=== PATIENT | female | born 1940 | race Caucasian/White ===

== ENCOUNTER 2016-03-23 07:10 | Day surgery (SDC) | payer MEDICARE, BC ==
[2016-03-04 16:15] VITALS: BMI 25.7
[~2016-03-23 07:10] MED LIST: LACTATED RINGERS 1,000 ML IV SCH
[2016-03-23 07:35] VITALS: TEMP 97.1
[2016-03-23] MEDS ORDERED: PROPOFOL 10 MG/ML 20 ML VIAL IV ONE (07:45)
--- NOTE | 2016-03-23 08:37 | P.PCN ---
Date of Procedure: 03/23/16 Procedure(s) Performed: Procedure: 1. Esophagogastroduodenoscopy and biopsy. 2. Total colonoscopy. Preoperative diagnosis: History of GI bleeding. Postoperative diagnosis: 1. Very small sliding hiatal hernia with no obvious esophagitis or complicated reflux disease. 2. Mild antral gastritis. 3. Small stellate shaped fibrotic area in the duodenal bulb, possibly a site of prior ulcer disease. 4. Sigmoid diverticulosis with no evidence of acute diverticulitis, strictures, polyps or cancer. Preparation: HalfLytely prep. Sedation: Was provided by anesthesia. Brief clinical history: The patient is a 75-year-old female who is scheduled for this evaluation because of history of GI bleeding. The patient has had heart valve replacement and is maintained on anticoagulation. This evaluation is to assess for a GI source of bleeding. Procedure: With the patient on her left lateral decubitus position and after informed consent and adequate sedation, I passed the Olympus-GIF 160 video upper endoscope through the cricopharyngeus down the esophagus. GE junction was around 37 cm from the incisors and there was a very small, less than 1 cm, sliding hiatal hernia. The esophagus did not show any erosions, ulcers, strictures or Olivo's esophagus. The endoscope was then passed into the stomach which was insufflated with air and inspected in detail including the retroflex view in the cardia. There was mild mottling and erythema in the antrum consistent with mild antral gastritis but no ulcers, erosions or bleeding. Pyloric channel did not show any ulcers. Duodenal bulb, post bulbar area and descending duodenum appeared within normal limits with the only finding of a small stellate-shaped fibrotic area in the duodenal bulb that could represent a prior site of an ulcer. There was no evidence of bleeding and all areas examined. Multiple biopsies obtained from the duodenum, antrum and esophagus then the endoscope was withdrawn and I then proceeded with the colonoscopy. Perianal area did not show any fissures or fistulas. There were no masses felt on digital rectal examination. The Olympus CFQ 160L video colonoscope was then inserted in the rectum in the usual fashion and advanced to the cecum. There were several diverticular orifices seen scattered in the sigmoid but I saw no evidence of acute diverticulitis or strictures. No polyps or tumors were seen. The mucosa appeared healthy. I retroflexed endoscope in the rectum before the endoscope was withdrawn. The patient tolerated the procedure well. Plan: The patient was reassured. Will await biopsy results. Further plans can be made based on her course and biopsy results. Consideration can be given for a capsule endoscopy if she continues to manifest evidence of bleeding in the GI tract and anemia. I would be happy to see in the future as needed. She will follow-up with you as planned.
[2016-03-23 08:39] VITALS: RESP 16
[2016-03-23 08:47] VITALS: BP 99/57; PULSE 56
== END 2016-03-23 09:07 | disposition home or self-care (01) ==
LOC: ORWHC2ENDO 07:10
DX: K29.50 Unspecified chronic gastritis without bleeding (principal); K31.89 Other diseases of stomach and duodenum; K44.9 Diaphragmatic hernia without obstruction or gangrene; K57.30 Diverticulosis of large intestine without perforation or abscess without bleeding; Z95.2 Presence of prosthetic heart valve; Z79.01 Long term (current) use of anticoagulants; I10 Essential (primary) hypertension; E78.5 Hyperlipidemia, unspecified; Z79.02 Long term (current) use of antithrombotics/antiplatelets; Z79.899 Other long term (current) drug therapy; Z88.0 Allergy status to penicillin; Z88.2 Allergy status to sulfonamides
CPT/HCPCS: 88305; 88342; 45378; 43239; J2704; 99153

== ENCOUNTER → 2016-03-29 | Outpatient (CLI) | payer MEDICARE, BC ==
[2016-03-29 10:34] LABS: Calcium 9.4 mg/dL (8.4-10.2); Potassium 4.8 mmol/L (3.5-5.1); Total Bilirubin 0.5 mg/dL (0.2-1.3); Total Protein 7.6 g/dL (6.3-8.2)
== END | disposition home or self-care (01) ==
LOC: LABWHC1 08:48
PROVIDERS: ATTEND Internal Medicine Interventional Cardiology
DX: E78.2 Mixed hyperlipidemia (principal)
CPT/HCPCS: 36415; 80053; 80061

== ENCOUNTER 2016-04-30 08:24 | Inpatient (IN) | payer MEDICARE, BC ==
[2016-04-30 08:39] LABS: Glucose,Whole Blood 112 mg/dL (75-99)
--- NOTE | 2016-04-30 08:40 | CT ---
EXAMINATION TYPE: CT brain wo con DATE OF EXAM: 04/30/2016 8:35 AM COMPARISON: NONE HISTORY: 75-year-old female having TIA symptoms. Aphasia. TECHNIQUE: Examination was done in axial plane without intravenous contrast. Coronal and sagittal r econstructions performed. CT DLP: 1036 mGycm Automated exposure control for dose reduction was used. FINDINGS: There is no evidence of acute intracranial hemorrhage, acute ischemic changes, mass, mass-effect, or extra-axial fluid collection. There is no effacement of cerebral sulci or basal subarachnoid cister ns. There is no hydrocephalus. There is no midline shift. Antonio-white matter distinction is preserv ed. There is mild generalized supratentorial volume loss with moderate confluent white matter hypodensiti es in both cerebral hemispheres. Paranasal sinuses and mastoid air cells well pneumatized. Leftward nasal septal deviation. Orbits and globes are intact. IMPRESSION: No acute intracranial abnormality seen. Mild atrophy and moderate confluent changes of chronic small vessel ischemic disease. If symptoms persist, follow-up CT or MRI.
[2016-04-30 08:51] LABS: Basophils % (A) 0 %; CH 27.4; CHCM 33.1; Eosinophils # (A) 0.1 k/uL (0-0.7); Eosinophils % (A) 1 %; HCT 40.7 % (34.0-46.0); HDW 2.55; HGB 13.4 gm/dL (11.4-16.0); Luc % (Auto) 4; Lymphocytes # (A) 1.4 k/uL (1.0-4.8); Lymphocytes % (A) 12 %; MCH 27.3 pg (25.0-35.0); MCV 82.9 fL (80.0-100.0); Mean Platelet Volume 7.2; Monocytes # (A) 0.6 k/uL (0-1.0); Monocytes % (A) 6 %; Neutrophils % (A) 77 %; RBC 4.91 m/uL (3.80-5.40); RDW 14.3 % (11.5-15.5); WBC 11.6 k/uL (3.8-10.6); WBC (Perox) 11.23
[2016-04-30 09:01] LABS: Calcium 10.1 mg/dL (8.4-10.2); INR 1.5 (<1.1); Partial Thromboplastin Time 28.3 sec (22.0-30.0); Potassium 4.6 mmol/L (3.5-5.1); Prothrombin Time 15.1 sec (9.0-12.0); Total Bilirubin 0.5 mg/dL (0.2-1.3); Total Protein 8.2 g/dL (6.3-8.2)
[2016-04-30] MEDS ORDERED: SODIUM CHLORIDE 0.9% 1,000 ML IV STA (09:09)
[2016-04-30 09:16] LABS: Creatine Kinase 25 U/L (30-135)
[2016-04-30 09:29] LABS: Creatine Kinase MB 0.4 ng/mL (0.0-2.4); Troponin I <0.012 ng/mL (0.000-0.034)
--- NOTE | 2016-04-30 09:37 | XR ---
EXAMINATION TYPE: XR chest 2V DATE OF EXAM: 04/30/2016 9:25 AM HISTORY: altered mental status. REFERENCE: Previous study dated 09/25/2014. FINDINGS: There has been a midline sternotomy. Lung volumes are prominent. Heart is mildly enlarged. The lungs are clear. Pleural spaces are clear. There are stable wedge compression fractures in the mid dorsal spine. IMPRESSION: 1. COPD. 2. MILD CARDIOMEGALY.
[2016-04-30] MEDS ORDERED: ACETAMINOPHEN IV (For NPO) 1,000 MG in EMPTY BAG 1 BAG IVPB STA (09:42)
--- NOTE | 2016-04-30 10:49 | ED ---
Neuro HPI - General Chief Complaint: Neuro Symptoms/Deficit Stated Complaint: TIA symptoms Time Seen by Provider: 04/30/16 08:24 Source: patient, family, EMS, RN notes reviewed Mode of arrival: EMS Limitations: no limitations - History of Present Illness Is the patient presenting with stroke symptoms?: Yes Last Known Well Date: 04/30/16 Last Known Well Time: 06:30 Initial Comments: Is a 75-year-old female was brought in by EMS for developing stroke like symptoms this morning. Apparently she got up around 6:30 AM and was perfectly fine but shortly thereafter she started developing some slurred speech some confusion. She also had a steady gait. She also complains of a headache. She also complains of feeling cold. She no fevers or sweats no cough or phlegm production no dysuria no prior history of strokes or neurovascular disorders. - Related Data Home Medications: Home Medications Medication Instructions Recorded Confirmed Atenolol [Atenolol] 100 mg PO BID 02/04/16 04/30/16 Losartan Potassium [Losartan 100 mg PO DAILY@1400 02/04/16 04/30/16 Potassium] Rosuvastatin Calcium [Crestor] 40 mg PO HS 02/04/16 04/30/16 Warfarin Sodium [Warfarin Sodium] 2.5 mg PO TUTHSA 02/04/16 04/30/16 Acetaminophen-Codeine 300-30mg 0.5 tab PO Q6H PRN 04/30/16 04/30/16 [Tylenol #3] Hydrochlorothiazide [Hydrodiuril] 50 mg PO TID 04/30/16 04/30/16 Methocarbamol [Robaxin] 500 mg PO TID PRN 04/30/16 04/30/16 Sodium Chloride Tab 1 gm PO DAILY 04/30/16 04/30/16 Warfarin [Coumadin] 5 mg PO SUMOWEFR 04/30/16 04/30/16 traMADol HCL [Ultram] 50 mg PO Q6HR PRN 04/30/16 04/30/16 Allergies/Adverse Reactions: Allergies Allergy/AdvReac Type Severity Reaction Status Date / Time amoxicillin Allergy Rash/Hives Verified 04/30/16 08:32 Sulfa (Sulfonamide Allergy Rash/Hives Verified 04/30/16 08:32 Antibiotics) Review of Systems ROS Statement: Those systems with pertinent positive or pertinent negative responses have been documented in the HPI. ROS Other: All systems not noted in ROS Statement are negative. General Exam - General Exam Comments Initial Comments: This is a well-developed well-nourished awake alert but somewhat confused female Limitations: no limitations General appearance: alert, anxious Head exam: Present: atraumatic, normocephalic, normal inspection Eye exam: Present: normal appearance, PERRL, EOMI. Absent: scleral icterus, conjunctival injection, periorbital swelling ENT exam: Present: normal exam, mucous membranes moist Neck exam: Present: normal inspection. Absent: tenderness, meningismus, lymphadenopathy Respiratory exam: Present: normal lung sounds bilaterally. Absent: respiratory distress, wheezes, rales, rhonchi, stridor Cardiovascular Exam: Present: regular rate, normal rhythm, normal heart sounds. Absent: systolic murmur, diastolic murmur, rubs, gallop, clicks GI/Abdominal exam: Present: soft, normal bowel sounds. Absent: distended, tenderness, guarding, rebound, rigid Extremities exam: Present: normal inspection, full ROM, normal capillary refill. Absent: tenderness, pedal edema, joint swelling, calf tenderness Back exam: Present: normal inspection Neurological exam: Present: alert, altered, CN II-XII intact Psychiatric exam: Present: normal affect, normal mood Skin exam: Present: warm, dry, intact, normal color. Absent: rash Stroke MDM - Lab Data Result diagrams: 04/30/16 08:37 04/30/16 08:37 Lab Results 04/30/16 04/30/16 04/30/16 Range/Units 08:35 08:37 08:37 WBC 11.6 H (3.8-10.6) k/uL RBC 4.91 (3.80-5.40) m/uL Hgb 13.4 (11.4-16.0) gm/dL Hct 40.7 (34.0-46.0) % MCV 82.9 (80.0-100.0) fL MCH 27.3 (25.0-35.0) pg MCHC 33.0 (31.0-37.0) g/dL RDW 14.3 (11.5-15.5) % Plt Count 392 (150-450) k/uL Neutrophils % 77 % Lymphocytes % 12 % Monocytes % 6 % Eosinophils % 1 % Basophils % 0 % Neutrophils # 9.0 H (1.3-7.7) k/uL Lymphocytes # 1.4 (1.0-4.8) k/uL Monocytes # 0.6 (0-1.0) k/uL Eosinophils # 0.1 (0-0.7) k/uL Basophils # 0.0 (0-0.2) k/uL PT (9.0-12.0) sec INR (<1.1) APTT (22.0-30.0) sec Sodium 133 L (137-145) mmol/L Potassium 4.6 (3.5-5.1) mmol/L Chloride 94 L (98-107) mmol/L Carbon Dioxide 27 (22-30) mmol/L Anion Gap 12 mmol/L BUN 26 H (7-17) mg/dL Creatinine 1.23 H (0.52-1.04) mg/dL Est GFR (MDRD) Af Amer 51 (>60 ml/min/1.73 sqM) Est GFR (MDRD) Non-Af 42 (>60 ml/min/1.73 sqM) Glucose 118 H (74-99) mg/dL POC Glucose (mg/dL) 112 H (75-99) mg/dL POC Glu [employer] Dealer ID Joseluis Lord Calcium 10.1 (8.4-10.2) mg/dL Total Bilirubin 0.5 (0.2-1.3) mg/dL AST 33 (14-36) U/L ALT 38 (9-52) U/L Alkaline Phosphatase 118 (38-126) U/L Total Creatine Kinase (30-135) U/L CK-MB (CK-2) (0.0-2.4) ng/mL CK-MB (CK-2) Rel Index Troponin I (0.000-0.034) ng/mL Total Protein 8.2 (6.3-8.2) g/dL Albumin 4.5 (3.5-5.0) g/dL 04/30/16 04/30/16 Range/Units 08:37 08:37 WBC (3.8-10.6) k/uL RBC (3.80-5.40) m/uL Hgb (11.4-16.0) gm/dL Hct (34.0-46.0) % MCV (80.0-100.0) fL MCH (25.0-35.0) pg MCHC (31.0-37.0) g/dL RDW (11.5-15.5) % Plt Count (150-450) k/uL Neutrophils % % Lymphocytes % % Monocytes % % Eosinophils % % Basophils % % Neutrophils # (1.3-7.7) k/uL Lymphocytes # (1.0-4.8) k/uL Monocytes # (0-1.0) k/uL Eosinophils # (0-0.7) k/uL Basophils # (0-0.2) k/uL PT 15.1 H (9.0-12.0) sec INR 1.5 (<1.1) APTT 28.3 (22.0-30.0) sec Sodium (137-145) mmol/L Potassium (3.5-5.1) mmol/L Chloride (98-107) mmol/L Carbon Dioxide (22-30) mmol/L Anion Gap mmol/L BUN (7-17) mg/dL Creatinine (0.52-1.04) mg/dL Est GFR (MDRD) Af Amer (>60 ml/min/1.73 sqM) Est GFR (MDRD) Non-Af (>60 ml/min/1.73 sqM) Glucose (74-99) mg/dL POC Glucose (mg/dL) (75-99) mg/dL POC Glu Faro Dealer ID Calcium (8.4-10.2) mg/dL Total Bilirubin (0.2-1.3) mg/dL AST (14-36) U/L ALT (9-52) U/L Alkaline Phosphatase (38-126) U/L Total Creatine Kinase 25 L (30-135) U/L CK-MB (CK-2) 0.4 (0.0-2.4) ng/mL CK-MB (CK-2) Rel Index 1.6 Troponin I <0.012 (0.000-0.034) ng/mL Total Protein (6.3-8.2) g/dL Albumin (3.5-5.0) g/dL - NIH Stroke Scale 1a. Level of Consciousness: (0) alert 1b. LOC Questions: (1) answers 1 question correctly 1c. LOC Commands: (0) performs tasks correctly 2. Best Gaze: (0) normal 3. Visual: (0) no visual loss 4. Facial Palsy: (0) normal symmetrical movement 5a. Motor Arm Left: (0) no drift 5b. Motor Arm Right: (0) no drift 6a. Motor Leg Left: (0) no drift 6b. Motor Leg Right: (0) no drift 7. Limb Ataxia: (0) absent 8. Sensory: (0) normal 9. Best Language: (1) mild/moderate aphasia 10. Dysarthria: (0) normal 11. Extinction/Inattention: (0) no abnormality - Thrombolytic Inclusion/Exclusion Thrombolytic Inclusion Criteria: Ischemic Stroke Onset< 3h Thrombolytic Contraindications: Rapidly Improving s/s - Medical Decision Making Imaging study shows no acute findings. I did discuss findings with the patient and her . Patient be admitted I did discuss case with Dr. Camp neurology and cardiology will be consulted. Echocardiogram and carotid duplex study will be ordered - EKG Data -: EKG Interpreted by Me EKG shows normal: sinus rhythm (Sinus bradycardia rate of 58 W[place] interval 184 QRS duration 82 daily since QTC of 460/451 minimal voltage criteria for LVH no acute ST-T wave changes.) Past Medical History Past Medical History: Coronary Artery Disease (CAD), Hypertension, Osteoarthritis (OA), Vascular Disorder Additional Past Medical History / Comment(s): Hx black stools x 2 days. Lt knee pain. Reported lt hip problem. History of Any Multi-Drug Resistant Organisms: None Reported Past Surgical History: Cardiac Valve Replacement, Coronary Bypass/CABG, Hysterectomy Additional Past Surgical History / Comment(s): Mick carotid surgery. [facility] [facility] valve replacement. Past Anesthesia/Blood Transfusion Reactions: No Reported Reaction Past Psychological History: No Psychological Hx Reported Smoking Status: Former smoker Past Alcohol Use History: Occasional Additional Past Alcohol Use History / Comment(s): Smoked 1 pack/wk for 2 yrs; quit in . Past Drug Use History: None Reported - Past Family History Sister(s) Family Medical History: Cancer Course Vital Signs 04/30/16 04/30/16 04/30/16 08:25 08:40 08:55 Temperature 97.2 F L Pulse Rate 61 64 62 Respiratory 18 17 17 Rate Blood Pressure 161/76 160/113 168/72 O2 Sat by Pulse 100 99 Oximetry 04/30/16 04/30/16 04/30/16 09:32 10:32 11:48 Temperature 97.8 F 97.8 F Pulse Rate 60 61 62 Respiratory 17 17 17 Rate Blood Pressure 170/70 152/66 152/66 O2 Sat by Pulse 100 100 Oximetry - Reevaluation(s) Reevaluation #1: 04/30/16 10:51 I did evaluate patient on her return from CAT scan was no seeming improvement initially. Reevaluation #2: 04/30/16 11:16 Patient's he did demonstrates some improvement I did discuss findings with her and her family patient will be admitted for evaluation. Patient was seen by Dr. Singer I had the stroke robot patient is currently not a candidate for intervention. Critical Care Time Critical Care Time: Yes Critical Care Time: Critical care time includes 43 minutes total this includes monitoring the EMS run prior to hospital contact discussed with paramedics discussion with the patient with respect to history physical lab and x-rays scheduled the patient's reevaluation the patient on several occasions. A code stroke was activated. Admission orders and documentation the above as well as discussion with the admitting physician. Disposition Clinical Impression: Cerebrovascular accident, Transient cerebral ischemia, Renal insufficiency Disposition: ADMITTED IP TO THIS HOSP Condition: Serious
--- NOTE | 2016-04-30 14:27 | P.HPIM ---
History of Present Illness H&P Date: 04/30/16 Chief Complaint: CVA/TIA, expression aphasia, change mental status, recent history of severe 75-year-old female one of Dr. Alphonse Dupree patient with past medical history of CAD, uterine cancer, stage II chronic kidney disease, lower back pain, Ostarthritis, lumbar disc disease, aortic valve replacement on a chronic anticoagulation who was apparently hospitalized at [facility] recently with severe anemia black stool along with severe hyponatremia was diagnosed as an SIADH. Patient was seen nephrology was on fluid restriction along with seen as an inpatient for few days taking diuretics away and patient was cleared not to have any further gastrointestinal bleed patient was discharged from the hospital about 10 days ago was doing well until this morning when found by the to be more confused and had significant change mental status with more expression aphasia not remembering simple command. EMS was called to the scene and end up bringing patient to the emergency department around 6:30 in the morning for diagnosis of CVA versus TIA , the stroke team was activated and testing consistent with CT of the brain along with her physical which improved significantly patient had a clear and decided no need to use thrombolytic. Patient will have neuro exam every 3 hours and will be admitted to the hospital will be seen neurology and cardiology. Review of Systems Constitutional: Reports anorexia, Reports chronic pain, Reports fatigue, Reports lethargy, Reports malaise, Reports poor appetite, Reports sweats, Reports weakness, Reports weight loss, Denies as per HPI, Denies chills, Denies chronic headaches, Denies daytime sleepiness, Denies fever, Denies night sweats , Denies weight gain Eyes: bilateral as per HPI Ears: bilateral: decreased hearing Ears, nose, mouth and throat: Reports ant. neck pain, Reports nasal congestion, Reports nasal discharge, Reports sinus pain, Reports sinus pressure, Denies as per HPI, Denies bleeding gums, Denies dental pain, Denies dysphagia, Denies epistaxis, Denies headache, Denies hoarseness, Denies mouth pain, Denies neck fullness/pressure, Denies neck lump, Denies nose pain, Denies odynophagia, Denies post-nasal drip, Denies swelling in mouth, Denies swelling in throat, Denies sore throat, Denies vertigo, Denies voice changes Breasts: bilateral: as per HPI Cardiovascular: Reports chest pain, Reports dyspnea on exertion, Reports edema, Reports irregular heart beat, Reports lightheadedness, Reports paroxysmal nocturnal dyspnea, Reports shortness of breath, Denies as per HPI, Denies claudication, Denies decreased exercise tolerance, Denies high blood pressure, Denies leg edema, Denies orthopnea, Denies palpitations, Denies phlebitis, Denies rapid heart beat, Denies syncope Respiratory: Reports congestion, Reports cough, Reports dyspnea, Reports pain, Denies as per HPI, Denies cough with sputum, Denies excessive sputum, Denies hemoptysis, Denies home oxygen, Denies pain on inspiration, Denies pleurisy, Denies respiratory infections, Denies sleep apnea, Denies snoring, Denies wheezing Gastrointestinal: Reports abdominal pain, Reports bloating, Reports early satiety, Reports indigestion, Reports nausea, Denies as per HPI, Denies belching , Denies BRBPR, Denies change in bowel habits, Denies coffee ground emesis, Denies constipation, Denies diarrhea, Denies dyspepsia, Denies excessive gas, Denies heartburn, Denies hematemesis, Denies hematochezia, Denies jaundice, Denies lactose intolerance, Denies loss of appetite, Denies melena, Denies vomiting Genitourinary: Reports nocturia, Denies as per HPI, Denies abnormal vaginal bleeding, Denies decreased libido, Denies difficulty conceiving, Denies difficulty voiding, Denies dysmenorrhea, Denies dyspareunia, Denies dysuria, Denies flank pain, Denies genital sores, Denies hematuria, Denies hot flashes, Denies incomplete emptying, Denies kidney stones, Denies menorrhagia, Denies mixed incontinence, Denies pelvic pain, Denies post void dribbling, Denies , Denies prolapse symptoms, Denies stress incontinence, Denies urge incontinence, Denies urgency, Denies urinary frequency, Denies vaginal discharge , Denies vaginal dryness, Denies vaginal itching, Denies vaginal odor Musculoskeletal: Reports frequent falls, Reports low back pain, Reports morning stiffness, Reports myalgias, Reports neck pain, Denies as per HPI, Denies arm numbness/tingling, Denies atrophy, Denies fractures, Denies gait dysfunction, Denies hot joints, Denies leg numbness/tingling, Denies limitation of motion, Denies loss of height, Denies muscle cramps, Denies muscle weakness, Denies neck stiffness, Denies prior amputations, Denies redness of joints, Denies shooting arm pain, Denies shooting leg pain Musculoskeletal: bilateral: ankle pain, ankle stiffness Integumentary: Reports dryness, Reports pruritus, Reports rash, Denies as per HPI, Denies acne, Denies boils, Denies brittle nails, Denies change in hair/ nails, Denies color changes, Denies darkening of skin, Denies depigmentation, Denies foot/leg ulcers, Denies growths, Denies hirsutism, Denies lesions, Denies onychomycosis, Denies sores, Denies striae, Denies unusual bruising, Denies wounds Neurological: Reports ataxia, Reports burning pain, Reports confusion, Reports numbness, Reports paresthesias, Reports syncope, Reports tic, Reports tingling, Denies as per HPI, Denies aphasia, Denies balance difficulties, Denies change in mentation, Denies change in smell/taste, Denies change in speech, Denies convulsions, Denies double vision, Denies gait dysfunction, Denies head injury, Denies headaches, Denies hearing difficulties, Denies lack of coordination, Denies loss of vision, Denies memory loss, Denies migraines, Denies motor disturbance, Denies paralysis, Denies seizures, Denies sensory deficit, Denies spasticity, Denies transient paralysis, Denies tremors, Denies vertigo, Denies weakness, Denies visual changes Psychiatric: Reports anhedonia, Reports anxiety, Reports depression, Reports memory loss, Reports sadness/tearfulness, Denies as per HPI, Denies anxiety attacks, Denies change in appetite, Denies change in libido, Denies change in sleep habits, Denies confusion, Denies difficulty concentrating, Denies disorientation, Denies hallucinations, Denies hopelessness, Denies hypersomnia, Denies insomnia, Denies irritability, Denies mood swings, Denies paranoia, Denies sleep disturbances, Denies suicidal ideation Endocrine: Reports fatigue, Reports heat intolerance, Reports nocturia, Reports polydipsia, Reports polyphagia, Reports polyuria, Denies as per HPI, Denies cold intolerance, Denies deepening of the voice, Denies excessive sweating, Denies excessive thirst, Denies flushing, Denies high blood sugars, Denies increase in ring/shoe/hat size, Denies low blood sugars, Denies palpitations, Denies proptosis, Denies recent glucocorticoid use, Denies thyroid mass, Denies weight change Hematologic/Lymphatic: Reports easy bleeding, Reports easy bruising, Denies as per HPI, Denies lymphadenopathy, Denies lymphedema, Denies thrombophilia Allergic/Immunologic: Reports allergic rhinitis, Denies as per HPI, Denies anaphylaxis, Denies angioedema, Denies gluten intolerance, Denies persistent infections, Denies seasonal allergies, Denies urticaria, Denies wheezing Past Medical History Past Medical History: Coronary Artery Disease (CAD), Hyperlipidemia, Hypertension, Osteoarthritis (OA), Vascular Disorder Additional Past Medical History / Comment(s): Pt recently hospitalized at [facility] on 04/18/16 with CKD stage II, hyponatremia. Other HX: Recent black stools x 2 days-had EGD/colonoscopy showing gastritis and diverticulosis, hemorroids, polyps, Lt hip pain (needs total hip replacement), L knee meniscus tear, tripped and fell 3 weeks ago-struck face/R eye, has "hairline fracture lower back", protein calorie malnutrition History of Any Multi-Drug Resistant Organisms: None Reported Past Surgical History: Cardiac Valve Replacement, Hysterectomy Additional Past Surgical History / Comment(s): Mick carotid surgery, [address] [facility] aortic valve replacement, 03/23/16 EGD and colonoscopy, past colonoscopy with polypectomy. Past Anesthesia/Blood Transfusion Reactions: No Reported Reaction Past Psychological History: Anxiety Additional Psychological History / Comment(s): Pt resides with her spouse. She is using a walker to ambulate. She also has a cane. She has not been driving lately, her spouse does. Smoking Status: Former smoker Past Alcohol Use History: Occasional Additional Past Alcohol Use History / Comment(s): Smoked 1 pack/wk for 2 yrs; quit 01/26/80. Pt states she will have an occasional glass of wine. Past Drug Use History: None Reported - Past Family History Sister(s) Family Medical History: Cancer Father Family Medical History: Diabetes Mellitus Additional Family Medical History / Comment(s): Father had tuberculosis. Mother Family Medical History: Dementia Medications and Allergies Home Medications Medication Instructions Recorded Confirmed Type Atenolol [Atenolol] 100 mg PO BID 02/04/16 04/30/16 History Losartan Potassium [Losartan 100 mg PO DAILY@1400 02/04/16 04/30/16 History Potassium] Rosuvastatin Calcium [Crestor] 40 mg PO HS 02/04/16 04/30/16 History Warfarin Sodium [Warfarin Sodium] 2.5 mg PO TUTHSA 02/04/16 04/30/16 History Acetaminophen-Codeine 300-30mg 0.5 tab PO Q6H PRN 04/30/16 04/30/16 History [Tylenol #3] Hydrochlorothiazide [Hydrodiuril] 50 mg PO TID 04/30/16 04/30/16 History Methocarbamol [Robaxin] 500 mg PO TID PRN 04/30/16 04/30/16 History Sodium Chloride Tab 1 gm PO DAILY 04/30/16 04/30/16 History Warfarin [Coumadin] 5 mg PO SUMOWEFR 04/30/16 04/30/16 History traMADol HCL [Ultram] 50 mg PO Q6HR PRN 04/30/16 04/30/16 History Allergies Allergy/AdvReac Type Severity Reaction Status Date / Time amoxicillin Allergy Rash/Hives Verified 04/30/16 08:32 Sulfa (Sulfonamide Allergy Rash/Hives Verified 04/30/16 08:32 Antibiotics) Physical Exam Vitals: Vital Signs Temp Pulse Resp BP Pulse Ox 04/30/16 13:40 98.4 F 61 17 133/58 98 - Constitutional General appearance: no average body habitus, cooperative, no disheveled, no mild distress, no morbidly obese, no acute distress, no obese, no severe distress, no thin - EENT Eyes: no abnormal pupil, no anicteric sclerae, no disc margins sharp, no edentulous, no EOMI, no PERRLA, no fundus normal, no photophobia, no dentition normal, no poor dentition, no ptosis, no scleral icterus, normal appearance ENT: no hard of hearing, no hearing grossly normal, no NA/AT, no normal oropharynx, no other, pharyngeal erythema, no thrush, no tonsillar exudates, no tonsillar swelling Ears: bilateral: normal - Neck Neck: no lymphadenopathy, normal ROM, no other, no rigidity, no stridor, no thyromegaly Carotids: bilateral: upstroke normal, upstroke delayed Thyroid: bilateral: normal size - Respiratory Respiratory: bilateral: CTA, diminished - Cardiovascular Rhythm: irregularly irregular Heart sounds: normal: S1, S2 Abnormal Heart Sounds: systolic murmur, S3 Gallop - Gastrointestinal General gastrointestinal: no absent bowel sounds, decreased bowel sounds, no distended, hepatomegaly, no hyperactive bowel sounds, no normal bowel sounds, no organomegaly, no rigid, no scaphoid, soft, no splenomegaly, no tenderness, no umbilical hernia, no ventral hernia - Integumentary Integumentary: no calor, no cellulitis, cyanotic, no decreased turgor, no flushed, no jaundiced, normal, no normal turgor, pale, rash, no ulcer - Neurologic Neurologic: CNII-XII intact - Musculoskeletal Musculoskeletal: gait normal, generalized weakness, strength equal bilaterally, no right sided weakness, no left sided weakness - Psychiatric Psychiatric: A&O x's 3, appropriate affect Results CBC & Chem 7: 04/30/16 08:37 04/30/16 08:37 Thrombosis Risk Factor Assmnt - DVT/VTE Prophylaxis DVT/VTE Prophylaxis: Pharmacologic Prophylaxis ordered, Mechanical Prophylaxis ordered - Choose All That Apply Any of the Below Risk Factors Present?: Yes Each Factor Represents 1 point: Obesity (BMI >25) Other Risk Factors: Yes Each Risk Factor Represents 2 Points: Age 61-74 years Other congenital or acquired thrombophilia - If yes, enter type in comment: No Thrombosis Risk Factor Assessment Total Risk Factor Score: 3 Thrombosis Risk Factor Assessment Level: Moderate Risk Assessment and Plan Plan: 1 acute CVA/TIA: Symptoms have and reverse so far and this is more TIA and CVA. Stroke team was activated, patient would have an echo, carotid ultrasound, neuro exam every 4 hours and Neuro consult also we'll consult cardiology for now and if need further management with DAVID might be recommended specially with patient's coagulation still subtherapeutic. 2 change mental status: Most likely TIA in origin at this point there is no secondary cause of this point no sign of UTI and sodium is back to normal from the hyponatremia she had a few weeks ago. 3 history of valvular heart disease with aortic valve replacement: Patient is still on anticoagulation still on small dose of beta charanjit. 4 hypertension: Well controlled on atenolol 100 mg twice a day and losartan 100 mg daily still on Hydrea diarrhea which to my knowledge was held from last time. 5 hyperlipidemia: On Crestor 40 mg daily. 6 recent history of GI bleed: Much better so far continue patient on omeprazole 20 mg daily. 7 recent history of SIADH with severe hyponatremia most likely was caused by diuretics has been off patient is doing well. 8 CK D: Stage II has been stable so far continue to watch kidney function on regular basis. 9 chronic lower back pain and severe sciatica patient has been on Robaxin and small dose of hydrocodone. Also patient known to have T12 compression fracture has been seen for pain management. Was on tramadol and Robaxin. 10 GI prophylaxis: Patient will be on omeprazole. 11 DVT prophylaxis: Patient has been on anticoagulation with warfarin PT/INR be done and daily basis. 12 CODE STATUS: Full code. Expectation from this admission: Patient be in the hospital for more than 2 nights.
[2016-04-30] MEDS: SODIUM CHLORIDE 0.9% 1,000 ML IV SCH ×2 (16:17→22:00)
--- NOTE | 2016-04-30 17:15 | US ---
EXAMINATION TYPE: US carotid duplex BILAT DATE OF EXAM: 04/30/2016 3:49 PM COMPARISON: No previous CLINICAL HISTORY: 75-year-old female, evaluate for Stenosis. TECHNIQUE: Duplex carotid ultrasound. Indirect Doppler criteria is utilized. FINDINGS: Antonio scale images show atherosclerotic change at both bifurcations with prominent plaque bilaterally. EXAM MEASUREMENTS: RIGHT: Peak Systolic Velocity (PSV) cm/sec ----- Right CCA: 72.1 ----- Right ICA: 122.4 ----- Right ECA: 133.2 ICA/CCA ratio: 1.7 RIGHT: End Diastole cm/sec ----- Right CCA: 9.5 ----- Right ICA: 28.0 ----- Right ECA: 18.7 LEFT: Peak Systolic Velocity (PSV) cm/sec ----- Left CCA: 138.5 ----- Left ICA: 181.0 ----- Left ECA: 220.0 ICA/CCA ratio: 1.3 LEFT: End Diastole cm/sec ----- Left CCA: 13.4 ----- Left ICA: 37.5 ----- Left ECA: 26.2 VERTEBRALS (direction of flow): Right Vertebral: Antegrade Left Vertebral: Retrograde TECHNOLOGIST NOTES: Bilateral intimal thickening, large amount of plaque throughout bilateral caroti ds, elevated velocities: right mid ECA, left distal CCA, left distal ICA, left bulb and left mid ECA, left vertebral shows retrograde flow. IMPRESSION: 1. Elevated velocities within the left common and left internal carotid arteries could reflect modera te proximal stenoses. 2. Retrograde flow detected in the left vertebral artery. Correlate for any symptoms of subclavian st eal. Criteria for Assigning % of Stenosis / Diameter reduction (Estimation based on the indirect measurements of the internal carotid artery velocities (ICA PSV). 1. Normal (no stenosis)=ICA PSV < 125 cm/s: ratio < 2.0: ICA EDV<40 cm/s. 2. Less than 50% stenosis=ICA PSV < 125 cm/s: ratio < 2.0: ICA EDV<40 cm/s. 3. 50 to 69% stenosis=ICA PSV of 125 to 230 cm/s: ration 2.0 ? 4.0: ICA EDV 40-100 cm/s. 4. Greater than 70% stenosis to near occlusion= ICA PSV > 230 cm/s: ratio > 4.0: ICA EDV > 100 cm/s. 5. Near occlusion= ICA PSV velocities may be low or undetectable: variable ratio and ICA EDV. 6. Total occlusion=unable to detect flow.
--- NOTE | 2016-04-30 17:50 | P.CNNES ---
History of Present Illness Consult date: 04/30/16 History of Present Illness: The patient 75-year-old right-handed white female who presents to the hospital with episode of dizziness. Is obtained from the patient and her was at is at her bedside. She apparently was recently hospitalized with syncopal episode at [facility] and was found to have some hyponatremia. She reports that she woke up this morning not feeling right. Her reports that she came to the living room and sat on the recliner. She went back to bed and soon afterward told him that she did not feel well. There was no slurred speech a aphasia d patient has a cardiac valve replacement and is on Coumadin. Her pro time on admission was 15.1 with an INR of 1.5 ouble vision or focal weakness. He describes a sense of lightheadedness. No loss of consciousness or loss of awareness. Does have a history of SIADH area and she was admitted to this hospital with stroke versus TIA. Can of the brain no acute abnormality. It did show Mild atrophy and chronic small vessel disease Review of Systems Constitutional: Denies chills, Denies fever Eyes: denies blurred vision, denies pain Ears, nose, mouth and throat: Denies headache, Denies sore throat Cardiovascular: Denies chest pain, Denies shortness of breath Respiratory: Denies cough Gastrointestinal: Denies abdominal pain, Denies diarrhea, Denies nausea, Denies vomiting Genitourinary: Denies dysuria, Denies hematuria Musculoskeletal: Denies myalgias Integumentary: Reports as per HPI Neurological: Reports as per HPI Psychiatric: Reports as per HPI Endocrine: Denies fatigue, Denies weight change Past Medical History Past Medical History: Coronary Artery Disease (CAD), Hyperlipidemia, Hypertension, Osteoarthritis (OA), Vascular Disorder Additional Past Medical History / Comment(s): Pt recently hospitalized at [facility] on 04/18/16 with CKD stage II, hyponatremia. Other HX: Recent black stools x 2 days-had EGD/colonoscopy showing gastritis and diverticulosis, hemorroids, polyps, Lt hip pain (needs total hip replacement), L knee meniscus tear, tripped and fell 3 weeks ago-struck face/R eye, has "hairline fracture lower back", protein calorie malnutrition History of Any Multi-Drug Resistant Organisms: None Reported Past Surgical History: Cardiac Valve Replacement, Hysterectomy Additional Past Surgical History / Comment(s): Mick carotid surgery, [address] [facility] aortic valve replacement, 03/23/16 EGD and colonoscopy, past colonoscopy with polypectomy. Past Anesthesia/Blood Transfusion Reactions: No Reported Reaction Past Psychological History: Anxiety Additional Psychological History / Comment(s): Pt resides with her spouse. She is using a walker to ambulate. She also has a cane. She has not been driving lately, her spouse does. Smoking Status: Former smoker Past Alcohol Use History: Occasional Additional Past Alcohol Use History / Comment(s): Smoked 1 pack/wk for 2 yrs; quit 01/26/80. Pt states she will have an occasional glass of wine. Past Drug Use History: None Reported - Past Family History Sister(s) Family Medical History: Cancer Father Family Medical History: Diabetes Mellitus Additional Family Medical History / Comment(s): Father had tuberculosis. Mother Family Medical History: Dementia Medications and Allergies Home Medications Medication Instructions Recorded Confirmed Type Atenolol [Atenolol] 100 mg PO BID 02/04/16 04/30/16 History Losartan Potassium [Losartan 100 mg PO DAILY@1400 02/04/16 04/30/16 History Potassium] Rosuvastatin Calcium [Crestor] 40 mg PO HS 02/04/16 04/30/16 History Warfarin Sodium [Warfarin Sodium] 2.5 mg PO TUTHSA 02/04/16 04/30/16 History Acetaminophen-Codeine 300-30mg 0.5 tab PO Q6H PRN 04/30/16 04/30/16 History [Tylenol #3] Hydrochlorothiazide [Hydrodiuril] 50 mg PO TID 04/30/16 04/30/16 History Methocarbamol [Robaxin] 500 mg PO TID PRN 04/30/16 04/30/16 History Sodium Chloride Tab 1 gm PO DAILY 04/30/16 04/30/16 History Warfarin [Coumadin] 5 mg PO SUMOWEFR 04/30/16 04/30/16 History traMADol HCL [Ultram] 50 mg PO Q6HR PRN 04/30/16 04/30/16 History Allergies Allergy/AdvReac Type Severity Reaction Status Date / Time amoxicillin Allergy Rash/Hives Verified 04/30/16 08:32 Sulfa (Sulfonamide Allergy Rash/Hives Verified 04/30/16 08:32 Antibiotics) Physical Examination - Vital Signs Vital Signs: Vital Signs Temp Pulse Resp BP Pulse Ox 04/30/16 13:40 98.4 F 61 17 133/58 98 - Constitutional General appearance: average body habitus - EENT EENT: PERRL, hearing intact, vision intact - Respiratory Respiratory: lungs clear - Cardiovascular Cardiovascular: regular rate, normal S1, normal S2 - Integumentary Integumentary: normal - Neurologic Mental status she was awake alert and oriented there was no a aphasia or dysarthria Cranial nerve examination: PERRL, EOMI, VFF, face symmetric, tongue midline Sensorimotor examination: intact Detailed motor examination: grossly full strength in all extremities Reflexes: 2+: knee - Psychiatric Psychiatric: mood/affect appropriate Results - Laboratory Findings CBC and BMP: 04/30/16 08:37 04/30/16 08:37 Assessment and Plan (1) Transient cerebral ischemia Status: Acute Code(s): G45.9 - TRANSIENT CEREBRAL ISCHEMIC ATTACK, UNSPECIFIED (2) Altered mental status Status: Acute Code(s): R41.82 - ALTERED MENTAL STATUS, UNSPECIFIED Plan: The patient is a 75-year-old woman with history of multiple medical problems including heart disease renal failure arthritis anemia and hyponatremia who presents to the hospital with dizziness. Her neurologic examination fails to demonstrate at this time any focal deficit. Her sodium was 133. CT of the brain did not show any acute process. Patient may have had a TIA area and she has undergone a carotid ultrasound which showed high velocities in the left carotid. She does see Dr. Tim as an outpatient and recommend consultation. Recommendation: Check echocardiogram, monitor sodium, consult vascular surgery , consult cardiac
[2016-04-30] MEDS ORDERED: WARFARIN 5 MG TAB PO SCH (18:00)
[2016-04-30] MEDS: Acetaminophen-Codeine 300-30mg TAB PO PRN ×2 (18:09→23:23)
[2016-04-30] MEDS: traMADol 50 MG TAB PO PRN (20:11)
[2016-04-30 20:57] LABS: Glucose,Whole Blood 138 mg/dL (75-99)
[2016-04-30] MEDS: ATENOLOL 50 MG TAB PO SCH (21:59)
[2016-04-30] MEDS: ATORVASTATIN 80 MG TAB PO SCH (22:00)
[2016-05-01 02:38] LABS: Glucose,Whole Blood 96 mg/dL (75-99)
[2016-05-01] MEDS: traMADol 50 MG TAB PO PRN ×2 (06:36→21:33)
[2016-05-01] MEDS: PANTOPRAZOLE 40 MG TABLET PO SCH (06:36)
[2016-05-01 07:01] LABS: INR 1.7 (<1.1); Prothrombin Time 16.3 sec (9.0-12.0)
[2016-05-01 07:02] LABS: ALT 37 U/L (9-52); AST 30 U/L (14-36); Alkaline Phosphatase 102 U/L (38-126); Anion Gap 8 mmol/L; Blood Urea Nitrogen 18 mg/dL (7-17); Carbon Dioxide 23 mmol/L (22-30); Chloride 104 mmol/L (98-107); Glucose 110 mg/dL (74-99); Non-African American GFR(MDRD) >60 (>60 ml/min/1.73 sqM); Potassium 4.5 mmol/L (3.5-5.1); Sodium 135 mmol/L (137-145); Total Bilirubin 0.5 mg/dL (0.2-1.3); Total Protein 6.9 g/dL (6.3-8.2)
[2016-05-01 07:09] LABS: Aty Lym Flag Slight; CHCM 31.7; HCT 36.9 % (34.0-46.0); HDW 2.51; HGB 11.4 gm/dL (11.4-16.0); MCH 26.2 pg (25.0-35.0); MCHC 30.7 g/dL (31.0-37.0); MCV 85.3 fL (80.0-100.0); Mean Platelet Volume 7.2; RBC 4.33 m/uL (3.80-5.40); RDW 14.4 % (11.5-15.5); WBC 10.3 k/uL (3.8-10.6); WBC (Perox) 10.57
[2016-05-01 07:12] LABS: Glucose,Whole Blood 100 mg/dL (75-99)
[2016-05-01 08:20] LABS: Add Differential Manual Differential
[2016-05-01 08:21] LABS: Nucleated Red Blood Cells 0 /100 WBC (0-0); Total Cells Counted 100
[2016-05-01 08:22] LABS: Crenated RBC Present; Ovalocytes Present
[2016-05-01] MEDS: SODIUM CHLORIDE 0.9% 1,000 ML IV SCH (08:44)
[2016-05-01] MEDS: SODIUM CHLORIDE TAB 1 GM TAB PO SCH ×2 (08:44→11:27)
[2016-05-01] MEDS: LOSARTAN 50 MG TAB PO SCH ×2 (08:44→14:53)
[2016-05-01] MEDS: ATENOLOL 50 MG TAB PO SCH ×3 (08:44→21:33)
--- NOTE | 2016-05-01 08:50 | P.CRDCN ---
History of Present Illness Consult date: 05/01/16 Reason for Consult (text): TIA/CVA Chief complaint: Dizziness, not feeling well History of present illness: This is a 75-year-old female with a past medical history of coronary artery disease, uterine cancer, stage II chronic kidney disease, lower back pain , osteoarthritis, aortic valve replacement on Coumadin, history of carotid artery disease and follows with Dr. Tim. Recent history of hospitalization with anemia following episodes of black stool. Also has a history of severe hyponatremia and was diagnosed with SIADH. Following a physician for GI bleed patient underwent EGD and colonoscopy that showed antral gastritis, possible site of prior ulcer disease as well as sigmoid diverticulosis without evidence of acute diverticulitis. According to the patient, she has been taking her Coumadin since discharge. Presented to the hospital for further submission with complaints of not feeling well, possible dizziness. Patient is very vague as to what symptoms she was having, cannot really recall the events leading to admission. CT of the brain showed no acute intracranial abnormality with mild atrophy and moderate confluent changes of chronic small vessel ischemic disease. Chest x-ray showed COPD and mild cardiomegaly. Carotid duplex showed elevated velocities at the left common and left internal carotid arteries and retrograde flow was detected in the left vertebral artery. Patient denies complaints of difficulties with speech, unilateral weakness, visual changes, difficulty swallowing or facial droop. Denies complaints of weakness however does have history of left leg problems including pain for which she is following with Dr. Cano. Upon examination this morning, patient is resting comfortably in bed. She denies any further complaints of not feeling well or dizziness. She is neurologically intact. Past Medical History Past Medical History: Coronary Artery Disease (CAD), Hyperlipidemia, Hypertension, Osteoarthritis (OA), Vascular Disorder Additional Past Medical History / Comment(s): Pt recently hospitalized at [facility] on 04/18/16 with CKD stage II, hyponatremia. Other HX: Recent black stools x 2 days-had EGD/colonoscopy showing gastritis and diverticulosis, hemorroids, polyps, Lt hip pain (needs total hip replacement), L knee meniscus tear, tripped and fell 3 weeks ago-struck face/R eye, has "hairline fracture lower back", protein calorie malnutrition History of Any Multi-Drug Resistant Organisms: None Reported Past Surgical History: Cardiac Valve Replacement, Hysterectomy Additional Past Surgical History / Comment(s): Mick carotid surgery, [address] [facility] aortic valve replacement, 03/23/16 EGD and colonoscopy, past colonoscopy with polypectomy. Past Anesthesia/Blood Transfusion Reactions: No Reported Reaction Past Psychological History: Anxiety Additional Psychological History / Comment(s): Pt resides with her spouse. She is using a walker to ambulate. She also has a cane. She has not been driving lately, her spouse does. Smoking Status: Former smoker Past Alcohol Use History: Occasional Additional Past Alcohol Use History / Comment(s): Smoked 1 pack/wk for 2 yrs; quit 01/26/80. Pt states she will have an occasional glass of wine. Past Drug Use History: None Reported - Past Family History Sister(s) Family Medical History: Cancer Father Family Medical History: Diabetes Mellitus Additional Family Medical History / Comment(s): Father had tuberculosis. Mother Family Medical History: Dementia Medications and Allergies Home Medications Medication Instructions Recorded Confirmed Type Atenolol [Atenolol] 100 mg PO BID 02/04/16 04/30/16 History Losartan Potassium [Losartan 100 mg PO DAILY@1400 02/04/16 04/30/16 History Potassium] Rosuvastatin Calcium [Crestor] 40 mg PO HS 02/04/16 04/30/16 History Warfarin Sodium [Warfarin Sodium] 2.5 mg PO TUTHSA 02/04/16 04/30/16 History Acetaminophen-Codeine 300-30mg 0.5 tab PO Q6H PRN 04/30/16 04/30/16 History [Tylenol #3] Hydrochlorothiazide [Hydrodiuril] 50 mg PO TID 04/30/16 04/30/16 History Methocarbamol [Robaxin] 500 mg PO TID PRN 04/30/16 04/30/16 History Sodium Chloride Tab 1 gm PO DAILY 04/30/16 04/30/16 History Warfarin [Coumadin] 5 mg PO SUMOWEFR 04/30/16 04/30/16 History traMADol HCL [Ultram] 50 mg PO Q6HR PRN 04/30/16 04/30/16 History Allergies Allergy/AdvReac Type Severity Reaction Status Date / Time amoxicillin Allergy Rash/Hives Verified 04/30/16 08:32 Sulfa (Sulfonamide Allergy Rash/Hives Verified 04/30/16 08:32 Antibiotics) Physical Exam Vitals: Vital Signs Temp Pulse Pulse Resp BP BP BP 05/01/16 07:42 97 F L 57 L 18 136/68 179/78 05/01/16 04:00 97.1 F L 61 18 106/54 05/01/16 00:00 97.7 F 61 18 138/60 210/84 04/30/16 20:00 97 F L 64 18 184/74 04/30/16 17:30 64 16 139/93 04/30/16 14:00 60 16 134/64 04/30/16 13:40 98.4 F 61 17 133/58 Pulse Ox 05/01/16 07:42 98 05/01/16 04:00 98 05/01/16 00:00 97 04/30/16 20:00 98 04/30/16 17:30 96 04/30/16 14:00 100 04/30/16 13:40 98 Intake and Output 04/30/16 05/01/16 05/01/16 22:59 06:59 14:59 Intake Total 370 1280 Output Total 325 Balance 370 955 Intake: IV 1100 Sodium Chloride 0.9% 1, 1100 000 ml @ 100 mls/hr IV . Q10H [facility] Rx#:[id number] Oral 370 180 Output: Urine 325 Other: Voiding Method Toilet Toilet # Voids 0 1 Weight 67.8 kg PHYSICAL EXAMINATION: HEENT: Head is atraumatic, normocephalic. Pupils equal, round. Neck is supple. There is no elevated jugular venous pressure. Left carotid bruit noted HEART EXAMINATION: Heart sounds regular, S1 and S2, prosthetic sounds crisp, with a systolic murmur. CHEST EXAMINATION: Lungs are clear to auscultation and precussion. No chest wall tenderness is noted on palpation or with deep breathing. ABDOMEN: Soft, nontender. Bowel sounds are heard. No organomegaly noted. EXTREMITIES: 2+ peripheral pulses with no evidence of peripheral edema and no calf tenderness noted. NEUROLOGIC patient is awake, alert and oriented x3. . Results 05/01/16 06:16 05/01/16 06:16 Cardiac Enzymes 04/30/16 04/30/16 05/01/16 Range/Units 14:34 20:14 06:16 AST 30 (14-36) U/L Troponin I <0.012 <0.012 (0.000-0.034) ng/mL Coagulation 05/01/16 Range/Units 06:16 PT 16.3 H (9.0-12.0) sec CBC 05/01/16 Range/Units 06:16 WBC 10.3 (3.8-10.6) k/uL RBC 4.33 (3.80-5.40) m/uL Hgb 11.4 (11.4-16.0) gm/dL Hct 36.9 (34.0-46.0) % Plt Count 355 (150-450) k/uL Comprehensive Metabolic Panel 05/01/16 Range/Units 06:16 Sodium 135 L (137-145) mmol/L Potassium 4.5 (3.5-5.1) mmol/L Chloride 104 (98-107) mmol/L Carbon Dioxide 23 (22-30) mmol/L BUN 18 H (7-17) mg/dL Creatinine 0.90 (0.52-1.04) mg/dL Glucose 110 H (74-99) mg/dL Calcium 9.0 (8.4-10.2) mg/dL AST 30 (14-36) U/L ALT 37 (9-52) U/L Alkaline Phosphatase 102 (38-126) U/L Total Protein 6.9 (6.3-8.2) g/dL Albumin 3.7 (3.5-5.0) g/dL Current Medications Generic Name Dose Route Start Last Admin Trade Name Freq PRN Reason Stop Dose Admin Acetaminophen/Codeine Phosphate 0.5 each 04/30/16 14:27 04/30/16 23:23 Tylenol #3 PO 0.5 each Q6H PRN Administration Moderate Pain Atenolol 100 mg 04/30/16 21:00 04/30/16 21:59 Tenormin PO 100 mg BID [facility] Administration Atorvastatin Calcium 80 mg 04/30/16 21:00 04/30/16 22:00 Lipitor PO 80 mg HS ULISES Administration Sodium Chloride 1,000 mls @ 100 mls/hr 04/30/16 12:00 04/30/16 22:00 Saline 0.9% IV 100 mls/hr .Q10H [facility] Administration Losartan Potassium 100 mg 05/01/16 14:00 Cozaar PO DAILY@1400 [facility] Pantoprazole Sodium 40 mg 05/01/16 07:30 05/01/16 06:36 Protonix PO 40 mg [id number] ULIESS Administration Sodium Chloride 1 gm 05/01/16 09:00 Sodium Chloride Tab PO DAILY [facility]IS[facility] Tramadol HCl 50 mg 04/30/16 14:27 05/01/16 06:36 Ultram PO 50 mg Q6HR PRN Administration Pain Warfarin Sodium 5 mg 04/30/16 18:00 04/30/16 18:10 Coumadin PO 5 mg SUMOWEFR [facility] Administration Warfarin Sodium 2.5 mg 05/01/16 18:00 Coumadin PO TUTHSA [facility] Intake and Output 04/30/16 05/01/16 05/01/16 22:59 06:59 14:59 Intake Total 370 1280 Output Total 325 Balance 370 955 Intake: IV 1100 Sodium Chloride 0.9% 1, 1100 000 ml @ 100 mls/hr IV . Q10H [facility] Rx#:[id number] Oral 370 180 Output: Urine 325 Other: Voiding Method Toilet Toilet # Voids 0 1 Weight 67.8 kg 05/01/16 06:16 05/01/16 06:16 EKG Interpretations (text) Sinus bradycardia with nonspecific ST-T wave abnormalities Assessment and Plan Plan: Assessment and plan #1 symptoms of dizziness and altered mental status, possible TIA #2 history of mechanical aortic valve replacement, on Coumadin #3 recent history of GI bleed #4 hypertension #5 carotid artery disease status post carotid endarterectomy, follows with Dr. Tim From Cardiology's perspective, we will review 2-D echo with Doppler.
[2016-05-01] MEDS ORDERED: ENOXAPARIN 60 MG/0.6 ML SYRINGE SQ STA (09:29)
--- NOTE | 2016-05-01 10:03 | P.GSCN ---
History of Present Illness History of present illness: 75-year-old white female, Malcolm has been admitted with history of dizziness, no history of TIA or embolus previous, no history of speech disorder patient is known to me from the office she had a computed tomography scan which was negative for intracranial bleed, patient also had ultrasound of the carotid which shows left common and internal moderate stenosis with antegrade flow to the vertebral artery Medical history history of for hypertension coronary artery disease hyperlipidemia patient is on Coumadin and Surgical history patient had aortic valve replaced in the past Neck examination no bruit appreciated Chest clear first and second sound normal Abdomen soft nontender Vascular examination femoral pulses are present patient has a normal motor function Ultrasound shows moderate stenosis left ventricular artery and common carotid artery we will follow with you at this time patient does not get any surgical intervention Past Medical History Past Medical History: Coronary Artery Disease (CAD), Hyperlipidemia, Hypertension, Osteoarthritis (OA), Vascular Disorder Additional Past Medical History / Comment(s): Pt recently hospitalized at [facility] on 04/18/16 with CKD stage II, hyponatremia. Other HX: Recent black stools x 2 days-had EGD/colonoscopy showing gastritis and diverticulosis, hemorroids, polyps, Lt hip pain (needs total hip replacement), L knee meniscus tear, tripped and fell 3 weeks ago-struck face/R eye, has "hairline fracture lower back", protein calorie malnutrition History of Any Multi-Drug Resistant Organisms: None Reported Past Surgical History: Cardiac Valve Replacement, Hysterectomy Additional Past Surgical History / Comment(s): Mick carotid surgery, [address] [facility] aortic valve replacement, 03/23/16 EGD and colonoscopy, past colonoscopy with polypectomy. Past Anesthesia/Blood Transfusion Reactions: No Reported Reaction Past Psychological History: Anxiety Additional Psychological History / Comment(s): Pt resides with her spouse. She is using a walker to ambulate. She also has a cane. She has not been driving lately, her spouse does. Smoking Status: Former smoker Past Alcohol Use History: Occasional Additional Past Alcohol Use History / Comment(s): Smoked 1 pack/wk for 2 yrs; quit 01/26/80. Pt states she will have an occasional glass of wine. Past Drug Use History: None Reported - Past Family History Sister(s) Family Medical History: Cancer Father Family Medical History: Diabetes Mellitus Additional Family Medical History / Comment(s): Father had tuberculosis. Mother Family Medical History: Dementia Medications and Allergies Home Medications Medication Instructions Recorded Confirmed Type Atenolol [Atenolol] 100 mg PO BID 02/04/16 04/30/16 History Losartan Potassium [Losartan 100 mg PO DAILY@1400 02/04/16 04/30/16 History Potassium] Rosuvastatin Calcium [Crestor] 40 mg PO HS 02/04/16 04/30/16 History Warfarin Sodium [Warfarin Sodium] 2.5 mg PO TUTHSA 02/04/16 04/30/16 History Acetaminophen-Codeine 300-30mg 0.5 tab PO Q6H PRN 04/30/16 04/30/16 History [Tylenol #3] Hydrochlorothiazide [Hydrodiuril] 50 mg PO TID 04/30/16 04/30/16 History Methocarbamol [Robaxin] 500 mg PO TID PRN 04/30/16 04/30/16 History Sodium Chloride Tab 1 gm PO DAILY 04/30/16 04/30/16 History Warfarin [Coumadin] 5 mg PO SUMOWEFR 04/30/16 04/30/16 History traMADol HCL [Ultram] 50 mg PO Q6HR PRN 04/30/16 04/30/16 History Allergies Allergy/AdvReac Type Severity Reaction Status Date / Time amoxicillin Allergy Rash/Hives Verified 04/30/16 08:32 Sulfa (Sulfonamide Allergy Rash/Hives Verified 04/30/16 08:32 Antibiotics) Surgical - Exam Vital Signs Temp Pulse Resp BP Pulse Ox 97.2 F L 61 18 161/76 100 04/30/16 08:25 04/30/16 08:25 04/30/16 08:25 04/30/16 08:25 04/30/16 08:25 Results - Labs 05/01/16 06:16 05/01/16 06:16 Abnormal Lab Results - Last 24 Hours (Table) 04/30/16 05/01/16 05/01/16 Range/Units 20:55 06:16 06:16 MCHC 30.7 L (31.0-37.0) g/dL Neutrophils # (Manual) 7.8 H (1.3-7.7) k/uL Lymphocytes # (Manual) 0.9 L (1.0-4.8) k/uL Monocytes # (Manual) 1.5 H (0-1.0) k/uL PT 16.3 H (9.0-12.0) sec Sodium (137-145) mmol/L BUN (7-17) mg/dL Glucose (74-99) mg/dL POC Glucose (mg/dL) 138 H (75-99) mg/dL 05/01/16 05/01/16 Range/Units 06:16 06:42 MCHC (31.0-37.0) g/dL Neutrophils # (Manual) (1.3-7.7) k/uL Lymphocytes # (Manual) (1.0-4.8) k/uL Monocytes # (Manual) (0-1.0) k/uL PT (9.0-12.0) sec Sodium 135 L (137-145) mmol/L BUN 18 H (7-17) mg/dL Glucose 110 H (74-99) mg/dL POC Glucose (mg/dL) 100 H (75-99) mg/dL Diabetes panel 05/01/16 Range/Units 06:16 Sodium 135 L (137-145) mmol/L Potassium 4.5 (3.5-5.1) mmol/L Chloride 104 (98-107) mmol/L Carbon Dioxide 23 (22-30) mmol/L BUN 18 H (7-17) mg/dL Creatinine 0.90 (0.52-1.04) mg/dL Glucose 110 H (74-99) mg/dL Calcium 9.0 (8.4-10.2) mg/dL AST 30 (14-36) U/L ALT 37 (9-52) U/L Alkaline Phosphatase 102 (38-126) U/L Total Protein 6.9 (6.3-8.2) g/dL Albumin 3.7 (3.5-5.0) g/dL Calcium panel 05/01/16 Range/Units 06:16 Calcium 9.0 (8.4-10.2) mg/dL Albumin 3.7 (3.5-5.0) g/dL Pituitary panel 05/01/16 Range/Units 06:16 Sodium 135 L (137-145) mmol/L Potassium 4.5 (3.5-5.1) mmol/L Chloride 104 (98-107) mmol/L Carbon Dioxide 23 (22-30) mmol/L BUN 18 H (7-17) mg/dL Creatinine 0.90 (0.52-1.04) mg/dL Glucose 110 H (74-99) mg/dL Calcium 9.0 (8.4-10.2) mg/dL Adrenal panel 05/01/16 Range/Units 06:16 Sodium 135 L (137-145) mmol/L Potassium 4.5 (3.5-5.1) mmol/L Chloride 104 (98-107) mmol/L Carbon Dioxide 23 (22-30) mmol/L BUN 18 H (7-17) mg/dL Creatinine 0.90 (0.52-1.04) mg/dL Glucose 110 H (74-99) mg/dL Calcium 9.0 (8.4-10.2) mg/dL Total Bilirubin 0.5 (0.2-1.3) mg/dL AST 30 (14-36) U/L ALT 37 (9-52) U/L Alkaline Phosphatase 102 (38-126) U/L Total Protein 6.9 (6.3-8.2) g/dL Albumin 3.7 (3.5-5.0) g/dL
[2016-05-01 10:35] VITALS: BMI 25.6
--- NOTE | 2016-05-01 12:05 | P.PN ---
Subjective 75-year-old female one of Dr. Alphonse Dupree patient with past medical history of CAD, uterine cancer, stage II chronic kidney disease, lower back pain, Ostarthritis, lumbar disc disease, aortic valve replacement on a chronic anticoagulation who was apparently hospitalized at [facility] recently with severe anemia black stool along with severe hyponatremia was diagnosed as an SIADH. Patient was seen nephrology was on fluid restriction along with seen as an inpatient for few days taking diuretics away and patient was cleared not to have any further gastrointestinal bleed patient was discharged from the hospital about 10 days ago was doing well until this morning when found by the to be more confused and had significant change mental status with more expression aphasia not remembering simple command. EMS was called to the scene and end up bringing patient to the emergency department around 6:30 in the morning for diagnosis of CVA versus TIA , the stroke team was activated and testing consistent with CT of the brain along with her physical which improved significantly patient had a clear and decided no need to use thrombolytic. Patient will have neuro exam every 3 hours and will be admitted to the hospital will be seen neurology and cardiology. 05/01: INR is 1.7. Patient has been seen by Dr. Alvarez. Recommend consultation with Dr. Tim for high velocities in the left carotid. Echocardiogram has been obtained and report is pending. EEG is pending. Discussed with patient that her short-term memory is worsening and may benefit from medication such as Aricept. Therapies are pending. IV fluids changed to saline lock. Patient does state that she feels somewhat better from yesterday. Objective - Vital Signs Vital signs: Vital Signs Temp 97 F L 05/01/16 07:42 Pulse 57 L 05/01/16 07:42 Resp 18 05/01/16 07:42 BP 179/78 05/01/16 07:42 Pulse Ox 98 05/01/16 07:42 Intake & Output 04/30/16 05/01/16 05/01/16 18:59 06:59 18:59 Intake Total 370 1280 Output Total 325 Balance 370 955 Weight 67.8 kg Intake: IV 1100 Sodium Chloride 0.9% 1, 1100 000 ml @ 100 mls/hr IV . Q10H [facility] Rx#:[id number] Oral 370 180 Output: Urine 325 Other: Voiding Method Toilet # Voids 0 1 - Exam General appearance: no average body habitus, cooperative, no disheveled, no mild distress, no morbidly obese, no acute distress, no obese, no severe distress, no thin - EENT Eyes: no abnormal pupil, no anicteric sclerae, no disc margins sharp, no edentulous, no EOMI, no PERRLA, no fundus normal, no photophobia, no dentition normal, no poor dentition, no ptosis, no scleral icterus, normal appearance ENT: no hard of hearing, no hearing grossly normal, no NA/AT, no normal oropharynx, no other, pharyngeal erythema, no thrush, no tonsillar exudates, no tonsillar swelling Ears: bilateral: normal - Neck Neck: no lymphadenopathy, normal ROM, no other, no rigidity, no stridor, no thyromegaly Carotids: bilateral: upstroke normal, upstroke delayed Thyroid: bilateral: normal size - Respiratory Respiratory: bilateral: CTA, diminished - Cardiovascular Rhythm: irregularly irregular Heart sounds: normal: S1, S2 Abnormal Heart Sounds: systolic murmur, S3 Gallop - Gastrointestinal General gastrointestinal: no absent bowel sounds, decreased bowel sounds, no distended, hepatomegaly, no hyperactive bowel sounds, no normal bowel sounds, no organomegaly, no rigid, no scaphoid, soft, no splenomegaly, no tenderness, no umbilical hernia, no ventral hernia - Integumentary Integumentary: no calor, no cellulitis, cyanotic, no decreased turgor, no flushed, no jaundiced, normal, no normal turgor, pale, rash, no ulcer - Neurologic Neurologic: CNII-XII intact - Musculoskeletal Musculoskeletal: gait normal, generalized weakness, strength equal bilaterally, no right sided weakness, no left sided weakness - Psychiatric Psychiatric: A&O x's 3, appropriate affect - Labs CBC & Chem 7: 05/01/16 06:16 05/01/16 06:16 Labs: Abnormal Lab Results - Last 24 Hours (Table) 04/30/16 05/01/16 05/01/16 Range/Units 20:55 06:16 06:16 MCHC 30.7 L (31.0-37.0) g/dL PT 16.3 H (9.0-12.0) sec Sodium (137-145) mmol/L BUN (7-17) mg/dL Glucose (74-99) mg/dL POC Glucose (mg/dL) 138 H (75-99) mg/dL 05/01/16 05/01/16 Range/Units 06:16 06:42 MCHC (31.0-37.0) g/dL PT (9.0-12.0) sec Sodium 135 L (137-145) mmol/L BUN 18 H (7-17) mg/dL Glucose 110 H (74-99) mg/dL POC Glucose (mg/dL) 100 H (75-99) mg/dL Assessment and Plan Plan: 1 acute TIA: Symptoms have and reverse so far and this is more TIA and CVA. Stroke team was activated, patient would have an echo, carotid ultrasound, neuro exam every 4 hours and Neuro consult also we'll consult cardiology for now and if need further management with DAVID might be recommended specially with patient's coagulation still subtherapeutic. 2 change mental status: Most likely TIA in origin at this point there is no secondary cause of this point no sign of UTI and sodium is back to normal from the hyponatremia she had a few weeks ago. 3 history of valvular heart disease with aortic valve replacement: Patient is still on anticoagulation still on small dose of beta charanjit. 4 hypertension: Well controlled on atenolol 100 mg twice a day and losartan 100 mg daily still on Hydrea diarrhea which to my knowledge was held from last time. 5 hyperlipidemia: On Crestor 40 mg daily. 6 recent history of GI bleed: Much better so far continue patient on omeprazole 20 mg daily. 7 recent history of SIADH with severe hyponatremia most likely was caused by diuretics has been off patient is doing well. 8 CK D: Stage II has been stable so far continue to watch kidney function on regular basis. 9 chronic lower back pain and severe sciatica patient has been on Robaxin and small dose of hydrocodone. Also patient known to have T12 compression fracture has been seen for pain management. Was on tramadol and Robaxin. 10 GI prophylaxis: Patient will be on omeprazole. 11 DVT prophylaxis: Patient has been on anticoagulation with warfarin PT/INR be done and daily basis. 12 CODE STATUS: Full code. Discharge plan: To be determined Impression and plan of care have been directed as dictated by the signing physician. Ivania Ocasio nurse practitioner acting as scribe for signing physician. Time with Patient: Greater than 30
[2016-05-01 12:44] LABS: Glucose,Whole Blood 87 mg/dL (75-99)
[2016-05-01 15:11] VITALS: RESP 18
--- NOTE | 2016-05-01 15:45 | P.PN ---
Subjective This patient is a 75-year-old email and possible TIA. Patient had episode of dizziness as well as near syncope. She was recently evaluated for syncopal episode at [facility]. Apparently on the day of admission she was just not feeling well and felt lightheaded. She had no slurred speech. She does have a history of being on long-term anticoagulation with Coumadin as she has a cardiac valve replacement. Her initial INR on admission was 1.5. Her repeat INR today remained slightly subtherapeutic at 1.7. As noted she did have some hyponatremia. Her serum sodium today is 135. Patient is more awake and alert today and is feeling better. She is anxious to be discharged. She did undergo routine EEG today which was reviewed. Her EEG is within normal limits for her age with no evidence of any epileptiform changes. We reviewed the results of the EEG today but the patient. Neurologically she remains very much clear and intact. We will continue close neurological follow-up for the patient. As noted she has a history of heart valve replacement and is on long- term anticoagulation. We recommend she follow up with her construction carpenters helper for further management. We will continue close neurological follow-up with the patient during this admission. Objective - Vital Signs Vital signs: Vital Signs Temp 97.2 F L 05/01/16 15:10 Pulse 55 L 05/01/16 15:10 Resp 18 05/01/16 15:10 BP 198/81 05/01/16 15:10 Pulse Ox 100 05/01/16 15:10 Intake & Output 04/30/16 05/01/16 05/01/16 18:59 06:59 18:59 Intake Total 370 1280 350 Output Total 325 300 Balance 370 955 50 Weight 67.8 kg 67.8 kg Intake: IV 1100 350 Sodium Chloride 0.9% 1, 1100 350 000 ml @ 100 mls/hr IV . Q10H ULISES Rx#:[id number] Oral 370 180 Output: Urine 325 300 Other: Voiding Method Toilet Toilet # Voids 0 1 1 - Exam Physical examination: PHYSICAL EXAMINATION: Patient is resting comfortably in bed. VITAL SIGNS: Blood pressure is [165/80]. Heart rate is [55]. Respiration is [18] . Temperature is [97.2]. HEENT: Head is atraumatic, neck is supple, there were no carotid bruits. CHEST: Lungs are clear to auscultation and percussion. CARDIAC: S1, S2 normal rate and rhythm. There is no murmur. ABDOMEN: Soft and nontender. Bowel sounds are present. EXTREMITIES: There is no pedal edema. Peripheral pulses are present. Neurological examination: Patient has a nonfocal neurological examination today. - Labs CBC & Chem 7: 05/01/16 06:16 05/01/16 06:16 Labs: Abnormal Lab Results - Last 24 Hours (Table) 04/30/16 05/01/16 05/01/16 Range/Units 20:55 06:16 06:16 MCHC 30.7 L (31.0-37.0) g/dL Neutrophils # (Manual) 7.8 H (1.3-7.7) k/uL Lymphocytes # (Manual) 0.9 L (1.0-4.8) k/uL Monocytes # (Manual) 1.5 H (0-1.0) k/uL PT 16.3 H (9.0-12.0) sec Sodium (137-145) mmol/L BUN (7-17) mg/dL Glucose (74-99) mg/dL POC Glucose (mg/dL) 138 H (75-99) mg/dL 05/01/16 05/01/16 Range/Units 06:16 06:42 MCHC (31.0-37.0) g/dL Neutrophils # (Manual) (1.3-7.7) k/uL Lymphocytes # (Manual) (1.0-4.8) k/uL Monocytes # (Manual) (0-1.0) k/uL PT (9.0-12.0) sec Sodium 135 L (137-145) mmol/L BUN 18 H (7-17) mg/dL Glucose 110 H (74-99) mg/dL POC Glucose (mg/dL) 100 H (75-99) mg/dL Assessment and Plan Plan: This patient is a 75-year-old female initially admitted for episode of mild confusion and TIA. Patient underwent carotid Doppler ultrasound which revealed some changes in the left internal carotid artery. Patient was seen by vascular surgery yesterday by Dr. Tim. He reviewed her test results and she does not require any surgical intervention. Patient underwent routine EEG today which was reviewed and is normal for her age. We reviewed all of the test results today with the patient. Patient seems to be more awake and alert. She is being treated for slight hyponatremia. Her serum sodium today is 135. Her neurological examination is nonfocal. She has no focal weakness on examination. She may be considered for discharge home when she is cleared by the other specialists. Her overall prognosis at this time remains fair.
--- NOTE | 2016-05-01 16:55 | EEG ---
DATE OF SERVICE: 05/01/2016 INDICATIONS FOR EXAMINATION: This patient is a 75-year-old female being evaluated for TIA and altered mental status. AGE: 75Y EEG FINDINGS: A routine 21-channel, awake digital EEG recording was accomplished utilizing the 10 to 20 international system with bipolar and referential montages. The background activity in the most alert resting state consists of a low to medium amplitude, fairly well developed and well sustained 8 Hz activity over the posterior head regions. This posterior rhythm attenuates to eye opening. There is a small amount of low amplitude 18 to 20 Hz beta activity seen maximally over the anterior head regions. Muscle and movement artifact was observed on a few occasions during the tracing. Hyperventilation was not performed. Photic stimulation at flash frequencies of 2 to 30 Hz produced a good symmetrical occipital driving response. No epileptiform discharges were seen. IMPRESSION: This EEG is within normal limits for the patient's age. The EEG failed to reveal any focal, lateralized or epileptiform abnormalities. Clinical correlation is recommended.
[2016-05-01 17:16] LABS: Glucose,Whole Blood 95 mg/dL (75-99)
[2016-05-01] MEDS ORDERED: WARFARIN 2.5 MG TAB PO SCH (18:00)
[2016-05-01 21:22] LABS: Glucose,Whole Blood 95 mg/dL (75-99)
[2016-05-01] MEDS: ATORVASTATIN 80 MG TAB PO SCH (21:33)
[2016-05-02 01:53] LABS: Glucose,Whole Blood 86 mg/dL (75-99)
[2016-05-02 08:15] LABS: Glucose,Whole Blood 100 mg/dL (75-99)
[2016-05-02] MEDS: PANTOPRAZOLE 40 MG TABLET PO SCH (08:21)
[2016-05-02] MEDS: SODIUM CHLORIDE TAB 1 GM TAB PO SCH (08:21)
[2016-05-02] MEDS: ATENOLOL 50 MG TAB PO SCH (08:21)
[2016-05-02 08:25] VITALS: BP 155/57; PULSE 54; TEMP 97.2
[2016-05-02 08:27] LABS: INR 2.2 (<1.1); Prothrombin Time 20.8 sec (9.0-12.0)
[2016-05-02 08:39] LABS: Anion Gap 11 mmol/L; Blood Urea Nitrogen 16 mg/dL (7-17); Calcium 9.6 mg/dL (8.4-10.2); Carbon Dioxide 23 mmol/L (22-30); Chloride 102 mmol/L (98-107); Glucose 99 mg/dL (74-99); Non-African American GFR(MDRD) 58 (>60 ml/min/1.73 sqM); Potassium 4.5 mmol/L (3.5-5.1); Sodium 136 mmol/L (137-145)
--- NOTE | 2016-05-02 10:24 | P.PN ---
Subjective this patient to the is primarily admitted with the symptoms of dizziness and not feeling well. Symptoms are not definitely suggestive for TIA. Since CAT scan is normal and is physical examination severe weakness normally functioning prosthetic click. Since echocardiogram shows normally functioning mechanical prosthetic wall. It is no definite evidence of any thrombus noted in view of the absence of any definite symptoms of TIA I don't think this patient needs a transesophageal echocardiogram at present. We will recommend to continue the patient on Coumadin her INR is 2.2 today. Patient is advised weekly INR. Objective - Vital Signs Vital signs: Vital Signs Temp 97.2 F L 05/02/16 08:00 Pulse 54 L 05/02/16 08:00 Resp 18 05/02/16 08:00 BP 155/57 05/02/16 08:00 Pulse Ox 97 05/02/16 08:00 Intake & Output 05/01/16 05/02/16 05/02/16 17:59 06:59 18:59 Intake Total Output Total Balance Weight Intake: IV Sodium Chloride 0.9% 1, 000 ml @ 100 mls/hr IV . Q10H ULISES Rx#:[id number] Output: Urine Other: Voiding Method Toilet # Voids 1 - Exam patient is comfortable however it appears at times is confused and does not recall the events very well. Heart. Prosthetic sounds are well heard no significant murmurs are noted. Lungs clear to auscultation and percussion. Extremities no evidence of any leg edema. - Labs CBC & Chem 7: 05/01/16 06:16 05/02/16 07:43 Labs: Abnormal Lab Results - Last 24 Hours (Table) 05/02/16 05/02/16 05/02/16 Range/Units 07:41 07:43 07:43 PT 20.8 H (9.0-12.0) sec Sodium 136 L (137-145) mmol/L POC Glucose (mg/dL) 100 H (75-99) mg/dL Assessment and Plan Plan: continue the current medications. Monitor PT INR closely and keep her in the therapeutic range. Patient is advised to follow-up with Dr. El as an outpatient.
--- NOTE | 2016-05-02 10:29 | P.DS ---
Providers Date of admission: 04/30/16 11:54 Expected date of discharge: 05/02/16 Attending physician: Devonte Camp Consults: 04/30/16 15:00 Consult Physician Stat Consulting Provider: Arielle Nolen Consult Reason/Comments: TIA/CVA Do you want consulting provider notified?: Yes 04/30/16 17:51 Consult Physician Routine Consulting Provider: Bob Tim Consult Reason/Comments: TIA Do you want consulting provider notified?: Yes [facility]: 75-year-old female one of Dr. Alphonse Reza patient with past medical history of CAD, uterine cancer, stage II chronic kidney disease, lower back pain, Ostarthritis, lumbar disc disease, aortic valve replacement on a chronic anticoagulation who was apparently hospitalized at [facility] recently with severe anemia black stool along with severe hyponatremia was diagnosed as an SIADH. Patient was seen nephrology was on fluid restriction along with seen as an inpatient for few days taking diuretics away and patient was cleared not to have any further gastrointestinal bleed patient was discharged from the hospital about 10 days ago was doing well until this morning when found by the to be more confused and had significant change mental status with more expression aphasia not remembering simple command. EMS was called to the scene and end up bringing patient to the emergency department around 6:30 in the morning for diagnosis of CVA versus TIA , the stroke team was activated and testing consistent with CT of the brain along with her physical which improved significantly patient had a clear and decided no need to use thrombolytic. Patient will have neuro exam every 3 hours and will be admitted to the hospital will be seen neurology and cardiology. 05/01: INR is 1.7. Patient has been seen by Dr. Alvarez. Recommend consultation with Dr. Tim for high velocities in the left carotid. Echocardiogram has been obtained and report is pending. EEG is pending. Discussed with patient that her short-term memory is worsening and may benefit from medication such as Aricept. Therapies are pending. IV fluids changed to saline lock. Patient does state that she feels somewhat better from yesterday. 05/02: Patient evaluated by Dr. Tim and no need for surgical intervention. EEG was normal for her age. Patient has been cleared by specialist for discharge. Physical therapy is recommending home with homecare. INR is 2.2, sodium 136. Patient will be discharged home today in stable condition. Cardiology recommends follow-up with Dr. El. Discharge diagnoses: 1 acute TIA 2 change mental status: Most likely TIA 3 history of valvular heart disease with aortic valve replacement 4 hypertension 5 hyperlipidemia: 6 recent history of GI bleed 7 recent history of SIADH with severe hyponatremia most likely was caused by diuretics 8 CKD: Stage II 9 chronic lower back pain and severe sciatica Discharge plan: Home Impression and plan of care have been directed as dictated by the signing physician. Ivania Ocasio nurse practitioner acting as scribe for signing physician. Cc: Dr. Alphonse Reza Patient Condition at Discharge: Good Plan - Discharge Summary Discharge Medication List Atenolol 100 mg PO BID 02/04/16 [History] Losartan Potassium 100 mg PO DAILY@1400 02/04/16 [History] Rosuvastatin Calcium [Crestor] 40 mg PO HS 02/04/16 [History] Warfarin Sodium 2.5 mg PO TUTHSA 02/04/16 [History] Acetaminophen-Codeine 300-30mg [Tylenol w/codeine #3] 0.5 tab PO Q6H PRN [History] Hydrochlorothiazide [Hydrodiuril] 50 mg PO TID 04/30/16 [History] Methocarbamol [Robaxin] 500 mg PO TID PRN 04/30/16 [History] Sodium Chloride Tab 1 gm PO DAILY 04/30/16 [History] Warfarin [Coumadin] 5 mg PO SUMOWEFR 04/30/16 [History] traMADol HCL [Ultram] 50 mg PO Q6HR PRN 04/30/16 [History] Follow up Appointment(s)/Referral(s): Jyoti Alvarez MD [STAFF PHYSICIAN] - 1 Week Alphonse Reza DO [Primary Care Provider] - 1 Week Discharge Disposition: HOME WITH HOME HEALTH SERVICES
[2016-05-02 12:14] LABS: Glucose,Whole Blood 116 mg/dL (75-99)
--- NOTE | 2016-05-03 11:57 | ECHOF ---
Referral Reason:Thrombus MEASUREMENTS -------- HEIGHT: 162.6 cm WEIGHT: 67.6 kg BP: IVSd: 1.5 cm (0.6 - 1.1) LVIDd: 3.3 cm (3.9 - 5.3) LVPWd: 1.6 cm (0.6 - 1.1) IVSs: 2.2 cm LVIDs: 1.6 cm LVPWs: 2.0 cm MV EXCURSION: 9.371 mm (> 18.000) MV EF SLOPE: 42 mm/s (70 - 150) EPSS: 1.8 cm MV E Walter: 0.60 m/s MV DecT: 317 ms MV A Walter: 0.82 m/s MV E/A Ratio: 0.74 AV maxP.51 mmHg AV meanP.20 mmHg RAP: 5.00 mmHg RVSP: 8.66 mmHg FINDINGS -------- Sinus rhythm. This was a technically good study. There is moderate concentric left ventricular hypertrophy. Overall left ventricular systolic function is normal with, an EF between 55 - 60 %. The right ventricle is normal in size and function. The left atrium is normal in size. The right atrium is normal in size. Peak/mean gradient across the Aortic Valve is 32.51mmHg / 11.20mmHg. Normally functioning bioprosthetic valve. The mitral valve leaflets are mildly thickened. Mild mitral regurgitation is present. Mild tricuspid regurgitation present. The right ventricular systolic pressure, as measured by Doppler, is 8.66mmHg. Pulmonic valve appears structurally normal. The pericardium is normal. CONCLUSIONS -------- 1. Sinus rhythm. 2. The mitral valve leaflets are mildly thickened. 3. Mild mitral regurgitation is present. 4. Mild tricuspid regurgitation present. 5. The right ventricular systolic pressure, as measured by Doppler, is 8.66mmHg. 6. Pulmonic valve appears structurally normal. 7. The pericardium is normal. 8. This was a technically good study. 9. There is moderate concentric left ventricular hypertrophy. 10. Overall left ventricular systolic function is normal with, an EF between 55 - 60 %. 11. The right ventricle is normal in size and function. 12. The left atrium is normal in size. 13. The right atrium is normal in size. 14. Peak/mean gradient across the Aortic Valve is 32.51mmHg / 11.20mmHg. 15. Normally functioning bioprosthetic valve. ICE PULLER: Ne Alexander RDCS
== END 2016-05-02 12:36 | disposition home health service (06) | DRG 69 ==
LOC: EC 08:24 → 6SEL 11:54 → 4MS4W 05-01 10:26
PROVIDERS: ADMIT Internal Medicine Geriatric Medicine; ATTEND Internal Medicine Geriatric Medicine
DX: G45.9 Transient cerebral ischemic attack, unspecified (principal); J44.9 Chronic obstructive pulmonary disease, unspecified; E78.5 Hyperlipidemia, unspecified; F41.9 Anxiety disorder, unspecified; G89.29 Other chronic pain; I25.10 Atherosclerotic heart disease of native coronary artery without angina pectoris; I51.7 Cardiomegaly; I73.9 Peripheral vascular disease, unspecified; K57.30 Diverticulosis of large intestine without perforation or abscess without bleeding; M54.30 Sciatica, unspecified side; I12.9 Hypertensive chronic kidney disease with stage 1 through stage 4 chronic kidney disease, or unspecified chronic kidney disease; N18.2 Chronic kidney disease, stage 2 (mild); M19.90 Unspecified osteoarthritis, unspecified site; M54.5 Low back pain; M54.2 Cervicalgia; M79.1 Myalgia; M48.54XD Collapsed vertebra, not elsewhere classified, thoracic region, subsequent encounter for fracture with routine healing; K57.90 Diverticulosis of intestine, part unspecified, without perforation or abscess without bleeding; Z79.01 Long term (current) use of anticoagulants; Z79.899 Other long term (current) drug therapy; Z85.42 Personal history of malignant neoplasm of other parts of uterus; Z87.891 Personal history of nicotine dependence; Z95.1 Presence of aortocoronary bypass graft; Z95.2 Presence of prosthetic heart valve; Z88.0 Allergy status to penicillin; Z88.2 Allergy status to sulfonamides
CPT/HCPCS: 36415; 70450; 71020; 80048; 80053; 82550; 82553; 84484; 85025; 85610; 85730; 93005; 93306; 93880; 95816; 96361; 96374; 99291

== ENCOUNTER → 2016-05-08 | Outpatient (CLI) | payer MEDICARE, BC ==
[2016-05-08 12:51] LABS: Calcium 9.5 mg/dL (8.4-10.2); Potassium 5.6 mmol/L (3.5-5.1)
== END | disposition home or self-care (01) ==
LOC: LABWHC1 11:37
PROVIDERS: ATTEND Family Medicine
DX: E87.1 Hypo-osmolality and hyponatremia (principal)
CPT/HCPCS: 36415; 80048

== ENCOUNTER → 2016-06-16 | Outpatient (CLI) | payer MEDICARE, BC ==
[2016-06-16 14:43] LABS: Calcium 9.3 mg/dL (8.4-10.2)
== END | disposition home or self-care (01) ==
LOC: LABWHC1 13:10
PROVIDERS: ATTEND Nurse Practitioner Family
DX: E87.1 Hypo-osmolality and hyponatremia (principal)
CPT/HCPCS: 36415; 80048

== ENCOUNTER → 2016-06-29 | Outpatient (CLI) | payer MEDICARE, BC ==
[2016-06-25 12:10] VITALS: BMI 26.6
[2016-06-29 14:00] VITALS: BP 170/81; PULSE 56; RESP 20; TEMP 97.9
--- NOTE | 2016-06-29 14:29 | P.HPIM ---
History of Present Illness H&P Date: 06/29/16 Chief Complaint: low back pain, bilateral knee pain This is a 75-year-old patient referred by Dr. Reza for chronic pain in low back, left hip, and left knee. Patient has seen Dr. Castellon who believes that her knee pain is coming from her back and hip Patient has been taking medications from primary care physician including tramadol and recently Tylenol #3 medications with some relief. Patient denies adverse drug effects from medications. Patient also denies new-onset weakness, bowel/bladder incontinence , or any other signs or symptoms of cauda equina syndrome. There are no signs of acute intoxication, and no indications of medication diversion or overuse. Patient notes that pain worsens significantly with standing and walking, and improves with rest, iuce and medication. Patient has used several types of medications for pain, including NSAIDS, OPIOIDS, TRAMADOL Patient HAS NOT had back surgery. Patient HAS NOT had injections previously. Patient HAS NOT had physical therapy recently. Patient does take Coumadin as she has a history of A-fib with CVA in the past and also has a prosthetic cardiac valve. In addition to above, 13-point review of systems is also negative for chest pain , shortness of breath, changes in vision, changes in hearing, new onset weakness , abdominal pain, diarrhea, extreme fatigue, malaise, fever, skin changes, homicidal or suicidal ideation, or bowel or bladder incontinence. Vital Signs: Reviewed in EMR Gen: WDWN, AAOx3, NAD HEENT: NCAT, EOMI, hearing grossly normal Pulm: resp unlabored Abd: soft, NT, ND Neck: supple, trachea midline ROM in flexion lumbar spine: reduced ROM in extension lumbar spine: reduced Lumbar paravertebral tenderness: + Facet loading: + bilateral SI joint tenderness: + L side Mike's test: + L >> R Straight leg raise: neg Lower extremity: decreased ROM dorsiflexion/plantarflexion strength, hip flexion/extension, and knee flexion/extension secondary to pain Neuro: CN II-XII grossly intact, muscle strength lower extremities PRESERVED Past Medical History Past Medical History: Coronary Artery Disease (CAD), Hyperlipidemia, Hypertension, Osteoarthritis (OA), Vascular Disorder Additional Past Medical History / Comment(s): hospitalized at [facility] on 04/18/16 with CKD stage II, hyponatremia. Other HX: EGD/colonoscopy showing gastritis and diverticulosis, hemorroids, polyps, Lt hip pain (needs total hip replacement ), L knee meniscus tear, "hairline fracture lower back", lower back pain, protein calorie malnutrition History of Any Multi-Drug Resistant Organisms: None Reported Past Surgical History: Cardiac Valve Replacement, Hysterectomy Additional Past Surgical History / Comment(s): Mick carotid surgery, [address] [place] [facility] aortic valve replacement, 03/23/16 EGD and colonoscopy, past colonoscopy with polypectomy. Past Anesthesia/Blood Transfusion Reactions: No Reported Reaction Past Psychological History: Anxiety Additional Psychological History / Comment(s): Pt resides with her spouse. She is using a walker to ambulate. She also has a cane. She has not been driving lately, her spouse does. Smoking Status: Former smoker Past Alcohol Use History: Occasional Additional Past Alcohol Use History / Comment(s): Smoked 1 pack/wk for 2 yrs; quit 01/26/80. Pt states she will have an occasional glass of wine. Past Drug Use History: None Reported - Past Family History Sister(s) Family Medical History: Cancer Father Family Medical History: Diabetes Mellitus Additional Family Medical History / Comment(s): Father had tuberculosis. Mother Family Medical History: Dementia Medications and Allergies Home Medications Medication Instructions Recorded Confirmed Type Atenolol 100 mg PO BID 02/04/16 06/25/16 History Losartan Potassium 100 mg PO DAILY 02/04/16 06/25/16 History Rosuvastatin Calcium [Crestor] 40 mg PO HS 02/04/16 06/25/16 History Warfarin Sodium 2.5 mg PO SUMOTUWETHSA 02/04/16 06/25/16 History Warfarin [Coumadin] 5 mg PO FR 04/30/16 06/25/16 History traMADol HCL [Ultram] 50 mg PO Q6HR PRN 04/30/16 06/25/16 History Cinnamon Bark [Cinnamon] 500 mg PO DAILY 06/25/16 06/25/16 History [employer] Supplement 1 tab PO DAILY 06/25/16 06/25/16 History Fish Oil 3-6-9 1 tab PO DAILY 06/25/16 06/25/16 History Joint Connection Supplement 1 tab PO DAILY 06/25/16 06/25/16 History Lipozene Dulse 1 tab PO DAILY 06/25/16 06/25/16 History Multivitamins, Thera [Multivitamin 1 tab PO DAILY 06/25/16 06/25/16 History (formulary)] Saccharomyces Cerevisiae [Hanna's 680 mg PO DAILY 06/25/16 06/25/16 History Yeast] Vitamin C/Biotin [Hair, Skin and 1 tab PO DAILY 06/25/16 06/25/16 History Nails] hydrALAZINE HCL [Apresoline] 25 mg PO TID 06/25/16 06/25/16 History Allergies Allergy/AdvReac Type Severity Reaction Status Date / Time amoxicillin Allergy Rash/Hives Verified 06/25/16 11:47 Sulfa (Sulfonamide Allergy Rash/Hives Verified 06/25/16 11:47 Antibiotics) Results Comments: Computed tomography scan of the lumbar spine dated 04/18/2016 demonstrates 40% anterior wedging of the T12 vertebral body. There is a moderate posterior disc herniation at L3-L4 with some impingement on the spinal canal. There is also posterior calcified disc bulging herniation at L2-3 and L4 5. There is multilevel hypertrophic facet arthropathy. There is also resultant multilevel spinal stenosis that is more severe L3-L4. There is no paraspinal mass. Assessment and Plan (1) Thoracic compression fracture Status: Chronic (2) Lumbar spinal stenosis Status: Chronic (3) Spondylosis of lumbar region without myelopathy or radiculopathy Status: Chronic Plan: 1. Explanation: Opioid and psychological risk scores were reviewed. Diagnoses , prognoses, and multiple treatment options including but not limited to physical therapy, interventional therapies, adjuvant medical therapies, narcotic medication therapies, and surgery were discussed with the patient and all questions were answered to the patient's satisfaction. 2. Opioid agreement: no opioids prescribed today 3. Counseling: The patient was counseled extensively on BODY MASS INDEX, EXERCISE. Specifically, the patient was instructed regarding the importance of smoking cessation, obesity, and exercise in the context of both chronic pain and overall health. 4. Procedures: bilateral lumbar MBB if patient can come off Coumadin 5. Consultations: patient to ask her information analyst if she can come off Coumadin 6. Investigations: none 7. Medications: none 8. Disposition: f/u for procedure as scheduled PQRS measures: 1-Patient's medications are documented in the chart. 2-Tobacco use is negative 3-Patient has not had a pneumococcal vaccine. 4-Advanced care planning discussed, patient unable to give. 5-Opioid contract signed with the patient. 6-Pain positive, follow-up visit or procedure scheduled 7-Patient's blood pressure measured and documented, and patient will follow up with the primary care due to hypertension. 8-Patient's weight was measured, and body mass index ABOVE the normal limits, and counseling was done. Patient instructed to follow up with PCP. 9-Patient WAS NOT identified as an unhealthy alcohol user. Time with Patient: Greater than 30
== END | disposition home or self-care (01) ==
LOC: PNWHC3 13:23
PROVIDERS: ATTEND Anesthesiology
DX: M48.02 Spinal stenosis, cervical region (principal); M47.816 Spondylosis without myelopathy or radiculopathy, lumbar region; M48.54XA Collapsed vertebra, not elsewhere classified, thoracic region, initial encounter for fracture; I25.10 Atherosclerotic heart disease of native coronary artery without angina pectoris; E78.5 Hyperlipidemia, unspecified; I10 Essential (primary) hypertension; M19.90 Unspecified osteoarthritis, unspecified site; Z87.891 Personal history of nicotine dependence; Z79.01 Long term (current) use of anticoagulants; Z88.2 Allergy status to sulfonamides; Z79.899 Other long term (current) drug therapy
CPT/HCPCS: 99211

== ENCOUNTER 2016-07-04 02:16 | Emergency (ER) | payer MEDICARE, BC ==
[2016-07-04 02:29] VITALS: RESP 18; TEMP 98.2
[2016-07-04] MEDS ORDERED: HYDROmorphone 1 MG/ML 1 ML SYRINGE IVP STA ×2 (02:55→04:38)
[2016-07-04] MEDS ORDERED: SODIUM CHLORIDE 0.9% 1,000 ML IV ONE (02:55)
[2016-07-04] MEDS ORDERED: cloNIDine HCL 0.1 MG TAB PO STA (03:09)
[2016-07-04 03:45] LABS: Basophils % (A) 0 %; CH 27.8; CHCM 31.7; Eosinophils % (A) 0 %; HCT 32.6 % (34.0-46.0); HDW 2.32; HGB 10.2 gm/dL (11.4-16.0); Luc # (Auto) 0.13; Luc % (Auto) 1; Lymphocytes # (A) 0.8 k/uL (1.0-4.8); Lymphocytes % (A) 8 %; MCH 27.4 pg (25.0-35.0); MCHC 31.2 g/dL (31.0-37.0); MCV 87.9 fL (80.0-100.0); Mean Platelet Volume 7.3; Monocytes # (A) 0.6 k/uL (0-1.0); Monocytes % (A) 6 %; Neutrophils # (A) 8.9 k/uL (1.3-7.7); Neutrophils % (A) 85 %; RBC 3.71 m/uL (3.80-5.40); RDW 15.6 % (11.5-15.5); WBC 10.4 k/uL (3.8-10.6); WBC (Perox) 9.99
[2016-07-04 03:51] LABS: Anion Gap 6 mmol/L; Blood Urea Nitrogen 28 mg/dL (7-17); Calcium 7.4 mg/dL (8.4-10.2); Carbon Dioxide 19 mmol/L (22-30); Chloride 109 mmol/L (98-107); Glucose 106 mg/dL (74-99); INR 1.9 (<1.1); Non-African American GFR(MDRD) >60 (>60 ml/min/1.73 sqM); Partial Thromboplastin Time 27.5 sec (22.0-30.0); Potassium 3.5 mmol/L (3.5-5.1); Prothrombin Time 18.1 sec (9.0-12.0); Sodium 134 mmol/L (137-145)
--- NOTE | 2016-07-04 04:00 | ED ---
Fall HPI - General Chief Complaint: Fall Stated Complaint: Fall Time Seen by Provider: 07/04/16 02:25 Source: patient, RN notes reviewed, old records reviewed Mode of arrival: EMS - History of Present Illness Initial Comments: This is a 75-year-old female chief complaint of a fall. Patient reports that she was getting up from her living room and walking into her kitchen. She reports that she was caring a few things slipped on her kitchen for and fell on her left side. She reports that her pain is mainly over the left wrist, lateral knee and hip and ankle. She reports that she was able to ambulate to get to have asked her for help. She reports that she has difficulty flexing and extending her wrist. She denies any fever or chills patient has a chest pain, shortness of breath. She reports that she did have an episode of dizziness. She reports that she called EMS, was placed in a splint and they left, She reports that she called them again because she was feeling Dizzy. She states that this was after she took a tramadol for pain. Patient arrived to the emergency department via EMS and with pressure was 200/85. Patient denies any loss of consciousness or head injury during her fall. Patient states that she does not feel dizzy at this time. - Related Data Home Medications Medication Instructions Recorded Confirmed Atenolol 100 mg PO BID 02/04/16 07/07/16 Losartan Potassium 100 mg PO DAILY 02/04/16 07/07/16 Rosuvastatin Calcium [Crestor] 40 mg PO HS 02/04/16 07/07/16 Warfarin Sodium 2.5 mg PO SUMOWETHSA 02/04/16 07/07/16 Warfarin [Coumadin] 5 mg PO TUFR 04/30/16 07/07/16 Cinnamon Bark [Cinnamon] 500 mg PO DAILY 06/25/16 07/07/16 Endless Energy Supplement 1 tab PO DAILY 06/25/16 07/07/16 Fish Oil 3-6-9 1 tab PO DAILY 06/25/16 07/07/16 Joint Connection Supplement 1 tab PO DAILY 06/25/16 07/07/16 Saccharomyces Cerevisiae [Hanna's 680 mg PO DAILY 06/25/16 07/07/16 Yeast] Vitamin C/Biotin [Hair, Skin and 1 tab PO DAILY 06/25/16 07/07/16 Nails] hydrALAZINE HCL [Apresoline] 25 mg PO TID 06/25/16 07/07/16 Cholecalciferol [Vitamin D3] 1,000 unit PO DAILY 07/07/16 07/07/16 [facility] Dulse 250mg 1 tab PO DAILY 07/07/16 07/07/16 Previous Rx's Medication Instructions Recorded traMADol HCL [Ultram] 50 mg PO Q8HR PRN #90 07/09/16 Allergies Allergy/AdvReac Type Severity Reaction Status Date / Time amoxicillin Allergy Rash/Hives Verified 07/07/16 13:27 Sulfa (Sulfonamide Allergy Rash/Hives Verified 07/07/16 13:27 Antibiotics) Review of Systems ROS Statement: Those systems with pertinent positive or pertinent negative responses have been documented in the HPI. ROS Other: All systems not noted in ROS Statement are negative. Past Medical History Past Medical History: Hyperlipidemia, Hypertension Additional Past Medical History / Comment(s): Pt recently hospitalized at [facility] on 04/18/16 with CKD stage II, hyponatremia. Other HX: Recent black stools x 2 days-had EGD/colonoscopy showing gastritis and diverticulosis, hemorroids, polyps, Lt hip pain (needs total hip replacement), L knee meniscus tear, tripped and fell 3 weeks ago-struck face/R eye, has "hairline fracture lower back", protein calorie malnutrition History of Any Multi-Drug Resistant Organisms: None Reported Past Surgical History: Cardiac Valve Replacement, Hysterectomy Additional Past Surgical History / Comment(s): Mick carotid surgery, [address] [facility] aortic valve replacement, 03/23/16 EGD and colonoscopy, past colonoscopy with polypectomy. Past Anesthesia/Blood Transfusion Reactions: No Reported Reaction Past Psychological History: Anxiety Additional Psychological History / Comment(s): Pt resides with her spouse. She is using a walker to ambulate. She also has a cane. She has not been driving lately, her spouse does. Smoking Status: Former smoker Past Alcohol Use History: Occasional Additional Past Alcohol Use History / Comment(s): Smoked 1 pack/wk for 2 yrs; quit 01/26/80. Pt states she will have an occasional glass of wine. Past Drug Use History: None Reported - Past Family History Sister(s) Family Medical History: Cancer Father Family Medical History: Diabetes Mellitus Additional Family Medical History / Comment(s): Father had tuberculosis. Mother Family Medical History: Dementia General Exam - General Exam Comments Initial Comments: This is a 75-year-old female. Patient is on appear to be in any acute distress. General appearance: alert, in no apparent distress Head exam: Present: atraumatic, normocephalic, normal inspection Eye exam: Present: normal appearance, PERRL, EOMI. Absent: scleral icterus, conjunctival injection, periorbital swelling ENT exam: Present: normal exam, mucous membranes moist Neck exam: Present: normal inspection. Absent: tenderness, meningismus, lymphadenopathy Respiratory exam: Present: normal lung sounds bilaterally. Absent: respiratory distress, wheezes, rales, rhonchi, stridor Cardiovascular Exam: Present: regular rate, normal rhythm, normal heart sounds. Absent: systolic murmur, diastolic murmur, rubs, gallop, clicks GI/Abdominal exam: Present: soft, normal bowel sounds. Absent: distended, tenderness, guarding, rebound, rigid Extremities exam: Present: normal inspection, normal capillary refill. Absent: full ROM, tenderness, pedal edema, joint swelling, calf tenderness Left Shoulder Exam: Present: normal inspection, full ROM Upper Arm exam: Present: normal inspection, full ROM Elbow exam: Present: normal inspection, tenderness Forearm Wrist exam: Present: tenderness, deformity. Absent: normal inspection, full ROM Hand Wrist exam: Present: tenderness, swelling. Absent: normal inspection, full ROM Neuro motor exam: Present: wrist extension intact Vascular: Present: normal capillary refill Left Hip exam: Present: normal inspection, full ROM Upper Leg exam: Present: normal inspection, full ROM Knee exam: Present: normal inspection, tenderness. Absent: full ROM Lower Leg exam: Present: normal inspection, full ROM Ankle exam: Present: normal inspection, full ROM Foot/Toe exam: Present: normal inspection, full ROM Neurovascular tendon exam: Present: no vascular compromise Gait: observed and limited by pain Back exam: Present: normal inspection Neurological exam: Present: alert, oriented X3, CN II-XII intact Psychiatric exam: Present: normal affect, normal mood Skin exam: Present: warm, dry, intact, normal color. Absent: rash Course Vital Signs 07/04/16 07/04/16 07/04/16 02:22 03:35 05:08 Temperature 98.2 F Pulse Rate 64 60 Respiratory 18 18 Rate Blood Pressure 203/82 190/85 162/65 O2 Sat by Pulse 92 L 97 Oximetry 07/04/16 05:47 Temperature 98.2 F Pulse Rate 60 Respiratory 18 Rate Blood Pressure 162/65 O2 Sat by Pulse 97 Oximetry Medical Decision Making - Medical Decision Making Is a 75-year-old female presents emergency department after a fall. Patient received the labs and EKG. EKG is negative for any acute process. :abs within normal limits. Was reviewed and negative for any acute process. Patient denies any head injury or fall or loss consciousness. She mainly complains of left wrist pain. Patient states that she does have some pain over her left hip and knee. She reports that she was able to walk at some point on it. Patient states that she sees Dr. Cano for orthopedic. Patient reports that the pain is severe of her wrist. Denies any fever or chills. She denies any chest pain or shortness breath or other causes for follow-up some slipping. X-rays were reviewed hip, knee, and ankle show no evidence of fracture or dislocations. There is evidence of advanced osteoarthritis of the left hip. Patient continues to report severe pain with palpation of left wrist. Patient placed in left wrist volar splint. Advised to follow up with orthopedic physician. - Lab Data Result diagrams: 07/04/16 03:30 07/04/16 03:30 Lab Results 07/04/16 07/04/16 07/04/16 Range/Units 03:30 03:30 03:30 WBC 10.4 (3.8-10.6) k/uL RBC 3.71 L (3.80-5.40) m/uL Hgb 10.2 L (11.4-16.0) gm/dL Hct 32.6 L (34.0-46.0) % MCV 87.9 (80.0-100.0) fL MCH 27.4 (25.0-35.0) pg MCHC 31.2 (31.0-37.0) g/dL RDW 15.6 H (11.5-15.5) % Plt Count 155 D (150-450) k/uL Neutrophils % 85 % Lymphocytes % 8 % Monocytes % 6 % Eosinophils % 0 % Basophils % 0 % Neutrophils # 8.9 H (1.3-7.7) k/uL Lymphocytes # 0.8 L (1.0-4.8) k/uL Monocytes # 0.6 (0-1.0) k/uL Eosinophils # 0.0 (0-0.7) k/uL Basophils # 0.0 (0-0.2) k/uL PT 18.1 H (9.0-12.0) sec INR 1.9 (<1.1) APTT 27.5 (22.0-30.0) sec Sodium 134 L (137-145) mmol/L Potassium 3.5 (3.5-5.1) mmol/L Chloride 109 H (98-107) mmol/L Carbon Dioxide 19 L (22-30) mmol/L Anion Gap 6 mmol/L BUN 28 H (7-17) mg/dL Creatinine 0.90 (0.52-1.04) mg/dL Est GFR (MDRD) Af Amer >60 (>60 ml/min/1.73 sqM) Est GFR (MDRD) Non-Af >60 (>60 ml/min/1.73 sqM) Glucose 106 H (74-99) mg/dL Calcium 7.4 L (8.4-10.2) mg/dL Total Creatine Kinase (30-135) U/L CK-MB (CK-2) (0.0-2.4) ng/mL CK-MB (CK-2) Rel Index Troponin I (0.000-0.034) ng/mL 07/04/16 Range/Units 03:30 WBC (3.8-10.6) k/uL RBC (3.80-5.40) m/uL Hgb (11.4-16.0) gm/dL Hct (34.0-46.0) % MCV (80.0-100.0) fL MCH (25.0-35.0) pg MCHC (31.0-37.0) g/dL RDW (11.5-15.5) % Plt Count (150-450) k/uL Neutrophils % % Lymphocytes % % Monocytes % % Eosinophils % % Basophils % % Neutrophils # (1.3-7.7) k/uL Lymphocytes # (1.0-4.8) k/uL Monocytes # (0-1.0) k/uL Eosinophils # (0-0.7) k/uL Basophils # (0-0.2) k/uL PT (9.0-12.0) sec INR (<1.1) APTT (22.0-30.0) sec Sodium (137-145) mmol/L Potassium (3.5-5.1) mmol/L Chloride (98-107) mmol/L Carbon Dioxide (22-30) mmol/L Anion Gap mmol/L BUN (7-17) mg/dL Creatinine (0.52-1.04) mg/dL Est GFR (MDRD) Af Amer (>60 ml/min/1.73 sqM) Est GFR (MDRD) Non-Af (>60 ml/min/1.73 sqM) Glucose (74-99) mg/dL Calcium (8.4-10.2) mg/dL Total Creatine Kinase 39 (30-135) U/L CK-MB (CK-2) 0.5 (0.0-2.4) ng/mL CK-MB (CK-2) Rel Index 1.3 Troponin I <0.012 (0.000-0.034) ng/mL 07/04/16 04:00 EKG shows normal sinus rhythm. No evidence of atrial or ventricular arrhythmias. Major green 62 bpm. Interval 192 Rea's hands. Care estrogen 8. QT QTc is 424/4:30. No evidence at the elevation or T-wave inversion. - Radiology Data Radiology results: report reviewed, image reviewed All xrays are negative for acute fractures, however significant arthritis noted in all. Disposition Clinical Impression: Left wrist fracture, Fall Disposition: HOME SELF-CARE Condition: Good Instructions: Fall Prevention for Older Adults (ED) Additional Instructions: Patient advised to remain in splint until seen by orthopedic physician. Take Motrin Tylenol for pain. Return to the emergency department if any alarming signs or symptoms occur. Referrals: Alphonse Reza DO [Primary Care Provider] - 1-2 days Tong Castellon MD [STAFF PHYSICIAN] - 1-2 days Time of Disposition: 05:21
[2016-07-04 04:01] LABS: Creatine Kinase 39 U/L (30-135)
[2016-07-04 04:14] LABS: Creatine Kinase MB 0.5 ng/mL (0.0-2.4); Troponin I <0.012 ng/mL (0.000-0.034)
--- NOTE | 2016-07-04 04:46 | XR ---
EXAM:Chest PA and lateral views INDICATION: 75-year-old female status post fall. COMPARISON: 04/30/2016. FINDINGS: PA and lateral views of the chest show cardiomediastinal silhouette is unchanged. Aorta is tortuous and partially calcified. No focal consolidation, pneumothorax, or pleural effusion. Postsurgical changes median sternotomy redemonstrated. Multilevel compression deformities are unchanged. IMPRESSION: 1. No acute cardiopulmonary disease. 2. Multilevel thoracic compression deformities are unchanged.
--- NOTE | 2016-07-04 04:49 | XR ---
EXAM:LEFT HIP, 2 views INDICATION: 75-year-old female status post fall. COMPARISON: None. FINDINGS: 2 views of the left hip are obtained. Bony structures are intact. Bone mineralization is within normal limits. No hip dislocation. There is advanced osteoarthritis of the left hip joint. Arterial consultations. Soft tissues are within normal limits. IMPRESSION: 1. No acute fracture or dislocation identified. 2. Advanced osteoarthrosis of the left hip.
--- NOTE | 2016-07-04 04:52 | XR ---
EXAM: XR LEFT KNEE, 3 views INDICATION: 75-year-old female status post fall. COMPARISON: None. FINDINGS: 3 views of the left knee are obtained. Bony structures are intact. Bone mineralization is within normal limits. Medial and lateral tibiofemoral compartment chondrocalcinosis. Joint spaces are otherwise preserved. Soft tissues are within normal limits. Arterial calcification. Surgical clips. IMPRESSION: No acute fracture or subluxation identified.
--- NOTE | 2016-07-04 04:57 | XR ---
EXAM: XR LEFT ELBOW, 3 views INDICATION: 75-year-old female status post fall. COMPARISON: None. FINDINGS: 3 views of the left elbow are obtained. Bony structures are intact. Bone mineralization is within normal limits. No effusion noted. Joint spaces are preserved. Lateral epicondylar enthesopathy. Soft tissues are within normal limits. No radio-opaque foreign bodies. IMPRESSION: No acute fracture or subluxation identified.
--- NOTE | 2016-07-04 05:01 | XR ---
EXAM: XR LEFT ANKLE, 3 views INDICATION: 75-year-old female status post fall. COMPARISON: None. FINDINGS: 3 views of the left ankle are obtained. Bony structures are intact. Bone mineralization is within normal limits. There is mild osteoarthritis of the ankle joint. Well-corticated ossific density projects near the medial malleolus likely sequela of prior trauma. There is soft tissue swelling of the lateral ankle. There is Achilles and plantar these updated. Moderate osteoarthritic changes of the dorsal midfoot. No radio-opaque foreign bodies. IMPRESSION: No acute fracture or subluxation identified.
--- NOTE | 2016-07-04 05:05 | XR ---
EXAM: XR LEFT WRIST, 3 views INDICATION: 75-year-old female status post fall. COMPARISON: None. FINDINGS: 3 views of the left wrist are obtained. Bony structures are intact. Bone mineralization and alignment are within normal limits. There is advanced osteoarthritis of the first CMC joint with multiple intra-articular loose bodies present. There is chondrocalcinosis. There is soft tissue swelling about the wrist. IMPRESSION: No acute fracture or dislocation identified.
[2016-07-04 05:10] VITALS: BP 162/65; PULSE 60
== END 2016-07-04 05:47 | disposition home or self-care (01) ==
LOC: EC 02:16
DX: S62.102A Fracture of unspecified carpal bone, left wrist, initial encounter for closed fracture (principal); M25.562 Pain in left knee; M25.552 Pain in left hip; I10 Essential (primary) hypertension; F41.9 Anxiety disorder, unspecified; E78.5 Hyperlipidemia, unspecified; Z87.891 Personal history of nicotine dependence; Z79.01 Long term (current) use of anticoagulants; Z79.899 Other long term (current) drug therapy; Z88.0 Allergy status to penicillin; Z88.2 Allergy status to sulfonamides; W01.0XXA Fall on same level from slipping, tripping and stumbling without subsequent striking against object, initial encounter; Y93.01 Activity, walking, marching and hiking; Y92.090 Kitchen in other non-institutional residence as the place of occurrence of the external cause
CPT/HCPCS: 36415; 93005; 80048; 82550; 82553; 84484; 85025; 85610; 85730; 71020; 73502; 73070; 73110; 73562; 73610; 99285; 96374; 96375; 96361 ×2; J1170

== ENCOUNTER 2016-07-07 12:05 | Inpatient (IN) | payer MEDICARE, BC ==
--- NOTE | 2016-07-07 13:57 | ED ---
General Adult HPI - General Chief complaint: Extremity Injury, Lower Stated complaint: Recheck from Fall Time Seen by Provider: 07/07/16 13:00 Source: patient, RN notes reviewed Mode of arrival: wheelchair Limitations: physical limitation - History of Present Illness Initial comments: This is a 75-year-old female presents to the emergency department after having fallen on Tuesday evening. Patient came in emergency pertinent Tuesday evening and they did not find any fractures. Patient states since the fall however she has been unable to get out of bed because her left hip hurts so bad. Patient denies any new injuries or falls. Patient states she also has some pain just lateral and inferior to the knee. Patient has not followed up with a primary medical care doctor or the orthopedic surgeon as directed. - Related Data Home Medications Medication Instructions Recorded Confirmed Atenolol 100 mg PO BID 02/04/16 07/07/16 Losartan Potassium 100 mg PO DAILY 02/04/16 07/07/16 Rosuvastatin Calcium [Crestor] 40 mg PO HS 02/04/16 07/07/16 Warfarin Sodium 2.5 mg PO SUMOWETHSA 02/04/16 07/07/16 Warfarin [Coumadin] 5 mg PO TUFR 04/30/16 07/07/16 Cinnamon Bark [Cinnamon] 500 mg PO DAILY 06/25/16 07/07/16 End[employer] Supplement 1 tab PO DAILY 06/25/16 07/07/16 Fish Oil 3-6-9 1 tab PO DAILY 06/25/16 07/07/16 Joint Connection Supplement 1 tab PO DAILY 06/25/16 07/07/16 Saccharomyces Cerevisiae [Hanna's 680 mg PO DAILY 06/25/16 07/07/16 Yeast] Vitamin C/Biotin [Hair, Skin and 1 tab PO DAILY 06/25/16 07/07/16 Nails] hydrALAZINE HCL [Apresoline] 25 mg PO TID 06/25/16 07/07/16 Cholecalciferol [Vitamin D3] 1,000 unit PO DAILY 07/07/16 07/07/16 [facility] Dulse 250mg 1 tab PO DAILY 07/07/16 07/07/16 traMADol HCL [Ultram] 50 mg PO Q8HR PRN 07/07/16 07/07/16 Allergies Allergy/AdvReac Type Severity Reaction Status Date / Time amoxicillin Allergy Rash/Hives Verified 07/07/16 13:27 Sulfa (Sulfonamide Allergy Rash/Hives Verified 07/07/16 13:27 Antibiotics) Review of Systems ROS Statement: Those systems with pertinent positive or pertinent negative responses have been documented in the HPI. ROS Other: All systems not noted in ROS Statement are negative. Past Medical History Past Medical History: Hyperlipidemia, Hypertension Additional Past Medical History / Comment(s): Pt recently hospitalized at [facility] on 04/18/16 with CKD stage II, hyponatremia. Other HX: Recent black stools x 2 days-had EGD/colonoscopy showing gastritis and diverticulosis, hemorroids, polyps, Lt hip pain (needs total hip replacement), L knee meniscus tear, tripped and fell 3 weeks ago-struck face/R eye, has "hairline fracture lower back", protein calorie malnutrition History of Any Multi-Drug Resistant Organisms: None Reported Past Surgical History: Cardiac Valve Replacement, Hysterectomy Additional Past Surgical History / Comment(s): Mick carotid surgery, [address] [facility] aortic valve replacement, 03/23/16 EGD and colonoscopy, past colonoscopy with polypectomy. Past Anesthesia/Blood Transfusion Reactions: No Reported Reaction Past Psychological History: Anxiety Additional Psychological History / Comment(s): Pt resides with her spouse. She is using a walker to ambulate. She also has a cane. She has not been driving lately, her spouse does. Smoking Status: Former smoker Past Alcohol Use History: Occasional Additional Past Alcohol Use History / Comment(s): Smoked 1 pack/wk for 2 yrs; quit 01/26/80. Pt states she will have an occasional glass of wine. Past Drug Use History: None Reported - Past Family History Sister(s) Family Medical History: Cancer Father Family Medical History: Diabetes Mellitus Additional Family Medical History / Comment(s): Father had tuberculosis. Mother Family Medical History: Dementia General Exam - General Exam Comments Initial Comments: GENERAL Patient is well-developed and well-nourished. Patient is in mild distress. EYES Patient's pupils are equal and round. Extraocular motion is intact SKIN Unremarkable NEURO The patient is alert and oriented 3 PYSCH Patient has normal interpersonal interactions. MUSCULOSKELETAL Patient's unable to lift her left leg secondary to pain in the posterior hip region. Patient also has significant pain in the same region with passive movement of the leg. Patient is able to bend her left knee without eliciting much pain at all. Limitations: physical limitation Course Vital Signs 07/07/16 12:10 Temperature 98.1 F Pulse Rate 60 Respiratory 20 Rate Blood Pressure 181/70 O2 Sat by Pulse 98 Oximetry Medical Decision Making - Medical Decision Making Patient's CT of the pelvis showed a superior rami fracture in 2 places and inferior rami fracture 1 location. Patient is unable to ablate in the emergency department. I spoke with Dr. Walters he agreed to admit the patient admitted patient consult the Dr. Grayson I continue pain medicines on the floor as well as some Zofran. Disposition Clinical Impression: Fracture of multiple pubic rami Disposition: ADMITTED IP TO THIS HOSP Referrals: Alphonse Reza DO [Primary Care Provider] - 1-2 days Time of Disposition: 16:02
--- NOTE | 2016-07-07 14:51 | CT ---
EXAMINATION TYPE: CT pelvis wo con DATE OF EXAM: 07/07/2016 2:43 PM COMPARISON: NONE HISTORY: Patient complains of increasing left hip pain and difficulty walking post fall on 07-04-16. CT DLP: 329 mGycm Automated exposure control for dose reduction was used. FINDINGS: Facet degenerative changes are at the lower lumbar spine L4-5 L5-S1. Sacroiliac joints appear intact. There is a fracture of the left inferior pubic ramus. A left lateral ischio ramus fracture is evident. Nondisplaced medial ischio ramus fracture is also p resent. These are best visualized in the coronal plane and reconstructed images. Advanced degenerative changes are at the right hip loss of the joint space subchondral cyst formation and femoral head deformity. Moderate degenerative changes through the right. IMPRESSION: 1. FRACTURE OF THE MEDIAL PUBIC RAMUS AND THE MEDIAL AND LATERAL PORTIONS OF THE ISCHIO RAMUS. 2. ADVANCED DEGENERATIVE CHANGE LEFT HIP.
[2016-07-07] MEDS ORDERED: HYDROmorphone 1 MG/ML 1 ML SYRINGE IVP STA (16:00)
[2016-07-07] MEDS ORDERED: ONDANSETRON 4 MG/2 ML VIAL IVP STA (16:00)
[2016-07-07] MEDS ORDERED: SODIUM CHLORIDE 0.9% 1,000 ML IV ONE (16:02)
[2016-07-07] MEDS: HYDROmorphone 1 MG/ML 1 ML SYRINGE IVP SCH ×2 (16:38→21:23)
[2016-07-07] MEDS ORDERED: traMADol 50 MG TAB PO PRN (16:50)
[2016-07-07 16:59] LABS: INR 1.9 (<1.1); Prothrombin Time 18.7 sec (9.0-12.0)
[2016-07-07 17:06] LABS: Aty Lym Flag Slight; CHCM 32.7; HCT 31.7 % (34.0-46.0); HDW 2.43; MCH 27.1 pg (25.0-35.0); MCHC 31.5 g/dL (31.0-37.0); MCV 86.1 fL (80.0-100.0); Mean Platelet Volume 7.5; RBC 3.68 m/uL (3.80-5.40); RDW 15.5 % (11.5-15.5); WBC 9.7 k/uL (3.8-10.6); WBC (Perox) 9.85
[2016-07-07 17:10] LABS: ALT 33 U/L (9-52); AST 32 U/L (14-36); Alkaline Phosphatase 76 U/L (38-126); Anion Gap 10 mmol/L; Blood Urea Nitrogen 25 mg/dL (7-17); Calcium 8.8 mg/dL (8.4-10.2); Carbon Dioxide 22 mmol/L (22-30); Chloride 99 mmol/L (98-107); Glucose 100 mg/dL (74-99); Magnesium 1.7 mg/dL (1.6-2.3); Non-African American GFR(MDRD) 54 (>60 ml/min/1.73 sqM); Potassium 4.5 mmol/L (3.5-5.1); Sodium 131 mmol/L (137-145); Total Bilirubin 0.7 mg/dL (0.2-1.3); Total Protein 6.5 g/dL (6.3-8.2)
[2016-07-07 17:35] LABS: Add Differential Manual Differential
[2016-07-07 17:36] LABS: Nucleated Red Blood Cells 0 /100 WBC (0-0); Total Cells Counted 100
[2016-07-07 17:37] LABS: Manual Review Performed; Ovalocytes Present
--- NOTE | 2016-07-07 17:47 | P.HPIM ---
History of Present Illness H&P Date: 07/07/16 Chief Complaint: Fall pubic rami fractures This is a 75-year-old female one of several with a previous medical history significant for CAD post CABG 2 in 2001, aortic valve replacement with mechanical valve , history of carotid artery disease status post bilateral carotid endarterectomies, hypertension and hypertensive cardiovascular disease, hyperlipidemia, history of uterine cancer status post total abdominal hysterectomy and bilateral salpingo-oophorectomy, patient fell at home in the kitchen trying to move things around drawn 11:30 in the evening on 07/04/2016 and the that time she went back to her room and was complaining of increased pain in the left groin area as well as left upper extremity, she felt a bit dizzy that time. EMS was called and they came and put her in a soft splint as to follow-up with her primary care physician next 24 hours, however the patient became quite more dizzy and he ended up calling 911 after that the where the came and brought her to the ER at [facility] she had x-rays and the patient was sent back home patient developed to have a significant pain in the left groin area she could not ambulate at all her cold 911 for the third time ended up bringing the patient to the ER at [facility] and she had a computed tomography scan of the pelvis that showed a left medial pubic ramus fracture as well as medial and lateral ischial Rambus fractures, patient was not able to ambulate Alix subsequent she was admitted to the hospital and orthopedic surgery consultation was obtained from Dr. Grayson, physical therapy would be counseled along with the psychotherapist social worker consultation for ECF placement due to the risk of bleeding due to the fact that the patient has mechanical aortic valve and she is on chronic and tach ablation with Coumadin. Review of Systems Constitutional: Denies anorexia, Denies chronic headaches, Denies chronic pain, Denies daytime sleepiness, Denies lethargy, Denies malaise, Denies weakness, Denies weight gain Eyes: denies blurred vision, denies bulging eye, denies decreased vision, denies diplopia Ears: deny: decreased hearing Ears, nose, mouth and throat: Denies dysphagia, Denies neck lump, Denies swelling in throat, Denies sore throat Cardiovascular: Reports high blood pressure, Denies chest pain, Denies decreased exercise tolerance, Denies irregular heart beat, Denies phlebitis, Denies rapid heart beat, Denies shortness of breath, Denies syncope Respiratory: Denies congestion, Denies cough, Denies home oxygen, Denies sleep apnea, Denies snoring, Denies wheezing Gastrointestinal: Denies abdominal pain, Denies bloating, Denies BRBPR, Denies heartburn, Denies hematemesis, Denies melena, Denies nausea, Denies vomiting Genitourinary: Denies dysuria, Denies nocturia Menstruation: Reports post hysterectomy, Reports postmenopausal Musculoskeletal: Reports fractures, Reports frequent falls, Reports gait dysfunction Musculoskeletal: left: hip pain, hip stiffness, absent: ankle pain, ankle stiffness, ankle swelling, elbow pain, elbow stiffness, elbow swelling, foot pain, foot stiffness, foot swelling, hand pain, hand stiffness, hand swelling, hip swelling, knee pain, knee stiffness, knee swelling, shoulder pain, shoulder stiffness, shoulder swelling, wrist pain, wrist stiffness, wrist swelling Integumentary: Denies pruritus, Denies rash Neurological: Denies numbness, Denies weakness Psychiatric: Denies anxiety, Denies depression Endocrine: Denies fatigue, Denies weight change Past Medical History Past Medical History: Coronary Artery Disease (CAD), Hyperlipidemia, Hypertension, Osteoarthritis (OA), Vascular Disorder Additional Past Medical History / Comment(s): Pt recently hospitalized at [facility] on 04/18/16 with CKD stage II, hyponatremia. Other HX: Recent black stools x 2 days-had EGD/colonoscopy showing gastritis and diverticulosis, hemorroids, polyps, Lt hip pain (needs total hip replacement), L knee meniscus tear, tripped and fell 3 weeks ago-struck face/R eye, has "hairline fracture lower back", protein calorie malnutrition History of Any Multi-Drug Resistant Organisms: None Reported Past Surgical History: Cardiac Valve Replacement, Coronary Bypass/CABG, Hysterectomy (Total abdominal hysterectomy with bilateral salpingo-oophorectomy secondary to cancer cells.) Additional Past Surgical History / Comment(s): Mick carotid surgery, 2001 [facility] aortic valve replacement, 03/23/16 EGD and colonoscopy, past colonoscopy with polypectomy, last colonoscopy was in 2017 Past Anesthesia/Blood Transfusion Reactions: No Reported Reaction Past Psychological History: Anxiety Additional Psychological History / Comment(s): Pt resides with her spouse. She is using a walker to ambulate. She also has a cane. She has not been driving lately, her spouse does. Smoking Status: Former smoker (Patient used to smoke about a pack per week and she smoked for few years and she quit many years ago.) Past Alcohol Use History: Occasional Additional Past Alcohol Use History / Comment(s): Smoked 1 pack/wk for 2 yrs; quit 01/26/80. Pt states she will have an occasional glass of wine. Past Drug Use History: None Reported - Past Family History Sister(s) Family Medical History: Cancer (Patient had 2 sisters one of the sisters from bladder cancer the other one is living and extended care facility due to dementia.) Father Family Medical History: Diabetes Mellitus (Father at age of 41 from diabetes complications as well as tuberculosis.) Additional Family Medical History / Comment(s): Father had tuberculosis. Mother Family Medical History: Dementia (Mother at age of 82 from dementia.) Son(s) Family Medical History: No Reported History (Patient has one son no major medical problems.) Daughter(s) Family Medical History: No Reported History (Patient has 3 daughters no major medical problems.) Medications and Allergies Home Medications Medication Instructions Recorded Confirmed Type Atenolol 100 mg PO BID 02/04/16 07/07/16 History Losartan Potassium 100 mg PO DAILY 02/04/16 07/07/16 History Rosuvastatin Calcium [Crestor] 40 mg PO HS 02/04/16 07/07/16 History Warfarin Sodium 2.5 mg PO SUMOWETHSA 02/04/16 07/07/16 History Warfarin [Coumadin] 5 mg PO TUFR 04/30/16 07/07/16 History Cinnamon Bark [Cinnamon] 500 mg PO DAILY 06/25/16 07/07/16 History Endless Energy Supplement 1 tab PO DAILY 06/25/16 07/07/16 History Fish Oil 3-6-9 1 tab PO DAILY 06/25/16 07/07/16 History Joint Connection Supplement 1 tab PO DAILY 06/25/16 07/07/16 History Saccharomyces Cerevisiae [Hanna's 680 mg PO DAILY 06/25/16 07/07/16 History Yeast] Vitamin C/Biotin [Hair, Skin and 1 tab PO DAILY 06/25/16 07/07/16 History Nails] hydrALAZINE HCL [Apresoline] 25 mg PO TID 06/25/16 07/07/16 History Cholecalciferol [Vitamin D3] 1,000 unit PO DAILY 07/07/16 07/07/16 History [place] Dulse 250mg 1 tab PO DAILY 07/07/16 07/07/16 History traMADol HCL [Ultram] 50 mg PO Q8HR PRN 07/07/16 07/07/16 History Allergies Allergy/AdvReac Type Severity Reaction Status Date / Time amoxicillin Allergy Rash/Hives Verified 07/07/16 13:27 Sulfa (Sulfonamide Allergy Rash/Hives Verified 07/07/16 13:27 Antibiotics) Physical Exam Vitals: Vital Signs Temp Pulse Resp BP Pulse Ox 07/07/16 16:42 98 F 78 16 131/70 98 07/07/16 12:10 98.1 F 60 20 181/70 98 Intake and Output 07/07/16 07/07/16 07/07/16 06:59 14:59 22:59 Other: Weight 65.771 kg Patient Weight 07/08/16 06:59 Weight 65.771 kg - Constitutional General appearance: average body habitus, mild distress - EENT Eyes: anicteric sclerae, EOMI, PERRLA, no ptosis, no scleral icterus, normal appearance ENT: hearing grossly normal, NA/AT, normal oropharynx, no thrush, no tonsillar exudates Ears: bilateral: normal - Neck Neck: no lymphadenopathy, normal ROM, no rigidity, no stridor, no thyromegaly Carotids: right: bruit present, bilateral: upstroke delayed Thyroid: bilateral: normal size - Respiratory Respiratory: bilateral: diminished, negative: dullness, rales, rhonchi, wheezing , prolonged expiration, prolonged inspiration - Cardiovascular Rhythm: regular Heart sounds: normal: S1, S2 Abnormal Heart Sounds: systolic murmur, no rub, no S3 Gallop, no S4 Gallop, no click - Gastrointestinal General gastrointestinal: normal bowel sounds, soft, no splenomegaly, no tenderness, no umbilical hernia, no ventral hernia - Integumentary Integumentary: normal, normal turgor - Neurologic Neurologic: CNII-XII intact - Musculoskeletal Musculoskeletal: generalized weakness, strength equal bilaterally - Psychiatric Psychiatric: A&O x's 3, appropriate affect, intact judgment & insight Thrombosis Risk Factor Assmnt - DVT/VTE Prophylaxis DVT/VTE Prophylaxis: Pharmacologic Prophylaxis ordered, Mechanical Prophylaxis ordered Assessment and Plan Plan: Assessment and plan: 1. Status post fall with left medial pubic ramus fracture as well as medial and lateral ischial ramus fracture. Patient will be started on tramadol 50 mg orally every 8 hours as needed, Dilaudid as needed for moderate to severe pain, physical therapy evaluation, toe-touch as tolerated to the left lower extremity , orthopedic consultation Dr. Grayson, psychotherapist social worker consult for possible ECF placement. 2. CAD post CABG. Continue patient on atenolol 100 mg orally twice every day, Crestor 40 mg orally once every day. 3. History of aortic valve replacement with [facility] [facility]uez mechanical valve. Continue Coumadin keep her INR between 2-1/2 and 3-1/2, continue atenolol 100 mg orally twice every day, losartan 100 mg orally once every day. 4. Hypertension and hypertensive cardiovascular disease. Continue atenolol 100 mg orally twice every day, losartan 100 mg orally once every day. 5. Carotid artery disease status post bilateral carotid endarterectomies. Continue patient on Crestor 40 mg orally once every day for secondary prevention. 6. History of TIA/CVA. Continue Coumadin for life. 7. History osteoarthritis. Continue current pain management. 8. Hyperlipidemia. Continue Crestor 40 mg orally once every day. 9. DVT prophylaxis. Continue Coumadin. 10. GI prophylaxis. Continue Protonix 40 mg orally once every day. 11. Full code. 12. Admit as an inpatient. Estimated length of stay 2 midnights.
[2016-07-07] MEDS: WARFARIN 2.5 MG TAB PO SCH (18:07)
[2016-07-07] MEDS: ATENOLOL 50 MG TAB PO SCH (23:07)
[2016-07-07] MEDS: hydrALAZINE HCL 25 MG TAB PO SCH (23:07)
[2016-07-07] MEDS: ATORVASTATIN 80 MG TAB PO SCH (23:08)
[2016-07-08] MEDS: HYDROmorphone 1 MG/ML 1 ML SYRINGE IVP SCH ×3 (00:36→10:53)
[2016-07-08 07:33] LABS: INR 1.9 (<1.1); Prothrombin Time 17.9 sec (9.0-12.0)
[2016-07-08 07:39] LABS: ALT 28 U/L (9-52); AST 26 U/L (14-36); Alkaline Phosphatase 65 U/L (38-126); Anion Gap 6 mmol/L; Blood Urea Nitrogen 21 mg/dL (7-17); Calcium 8.3 mg/dL (8.4-10.2); Carbon Dioxide 23 mmol/L (22-30); Chloride 102 mmol/L (98-107); Glucose 118 mg/dL (74-99); Non-African American GFR(MDRD) >60 (>60 ml/min/1.73 sqM); Potassium 4.5 mmol/L (3.5-5.1); Sodium 131 mmol/L (137-145); Total Protein 6.3 g/dL (6.3-8.2)
[2016-07-08] MEDS: hydrALAZINE HCL 25 MG TAB PO SCH ×3 (07:48→21:59)
[2016-07-08] MEDS: ATENOLOL 50 MG TAB PO SCH ×2 (07:48→21:59)
[2016-07-08] MEDS: CHOLECALCIFEROL 1,000 UNIT TAB PO SCH (07:48)
[2016-07-08] MEDS: LACTOBACILLUS ACIDOPH & BULGAR 1 EACH PACKET PO SCH (07:49)
[2016-07-08] MEDS: LOSARTAN 50 MG TAB PO SCH (07:49)
[2016-07-08 08:03] LABS: Aty Lym Flag Slight; CH 27.8; CHCM 32.7; HCT 28.9 % (34.0-46.0); HDW 2.48; HGB 9.7 gm/dL (11.4-16.0); MCH 28.5 pg (25.0-35.0); MCHC 33.5 g/dL (31.0-37.0); MCV 85.2 fL (80.0-100.0); Mean Platelet Volume 7.4; RBC 3.39 m/uL (3.80-5.40); RDW 15.2 % (11.5-15.5); WBC 9.4 k/uL (3.8-10.6); WBC (Perox) 8.91
[2016-07-08 08:37] LABS: Add Differential Manual Differential
[2016-07-08 08:39] LABS: Manual Review Performed; Nucleated Red Blood Cells 0 /100 WBC (0-0); Total Cells Counted 100
[2016-07-08] MEDS ORDERED: [UNRECOGNIZED DRUG - OTHER] PO SCH (09:00)
[2016-07-08] MEDS ORDERED: [UNRECOGNIZED DRUG - OTHER] PO SCH (09:00)
[2016-07-08] MEDS ORDERED: FISH OIL PO SCH (09:00)
[2016-07-08] MEDS ORDERED: NON-FORMULARY DRUG (Vitamin C/Biotin [Hair, Skin And Nails] 1 TAB) PO SCH (09:00)
[2016-07-08] MEDS ORDERED: [UNRECOGNIZED DRUG - OTHER] PO SCH (09:00)
[2016-07-08] MEDS ORDERED: NON-FORMULARY DRUG (Cinnamon Bark [Cinnamon] 500 MG) PO SCH (09:00)
[2016-07-08] MEDS ORDERED: HYDROmorphone 1 MG/ML 1 ML SYRINGE IVP PRN (09:49)
[2016-07-08] MEDS ORDERED: HYDROcodone/APAP 5-325MG 1 EACH TAB PO PRN (09:49)
--- NOTE | 2016-07-08 11:16 | P.CNOR ---
History of Present Illness - [facility] Consult date: 07/08/16 Consult reason: fracture History of present illness: This is a 75-year-old female who is seen and examined on the surgical floor today. Patient was brought to [facility] emergency room yesterday with regards to significant pain in the left lower extremity and inability to weight- bear. Patient had a fall this past Tuesday in her home, she was in the kitchen when she turned to pivot and fell onto the left side. Patient was able to weight-bear after the incident. She denied hitting her head during the incident. Over the next few days, she noticed increasing pain in the left lower extremity and was unable to fully weight-bear. Patient did report to [facility] on 07/04/2016 with regards to the pain actually initial fall, x-rays were done which did not show any acute fractures. Patient was then discharged home and advised to follow-up with her primary care doctor and an orthopedic doctor. After point the hospital yesterday with increasing pain in the left flexion, CT of the pelvis was ordered. Images demonstrated severe foster arthritic changes of the left hip. Images also demonstrated pubic rami fractures involving the superior and inferior aspects. Patient was then admitted under the internal medicine group with regards to the pain in her left hip and an inability to weight-bear. I group was on consult for orthopedic care. Patient is seen Dr. Castellon in the past, her most recent visit was back in April 2016. She has been dealing with a T12 compression fracture along with her known osteoarthritis in the left hip. Treatment options were discussed at that point, we recommended continued conservative management for the compression fracture with possible orthopedic spine consult if symptoms did worsen. We did discuss surgical intervention for the left hip, patient was not interested in surgery at that time. Patient denies any upper extremity pain on exam today, she denies any pain of the right lower extremity. Pain is reproduced in the left groin and also buttock region when she attempts to move the hip, including both knee and hip flexion. She denies any headaches, lightheadedness, chest pain, shortness of breath. Review of Systems Constitutional: Reports as per HPI Past Medical History Past Medical History: Coronary Artery Disease (CAD), CVA/TIA, GI Bleed, Hyperlipidemia, Hypertension, Osteoarthritis (OA), Vascular Disorder Additional Past Medical History / Comment(s): Pt recently hospitalized at [facility] on 04/18/16 with CKD stage II, hyponatremia. Other HX: Recent black stools x 2 days-had EGD/colonoscopy showing gastritis and diverticulosis, hemorroids, polyps, Lt hip pain (needs total hip replacement), L knee meniscus tear, tripped and fell 3 weeks ago-struck face/R eye, has "hairline fracture lower back",, protein calorie malnutrition, tia,sciatic nerve pain. fell 07-04-16 -fx lt writs. came back in 07-07-16 d/t lt hip pain unable to get out of bed History of Any Multi-Drug Resistant Organisms: None Reported Past Surgical History: Cardiac Valve Replacement, Coronary Bypass/CABG, Hysterectomy Additional Past Surgical History / Comment(s): Mick carotid surgery, 2001 [facility] aortic valve replacement, 03/23/16 EGD and colonoscopy, past colonoscopy with polypectomy, last colonoscopy was in 2017 Past Anesthesia/Blood Transfusion Reactions: No Reported Reaction Past Psychological History: Anxiety Additional Psychological History / Comment(s): Pt resides with her spouse. She is using a walker to ambulate. She also has a cane. She has not been driving lately, her spouse does. Smoking Status: Former smoker Past Alcohol Use History: Occasional Additional Past Alcohol Use History / Comment(s): Smoked 1 pack/wk for 2 yrs; quit 01/26/80. Pt states she will have an occasional glass of wine. Past Drug Use History: None Reported - Past Family History Sister(s) Family Medical History: Cancer Father Family Medical History: Diabetes Mellitus Additional Family Medical History / Comment(s): Father had tuberculosis. Mother Family Medical History: Dementia Son(s) Family Medical History: No Reported History Daughter(s) Family Medical History: No Reported History Medications and Allergies Home Medications Medication Instructions Recorded Confirmed Type Atenolol 100 mg PO BID 02/04/16 07/07/16 History Losartan Potassium 100 mg PO DAILY 02/04/16 07/07/16 History Rosuvastatin Calcium [Crestor] 40 mg PO HS 02/04/16 07/07/16 History Warfarin Sodium 2.5 mg PO SUMOWETHSA 02/04/16 07/07/16 History Warfarin [Coumadin] 5 mg PO TUFR 04/30/16 07/07/16 History Cinnamon Bark [Cinnamon] 500 mg PO DAILY 06/25/16 07/07/16 History Endless Energy Supplement 1 tab PO DAILY 06/25/16 07/07/16 History Fish Oil 3-6-9 1 tab PO DAILY 06/25/16 07/07/16 History Joint Connection Supplement 1 tab PO DAILY 06/25/16 07/07/16 History Saccharomyces Cerevisiae [Hanna's 680 mg PO DAILY 06/25/16 07/07/16 History Yeast] Vitamin C/Biotin [Hair, Skin and 1 tab PO DAILY 06/25/16 07/07/16 History Nails] hydrALAZINE HCL [Apresoline] 25 mg PO TID 06/25/16 07/07/16 History Cholecalciferol [Vitamin D3] 1,000 unit PO DAILY 07/07/16 07/07/16 History [facility] Dulse 250mg 1 tab PO DAILY 07/07/16 07/07/16 History traMADol HCL [Ultram] 50 mg PO Q8HR PRN 07/07/16 07/07/16 History Allergies Allergy/AdvReac Type Severity Reaction Status Date / Time amoxicillin Allergy Rash/Hives Verified 07/07/16 13:27 Sulfa (Sulfonamide Allergy Rash/Hives Verified 07/07/16 13:27 Antibiotics) Physical Examination Left lower extremity: There is no obvious open lesions, sores, erythema or soft tissue swelling Logroll maneuver does reproduce some discomfort in the left groin She is unable to straight leg raise at this time due to the amount of pain and reproduces in the groin and posterior aspect She is tender with palpation throughout the left buttock and the lateral aspect of the hip She is nontender with palpation throughout the left knee and foot and ankle. Plantar flexion, dorsiflexion, EHL, FHL are intact Capillary refill is less than 2 seconds, sensory exam to light touch throughout the left lower extremity is intact Results - Labs Labs: Abnormal Lab Results - Last 24 Hours (Table) 07/07/16 07/07/16 07/07/16 Range/Units 16:40 16:40 16:40 RBC 3.68 L (3.80-5.40) m/uL Hgb 10.0 L (11.4-16.0) gm/dL Hct 31.7 L (34.0-46.0) % Neutrophils # (Manual) (1.3-7.7) k/uL Lymphocytes # (Manual) (1.0-4.8) k/uL Monocytes # (Manual) 1.1 H (0-1.0) k/uL PT 18.7 H (9.0-12.0) sec Sodium 131 L (137-145) mmol/L BUN 25 H (7-17) mg/dL Glucose 100 H (74-99) mg/dL Calcium (8.4-10.2) mg/dL Albumin 3.4 L (3.5-5.0) g/dL 07/08/16 07/08/16 07/08/16 Range/Units 07:07 07:07 07:07 RBC 3.39 L (3.80-5.40) m/uL Hgb 9.7 L (11.4-16.0) gm/dL Hct 28.9 L (34.0-46.0) % Neutrophils # (Manual) 7.8 H (1.3-7.7) k/uL Lymphocytes # (Manual) 0.8 L (1.0-4.8) k/uL Monocytes # (Manual) (0-1.0) k/uL PT 17.9 H (9.0-12.0) sec Sodium 131 L (137-145) mmol/L BUN 21 H (7-17) mg/dL Glucose 118 H (74-99) mg/dL Calcium 8.3 L (8.4-10.2) mg/dL Albumin 3.0 L (3.5-5.0) g/dL H & H 07/07/16 07/08/16 Range/Units 16:40 07:07 Hgb 10.0 L 9.7 L (11.4-16.0) gm/dL Hct 31.7 L 28.9 L (34.0-46.0) % Coagulation 07/07/16 07/08/16 Range/Units 16:40 07:07 INR 1.9 1.9 (<1.1) Result Diagrams: 07/08/16 07:07 07/08/16 07:07 Assessment and Plan Plan: Imaging: Pelvic computed tomography scan images and reports were reviewed. Images demonstrated superior and inferior pubic rami fractures involving the left side. Images also demonstrated severe osteoarthritic changes of the left hip Assessment: 1. Left superior and inferior pubic rami fractures 2. Status post fall from standing 3. Known history of severe left hip osteoarthritis Plan: 1. I was able to discuss this case, including physical exam findings and imaging studies with Dr. Castellon. At this point we will continue with conservative management of the pubic rami fractures. Patient would benefit from a stay at extended care facility for rehab. We still recommend surgical intervention for the left hip when she stable, severe left total hip arthroplasty. We can discuss this further data patient is considering this option. 2. Weight-bear as tolerated, utilizing walker for stabilization 3. Physical therapy and occupational therapy evaluations 4. Pain control 5. GI and DVT prophylaxis per medical recommendations 6. Medical recommendations 7. No orthopedic surgical intervention needed at this time, she remained stable for discharge to an extended care facility. Time with Patient: Less than 30
--- NOTE | 2016-07-08 11:47 | CDI ---
In responding to this query, please exercise your independent professional judgment. The [facility] Coding Staff and Clinical Documentation Specialists appreciate your assistance in clarifying documentation, maintaining compliance with coding guidelines, accurately documenting patients condition and capturing severity of illness. The fact that a question is asked does not imply that any particular answer is desired or expected. Communication forms are a method of clarifying documentation and are not made part of the Legal Health Record. Thank you in advance for your clarification. Last Revision, April 2015 Simona Adamson [address] [facility] [place] [address] Documentation Clarification Form Date: 07/08/2016 11:24:00 AM From: Elizabeth Rhodes RN, CDS Admit Date: 07/07/2016 4:14:00 PM Patient Name: Sophy Colin Visit Number: [id number] Dr. Nenita Walters, Patient presents to ED for c/o left hip pain after fall at home, initially seen day of fall and sent home no signs of fracture at that time. Patient unable to get out of bed due to pain History/Risk Factors: 75 y/o female h/o left hip pain, Osteoarthritis, previous fall 3 weeks ago "hairline fracture lower back" Uterine cancer treated w/ Hysterectomy Clinical Indications: CT Pelvis: fracture medial pubic ramus and medial and lateral portions ischio ramus, advanced degenerative changes left hip Treatment: IV/PO pain control, Ortho consult, PT In your professional opinion, please specify the following: Etiology of fracture: Osteoporosis Pathological (specify cause): Traumatic Other (please specify): Unable to determine Also, indicate any associated diagnosis/conditions related to the Fracture in your documentation. Please document in your progress notes and discharge summary in order to capture severity of illness and risk of mortality. Include clinical findings that support your diagnosis. FYI: Press F11 to launch patient chart Place X here if this finding has no clinical significance, is not applicable or if you are not able to provide any additional documentation. NISH
[2016-07-08 13:44] VITALS: BMI 24.9
--- NOTE | 2016-07-08 16:34 | P.PN ---
Subjective This is a 75-year-old female one of several with a previous medical history significant for CAD post CABG 2 in 2001, aortic valve replacement with mechanical valve , history of carotid artery disease status post bilateral carotid endarterectomies, hypertension and hypertensive cardiovascular disease, hyperlipidemia, history of uterine cancer status post total abdominal hysterectomy and bilateral salpingo-oophorectomy, patient fell at home in the kitchen trying to move things around drawn 11:30 in the evening on 07/04/2016 and the that time she went back to her room and was complaining of increased pain in the left groin area as well as left upper extremity, she felt a bit dizzy that time. EMS was called and they came and put her in a soft splint as to follow-up with her primary care physician next 24 hours, however the patient became quite more dizzy and he ended up calling 911 after that the where the came and brought her to the ER at [facility] she had x-rays and the patient was sent back home patient developed to have a significant pain in the left groin area she could not ambulate at all her cold 911 for the third time ended up bringing the patient to the ER at [facility] and she had a computed tomography scan of the pelvis that showed a left medial pubic ramus fracture as well as medial and lateral ischial Rambus fractures, patient was not able to ambulate Alix subsequent she was admitted to the hospital and orthopedic surgery consultation was obtained from Dr. Grayson, physical therapy would be counseled along with the director of social media marketing consultation for ECF placement due to the risk of bleeding due to the fact that the patient has mechanical aortic valve and she is on chronic and tach ablation with Coumadin. 07/08: Patient is sitting up in a chair she is feeling better today she denies any chest pain, no shortness breath, she has no abdominal pain, her was at the bedside, patient appears to be a bit confused today however she does appear to have some short-term memory deficits from the first time I saw her yesterday in the emergency department. The plan is to transfer the patient to extended care facility for physical therapy rehabilitation. Objective - Vital Signs Vital signs: Vital Signs Temp 98.2 F 07/08/16 15:00 Pulse 76 07/08/16 15:48 Resp 16 07/08/16 15:48 BP 94/51 07/08/16 15:00 Pulse Ox 99 07/08/16 15:00 Intake & Output 07/07/16 07/08/16 07/08/16 18:59 06:59 18:59 Intake Total 800 Balance 800 Weight 65.771 kg 65.771 kg Intake: IV 800 Sodium Chloride 0.9% 1, 800 000 ml @ 100 mls/hr IV . Q10H ONE Rx#:[id number] Other: Voiding Method Bedside Commode Bedside Commode Bedside Commode # Voids 1 3 - Exam - Constitutional General appearance: average body habitus, mild distress - EENT Eyes: anicteric sclerae, EOMI, PERRLA, no ptosis, no scleral icterus, normal appearance ENT: hearing grossly normal, NA/AT, normal oropharynx, no thrush, no tonsillar exudates Ears: bilateral: normal - Neck Neck: no lymphadenopathy, normal ROM, no rigidity, no stridor, no thyromegaly Carotids: right: bruit present, bilateral: upstroke delayed Thyroid: bilateral: normal size - Respiratory Respiratory: bilateral: diminished, negative: dullness, rales, rhonchi, wheezing , prolonged expiration, prolonged inspiration - Cardiovascular Rhythm: regular Heart sounds: normal: S1, S2 Abnormal Heart Sounds: systolic murmur, no rub, no S3 Gallop, no S4 Gallop, no click - Gastrointestinal General gastrointestinal: normal bowel sounds, soft, no splenomegaly, no tenderness, no umbilical hernia, no ventral hernia - Integumentary Integumentary: normal, normal turgor - Neurologic Neurologic: CNII-XII intact - Musculoskeletal Musculoskeletal: generalized weakness, strength equal bilaterally - Psychiatric Psychiatric: A&O x's 3, appropriate affect, intact judgment & insight - Labs CBC & Chem 7: 07/08/16 07:07 07/08/16 07:07 Labs: Abnormal Lab Results - Last 24 Hours (Table) 07/07/16 07/07/16 07/07/16 Range/Units 16:40 16:40 16:40 RBC 3.68 L (3.80-5.40) m/uL Hgb 10.0 L (11.4-16.0) gm/dL Hct 31.7 L (34.0-46.0) % Neutrophils # (Manual) (1.3-7.7) k/uL Lymphocytes # (Manual) (1.0-4.8) k/uL Monocytes # (Manual) 1.1 H (0-1.0) k/uL PT 18.7 H (9.0-12.0) sec Sodium 131 L (137-145) mmol/L BUN 25 H (7-17) mg/dL Glucose 100 H (74-99) mg/dL Calcium (8.4-10.2) mg/dL Albumin 3.4 L (3.5-5.0) g/dL 07/08/16 07/08/16 07/08/16 Range/Units 07:07 07:07 07:07 RBC 3.39 L (3.80-5.40) m/uL Hgb 9.7 L (11.4-16.0) gm/dL Hct 28.9 L (34.0-46.0) % Neutrophils # (Manual) 7.8 H (1.3-7.7) k/uL Lymphocytes # (Manual) 0.8 L (1.0-4.8) k/uL Monocytes # (Manual) (0-1.0) k/uL PT 17.9 H (9.0-12.0) sec Sodium 131 L (137-145) mmol/L BUN 21 H (7-17) mg/dL Glucose 118 H (74-99) mg/dL Calcium 8.3 L (8.4-10.2) mg/dL Albumin 3.0 L (3.5-5.0) g/dL Assessment and Plan Plan: Assessment and plan: 1. Status post fall with left medial pubic ramus fracture as well as medial and lateral ischial ramus fracture. Patient will be started on tramadol 50 mg orally every 8 hours as needed, Dilaudid as needed for moderate to severe pain, physical therapy evaluation, toe-touch as tolerated to the left lower extremity , orthopedic consultation Dr. Grayson, director of social media marketing consult for possible ECF placement. 2. CAD post CABG. Continue patient on atenolol 100 mg orally twice every day, Crestor 40 mg orally once every day. 3. History of aortic valve replacement with St. Rodríguez mechanical valve. Continue Coumadin keep her INR between 2-1/2 and 3-1/2, continue atenolol 100 mg orally twice every day, losartan 100 mg orally once every day. 4. Hypertension and hypertensive cardiovascular disease. Continue atenolol 100 mg orally twice every day, losartan 100 mg orally once every day. 5. Carotid artery disease status post bilateral carotid endarterectomies. Continue patient on Crestor 40 mg orally once every day for secondary prevention. 6. History of TIA/CVA. Continue Coumadin for life. 7. History osteoarthritis. Continue current pain management. 8. Hyperlipidemia. Continue Crestor 40 mg orally once every day. 9. DVT prophylaxis. Continue Coumadin. 10. GI prophylaxis. Continue Protonix 40 mg orally once every day. 11. Full code. 12. ECF when bed becomes available.
[2016-07-08] MEDS: WARFARIN 2.5 MG TAB PO SCH (17:58)
[2016-07-08] MEDS: ATORVASTATIN 80 MG TAB PO SCH (21:59)
[2016-07-09] MEDS: ATENOLOL 50 MG TAB PO SCH ×2 (07:25→20:00)
[2016-07-09] MEDS: LACTOBACILLUS ACIDOPH & BULGAR 1 EACH PACKET PO SCH (07:25)
[2016-07-09] MEDS: hydrALAZINE HCL 25 MG TAB PO SCH ×3 (07:25→22:41)
[2016-07-09] MEDS: CHOLECALCIFEROL 1,000 UNIT TAB PO SCH (07:26)
[2016-07-09] MEDS: LOSARTAN 50 MG TAB PO SCH (07:26)
--- NOTE | 2016-07-09 15:46 | P.PN ---
Subjective This is a 75-year-old female one of several with a previous medical history significant for CAD post CABG 2 in 2001, aortic valve replacement with mechanical valve , history of carotid artery disease status post bilateral carotid endarterectomies, hypertension and hypertensive cardiovascular disease, hyperlipidemia, history of uterine cancer status post total abdominal hysterectomy and bilateral salpingo-oophorectomy, patient fell at home in the kitchen trying to move things around drawn 11:30 in the evening on 07/04/2016 and the that time she went back to her room and was complaining of increased pain in the left groin area as well as left upper extremity, she felt a bit dizzy that time. EMS was called and they came and put her in a soft splint as to follow-up with her primary care physician next 24 hours, however the patient became quite more dizzy and he ended up calling 911 after that the where the came and brought her to the ER at [facility] she had x-rays and the patient was sent back home patient developed to have a significant pain in the left groin area she could not ambulate at all her cold 911 for the third time ended up bringing the patient to the ER at [facility] and she had a computed tomography scan of the pelvis that showed a left medial pubic ramus fracture as well as medial and lateral ischial Rambus fractures, patient was not able to ambulate Alix subsequent she was admitted to the hospital and orthopedic surgery consultation was obtained from Dr. Grayson, physical therapy would be counseled along with the transition social worker consultation for ECF placement due to the risk of bleeding due to the fact that the patient has mechanical aortic valve and she is on chronic and tach ablation with Coumadin. 07/08: Patient is sitting up in a chair she is feeling better today she denies any chest pain, no shortness breath, she has no abdominal pain, her was at the bedside, patient appears to be a bit confused today however she does appear to have some short-term memory deficits from the first time I saw her yesterday in the emergency department. The plan is to transfer the patient to extended care facility for physical therapy rehabilitation. 07/09: Patient is feeling much better today from yesterday. She is eating okay. She has not had a bowel movement. Patient is better controlled today and pain is mostly in the left leg. Patient is being prepared for discharge to [facility] tomorrow. Objective - Vital Signs Vital signs: Vital Signs Temp 98.2 F 07/09/16 07:00 Pulse 65 07/09/16 08:00 Resp 14 07/09/16 08:00 BP 143/67 07/09/16 07:00 Pulse Ox 97 07/09/16 07:00 Intake & Output 07/08/16 07/09/16 07/09/16 18:59 06:59 18:59 Intake Total 600 Balance 600 Weight 65.771 kg Intake: Oral 600 Other: Voiding Method Bedside Commode Bedside Commode # Voids 2 1 # Bowel Movements 1 - Exam General appearance: average body habitus, mild distress - EENT Eyes: anicteric sclerae, EOMI, PERRLA, no ptosis, no scleral icterus, normal appearance ENT: hearing grossly normal, NA/AT, normal oropharynx, no thrush, no tonsillar exudates Ears: bilateral: normal - Neck Neck: no lymphadenopathy, normal ROM, no rigidity, no stridor, no thyromegaly Carotids: right: bruit present, bilateral: upstroke delayed Thyroid: bilateral: normal size - Respiratory Respiratory: bilateral: diminished, negative: dullness, rales, rhonchi, wheezing , prolonged expiration, prolonged inspiration - Cardiovascular Rhythm: regular Heart sounds: normal: S1, S2 Abnormal Heart Sounds: systolic murmur, no rub, no S3 Gallop, no S4 Gallop, no click - Gastrointestinal General gastrointestinal: normal bowel sounds, soft, no splenomegaly, no tenderness, no umbilical hernia, no ventral hernia - Integumentary Integumentary: normal, normal turgor - Neurologic Neurologic: CNII-XII intact - Musculoskeletal Musculoskeletal: generalized weakness, strength equal bilaterally - Psychiatric Psychiatric: A&O x's 3, appropriate affect, intact judgment & insight - Labs CBC & Chem 7: 07/08/16 07:07 07/08/16 07:07 Assessment and Plan Plan: 1. Status post fall with left medial pubic ramus fracture as well as medial and lateral ischial ramus fracture. Patient will be started on tramadol 50 mg orally every 8 hours as needed, Dilaudid as needed for moderate to severe pain, physical therapy evaluation, toe-touch as tolerated to the left lower extremity , orthopedic consultation Dr. Grayson, transition social worker consult for possible ECF placement. 2. CAD post CABG. Continue patient on atenolol 100 mg orally twice every day, Crestor 40 mg orally once every day. 3. History of aortic valve replacement with St. Rodríguez mechanical valve. Continue Coumadin keep her INR between 2-1/2 and 3-1/2, continue atenolol 100 mg orally twice every day, losartan 100 mg orally once every day. 4. Hypertension and hypertensive cardiovascular disease. Continue atenolol 100 mg orally twice every day, losartan 100 mg orally once every day. 5. Carotid artery disease status post bilateral carotid endarterectomies. Continue patient on Crestor 40 mg orally once every day for secondary prevention. 6. History of TIA/CVA. Continue Coumadin for life. 7. History osteoarthritis. Continue current pain management. 8. Hyperlipidemia. Continue Crestor 40 mg orally once every day. 9. DVT prophylaxis. Continue Coumadin. 10. GI prophylaxis. Continue Protonix 40 mg orally once every day. 11. Full code. 12. [place] tomorrow. Impression and plan of care have been directed as dictated by the signing physician. Ivania Ocasio nurse practitioner acting as scribe for signing physician.
--- NOTE | 2016-07-09 15:48 | P.DS ---
Providers Date of admission: 07/07/16 16:14 Expected date of discharge: 07/09/16 Attending physician: Nenita Walters Consults: 07/07/16 16:02 Consult Physician Urgent Consulting Provider: Duane Grayson Consult Reason/Comments: Pelvic rami fracture Do you want consulting provider notified?: Yes Primary care physician: [place] [facility] Course: This is a 75-year-old female one of several with a previous medical history significant for CAD post CABG 2 in 2001, aortic valve replacement with mechanical valve , history of carotid artery disease status post bilateral carotid endarterectomies, hypertension and hypertensive cardiovascular disease, hyperlipidemia, history of uterine cancer status post total abdominal hysterectomy and bilateral salpingo-oophorectomy, patient fell at home in the kitchen trying to move things around drawn 11:30 in the evening on 07/04/2016 and the that time she went back to her room and was complaining of increased pain in the left groin area as well as left upper extremity, she felt a bit dizzy that time. EMS was called and they came and put her in a soft splint as to follow-up with her primary care physician next 24 hours, however the patient became quite more dizzy and he ended up calling 911 after that the where the came and brought her to the ER at [facility] she had x-rays and the patient was sent back home patient developed to have a significant pain in the left groin area she could not ambulate at all her cold 911 for the third time ended up bringing the patient to the ER at [facility] and she had a computed tomography scan of the pelvis that showed a left medial pubic ramus fracture as well as medial and lateral ischial Rambus fractures, patient was not able to ambulate Alix subsequent she was admitted to the hospital and orthopedic surgery consultation was obtained from Dr. Grayson, physical therapy would be counseled along with the social research assistant consultation for ECF placement due to the risk of bleeding due to the fact that the patient has mechanical aortic valve and she is on chronic and tach ablation with Coumadin. 07/08: Patient is sitting up in a chair she is feeling better today she denies any chest pain, no shortness breath, she has no abdominal pain, her was at the bedside, patient appears to be a bit confused today however she does appear to have some short-term memory deficits from the first time I saw her yesterday in the emergency department. The plan is to transfer the patient to extended care facility for physical therapy rehabilitation. 07/09: Patient is feeling much better today from yesterday. She is eating okay. She has not had a bowel movement. Patient is better controlled today and pain is mostly in the left leg. Patient is being prepared for discharge to [facility] tomorrow. Patient is being discharged to [facility] in stable condition. Medication reconciliation has been completed. Discharge diagnoses: 1. Status post fall with left medial pubic ramus fracture as well as medial and lateral ischial ramus fracture. 2. CAD post CABG. 3. History of aortic valve replacement with St. Rodríguez mechanical valve. 4. Hypertension and hypertensive cardiovascular disease. 5. Carotid artery disease status post bilateral carotid endarterectomies. 6. History of TIA/CVA. 7. History osteoarthritis. 8. Hyperlipidemia. [facility] on Tuesday Impression and plan of care have been directed as dictated by the signing physician. Ivania Ocasio nurse practitioner acting as scribe for signing physician. Patient Condition at Discharge: Good Plan - Discharge Summary New Discharge Prescriptions: traMADol HCL [Ultram] 50 mg PO Q8HR PRN #90 PRN Reason: Pain Discharge Medication List Atenolol 100 mg PO BID 02/04/16 [History] Losartan Potassium 100 mg PO DAILY 02/04/16 [History] Rosuvastatin Calcium [Crestor] 40 mg PO HS 02/04/16 [History] Warfarin Sodium 2.5 mg PO SUMOWETHSA 02/04/16 [History] Warfarin [Coumadin] 5 mg PO TUFR 04/30/16 [History] Cinnamon Bark [Cinnamon] 500 mg PO DAILY 06/25/16 [History] [employer] Supplement 1 tab PO DAILY 06/25/16 [History] Fish Oil 3-6-9 1 tab PO DAILY 06/25/16 [History] Joint Connection Supplement 1 tab PO DAILY 06/25/16 [History] Saccharomyces Cerevisiae [Hanna's Yeast] 680 mg PO DAILY 06/25/16 [History] Vitamin C/Biotin [Hair, Skin and Nails] 1 tab PO DAILY 06/25/16 [History] hydrALAZINE HCL [Apresoline] 25 mg PO TID 06/25/16 [History] Cholecalciferol [Vitamin D3] 1,000 unit PO DAILY 07/07/16 [History] [place] Dulse 250mg 1 tab PO DAILY 07/07/16 [History] traMADol HCL [Ultram] 50 mg PO Q8HR PRN #90 07/09/16 [Rx] Follow up Appointment(s)/Referral(s): Ricco Lagunas, [NON-STAFF] - As Needed Alphonse Reza DO [Primary Care Provider] - 1 Week (After discharge from [facility]) Discharge Disposition: TRANSFER TO SNF/ECF
[2016-07-09] MEDS ORDERED: WARFARIN 5 MG TAB PO SCH (18:00)
[2016-07-09] MEDS: ATORVASTATIN 80 MG TAB PO SCH (20:00)
[2016-07-10 07:45] VITALS: BP 137/73; PULSE 65; RESP 17; TEMP 97.3
[2016-07-10] MEDS: ATENOLOL 50 MG TAB PO SCH (08:28)
[2016-07-10] MEDS: CHOLECALCIFEROL 1,000 UNIT TAB PO SCH (08:28)
[2016-07-10] MEDS: LOSARTAN 50 MG TAB PO SCH (08:28)
[2016-07-10] MEDS: hydrALAZINE HCL 25 MG TAB PO SCH (08:29)
[2016-07-10] MEDS: LACTOBACILLUS ACIDOPH & BULGAR 1 EACH PACKET PO SCH (08:29)
--- NOTE | 2016-07-26 10:09 | CDI ---
In responding to this query, please exercise your independent professional judgment. The [facility] Coding Staff and Clinical Documentation Specialists appreciate your assistance in clarifying documentation, maintaining compliance with coding guidelines, accurately documenting patients condition and capturing severity of illness. The fact that a question is asked does not imply that any particular answer is desired or expected. Communication forms are a method of clarifying documentation and are not made part of the Legal Health Record. Thank you in advance for your clarification. Last Revision, April 2015 Simona Adamson [address] [facility] [address] [facility] [place] [address] Documentation Clarification Form Date: 07/08/2016 11:24:00 AM From: Elizabeth Rhodes RN, CDS Admit Date: 07/07/2016 4:14:00 PM Patient Name: Sophy Colin Visit Number: [id number] Discharge Date: 07/10/2016 Dr. Ivania Ocasio DISTRICT GAUGER/Dr. Walters, Patient presents to ED for c/o left hip pain after fall at home, initially seen day of fall and sent home no signs of fracture at that time. Patient unable to get out of bed due to pain History/Risk Factors: 75 y/o female h/o left hip pain, Osteoarthritis, previous fall 3 weeks ago "hairline fracture lower back" Uterine cancer treated w/ Hysterectomy Clinical Indications: CT Pelvis: fracture medial pubic ramus and medial and lateral portions ischio ramus, advanced degenerative changes left hip Treatment: IV/PO pain control, Ortho consult, PT In your professional opinion, please specify the following: Etiology of fracture: Osteoporosis Pathological (specify cause): Traumatic Other (please specify): Unable to determine Also, indicate any associated diagnosis/conditions related to the Fracture in your documentation. Please document in your progress notes and discharge summary in order to capture severity of illness and risk of mortality. Include clinical findings that support your diagnosis. FYI: Press F11 to launch patient chart Place X here if this finding has no clinical significance, is not applicable or if you are not able to provide any additional documentation. No sign of osteoporosis MTDD
== END 2016-07-10 11:13 | DRG 536 ==
LOC: EC 12:05 → 3SUR 16:14
PROVIDERS: ADMIT Internal Medicine; ATTEND Internal Medicine
DX: S32.512A Fracture of superior rim of left pubis, initial encounter for closed fracture (principal); I13.10 Hypertensive heart and chronic kidney disease without heart failure, with stage 1 through stage 4 chronic kidney disease, or unspecified chronic kidney disease; S32.602A Unspecified fracture of left ischium, initial encounter for closed fracture; S32.592A Other specified fracture of left pubis, initial encounter for closed fracture; E78.5 Hyperlipidemia, unspecified; M48.54XD Collapsed vertebra, not elsewhere classified, thoracic region, subsequent encounter for fracture with routine healing; M54.30 Sciatica, unspecified side; K57.30 Diverticulosis of large intestine without perforation or abscess without bleeding; N18.2 Chronic kidney disease, stage 2 (mild); I25.10 Atherosclerotic heart disease of native coronary artery without angina pectoris; R53.1 Weakness; F41.9 Anxiety disorder, unspecified; R26.2 Difficulty in walking, not elsewhere classified; R41.0 Disorientation, unspecified; R41.3 Other amnesia; K64.9 Unspecified hemorrhoids; M25.569 Pain in unspecified knee; K29.70 Gastritis, unspecified, without bleeding; M16.12 Unilateral primary osteoarthritis, left hip; R42 Dizziness and giddiness; Z86.73 Personal history of transient ischemic attack (TIA), and cerebral infarction without residual deficits; Z83.3 Family history of diabetes mellitus; Z95.2 Presence of prosthetic heart valve; Z95.1 Presence of aortocoronary bypass graft; Z90.710 Acquired absence of both cervix and uterus; Z79.899 Other long term (current) drug therapy; Z79.01 Long term (current) use of anticoagulants; Z80.52 Family history of malignant neoplasm of bladder; Z87.891 Personal history of nicotine dependence; Z91.81 History of falling; Z85.42 Personal history of malignant neoplasm of other parts of uterus; Z88.0 Allergy status to penicillin; Z88.2 Allergy status to sulfonamides; Z87.19 Personal history of other diseases of the digestive system; Z86.010 Personal history of colon polyps; Z87.828 Personal history of other (healed) physical injury and trauma; Z79.891 Long term (current) use of opiate analgesic; Z71.3 Dietary counseling and surveillance; Z86.39 Personal history of other endocrine, nutritional and metabolic disease; Z81.8 Family history of other mental and behavioral disorders; Z86.79 Personal history of other diseases of the circulatory system; Z90.722 Acquired absence of ovaries, bilateral; Z90.79 Acquired absence of other genital organ(s); W01.0XXA Fall on same level from slipping, tripping and stumbling without subsequent striking against object, initial encounter; Y92.010 Kitchen of single-family (private) house as the place of occurrence of the external cause
CPT/HCPCS: 36415; 71020; 72192; 73502; 80048; 80053; 82550; 82553; 83735; 84443; 84484; 85025; 85610; 85730; 93005; 96361; 96374; 96375; 99285

== ENCOUNTER → 2016-10-18 | Outpatient (CLI) | payer MEDICARE, BC | END | disposition home or self-care (01) | LOC: LABWHC1 11:13 → LABPAT 11:53 | PROVIDERS: ATTEND Orthopaedic Surgery | DX: Z01.812 Encounter for preprocedural laboratory examination (principal) | CPT/HCPCS: 87070 ==

== ENCOUNTER 2016-10-27 06:39 | Day surgery (SDC) | payer MEDICARE, BC ==
[2016-10-19 14:51] VITALS: BMI 26.6
[~2016-10-27 06:39] MED LIST changes: +ALPRAZolam 0.25 MG TAB PO PRN; +ALPRAZolam 0.5 MG TAB PO PRN; +ASPIRIN 325 MG TAB PO STA; +ATORVASTATIN 80 MG TAB PO STA; -LACTATED RINGERS 1,000 ML IV SCH; +NITROGLYCERIN SL TABS 0.4 MG TAB SUBLINGUAL PRN; +SODIUM CHLORIDE 0.9% 1,000 ML in EMPTY BAG 1 BAG IV ONE
[2016-10-27 07:21] VITALS: TEMP 97.9
[2016-10-27] MEDS ORDERED: fentaNYL (PF) 50 MCG/ML 2 ML AMP ONE (07:28)
[2016-10-27] MEDS ORDERED: LIDOCAINE 2% INJ 20 MG/ML (20 ML MDV) ONE (07:28)
[2016-10-27 07:39] LABS: INR 1.2 (<1.2); Prothrombin Time 11.8 sec (9.0-12.0)
[2016-10-27] MEDS ORDERED: fentaNYL (PF) 50 MCG/ML 2 ML AMP IV ONE (07:40)
[2016-10-27] MEDS ORDERED: LIDOCAINE 2% INJ 20 MG/ML SQ ONE (07:42)
[2016-10-27] MEDS ORDERED: NITROGLYCERIN SL TABS 0.4 MG TAB SUBLINGUAL ONE ×2 (07:52)
[2016-10-27] MEDS ORDERED: HYDROmorphone 2 MG/ML 1 ML SYRINGE ONE (08:01)
[2016-10-27] MEDS ORDERED: HYDROmorphone 2 MG/ML 1 ML SYRINGE IV ONE (08:03)
[2016-10-27] MEDS ORDERED: IODIXANOL 320 MG/ML 100 ML INTRAARTER ONE (08:04)
[2016-10-27] MEDS ORDERED: RX INFO: IV CONTRAST WAS GIVEN 1 EACH MISC MISCELLANE PRN (08:19)
[2016-10-27] MEDS ORDERED: traMADol 50 MG TAB PO PRN (08:20)
[2016-10-27] MEDS ORDERED: WARFARIN 5 MG TAB PO SCH (08:30)
[2016-10-27] MEDS ORDERED: SODIUM CHLORIDE 0.9% 1,000 ML IV SCH (08:30)
[2016-10-27 08:35] LABS: Calcium 9.6 mg/dL (8.4-10.2); Potassium 4.7 mmol/L (3.5-5.1)
[2016-10-27 08:52] VITALS: RESP 16
[2016-10-27] MEDS ORDERED: FISH OIL PO SCH (09:00)
[2016-10-27] MEDS ORDERED: [UNRECOGNIZED DRUG - OTHER] PO SCH (09:00)
[2016-10-27] MEDS ORDERED: NON-FORMULARY DRUG (Atenolol [Atenolol] 100 MG) PO SCH (09:00)
[2016-10-27] MEDS ORDERED: NON-FORMULARY DRUG (Vitamin C/Biotin [Hair, Skin And Nails] 1 TAB) PO SCH (09:00)
[2016-10-27] MEDS ORDERED: NON-FORMULARY DRUG (Losartan Potassium [Losartan Potassium] 100 MG) PO SCH (09:00)
[2016-10-27] MEDS ORDERED: DONEPEZIL 5 MG TAB PO SCH (09:00)
[2016-10-27] MEDS ORDERED: hydrALAZINE HCL 50 MG TAB PO SCH (09:00)
[2016-10-27] MEDS ORDERED: NON-FORMULARY DRUG (Cinnamon Bark [Cinnamon] 500 MG) PO SCH (09:00)
--- NOTE | 2016-10-27 09:47 | CC ---
CARDIAC CATHETERIZATION REPORT Mrs. Colin is a 76-year-old female, status post bypass grafting in 2001, status post aortic valve replacement, who is scheduled to undergo a total hip arthroplasty. She underwent a myocardial perfusion imaging that revealed evidence of inducible ischemia. In view of that, recommendation made regarding cardiac catheterization. The procedure as well as risks and complications were discussed with the patient, who is in full understanding and agreement. PROCEDURE: Patient was brought to the [employer] [facility] in fasting semi sedated state after receiving fentanyl and Benadryl and achieving moderate conscious sedation state. Using Xylocaine anesthesia and Seldinger technique, a 6-Swiss sheath was introduced in the right femoral artery. Selective right femoral angiography performed using 6-Swiss 4 bend right Jacek catheter, images of left coronary artery system were obtained. Selective images of the right coronary artery could not be obtained. Following that, the 6- Swiss right Jacek catheter was used to cannulate the saphenous vein graft to the obtuse marginal branch into the right coronary artery. Images of the grafts were obtained. Following that, the cath and sheaths were removed. Hemostasis was obtained with deployment of an Angio-Seal. There was no immediate complication. Patient returned to her room in stable condition. FINDINGS: 1. FLUOROSCOPY: There was severe calcification involving the ascending aorta. 2. LEFT MAIN: This is a large-sized vessel, bifurcating into the left circumflex, left anterior descending artery. Left main coronary artery has no evidence of significant obstructive coronary disease. 3. LEFT ANTERIOR DESCENDING ARTERY: This is a large size vessel reaching toward the apex with a wraparound apex segment, giving rise to 2 diagonal branches. The left anterior descending artery has mild intimal disease in the mid segment of 20% to 30% without any evidence of high-grade stenosis. 4. LEFT CIRCUMFLEX: This vessel is totally occluded proximally with no significant antegrade flow. 5. RIGHT CORONARY ARTERY: This vessel could not be cannulized selectively, but appears to be chronically occluded. 6. SAPHENOUS VEIN GRAFT TO THE RIGHT CORONARY ARTERY: The proximal distal anastomotic site are patent in the mid and distal segment of the graft, prior to the distal anastomotic site. There is diffuse intimal disease with area of stenosis up to 50% to 60%. 7. SAPHENOUS VEIN GRAFT TO THE RIGHT CORONARY ARTERY: This is a large graft, the proximal descending anastomotic site is patent. There is diffuse degenerative disease throughout the graft with complex areas and has 90% to 95% stenosis proximally. The flow into the obtuse marginal branch is brisk. 8. COLLATERALS: There is collateral from the right coronary artery toward the left circumflex. 9. LEFT VENTRICULOGRAM: Ventriculogram is not performed. CONCLUSION: 1. 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 2. Mild disease in the left anterior descending artery. 3. Patent saphenous vein graft to the right coronary artery was 50% to 60% in the mid and distal segment of the body of the graft. 4. Patent saphenous vein graft to the obtuse marginal branch with diffuse degenerative disease and significant stenosis involving the proximal segment. 5. Calcified aorta. RECOMMENDATION: At this time, I will continue medical therapy, percutaneous revascularization of the left circumflex has high risk of restenosis as well as risk of graft closure. I will review her data and further recommendation will be made. Those findings and recommendation was discussed with the patient and her family who are in full understanding and agreement. The duration of the procedure was 23 minutes. MARS / VANDANAN: [id number] /
--- NOTE | 2016-10-27 09:53 | LTR ---
Date: Date of Service: 10/27/[address] Reza; I had the pleasure to perform cardiac catheterization on Mrs Colin at [facility] on October 27 and a full copy of the procedure note will be forward to you. In brief, she was found to have a chronic occluded right coronary artery and the left circumflex with patent graft to both branches and diffuse degenerative disease in the saphenous vein graft to the obtuse marginal branch and significant disease in the proximal segment of that graft. Her LAD had mild obstructive disease. At this time, I will maximize her medical therapy and re-evaluate her data to see if further intervention will be needed. I will keep you updated on her progress and thank you, again for allowing me to participate in this patient's care. Please feel free to call for any questions. Sincerely yours, Yoshi CREWS / ES: [id number] /
[2016-10-27 10:47] VITALS: BP 110/53; PULSE 54
[2016-10-27] MEDS ORDERED: NON-FORMULARY DRUG (Rosuvastatin Calcium [Crestor] 40 MG) PO SCH (21:00)
[2016-10-29] MEDS ORDERED: WARFARIN 5 MG TAB PO SCH (08:20)
== END 2016-10-27 15:11 | disposition home or self-care (01) ==
LOC: CATHCVL 06:39
PROVIDERS: ATTEND Internal Medicine Interventional Cardiology
DX: I25.10 Atherosclerotic heart disease of native coronary artery without angina pectoris (principal); I25.810 Atherosclerosis of coronary artery bypass graft(s) without angina pectoris; I25.82 Chronic total occlusion of coronary artery; I10 Essential (primary) hypertension; E78.2 Mixed hyperlipidemia; Z95.1 Presence of aortocoronary bypass graft; Z95.4 Presence of other heart-valve replacement; I73.9 Peripheral vascular disease, unspecified; Z79.01 Long term (current) use of anticoagulants; Z79.899 Other long term (current) drug therapy; Z88.0 Allergy status to penicillin; Z88.2 Allergy status to sulfonamides
CPT/HCPCS: 93455; 80048; 85610; 99152; 99153; C1760; C1769 ×2; C1894; J2001; J1170; Q9967; J3010

== ENCOUNTER → 2016-11-05 | Outpatient (CLI) | payer MEDICARE, BC ==
[2016-11-05 15:23] LABS: Calcium 9.2 mg/dL (8.4-10.2); Potassium 5.3 mmol/L (3.5-5.1)
== END | disposition home or self-care (01) ==
LOC: LABWHC1 14:38
PROVIDERS: ATTEND Internal Medicine Interventional Cardiology
DX: I25.10 Atherosclerotic heart disease of native coronary artery without angina pectoris (principal)
CPT/HCPCS: 36415; 80048

== ENCOUNTER → 2016-11-19 | Outpatient (CLI) | payer MEDICARE, BC ==
[2016-11-19 14:31] LABS: Potassium 5.2 mmol/L (3.5-5.1)
== END | disposition home or self-care (01) ==
LOC: LABWHC1 13:27
PROVIDERS: ATTEND Internal Medicine Interventional Cardiology
DX: I10 Essential (primary) hypertension (principal)
CPT/HCPCS: 36415; 80051; 82565; 84520

== ENCOUNTER → 2017-04-08 | Outpatient (CLI) | payer MEDICARE, BC ==
[2017-04-08 14:55] LABS: Calcium 9.3 mg/dL (8.4-10.2); Potassium 5.5 mmol/L (3.5-5.1)
== END | disposition home or self-care (01) ==
LOC: LABWHC1 13:33
PROVIDERS: ATTEND Internal Medicine Interventional Cardiology
DX: E87.5 Hyperkalemia (principal)
CPT/HCPCS: 36415; 80048

== ENCOUNTER → 2017-04-18 | Outpatient (CLI) | payer MEDICARE, BC ==
[2017-04-18 10:30] LABS: Potassium 4.8 mmol/L (3.5-5.1)
== END | disposition home or self-care (01) ==
LOC: LABWHC1 09:39
PROVIDERS: ATTEND Family Medicine
DX: E87.5 Hyperkalemia (principal)
CPT/HCPCS: 36415; 80048

== ENCOUNTER → 2017-05-05 | Outpatient (CLI) | payer MEDICARE, BC ==
--- NOTE | 2017-05-05 17:49 | US ---
EXAMINATION TYPE: US carotid duplex BILAT DATE OF EXAM: 05/05/2017 COMPARISON: 04/30/2016 CLINICAL HISTORY: I65.23Occlusion and stenosis of bilateral carotid. Dizziness, carotid stenosis. Mick ateral carotid endarterectomy EXAM MEASUREMENTS: RIGHT: Peak Systolic Velocity (PSV) cm/sec ----- Right CCA: 138.3 ----- Right ICA: 166.7 ----- Right ECA: 194.2 ICA/CCA ratio: 1.2 RIGHT: End Diastole cm/sec ----- Right CCA: 31.7 ----- Right ICA: 52.4 ----- Right ECA: 20.0 LEFT: Peak Systolic Velocity (PSV) cm/sec ----- Left CCA: 201.2 ----- Left ICA: 160.8 ----- Left ECA: 250.9 ICA/CCA ratio: 0.8 LEFT: End Diastole cm/sec ----- Left CCA: 43.2 ----- Left ICA: 44.5 ----- Left ECA: 24.6 VERTEBRALS (direction of flow): Right Vertebral: Antegrade Left Vertebral: abnormal Moderate to severe plaque bilateral bifurcations. Increased velocities right ICA, right ECA, left CCA , left ICA, left ECA. Abnormal flow within left vertebral as on prior exam There is progression of disease compared to old exam. 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 There is elevated velocities in both internal carotid arteries that suggest 50-70% stenosis. There is progression of disease compared to old exam. Criteria for Assigning % of Stenosis / Diameter reduction (Estimation based on the indirect measurements of the internal carotid artery velocities (ICA PSV). 1. Normal (no stenosis)=ICA PSV < 125 cm/s: ratio < 2.0: ICA EDV<40 cm/s. 2. Less than 50% stenosis=ICA PSV < 125 cm/s: ratio < 2.0: ICA EDV<40 cm/s. 3. 50 to 69% stenosis=ICA PSV of 125 to 230 cm/s: ration 2.0 ? 4.0: ICA EDV 40-100 cm/s. 4. Greater than 70% stenosis to near occlusion= ICA PSV > 230 cm/s: ratio > 4.0: ICA EDV > 100 cm/s. 5. Near occlusion= ICA PSV velocities may be low or undetectable: variable ratio and ICA EDV. 6. Total occlusion=unable to detect flow.
== END | disposition home or self-care (01) ==
LOC: RADUSWWP 16:24
PROVIDERS: ATTEND Family Medicine
DX: I65.23 Occlusion and stenosis of bilateral carotid arteries (principal); I48.91 Unspecified atrial fibrillation
CPT/HCPCS: 93880

== ENCOUNTER 2017-07-29 14:52 | Inpatient (IN) | payer MEDICARE, BC ==
[2017-07-29] MEDS ORDERED: SODIUM CHLORIDE 0.9% 500 ML IV STA (15:10)
--- NOTE | 2017-07-29 15:13 | ED ---
General Adult HPI - General Chief complaint: GI Bleed Stated complaint: Rectal bleeding Time Seen by Provider: 07/29/17 14:55 Source: patient, RN notes reviewed Mode of arrival: ambulatory Limitations: no limitations - History of Present Illness Initial comments: This is a 76-year-old female who presents to the emergency department complaining of having some rectal bleeding and feeling weak lately. Patient's daughter wants her to be evaluated because she's becoming more more demented and she is worried there might be some other problem. Patient denies any chest pain shortness breath or difficulty breathing. Patient denies any abdominal pain. Patient denies any nausea vomiting diarrhea. Patient denies any recent fever chills or cough. Patient states she does have hemorrhoids she's had a few years and it always hurts to have a bowel movement but this is chronic. Patient also has rectal bleeding on occasion. Patient also complains of increased edema in her legs. - Related Data Home Medications Medication Instructions Recorded Confirmed Atenolol 100 mg PO BID 02/04/16 07/29/17 Rosuvastatin Calcium [Crestor] 40 mg PO HS 02/04/16 07/29/17 Warfarin Sodium 2.5 mg PO SUMOTUWETHSA 02/04/16 07/29/17 Warfarin [Coumadin] 5 mg PO FR 04/30/16 07/29/17 Donepezil [Aricept] 5 mg PO QAM 10/27/16 07/29/17 Magnesium Oxide [Mag-Ox] 250 mg PO QAM 07/29/17 07/29/17 Sodium Bicarbonate 325 mg PO BID 07/29/17 07/29/17 hydrALAZINE HCL [Apresoline] 50 mg PO TID 07/29/17 07/29/17 Allergies Allergy/AdvReac Type Severity Reaction Status Date / Time Sulfa (Sulfonamide Allergy Rash/Hives Verified 07/29/17 15:18 Antibiotics) Review of Systems ROS Statement: Those systems with pertinent positive or pertinent negative responses have been documented in the HPI. ROS Other: All systems not noted in ROS Statement are negative. Past Medical History Past Medical History: Coronary Artery Disease (CAD), CVA/TIA, GI Bleed, Hyperlipidemia, Hypertension, Osteoarthritis (OA), Vascular Disorder Additional Past Medical History / Comment(s): Pt recently hospitalized at [facility] on 2/26/17 with CKD stage II, hyponatremia. Other HX: Recent black stools x 2 days-had EGD/colonoscopy showing gastritis and diverticulosis, hemorroids, polyps, Lt hip pain (needs total hip replacement), L knee meniscus tear, tripped and fell 3 weeks ago-struck face/R eye, has "hairline fracture lower back",, protein calorie malnutrition, tia,sciatic nerve pain. fell 07-04-16 - lt writs. came back in 07-07-16 d/t lt hip pain unable to get out of bed History of Any Multi-Drug Resistant Organisms: None Reported Past Surgical History: Cardiac Valve Replacement, Coronary Bypass/CABG, Hysterectomy Additional Past Surgical History / Comment(s): Mick carotid surgery, 2001 [place] aortic valve replacement, 03/23/16 EGD and colonoscopy, past colonoscopy with polypectomy, last colonoscopy was in 2017 Past Anesthesia/Blood Transfusion Reactions: No Reported Reaction Past Psychological History: Anxiety Smoking Status: Former smoker Past Alcohol Use History: Occasional Past Drug Use History: None Reported - Past Family History Sister(s) Family Medical History: Cancer Father Family Medical History: Diabetes Mellitus Additional Family Medical History / Comment(s): Father had tuberculosis. Mother Family Medical History: Dementia Son(s) Family Medical History: No Reported History Daughter(s) Family Medical History: No Reported History General Exam - General Exam Comments Initial Comments: GENERAL: Patient is well-developed and well-nourished. Patient is nontoxic and well- hydrated and is in no acute distress. ENT: Neck is soft and supple. No significant lymphadenopathy is noted. Oropharynx is clear. Moist mucous membranes. Neck has full range of motion without eliciting any pain. EYES: The sclera were anicteric and conjunctiva were pink and moist. Extraocular movements were intact and pupils were equal round and reactive to light. Eyelids were unremarkable. PULMONARY: Unlabored respirations. Good breath sounds bilaterally. No audible rales rhonchi or wheezing was noted. CARDIOVASCULAR: There is a regular rate and rhythm without any murmurs gallops or rubs. ABDOMEN: Soft and nontender with normal bowel sounds. No palpable organomegaly was noted. There is no palpable pulsatile mass. RECTAL: Patient has external hemorrhoids no active bleeding noted at this time SKIN: Skin is clear with no lesions or rashes and otherwise unremarkable. NEUROLOGIC: Patient is alert and oriented x3. Cranial nerves II through XII are grossly intact. Motor and sensory are also intact. Normal speech, volume and content. Symmetrical smile. MUSCULOSKELETAL: Normal extremities with adequate strength and full range of motion. Bilateral edema LYMPHATICS: No significant lymphadenopathy is noted PSYCHIATRIC: Normal psychiatric evaluation. Normal interpersonal interactions appears functionally intact in deals appropriately with others. No signs of depression. No signs of anxiety. Limitations: no limitations Course Vital Signs 07/29/17 14:55 Temperature 98 F Pulse Rate 68 Respiratory 28 H Rate Blood Pressure 109/71 O2 Sat by Pulse 99 Oximetry Medical Decision Making - Medical Decision Making Patient's hemoglobin came back 5.6. I ordered 2 units of packed red blood cells. I did not reverse Coumadin at this time because patient has a [facility] [place]' s valve. Patient seems to be otherwise stable. I admitted the patient to Dr. Stone and I consult the fashion show director. I wrote admitting orders. Repeat CBCs. - Lab Data Result diagrams: 07/29/17 15:30 07/29/17 15:30 Lab Results 07/29/17 07/29/17 07/29/17 Range/Units 15:30 15:30 15:30 WBC 6.8 (3.8-10.6) k/uL RBC 3.07 L (3.80-5.40) m/uL Hgb 5.6 L* (11.4-16.0) gm/dL Hct 20.1 L (34.0-46.0) % MCV 65.3 L (80.0-100.0) fL MCH 18.2 L (25.0-35.0) pg MCHC 27.9 L (31.0-37.0) g/dL RDW 17.4 H (11.5-15.5) % PT (9.0-12.0) sec INR (<1.2) APTT (22.0-30.0) sec Sodium 131 L (137-145) mmol/L Potassium 4.5 (3.5-5.1) mmol/L Chloride 95 L (98-107) mmol/L Carbon Dioxide 26 (22-30) mmol/L Anion Gap 10 mmol/L BUN 29 H (7-17) mg/dL Creatinine 1.26 H (0.52-1.04) mg/dL Est GFR (CKD-EPI)AfAm 47 (>60 ml/min/1.73 sqM) Est GFR (CKD-EPI)NonAf 41 (>60 ml/min/1.73 sqM) Glucose 99 (74-99) mg/dL Calcium 8.5 (8.4-10.2) mg/dL Magnesium 1.9 (1.6-2.3) mg/dL Total Bilirubin 0.3 (0.2-1.3) mg/dL AST 40 H (14-36) U/L ALT 41 (9-52) U/L Alkaline Phosphatase 63 (38-126) U/L Total Creatine Kinase 88 (30-135) U/L CK-MB (CK-2) 1.0 (0.0-2.4) ng/mL CK-MB (CK-2) Rel Index 1.1 Total Protein 6.1 L (6.3-8.2) g/dL Albumin 3.6 (3.5-5.0) g/dL 07/29/17 Range/Units 15:30 WBC (3.8-10.6) k/uL RBC (3.80-5.40) m/uL Hgb (11.4-16.0) gm/dL Hct (34.0-46.0) % MCV (80.0-100.0) fL MCH (25.0-35.0) pg MCHC (31.0-37.0) g/dL RDW (11.5-15.5) % PT 23.9 H (9.0-12.0) sec INR 2.7 H (<1.2) APTT 26.8 (22.0-30.0) sec Sodium (137-145) mmol/L Potassium (3.5-5.1) mmol/L Chloride (98-107) mmol/L Carbon Dioxide (22-30) mmol/L Anion Gap mmol/L BUN (7-17) mg/dL Creatinine (0.52-1.04) mg/dL Est GFR (CKD-EPI)AfAm (>60 ml/min/1.73 sqM) Est GFR (CKD-EPI)NonAf (>60 ml/min/1.73 sqM) Glucose (74-99) mg/dL Calcium (8.4-10.2) mg/dL Magnesium (1.6-2.3) mg/dL Total Bilirubin (0.2-1.3) mg/dL AST (14-36) U/L ALT (9-52) U/L Alkaline Phosphatase (38-126) U/L Total Creatine Kinase (30-135) U/L CK-MB (CK-2) (0.0-2.4) ng/mL CK-MB (CK-2) Rel Index Total Protein (6.3-8.2) g/dL Albumin (3.5-5.0) g/dL Critical Care Time Critical Care Time: Yes Total Critical Care Time: 35 Disposition Clinical Impression: GI bleed, Generalized weakness, Anemia Disposition: ADMITTED IP TO THIS HOSP Referrals: Alphonse Reza DO [Primary Care Provider] - 1-2 days Time of Disposition: 16:10
[2017-07-29 15:53] LABS: Albumin 3.6 g/dL (3.5-5.0); Calcium 8.5 mg/dL (8.4-10.2); Magnesium 1.9 mg/dL (1.6-2.3); Potassium 4.5 mmol/L (3.5-5.1); Total Bilirubin 0.3 mg/dL (0.2-1.3); Total Protein 6.1 g/dL (6.3-8.2)
[2017-07-29 15:54] LABS: INR 2.7 (<1.2); Partial Thromboplastin Time 26.8 sec (22.0-30.0); Prothrombin Time 23.9 sec (9.0-12.0)
[2017-07-29] MEDS ORDERED: ONDANSETRON 4 MG/2 ML VIAL IVP STA (16:01)
[2017-07-29 16:02] LABS: Anisocytosis Slight; HCT 20.1 % (34.0-46.0); Hypochromasia Marked; MCH 18.2 pg (25.0-35.0); MCHC 27.9 g/dL (31.0-37.0); MCV 65.3 fL (80.0-100.0); Mean Platelet Volume 8.1; Microcytosis Marked; Platelet Count 254 k/uL (150-450); Poikilocytosis Moderate; RBC 3.07 m/uL (3.80-5.40); RDW 17.4 % (11.5-15.5)
[2017-07-29 16:06] LABS: HGB 5.6 gm/dL (11.4-16.0)
[2017-07-29] MEDS ORDERED: PHYTONADIONE 5 MG in SODIUM CHLORIDE 0.9% 50 ML IVPB STA (16:06)
[2017-07-29] MEDS ORDERED: NALOXONE 0.4 MG/ML 1 ML VIAL IV PRN (16:16)
[2017-07-29 16:41] LABS: Appearance,Urine Clear (Clear); Bilirubin,Urine Negative (Negative); Blood,Urine Negative (Negative); Color,Urine Yellow; Glucose,Urine (UA) Negative (Negative); Ketones,Urine Negative (Negative); Leukocyte Esterase,Urine Small (Negative); Nitrite,Urine Negative (Negative); Protein,Urine 1+ (Negative); Specific Gravity,Urine 1.011 (1.001-1.035); Squamous Epithelial Cell,Urine 1 /hpf (0-4); Urobilinogen,Urine <2.0 mg/dL (<2.0); WBC,Urine 4 /hpf (0-5)
[2017-07-29 17:13] LABS: Eosinophils # (M) 0.13 k/uL (0-0.7); Large Platelets Present; Lymphocytes # (M) 1.88 k/uL (1.0-4.8); Neutrophils # (M) 3.95 k/uL (1.3-7.7); Neutrophils % (M) 59 %; Nucleated Red Blood Cells 1 /100 WBC (0-0); Ovalocytes Present; Poikilocytosis (M) Present; Target Cells Present; Total Cells Counted 200; WBC 6.7 k/uL (3.8-10.6)
[2017-07-29 17:15] LABS: Polychromasia Present
[2017-07-29 20:16] LABS: Glucose,Whole Blood 120 mg/dL (75-99)
[2017-07-29 21:09] VITALS: BMI 25.8
[2017-07-30] MEDS ORDERED: ALPRAZolam 0.5 MG TAB PO PRN (02:27)
[2017-07-30] MEDS ORDERED: ONDANSETRON 4 MG/2 ML VIAL IVP PRN (02:28)
[2017-07-30 04:50] LABS: Anisocytosis Slight; HCT 27.9 % (34.0-46.0); Hypochromasia Marked; MCH 21.3 pg (25.0-35.0); MCHC 30.9 g/dL (31.0-37.0); Mean Platelet Volume 7.7; Microcytosis Marked; Platelet Count 216 k/uL (150-450); Poikilocytosis Marked; RBC 4.04 m/uL (3.80-5.40); RDW 18.4 % (11.5-15.5); WBC 8.1 k/uL (3.8-10.6)
[2017-07-30 04:59] LABS: Calcium 8.6 mg/dL (8.4-10.2); Phosphorus 3.2 mg/dL (2.5-4.5); Potassium 4.6 mmol/L (3.5-5.1)
[2017-07-30 05:12] LABS: HGB 8.6 gm/dL (11.4-16.0)
[2017-07-30 07:26] LABS: INR 2.3 (<1.2); Prothrombin Time 20.5 sec (9.0-12.0)
--- NOTE | 2017-07-30 07:51 | XR ---
EXAMINATION TYPE: XR chest 1V portable DATE OF EXAM: 07/30/2017 COMPARISON: 07/04/2016 HISTORY: Shortness of breath TECHNIQUE: Single frontal view of the chest is obtained. FINDINGS: Chronic interstitial prominence is unchanged from 2017. Cardia mediastinal silhouette is a gain enlarged with postoperative changes of the chest. No new focal consolidation, pleural effusion o r pneumothorax. There is diffuse osseous demineralization. Osseous structures are grossly intact. IMPRESSION: Chronic changes with no acute cardiopulmonary process.
[2017-07-30] MEDS ORDERED: HEPARIN SODIUM,PORCINE 5,000 UNIT/ML 1 ML VIAL IV ONE (10:14)
[2017-07-30] MEDS ORDERED: HEPARIN SODIUM,PORCINE 5,000 UNIT/ML 1 ML VIAL IV PRN (10:14)
[2017-07-30] MEDS ORDERED: HEPARIN SODIUM,PORCINE/D5W PMX 25,000 UNIT in DEXTROSE/WATER 1 500ML.BAG IV SCH (10:15)
--- NOTE | 2017-07-30 11:00 | P.HPIM ---
History of Present Illness H&P Date: 07/30/17 Chief Complaint: Fatigue This is 76 years old female who presented to the emergency department with generalized weakness and fatigue. Patient lives at home with her daughters who felt that the patient is having worsening in her weakness and brought her to the emergency department along with blood in the rectum that has been going for a long time and felt to be related to hemorrhoids as patient had EGD and colonoscopy last year which showed diverticulosis only. Patient in the emergency department was found to have hemoglobin of 5.6 and was admitted to the ICU with 2 units ordered to be transfused. Patient was hemodynamically stable and currently denying chest pain, shortness breath, nausea, vomiting, dumping, dizziness, lightheadedness or blurry vision but did say that she's feeding week overall. Patient is alert and oriented 1-2 as she has a history of dementia well diagnosed and treated on outpatient basis. Patient had a history of mechanical valve placement and has been on Coumadin for a long time for that reason and her INR was therapeutic at the time of admission Review of Systems All 14 systems reviewed and negative except as above Past Medical History Past Medical History: Coronary Artery Disease (CAD), CVA/TIA, GI Bleed, Hyperlipidemia, Hypertension, Osteoarthritis (OA), Vascular Disorder Additional Past Medical History / Comment(s): Pt hospitalized at [facility] on with CKD stage II, hyponatremia. Other HX: black stools x 2 days-had EGD /colonoscopy showing gastritis and diverticulosis, hemorroids, polyps, Lt hip pain (needs total hip replacement), L knee meniscus tear, tripped and fell struck face/R eye, has "hairline fracture lower back",, protein calorie malnutrition, tia,sciatic nerve pain. fell 07-04-17 -fx lt writs. History of Any Multi-Drug Resistant Organisms: None Reported Past Surgical History: Cardiac Valve Replacement, Coronary Bypass/CABG, Hysterectomy Additional Past Surgical History / Comment(s): Mick carotid surgery, 2001 [place] aortic valve replacement, 03/23/16 EGD and colonoscopy, past colonoscopy with polypectomy, last colonoscopy was in 2017 Past Anesthesia/Blood Transfusion Reactions: No Reported Reaction Past Psychological History: Anxiety Additional Psychological History / Comment(s): Pt resides by herself. She is using a walker to ambulate. She also has a cane. Smoking Status: Former smoker Past Alcohol Use History: Occasional Additional Past Alcohol Use History / Comment(s): Smoked 1 pack/wk for 2 yrs; quit 01/26/80. Pt states she will have an occasional glass of wine. Past Drug Use History: None Reported - Past Family History Sister(s) Family Medical History: Cancer Father Family Medical History: Diabetes Mellitus Additional Family Medical History / Comment(s): Father had tuberculosis. Mother Family Medical History: Dementia Son(s) Family Medical History: No Reported History Daughter(s) Family Medical History: No Reported History Medications and Allergies Home Medications Medication Instructions Recorded Confirmed Type Atenolol 100 mg PO BID 02/04/16 07/29/17 History Rosuvastatin Calcium [Crestor] 40 mg PO HS 02/04/16 07/29/17 History Warfarin Sodium 2.5 mg PO SUMOTUWETHSA 02/04/16 07/29/17 History Warfarin [Coumadin] 5 mg PO FR 04/30/16 07/29/17 History Donepezil [Aricept] 5 mg PO QAM 10/27/16 07/29/17 History Magnesium Oxide [Mag-Ox] 250 mg PO QAM 07/29/17 07/29/17 History Sodium Bicarbonate 325 mg PO BID 07/29/17 07/29/17 History hydrALAZINE HCL [Apresoline] 50 mg PO TID 07/29/17 07/29/17 History Allergies Allergy/AdvReac Type Severity Reaction Status Date / Time Sulfa (Sulfonamide Allergy Rash/Hives Verified 07/29/17 15:18 Antibiotics) Physical Exam Vitals: Vital Signs Temp Pulse Resp BP BP Pulse Ox 07/30/17 10:00 65 21 175/87 95 07/30/17 09:00 62 21 175/87 94 L 07/30/17 08:00 98.7 F 67 20 171/87 95 07/30/17 07:00 66 29 H 161/100 96 07/30/17 06:00 67 28 H 187/74 94 L 07/30/17 05:00 65 42 H 182/73 93 L 07/30/17 04:00 97.8 F 61 28 H 161/71 96 07/30/17 03:00 64 49 H 184/64 94 L 07/30/17 02:00 70 57 H 153/67 95 07/30/17 01:00 68 34 H 160/75 99 07/30/17 00:00 97.6 F 70 45 H 173/99 96 07/29/17 23:15 71 50 H 186/80 97 07/29/17 23:00 97.7 F 76 34 H 186/80 90 L 07/29/17 22:30 65 36 H 175/73 99 07/29/17 22:00 75 46 H 180/87 94 L 07/29/17 21:51 97.6 F 67 22 173/99 98 07/29/17 21:30 63 33 H 174/71 07/29/17 21:21 97.7 F 76 30 H 186/80 92 L 07/29/17 21:11 97.5 F L 65 16 175/73 98 07/29/17 21:00 78 30 H 185/67 99 07/29/17 20:30 75 30 H 190/81 99 07/29/17 20:13 60 37 H 07/29/17 19:27 97.9 F 64 16 174/71 97 07/29/17 19:26 97.9 F 64 18 184/82 98 07/29/17 18:31 97.8 F 16 185/67 99 07/29/17 18:03 97.2 F L 65 20 178/74 100 07/29/17 17:33 98.2 F 60 18 135/65 99 07/29/17 17:23 98.3 F 63 18 151/67 99 07/29/17 17:13 98.2 F 66 18 154/67 100 07/29/17 16:23 67 24 167/69 100 07/29/17 14:55 98 F 68 28 H 109/71 99 Intake and Output 07/29/17 07/30/17 07/30/17 22:59 06:59 14:59 Intake Total 650 310 120 Output Total 875 250 Balance 650 565 130 Intake: IV 340 blood 340 Oral 120 Blood Product 310 310 Rc As-1 Unit 310 [id number] Rc As-1 Unit 0 310 [id number] Output: Urine 875 250 Other: Voiding Method Bedside Commode Bedside Commode # Voids 1 1 # Bowel Movements 1 Weight 68.2 kg 69.8 kg Gen.: in stated age, no acute distress Heart: Normal S1-S2 Lungs: Clear to auscultation bilaterally Abdomen: Soft, no tenderness, positive bowel sounds in all 4 quadrant no guarding or rebound Skin: No new rash Psych: Alert and oriented 1-2 Neuro: No focal deficit Results CBC & Chem 7: 07/30/17 04:19 07/30/17 04:19 Labs: Abnormal Lab Results - Last 24 Hours (Table) 07/29/17 07/29/17 07/29/17 Range/Units 15:30 15:30 15:30 RBC 3.07 L (3.80-5.40) m/uL Hgb 5.6 L* (11.4-16.0) gm/dL Hct 20.1 L (34.0-46.0) % MCV 65.3 L (80.0-100.0) fL MCH 18.2 L (25.0-35.0) pg MCHC 27.9 L (31.0-37.0) g/dL RDW 17.4 H (11.5-15.5) % Nucleated RBCs 1 H (0-0) /100 WBC PT 23.9 H (9.0-12.0) sec INR 2.7 H (<1.2) Sodium 131 L (137-145) mmol/L Chloride 95 L (98-107) mmol/L BUN 29 H (7-17) mg/dL Creatinine 1.26 H (0.52-1.04) mg/dL POC Glucose (mg/dL) (75-99) mg/dL AST 40 H (14-36) U/L Total Protein 6.1 L (6.3-8.2) g/dL Urine Protein (Negative) Ur Leukocyte Esterase (Negative) Crossmatch 07/29/17 07/29/17 07/29/17 Range/Units 15:30 16:20 20:15 RBC (3.80-5.40) m/uL Hgb (11.4-16.0) gm/dL Hct (34.0-46.0) % MCV (80.0-100.0) fL MCH (25.0-35.0) pg MCHC (31.0-37.0) g/dL RDW (11.5-15.5) % Nucleated RBCs (0-0) /100 WBC PT (9.0-12.0) sec INR (<1.2) Sodium (137-145) mmol/L Chloride (98-107) mmol/L BUN (7-17) mg/dL Creatinine (0.52-1.04) mg/dL POC Glucose (mg/dL) 120 H (75-99) mg/dL AST (14-36) U/L Total Protein (6.3-8.2) g/dL Urine Protein 1+ H (Negative) Ur Leukocyte Esterase Small H (Negative) Crossmatch See Detail 07/30/17 07/30/17 07/30/17 Range/Units 04:19 04:19 07:12 RBC (3.80-5.40) m/uL Hgb 8.6 L D (11.4-16.0) gm/dL Hct 27.9 L (34.0-46.0) % MCV 69.0 L (80.0-100.0) fL MCH 21.3 L (25.0-35.0) pg MCHC 30.9 L (31.0-37.0) g/dL RDW 18.4 H (11.5-15.5) % Nucleated RBCs (0-0) /100 WBC PT 20.5 H (9.0-12.0) sec INR 2.3 H (<1.2) Sodium 132 L (137-145) mmol/L Chloride (98-107) mmol/L BUN 24 H (7-17) mg/dL Creatinine 1.20 H (0.52-1.04) mg/dL POC Glucose (mg/dL) (75-99) mg/dL AST (14-36) U/L Total Protein (6.3-8.2) g/dL Urine Protein (Negative) Ur Leukocyte Esterase (Negative) Crossmatch Thrombosis Risk Factor Assmnt - Choose All That Apply Any of the Below Risk Factors Present?: No Each Risk Factor Represents 3 Points: Age 75 years or older Thrombosis Risk Factor Assessment Total Risk Factor Score: 3 Thrombosis Risk Factor Assessment Level: Moderate Risk Assessment and Plan Assessment: 1. Acute anemia likely related to blood loss from GI source. 2. Status post aortic valve replacement with mechanical valve in 2001. 3. Coronary artery disease status post CABG. 4. Peripheral arterial disease. 5. Diverticulosis area 6. History of gastritis. 7. Hypertension. 8. Hyperlipidemia. 9. Dementia. 10. Generalized osteoarthritis. 11. Hyponatremia Patient have received 2 units of packed red blood cells and her hemoglobin 1 up to 8 her blood pressure is currently elevated at 175 systolic and I would like to resume her blood pressure medication with holding parameters that discussed with the nursing staff at the bedside and details I would like also to start patients on heparin drip if approved by GI specialist and transfer patients to medical floor with alarm security or surveillance monitor. We'll repeat CBC tonight and in the morning continue with proton pump inhibitors and introduce diet at this point and monitor patient's electrolytes in the morning. GI recommended capsule endoscopy and we will follow-up with the recommendation.
[2017-07-30] MEDS: ATENOLOL 50 MG TAB PO SCH ×2 (11:55→20:58)
[2017-07-30] MEDS: hydrALAZINE HCL 50 MG TAB PO SCH ×3 (11:55→20:59)
[2017-07-30] MEDS: SODIUM BICARBONATE TAB 650 MG TAB PO SCH ×2 (11:55→20:58)
[2017-07-30] MEDS: DONEPEZIL 5 MG TAB PO SCH (11:55)
[2017-07-30] MEDS: MAGNESIUM OXIDE 400 MG TAB PO SCH (11:56)
--- NOTE | 2017-07-30 13:35 | P.CNPUL ---
History of Present Illness Consult date: 07/29/17 (Late entry note) Chief complaint: Severe anemia GI bleed ICU care History of present illness: 76-year-old female seen eval reexamined in the emergency department related to severe anemia with hemoglobin of 5 as per request of the emergency department physician has a history of extensive hemorrhoids has been having some spotty bleeding started about a day ago has been feeling very weak and has been confused patient is also tachypneic came into the emergency department blood pressure noted to be elevated, patient is on long-term anticoagulation due to mechanical aortic valve with Coumadin INR is slightly subtherapeutic decision was done after discussion with emergency room physician not to reverse and but acceptable observe post blood transfusion however continue to hold Coumadin for now, cardiovascular services has been consulted as well Review of the data revealed that patient's daughter feels patient is becoming more more demented and she is worried there might be some other problem. Patient denies any chest pain shortness breath or difficulty breathing. Patient denies any abdominal pain. Patient denies any nausea vomiting diarrhea. Patient denies any recent fever chills or cough. Patient states she does have hemorrhoids she's had a few years and it always hurts to have a bowel movement but this is chronic. Patient also has rectal bleeding on occasion. Patient also complains of increased edema in her legs. It appears that patient has been evaluated with upper and lower scope at [facility] somewhere around March this year recently exact details are not available no active source of bleeding was seen at that time Review of Systems All systems: negative Past Medical History Past Medical History: Coronary Artery Disease (CAD), CVA/TIA, GI Bleed, Hyperlipidemia, Hypertension, Osteoarthritis (OA), Vascular Disorder Additional Past Medical History / Comment(s): Pt hospitalized at [facility] on with CKD stage II, hyponatremia. Other HX: black stools x 2 days-had EGD /colonoscopy showing gastritis and diverticulosis, hemorroids, polyps, Lt hip pain (needs total hip replacement), L knee meniscus tear, tripped and fell struck face/R eye, has "hairline fracture lower back",, protein calorie malnutrition, tia,sciatic nerve pain. fell 5-14-17 -fx lt writs. History of Any Multi-Drug Resistant Organisms: None Reported Past Surgical History: Cardiac Valve Replacement, Coronary Bypass/CABG, Hysterectomy Additional Past Surgical History / Comment(s): Mick carotid surgery, 2001 [facility] aortic valve replacement, 03/23/16 EGD and colonoscopy, past colonoscopy with polypectomy, last colonoscopy was in 2017 Past Anesthesia/Blood Transfusion Reactions: No Reported Reaction Past Psychological History: Anxiety Additional Psychological History / Comment(s): Pt resides by herself. She is using a walker to ambulate. She also has a cane. Smoking Status: Former smoker Past Alcohol Use History: Occasional Additional Past Alcohol Use History / Comment(s): Smoked 1 pack/wk for 2 yrs; quit 01/26/80. Pt states she will have an occasional glass of wine. Past Drug Use History: None Reported - Past Family History Sister(s) Family Medical History: Cancer Father Family Medical History: Diabetes Mellitus Additional Family Medical History / Comment(s): Father had tuberculosis. Mother Family Medical History: Dementia Son(s) Family Medical History: No Reported History Daughter(s) Family Medical History: No Reported History Medications and Allergies Home Medications Medication Instructions Recorded Confirmed Type Atenolol 100 mg PO BID 02/04/16 07/29/17 History Rosuvastatin Calcium [Crestor] 40 mg PO HS 02/04/16 07/29/17 History Warfarin Sodium 2.5 mg PO SUMOTUWETHSA 02/04/16 07/29/17 History Warfarin [Coumadin] 5 mg PO FR 04/30/16 07/29/17 History Donepezil [Aricept] 5 mg PO QAM 10/27/16 07/29/17 History Magnesium Oxide [Mag-Ox] 250 mg PO QAM 07/29/17 07/29/17 History Sodium Bicarbonate 325 mg PO BID 07/29/17 07/29/17 History hydrALAZINE HCL [Apresoline] 50 mg PO TID 07/29/17 07/29/17 History Allergies Allergy/AdvReac Type Severity Reaction Status Date / Time Sulfa (Sulfonamide Allergy Rash/Hives Verified 07/29/17 15:18 Antibiotics) Physical Exam Vitals: Vital Signs Temp Pulse Resp BP BP Pulse Ox 07/30/17 10:00 65 21 175/87 95 07/30/17 09:00 62 21 175/87 94 L 07/30/17 08:00 98.7 F 67 20 171/87 95 07/30/17 07:00 66 29 H 161/100 96 07/30/17 06:00 67 28 H 187/74 94 L 07/30/17 05:00 65 42 H 182/73 93 L 07/30/17 04:00 97.8 F 61 28 H 161/71 96 07/30/17 03:00 64 49 H 184/64 94 L 07/30/17 02:00 70 57 H 153/67 95 07/30/17 01:00 68 34 H 160/75 99 07/30/17 00:00 97.6 F 70 45 H 173/99 96 07/29/17 23:15 71 50 H 186/80 97 07/29/17 23:00 97.7 F 76 34 H 186/80 90 L 07/29/17 22:30 65 36 H 175/73 99 07/29/17 22:00 75 46 H 180/87 94 L 07/29/17 21:51 97.6 F 67 22 173/99 98 07/29/17 21:30 63 33 H 174/71 07/29/17 21:21 97.7 F 76 30 H 186/80 92 L 07/29/17 21:11 97.5 F L 65 16 175/73 98 07/29/17 21:00 78 30 H 185/67 99 07/29/17 20:30 75 30 H 190/81 99 07/29/17 20:13 60 37 H 07/29/17 19:27 97.9 F 64 16 174/71 97 07/29/17 19:26 97.9 F 64 18 184/82 98 07/29/17 18:31 97.8 F 16 185/67 99 07/29/17 18:03 97.2 F L 65 20 178/74 100 07/29/17 17:33 98.2 F 60 18 135/65 99 07/29/17 17:23 98.3 F 63 18 151/67 99 07/29/17 17:13 98.2 F 66 18 154/67 100 07/29/17 16:23 67 24 167/69 100 07/29/17 14:55 98 F 68 28 H 109/71 99 Intake and Output 07/29/17 07/30/17 07/30/17 22:59 06:59 14:59 Intake Total 650 310 120 Output Total 875 250 Balance 907 -683 -179 Intake: IV 340 blood 340 Oral 120 Blood Product 310 310 Rc As-1 Unit 310 [id number] Rc As-1 Unit 0 310 [id number] Output: Urine 875 250 Other: Voiding Method Bedside Commode Bedside Commode # Voids 1 1 # Bowel Movements 1 Weight 68.2 kg 69.8 kg GENERAL: Patient is well-developed and well-nourished. Patient is nontoxic and well- hydrated and is in no acute distress. ENT: Neck is soft and supple. No significant lymphadenopathy is noted. Oropharynx is clear. Moist mucous membranes. Neck has full range of motion without eliciting any pain. EYES: The sclera were anicteric and conjunctiva were pink and moist. Extraocular movements were intact and pupils were equal round and reactive to light. Eyelids were unremarkable. PULMONARY: Unlabored respirations. Good breath sounds bilaterally. No audible rales rhonchi or wheezing was noted. Few crackles in the bases cannot be excluded CARDIOVASCULAR: There is a regular rate and rhythm without any murmurs gallops or rubs. ABDOMEN: Soft and nontender with normal bowel sounds. No palpable organomegaly was noted. There is no palpable pulsatile mass. SKIN: Skin is clear with no lesions or rashes and otherwise unremarkable. NEUROLOGIC: Patient is sleepy and tired appearing however on stimulation alert and oriented x 1. Cranial nerves II through XII are grossly intact. Motor and sensory are also intact. Normal speech, volume and content. Symmetrical smile. MUSCULOSKELETAL: Normal extremities with adequate strength and full range of motion. Bilateral lower extremity +1 to plus 2 edema LYMPHATICS: No significant lymphadenopathy is noted PSYCHIATRIC: Normal psychiatric evaluation. Results - Laboratory Findings CBC and BMP: 07/30/17 04:19 07/30/17 04:19 PT/INR, D-dimer PT 20.5 sec (9.0-12.0) H 07/30/17 07:12 INR 2.3 (<1.2) H 07/30/17 07:12 Abnormal lab findings: Abnormal Labs 07/29/17 07/29/17 07/29/17 15:30 15:30 15:30 RBC 3.07 L Hgb 5.6 L* Hct 20.1 L MCV 65.3 L MCH 18.2 L MCHC 27.9 L RDW 17.4 H Nucleated RBCs 1 H PT 23.9 H INR 2.7 H Sodium 131 L Chloride 95 L BUN 29 H Creatinine 1.26 H POC Glucose (mg/dL) AST 40 H Total Protein 6.1 L Urine Protein Ur Leukocyte Esterase Crossmatch 07/29/17 07/29/17 07/29/17 15:30 16:20 20:15 RBC Hgb Hct MCV MCH MCHC RDW Nucleated RBCs PT INR Sodium Chloride BUN Creatinine POC Glucose (mg/dL) 120 H AST Total Protein Urine Protein 1+ H Ur Leukocyte Esterase Small H Crossmatch See Detail 07/30/17 07/30/17 07/30/17 04:19 04:19 07:12 RBC Hgb 8.6 L D Hct 27.9 L MCV 69.0 L MCH 21.3 L MCHC 30.9 L RDW 18.4 H Nucleated RBCs PT 20.5 H INR 2.3 H Sodium 132 L Chloride BUN 24 H Creatinine 1.20 H POC Glucose (mg/dL) AST Total Protein Urine Protein Ur Leukocyte Esterase Crossmatch - Diagnostic Findings Chest x-ray: report reviewed, image reviewed Assessment and Plan Assessment: Severe symptomatic anemia appears to be chronic with symptoms of generalized weakness tiredness Suspect chronic intermittent blood loss either hemorrhoids or occult source in the GI tract Aortic valve disease status post mechanical aortic valve replacement in 2001 on long-term anticoagulation Coronary artery disease with history of prior CABG Generalized weakness and medical debility Developing dementia 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
--- NOTE | 2017-07-30 13:40 | P.PN ---
Subjective Progress Note Date: 07/30/17 Principal diagnosis: Severe symptomatic chronic anemia, GI bleed of unclear source, confusion and altered mental status likely related to above, advanced hemorrhoids, aortic valve disease status post metallic aortic valve replacement, coronary artery disease status post CABG, severe morbid obesity, obstructive sleep apnea and sleep disorder breathing likely, hyponatremia, chronic renal failure stage 2-3 08/09/2017, patient seen eval examined during the rounds clinically doing slightly better awake but remains intermittently confused moving all 4 extremity no focal neurological deficit slow to response, daughter is present at the bedside, patient is transfused with 2 units of packed RBC hemoglobin is improved to 8, no new source of active bleeding is seen, GI services have evaluated the patient plan is for Endoscopy, Patient Has Been Moved Out Of the ICU to Stepdown Unit As Hemodynamically She Remains Stable and No Active Source of Bleeding Has Been Seen Overnight 76-year-old female seen eval reexamined in the emergency department related to severe anemia with hemoglobin of 5 as per request of the emergency department physician has a history of extensive hemorrhoids has been having some spotty bleeding started about a day ago has been feeling very weak and has been confused patient is also tachypneic came into the emergency department blood pressure noted to be elevated, patient is on long-term anticoagulation due to mechanical aortic valve with Coumadin INR is slightly subtherapeutic decision was done after discussion with emergency room physician not to reverse and but acceptable observe post blood transfusion however continue to hold Coumadin for now, cardiovascular services has been consulted as well Review of the data revealed that patient's daughter feels patient is becoming more more demented and she is worried there might be some other problem. Patient denies any chest pain shortness breath or difficulty breathing. Patient denies any abdominal pain. Patient denies any nausea vomiting diarrhea. Patient denies any recent fever chills or cough. Patient states she does have hemorrhoids she's had a few years and it always hurts to have a bowel movement but this is chronic. Patient also has rectal bleeding on occasion. Patient also complains of increased edema in her legs. It appears that patient has been evaluated with upper and lower scope at [facility] somewhere around March this year recently exact details are not available no active source of bleeding was seen at that time Objective - Vital Signs Vital signs: Vital Signs Temp 98.7 F 06/09/18 08:00 Pulse 65 07/30/17 10:00 Resp 21 07/30/17 10:00 BP 175/87 07/30/17 10:00 Pulse Ox 95 07/30/17 10:00 Intake & Output 07/29/17 07/30/17 07/30/17 18:59 06:59 18:59 Intake Total 0 960 120 Output Total 875 250 Balance 0 85 -130 Weight 68.2 kg 69.8 kg Intake: IV 340 blood 340 Oral 120 Blood Product 0 620 Rc As-1 Unit 0 310 [id number] Rc As-1 Unit 310 [id number] Output: Urine 875 250 Other: Voiding Method Bedside Commode Bedside Commode # Voids 1 # Bowel Movements 1 - Exam GENERAL: Patient is well-developed and well-nourished. Patient is nontoxic and well- hydrated and is in no acute distress. ENT: Neck is soft and supple. No significant lymphadenopathy is noted. Oropharynx is clear. Moist mucous membranes. Neck has full range of motion without eliciting any pain. EYES: The sclera were anicteric and conjunctiva were pink and moist. Extraocular movements were intact and pupils were equal round and reactive to light. Eyelids were unremarkable. PULMONARY: Unlabored respirations. Good breath sounds bilaterally. No audible rales rhonchi or wheezing was noted. Few crackles in the bases cannot be excluded CARDIOVASCULAR: There is a regular rate and rhythm without any murmurs gallops or rubs. ABDOMEN: Soft and nontender with normal bowel sounds. No palpable organomegaly was noted. There is no palpable pulsatile mass. SKIN: Skin is clear with no lesions or rashes and otherwise unremarkable. NEUROLOGIC: Patient is sleepy and tired appearing however on stimulation alert and oriented x 1. Cranial nerves II through XII are grossly intact. Motor and sensory are also intact. Normal speech, volume and content. Symmetrical smile. MUSCULOSKELETAL: Normal extremities with adequate strength and full range of motion. Bilateral lower extremity +1 to plus 2 edema LYMPHATICS: No significant lymphadenopathy is noted PSYCHIATRIC: Normal psychiatric evaluation. - Labs CBC & Chem 7: 07/30/17 04:19 07/30/17 04:19 Labs: Abnormal Lab Results - Last 24 Hours (Table) 07/29/17 07/29/17 07/29/17 Range/Units 15:30 15:30 15:30 RBC 3.07 L (3.80-5.40) m/uL Hgb 5.6 L* (11.4-16.0) gm/dL Hct 20.1 L (34.0-46.0) % MCV 65.3 L (80.0-100.0) fL MCH 18.2 L (25.0-35.0) pg MCHC 27.9 L (31.0-37.0) g/dL RDW 17.4 H (11.5-15.5) % Nucleated RBCs 1 H (0-0) /100 WBC PT 23.9 H (9.0-12.0) sec INR 2.7 H (<1.2) Sodium 131 L (137-145) mmol/L Chloride 95 L (98-107) mmol/L BUN 29 H (7-17) mg/dL Creatinine 1.26 H (0.52-1.04) mg/dL POC Glucose (mg/dL) (75-99) mg/dL AST 40 H (14-36) U/L Total Protein 6.1 L (6.3-8.2) g/dL Urine Protein (Negative) Ur Leukocyte Esterase (Negative) Crossmatch 07/29/17 07/29/17 07/29/17 Range/Units 15:30 16:20 20:15 RBC (3.80-5.40) m/uL Hgb (11.4-16.0) gm/dL Hct (34.0-46.0) % MCV (80.0-100.0) fL MCH (25.0-35.0) pg MCHC (31.0-37.0) g/dL RDW (11.5-15.5) % Nucleated RBCs (0-0) /100 WBC PT (9.0-12.0) sec INR (<1.2) Sodium (137-145) mmol/L Chloride (98-107) mmol/L BUN (7-17) mg/dL Creatinine (0.52-1.04) mg/dL POC Glucose (mg/dL) 120 H (75-99) mg/dL AST (14-36) U/L Total Protein (6.3-8.2) g/dL Urine Protein 1+ H (Negative) Ur Leukocyte Esterase Small H (Negative) Crossmatch See Detail 07/30/17 07/30/17 07/30/17 Range/Units 04:19 04:19 07:12 RBC (3.80-5.40) m/uL Hgb 8.6 L D (11.4-16.0) gm/dL Hct 27.9 L (34.0-46.0) % MCV 69.0 L (80.0-100.0) fL MCH 21.3 L (25.0-35.0) pg MCHC 30.9 L (31.0-37.0) g/dL RDW 18.4 H (11.5-15.5) % Nucleated RBCs (0-0) /100 WBC PT 20.5 H (9.0-12.0) sec INR 2.3 H (<1.2) Sodium 132 L (137-145) mmol/L Chloride (98-107) mmol/L BUN 24 H (7-17) mg/dL Creatinine 1.20 H (0.52-1.04) mg/dL POC Glucose (mg/dL) (75-99) mg/dL AST (14-36) U/L Total Protein (6.3-8.2) g/dL Urine Protein (Negative) Ur Leukocyte Esterase (Negative) Crossmatch Assessment and Plan Assessment: Severe symptomatic anemia appears to be chronic with symptoms of generalized weakness tiredness Suspect chronic intermittent blood loss either hemorrhoids or occult source in the GI tract, status post upper and lower endoscopy in March 2017 at [facility] Aortic valve disease status post mechanical aortic valve replacement in 2001 on long-term anticoagulation Coronary artery disease with history of prior CABG Generalized weakness and medical debility Developing dementia 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 hyponatremia Interstitial lung disease Severe morbid obesity and sleep disorder breathing and sleep apnea Plan: Closely observe in the stepdown unit Gentle rehydration Monitor hemoglobin closely Status post transfused with 2 units of packed RBC We will hold on reversing INR, as per discussion with the ER physician, as per cardiovascular services patient is being started on IV heparin and being monitor and observe closely we'll continue to hold Coumadin Cardiovascular services consult recommendations reviewed Further recommendations pending plan of care as per clinical response of the patient Repeat labs tomorrow Evaluation of sleep-disordered breathing and possible interstitial lung disease needed on outpatient basis Time with Patient: Greater than 30
[2017-07-30] MEDS: BENZOCAINE/MENTHOL LOZENG 1 EACH LOZENGE MUCOUS MEM PRN (15:55)
[2017-07-30 18:54] LABS: Anisocytosis Slight; HCT 29.7 % (34.0-46.0); HGB 8.8 gm/dL (11.4-16.0); Hypochromasia Marked; MCH 20.9 pg (25.0-35.0); MCHC 29.7 g/dL (31.0-37.0); MCV 70.3 fL (80.0-100.0); Mean Platelet Volume 7.4; Microcytosis Marked; Platelet Count 262 k/uL (150-450); Poikilocytosis Marked; RBC 4.23 m/uL (3.80-5.40); RDW 18.2 % (11.5-15.5); WBC 8.9 k/uL (3.8-10.6)
--- NOTE | 2017-07-30 19:34 | CONS ---
CONSULTATION REQUESTING PHYSICIAN: Dr. Reza. REASON FOR CONSULTATION: Severe symptomatic anemia. HISTORY OF PRESENT ILLNESS: The patient is a 76-year-old pleasant white female who was brought to the emergency room by her daughter because of generalized weakness and fatigue for the last few weeks duration. She was also somewhat confused and she was brought to the emergency room. She was noted to have a hemoglobin of 5.6 and hence was admitted the hospital. She received 2 units of blood transfusion and this morning the hemoglobin is 8 g/dL. The patient complains of intermittent rectal bleeding for the last few months, which has been on and off, which she attributes to hemorrhoids. She did have an EGD and colonoscopy in February [address] Cevallos, which showed gastritis, small hiatal hernia and sigmoid diverticulosis as well as small internal hemorrhoids. The patient this morning is feeling better. She denies any abdominal pain. No nausea, vomiting. No recent NSAID use. No prior history of peptic ulcer disease. She has intermittent rectal bleeding that happens once or twice a week. She has history of a mechanical valve replacement for which she has been on Coumadin for the last several years. PAST MEDICAL HISTORY: Significant for coronary artery disease, history of CVA in the past. Hypertension, hyperlipidemia, degenerative joint disease. PAST SURGICAL HISTORY: Aortic valve replacement, EGD, colonoscopy February of 2016, bilateral carotid endarterectomy, CABG. MEDICATIONS: At home include atenolol, Crestor, Coumadin, Aricept, magnesium oxide, Apresoline. ALLERGIES: To SULFA. SOCIAL HISTORY: No smoking or alcohol use. FAMILY HISTORY: Father had diabetes mellitus. Mother has dementia. REVIEW OF SYSTEMS: CARDIOPULMONARY: No chest pain, shortness of breath. GENITOURINARY: No dysuria or hematuria. MUSCULOSKELETAL: Unremarkable. SKIN: Unremarkable. ENDOCRINE: Unremarkable. PSYCHIATRIC: Unremarkable. NEUROLOGY: Unremarkable. ENT/VISION: Unremarkable. CONSTITUTIONAL: No recent weight loss. No fever, chills, night sweats. PHYSICAL EXAMINATION: He appears comfortable. No apparent distress. Vital signs is stable. Blood pressure is 171/87, pulse rate 67, afebrile. HEENT: Examination unremarkable. Conjunctivae pink. Sclerae anicteric. Oral cavity, no lesions. NECK: No jugular venous distention or lymph node enlargement. CHEST: Clear to auscultation. HEART: Regular rate and rhythm. ABDOMEN: Soft. Bowel sounds are positive. No organomegaly. EXTREMITIES: No pedal edema. SKIN: No rashes. NEUROLOGIC: Alert and oriented x3. No focal deficits. LAB: From the time of hemoglobin 5.6, after 2 units, it is 8.6 g/dL. MCV 65, platelets 254. PT/INR 2.3. BUN is 24, creatinine 1.2. Basic metabolic panel is within normal limits. IMPRESSION: 1. Severe symptomatic anemia with severe microcytosis suggestive of iron deficiency anemia most likely related to GI blood loss. As mentioned above EGD and colonoscopy in February of 2016 showed gastritis, hiatal hernia, diverticulosis and small internal hemorrhoids. Clinically, she does not have any evidence of active ongoing bleeding. 2. History of mechanical aortic valve replacement on Coumadin, which is currently on hold because of anemia. 3. Mild dementia. RECOMMENDATION: 1. Agree with blood transfusion. 2. CBC on a daily basis. 3. Continue with Protonix 40 mg daily. 4. Since the patient did have an endoscopy evaluation in February of 2016, the possibility of small bowel source of occult blood loss needs to be considered. At this time, we will schedule the patient for a small bowel capsule endoscopy on Tuesday. In the meantime, anticoagulation can be resumed in the form of IV heparin full and we will follow the patient closely during hospital stay. Thank you for this consultation. MMLISL / IJN: [id number] /
[2017-07-30] MEDS: MELATONIN 3 MG TABLET PO SCH (20:58)
[2017-07-30] MEDS: ATORVASTATIN 80 MG TAB PO SCH (20:58)
[2017-07-31 05:22] LABS: Anisocytosis Slight; HCT 28.2 % (34.0-46.0); HGB 8.6 gm/dL (11.4-16.0); Hypochromasia Marked; MCH 21.2 pg (25.0-35.0); MCHC 30.6 g/dL (31.0-37.0); MCV 69.2 fL (80.0-100.0); Mean Platelet Volume 7.5; Microcytosis Marked; Platelet Count 239 k/uL (150-450); Poikilocytosis Marked; RBC 4.08 m/uL (3.80-5.40); RDW 19.1 % (11.5-15.5); WBC 8.4 k/uL (3.8-10.6)
[2017-07-31 05:30] LABS: INR 1.6 (<1.2); Partial Thromboplastin Time 32.5 sec (22.0-30.0)
[2017-07-31 05:34] LABS: Calcium 8.5 mg/dL (8.4-10.2); Magnesium 1.9 mg/dL (1.6-2.3); Phosphorus 2.9 mg/dL (2.5-4.5); Potassium 4.5 mmol/L (3.5-5.1)
--- NOTE | 2017-07-31 07:54 | XR ---
EXAMINATION: XR chest 1V portable DATE AND TIME: 07/31/2017 7:25 AM ORDERING PROVIDER: Remy Luke CLINICAL INDICATION: sob TECHNIQUE: AP upright COMPARISON: 07/30/2017 at 5:23 AM DESCRIPTION: Sternal sutures and EKG leads. Mild-moderately enlarged cardiac silhouette redemonstrated. There is mild silhouetting of the pulmonary vasculature, with the lower lung zones more affected than the mid and upper lung zones. This is due to a fine reticular pattern which suggests mild interstiti al phase pulmonary edema, presumably of cardiogenic etiology. In addition, there is a right infrahilar zone of consolidative opacity with partial silhouetting of t he right heart border, presumably partial right lower lobe atelectasis with or without concurrent pne umonia. Bones and soft tissues are unremarkable. IMPRESSION: 1. Mild interstitial phase cardiogenic pulmonary edema. 2. Right infrahilar consolidative opacity noted.
[2017-07-31] MEDS: ENOXAPARIN 80 MG/0.8 ML SYRINGE SQ SCH ×2 (08:12→20:32)
[2017-07-31] MEDS: ATENOLOL 50 MG TAB PO SCH ×2 (08:12→20:32)
[2017-07-31] MEDS: DONEPEZIL 5 MG TAB PO SCH (08:13)
[2017-07-31] MEDS: MAGNESIUM OXIDE 400 MG TAB PO SCH (08:13)
[2017-07-31] MEDS: SODIUM BICARBONATE TAB 650 MG TAB PO SCH ×2 (08:13→20:32)
[2017-07-31] MEDS: hydrALAZINE HCL 50 MG TAB PO SCH ×3 (08:13→20:33)
--- NOTE | 2017-07-31 10:50 | PN ---
PROGRESS NOTE DATE OF SERVICE: 07/31/17 REQUESTING PHYSICIAN: Dr. Reza and Dr. Goel. HISTORY: The patient is a 76 -year-old pleasant white female admitted to the hospital with severe symptomatic anemia with hemoglobin of 5.6 g/dL requiring 2 units of blood transfusion. Hemoglobin now is stable at 8.6 g/dL. She has history of mechanical aortic valve replacement. She has been on Coumadin for several years which has been on hold currently and presently on IV heparin. Her INR is down to 1.6. She denies any symptoms. No bleeding. No abdominal pain. No nausea, vomiting. She did have an EGD and colonoscopy by Dr. Cevallos in February of 2016, which showed some diverticulosis and gastritis. PHYSICAL EXAMINATION: She appears comfortable. No apparent distress. Vital signs stable. Blood pressure 156/69. Pulse is 68, temperature 98. HEENT examination unremarkable. Conjunctivae pink. Sclerae anicteric. Oral cavity no lesions. Neck: No jugular venous distention or lymph node enlargement. Chest was clear to auscultation. HEART: Regular rate and rhythm. ABDOMEN: Soft. Bowel sounds are positive. No organomegaly. Extremities: No pedal edema. Skin no rashes. NEUROLOGIC: Alert and oriented x3. No focal deficits. LABS: Labs from today: Hemoglobin is 8.6. INR is 1.6. IMPRESSION: 1. Severe symptomatic microcytic hypochromic anemia secondary to occult gastrointestinal blood loss. Clinically no evidence of active ongoing bleeding. Status post 2 units of blood transfusion. Last hemoglobin 8.6 and stable. 2. Mild dementia. 3. History of aortic valve replacement on Coumadin, currently on hold on IV heparin. RECOMMENDATIONS: 1. The patient will be scheduled for a small bowel capsule endoscopy tomorrow to evaluate for a small bowel source of gastrointestinal blood loss. 2. Continue with anticoagulation. 3. Repeat CBC in the morning and will follow the patient closely during hospital stay. The plan was discussed with the patient's daughter at the bedside. Thank you for this consultation. MMODL / IJN: [id number] /
--- NOTE | 2017-07-31 11:10 | P.PN ---
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, right perihilar infiltrate and interstitial edema and pneumonia is in differential diagnosis 07/31/2017, patient seen eval examined during the rounds clinically patient has been doing slightly better she is sitting upright on the chair she has some component ongoing shortness of breath as family expressed patient has been transfused 2 unit of packed RBC no evidence of active bleeding is seen some blood has been noted related to hemorrhoids during a bowel movement, patient has been getting Lovenox shots 70 mg every [address] of the oral Coumadin for now for her metallic aortic valve, chest x-ray performed today reviewed there is a cardiomegaly interstitial edema is noted in addition to that the left perihilar density/infiltrates are noted as well which may very well be related to cardiac process however occult pneumonia cannot be excluded but given the white cell count is normal patient is not running a fever doubt pneumonia being an issue, renal functions slightly better today, patient appears to be more composed and less confused 07/30/2017, patient seen eval examined during the rounds clinically doing slightly better awake but remains intermittently confused moving all 4 extremity no focal neurological deficit slow to response, daughter is present at the bedside, patient is transfused with 2 units of packed RBC hemoglobin is improved to 8, no new source of active bleeding is seen, GI services have evaluated the patient plan is for Endoscopy, Patient Has Been Moved Out Of the ICU to Stepdown Unit As Hemodynamically She Remains Stable and No Active Source of Bleeding Has Been Seen Overnight 76-year-old female seen eval reexamined in the emergency department related to severe anemia with hemoglobin of 5 as per request of the emergency department physician has a history of extensive hemorrhoids has been having some spotty bleeding started about a day ago has been feeling very weak and has been confused patient is also tachypneic came into the emergency department blood pressure noted to be elevated, patient is on long-term anticoagulation due to mechanical aortic valve with Coumadin INR is slightly subtherapeutic decision was done after discussion with emergency room physician not to reverse and but acceptable observe post blood transfusion however continue to hold Coumadin for now, cardiovascular services has been consulted as well Review of the data revealed that patient's daughter feels patient is becoming more more demented and she is worried there might be some other problem. Patient denies any chest pain shortness breath or difficulty breathing. Patient denies any abdominal pain. Patient denies any nausea vomiting diarrhea. Patient denies any recent fever chills or cough. Patient states she does have hemorrhoids she's had a few years and it always hurts to have a bowel movement but this is chronic. Patient also has rectal bleeding on occasion. Patient also complains of increased edema in her legs. It appears that patient has been evaluated with upper and lower scope at [facility] somewhere around March this year recently exact details are not available no active source of bleeding was seen at that time Objective - Vital Signs Vital signs: Vital Signs Temp 97.7 F 07/31/17 06:34 Pulse 59 L 07/31/17 07:25 Resp 20 07/31/17 07:25 BP 197/81 07/31/17 06:34 Pulse Ox 99 07/31/17 07:56 Intake & Output 07/30/17 07/31/17 07/31/17 18:59 06:59 18:59 Intake Total 120 392.146 240 Output Total 250 0 Balance -130 392.146 240 Intake: Intake, IV Titration 152.146 Amount Heparin Sodium,Porcine/ 152.146 D5w Pmx 25,000 unit In Dextrose/Water 1 500ml. bag @ 12 UNITS/KG/HR 16. 75 mls/hr IV .Q24H [facility] Rx #:[id number] Oral 120 240 240 Output: Urine 250 0 Other: Voiding Method Toilet Toilet Toilet # Voids 1 3 1 - Exam GENERAL: Patient is well-developed and well-nourished. Patient is nontoxic and well- hydrated and is in no acute distress. ENT: Neck is soft and supple. No significant lymphadenopathy is noted. Oropharynx is clear. Moist mucous membranes. Neck has full range of motion without eliciting any pain. EYES: The sclera were anicteric and conjunctiva were pink and moist. Extraocular movements were intact and pupils were equal round and reactive to light. Eyelids were unremarkable. PULMONARY: Unlabored respirations. Good breath sounds bilaterally. No audible rales rhonchi or wheezing was noted. Few crackles in the bases cannot be excluded CARDIOVASCULAR: There is a regular rate and rhythm loud S2 noted along with 2/ 6 early systolic murmur predominantly at the aortic area. ABDOMEN: Soft and nontender with normal bowel sounds. No palpable organomegaly was noted. There is no palpable pulsatile mass. SKIN: Skin is clear with no lesions or rashes and otherwise unremarkable. NEUROLOGIC: Patient is more awake and alert and oriented x 1. Cranial nerves II through XII are grossly intact. Motor and sensory are also intact. Normal speech, volume and content. Symmetrical smile. MUSCULOSKELETAL: Normal extremities with adequate strength and full range of motion. Bilateral lower extremity +1 to plus 2 edema LYMPHATICS: No significant lymphadenopathy is noted PSYCHIATRIC: Normal psychiatric evaluation. - Labs CBC & Chem 7: 07/31/17 05:10 07/31/17 05:10 Labs: Abnormal Lab Results - Last 24 Hours (Table) 07/30/17 07/30/17 07/31/17 Range/Units 17:31 17:31 05:10 Hgb 8.8 L 8.6 L (11.4-16.0) gm/dL Hct 29.7 L 28.2 L (34.0-46.0) % MCV 70.3 L 69.2 L (80.0-100.0) fL MCH 20.9 L 21.2 L (25.0-35.0) pg MCHC 29.7 L 30.6 L (31.0-37.0) g/dL RDW 18.2 H 19.1 H (11.5-15.5) % PT (9.0-12.0) sec INR (<1.2) APTT 54.4 H (22.0-30.0) sec Sodium (137-145) mmol/L Chloride (98-107) mmol/L BUN (7-17) mg/dL Creatinine (0.52-1.04) mg/dL Glucose (74-99) mg/dL 07/31/17 07/31/17 Range/Units 05:10 05:10 Hgb (11.4-16.0) gm/dL Hct (34.0-46.0) % MCV (80.0-100.0) fL MCH (25.0-35.0) pg MCHC (31.0-37.0) g/dL RDW (11.5-15.5) % PT 15.0 H (9.0-12.0) sec INR 1.6 H (<1.2) APTT 32.5 H (22.0-30.0) sec Sodium 131 L (137-145) mmol/L Chloride 97 L (98-107) mmol/L BUN 23 H (7-17) mg/dL Creatinine 1.10 H (0.52-1.04) mg/dL Glucose 118 H (74-99) mg/dL Assessment and Plan Assessment: Severe symptomatic microcytic anemia appears to be acute on chronic with symptoms of generalized weakness tiredness Suspect chronic intermittent blood loss either hemorrhoids or occult source in the GI tract, status post upper and lower endoscopy in March 2017 at [facility] Aortic valve disease status post mechanical aortic valve replacement in 2001 on long-term anticoagulation Right infrahilar consolidative opacity/right lower lobe atelectasis at subsegmental level Coronary artery disease with history of prior CABG Generalized weakness and medical debility Developing dementia 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 hyponatremia Interstitial lung disease Severe morbid obesity and sleep disorder breathing and sleep apnea Plan: Closely observe in the stepdown unit Gentle rehydration Monitor hemoglobin closely Deep breathing exercises incentive spirometry and repeat labs tomorrow Status post transfused with 2 units of packed RBC Continue Lovenox Cardiovascular services consult recommendations reviewed Further recommendations pending plan of care as per clinical response of the patient Repeat labs tomorrow Evaluation of sleep-disordered breathing and possible interstitial lung disease needed on outpatient basis Time with Patient: Greater than 30
[2017-07-31] MEDS: BENZOCAINE/MENTHOL LOZENG 1 EACH LOZENGE MUCOUS MEM PRN (13:49)
--- NOTE | 2017-07-31 16:14 | P.PN ---
Subjective Progress Note Date: 07/31/17 Principal diagnosis: GI bleed Patient became extremely agitated overnight pulled out her IV line 5 times and nursing staff had to stop her heparin drip infusion and I switched the patient to Lovenox 1 mg/kg subcu injection. Family currently at the bedside and patient seems to be back at baseline where she is pleasantly confused denying chest pain, shortness breath, nausea, vomiting, abdominal pain, blood in the stool or lightheadedness Objective - Vital Signs Vital signs: Vital Signs Temp 98.1 F 07/31/17 15:00 Pulse 63 07/31/17 15:57 Resp 18 07/31/17 15:57 BP 143/67 07/31/17 15:00 Pulse Ox 95 07/31/17 15:00 Intake & Output 07/30/17 07/31/17 07/31/17 18:59 06:59 18:59 Intake Total 120 392.146 880 Output Total 250 0 Balance -130 392.146 880 Intake: Intake, IV Titration 152.146 Amount Heparin Sodium,Porcine/ 152.146 D5w Pmx 25,000 unit In Dextrose/Water 1 500ml. bag @ 12 UNITS/KG/HR 16. 75 mls/hr IV .Q24H [facility] Rx #:[id number] Oral 120 240 880 Output: Urine 250 0 Other: Voiding Method Toilet Toilet Toilet # Voids 1 3 1 - Exam Gen.: in stated age, no acute distress Heart: Normal S1-S2 Lungs: Clear to auscultation bilaterally Abdomen: Soft, no tenderness, positive bowel sounds in all 4 quadrant no guarding or rebound Skin: No new rash Psych: Alert and oriented times one to 2 at baseline mental status Neuro: No focal deficit - Labs CBC & Chem 7: 07/31/17 05:10 07/31/17 05:10 Labs: Abnormal Lab Results - Last 24 Hours (Table) 07/30/17 07/30/17 07/31/17 Range/Units 17:31 17:31 05:10 Hgb 8.8 L 8.6 L (11.4-16.0) gm/dL Hct 29.7 L 28.2 L (34.0-46.0) % MCV 70.3 L 69.2 L (80.0-100.0) fL MCH 20.9 L 21.2 L (25.0-35.0) pg MCHC 29.7 L 30.6 L (31.0-37.0) g/dL RDW 18.2 H 19.1 H (11.5-15.5) % PT (9.0-12.0) sec INR (<1.2) APTT 54.4 H (22.0-30.0) sec Sodium (137-145) mmol/L Chloride (98-107) mmol/L BUN (7-17) mg/dL Creatinine (0.52-1.04) mg/dL Glucose (74-99) mg/dL 07/31/17 07/31/17 Range/Units 05:10 05:10 Hgb (11.4-16.0) gm/dL Hct (34.0-46.0) % MCV (80.0-100.0) fL MCH (25.0-35.0) pg MCHC (31.0-37.0) g/dL RDW (11.5-15.5) % PT 15.0 H (9.0-12.0) sec INR 1.6 H (<1.2) APTT 32.5 H (22.0-30.0) sec Sodium 131 L (137-145) mmol/L Chloride 97 L (98-107) mmol/L BUN 23 H (7-17) mg/dL Creatinine 1.10 H (0.52-1.04) mg/dL Glucose 118 H (74-99) mg/dL Assessment and Plan Assessment: 1. Acute anemia likely related to blood loss from GI source. 2. Status post aortic valve replacement with mechanical valve in 2001. 3. Coronary artery disease status post CABG. 4. Peripheral arterial disease. 5. Diverticulosis area 6. History of gastritis. 7. Hypertension. 8. Hyperlipidemia. 9. Dementia. 10. Generalized osteoarthritis. 11. Hospital delirium Hemoglobin continued to be stable on the most previous blood checked since yesterday and today patient is asymptomatic for anemia and hemodynamically stable. Patient pulled her IV 5 times since yesterday and I would like to switch patient to Lovenox plan discussed with the patient's family who are at the bedside including the son and [id number] what agreeable to the current treatment plan further recommendation from GI regarding discharge planning will be discussed and consider
[2017-07-31] MEDS ORDERED: MAGNESIUM CITRATE 296 ML BOTTLE PO ONE (19:00)
[2017-07-31] MEDS: ATORVASTATIN 80 MG TAB PO SCH (20:32)
[2017-07-31] MEDS: MELATONIN 3 MG TABLET PO SCH (20:32)
[2017-08-01 07:22] VITALS: RESP 16
[2017-08-01 07:22] LABS: Anisocytosis Moderate; HCT 28.8 % (34.0-46.0); HGB 8.7 gm/dL (11.4-16.0); Hypochromasia Marked; MCH 21.2 pg (25.0-35.0); MCHC 30.1 g/dL (31.0-37.0); MCV 70.3 fL (80.0-100.0); Mean Platelet Volume 7.9; Microcytosis Marked; Platelet Count 262 k/uL (150-450); Poikilocytosis Marked; RDW 20.2 % (11.5-15.5); WBC 7.4 k/uL (3.8-10.6)
[2017-08-01 07:29] LABS: INR 1.2 (<1.2); Prothrombin Time 11.5 sec (9.0-12.0)
[2017-08-01] MEDS ORDERED: SIMETHICONE 40 MG/0.6 ML DROPS 2,000 MG/30 ML BOTTLE PO ONE (07:30)
[2017-08-01 07:42] LABS: Calcium 8.8 mg/dL (8.4-10.2); Magnesium 2.1 mg/dL (1.6-2.3); Potassium 4.8 mmol/L (3.5-5.1)
--- NOTE | 2017-08-01 08:33 | XR ---
EXAMINATION TYPE: XR chest 2V DATE OF EXAM: 08/01/2017 COMPARISON: 07/31/2017 INDICATION: Pneumonia TECHNIQUE: Frontal and lateral views of the chest are obtained. FINDINGS: The heart size is normal. The pulmonary vasculature is normal. There is blunting the right costophrenic angle. Small posterior pleural effusion is likely present. S ternotomy wires are present. Mild blunting of the left costophrenic angle may also be present. IMPRESSION: 1. Small bilateral pleural effusions.
[2017-08-01 12:09] VITALS: BP 189/75; PULSE 59; TEMP 97.5
[2017-08-01] MEDS: ENOXAPARIN 80 MG/0.8 ML SYRINGE SQ SCH (12:10)
[2017-08-01] MEDS: ATENOLOL 50 MG TAB PO SCH (12:10)
[2017-08-01] MEDS: hydrALAZINE HCL 50 MG TAB PO SCH (12:10)
[2017-08-01] MEDS: SODIUM BICARBONATE TAB 650 MG TAB PO SCH (12:11)
[2017-08-01] MEDS: DONEPEZIL 5 MG TAB PO SCH (12:11)
[2017-08-01] MEDS: MAGNESIUM OXIDE 400 MG TAB PO SCH (12:11)
--- NOTE | 2017-08-01 13:47 | P.DS ---
Providers Date of admission: 07/29/17 16:17 Expected date of discharge: 08/01/17 Attending physician: Elsy Goel Consults: 07/29/17 16:16 Consult Physician Urgent Consulting Provider: Remy Luke Consult Reason/Comments: Critical care management Do you want consulting provider notified?: Already Contacted Consult Physician Urgent Consulting Provider: Doc Cevallos Consult Reason/Comments: GI bleed Do you want consulting provider notified?: Yes 07/29/17 21:40 Consult Physician Routine Consulting Provider: Brionna Berg Consult Reason/Comments: gi bleed Do you want consulting provider notified?: Already Contacted Primary care physician: [place] Hospital Course: This is 76 years old female who presented to the emergency department with generalized weakness and fatigue. Patient lives at home with her daughters who felt that the patient is having worsening in her weakness and brought her to the emergency department along with blood in the rectum that has been going for a long time and felt to be related to hemorrhoids as patient had EGD and colonoscopy last year which showed diverticulosis only. Patient in the emergency department was found to have hemoglobin of 5.6 and was admitted to the ICU with 2 units ordered to be transfused. Patient was hemodynamically stable and currently denying chest pain, shortness breath, nausea, vomiting, dumping, dizziness, lightheadedness or blurry vision but did say that she's feeding week overall. Patient is alert and oriented 1-2 as she has a history of dementia well diagnosed and treated on outpatient basis. Patient had a history of mechanical valve placement and has been on Coumadin for a long time for that reason and her INR was therapeutic at the time of admission 07/31:Patient became extremely agitated overnight pulled out her IV line 5 times and nursing staff had to stop her heparin drip infusion and I switched the patient to Lovenox 1 mg/kg subcu injection. Family currently at the bedside and patient seems to be back at baseline where she is pleasantly confused denying chest pain, shortness breath, nausea, vomiting, abdominal pain, blood in the stool or lightheadedness 08/01: Patient has been seen and followed by Dr. Berg with recommendations for continuing Protonix. Since the patient had endoscopy in February 2016, patient was scheduled for a small bowel capsule endoscopy which was started on Tuesday. Anticoagulation can be resumed. Patient has been seen by Dr. Luke with recommendations for outpatient sleep study to be done. Repeat chest x-ray shows small bilateral pleural effusions. Hemoglobin this morning is 8.7, BUN 21 creatinine 1.15. INR is 1.2. She is status post a total of 2 units of packed RBCs. Patient will be resumed on Coumadin and continue on heparin at the senior living until INR is therapeutic. Patient's mental status is at her baseline as her daughters at the bedside. PT and OT will be added and patient has been a [facility] in the past and would like to go there at this time. Patient will be discharged to [facility] in stable condition once all arrangements are completed. Discharge diagnoses: 1. Acute acute blood loss anemia secondary to acute GI bleed. 2. Status post aortic valve replacement with mechanical valve in 2001. 3. Coronary artery disease status post CABG. 4. Peripheral arterial disease. 5. Diverticulosis. 6. History of gastritis. 7. Hypertension. 8. Hyperlipidemia. 9. Dementia. 10. Generalized osteoarthritis. 11. Hospital acute delirium 12. Chronic kidney disease stage III Discharge plan: [facility] Impression and plan of care have been directed as dictated by the signing physician. Ivania Ocasio nurse practitioner acting as scribe for signing physician. Patient Condition at Discharge: Good Plan - Discharge Summary New Discharge Prescriptions: New Benzocaine/Menthol Lozeng [Cepacol lozenge] 1 each MUCOUS MEM Q4HR PRN lozenge PRN Reason: Sore Throat Melatonin 3 mg PO HS tablet Pantoprazole Sodium [Protonix] 40 mg PO DAILY #30 tablet. Heparin Sodium,Porcine [Heparin Sodium] 5,000 unit SQ Q8HR #1 vial Continue Rosuvastatin Calcium [Crestor] 40 mg PO HS Warfarin Sodium 2.5 mg PO SUMOTUWETHSA Atenolol 100 mg PO BID Warfarin [Coumadin] 5 mg PO FR Donepezil [Aricept] 5 mg PO QAM Sodium Bicarbonate 325 mg PO BID Magnesium Oxide [Mag-Ox] 250 mg PO QAM hydrALAZINE HCL [Apresoline] 50 mg PO TID Discharge Medication List Atenolol 100 mg PO BID 02/04/16 [History] Rosuvastatin Calcium [Crestor] 40 mg PO HS 02/04/16 [History] Warfarin Sodium 2.5 mg PO SUMOTUWETHSA 02/04/16 [History] Warfarin [Coumadin] 5 mg PO FR 04/30/16 [History] Donepezil [Aricept] 5 mg PO QAM 10/27/16 [History] Magnesium Oxide [Mag-Ox] 250 mg PO QAM 07/29/17 [History] Sodium Bicarbonate 325 mg PO BID 07/29/17 [History] hydrALAZINE HCL [Apresoline] 50 mg PO TID 07/29/17 [History] Benzocaine/Menthol Lozeng [Cepacol lozenge] 1 each MUCOUS MEM Q4HR PRN lozenge 08/01/17 [Rx] Heparin Sodium,Porcine [Heparin Sodium] 5,000 unit SQ Q8HR #1 vial 08/01/17 [Rx] Melatonin 3 mg PO HS tablet 08/01/17 [Rx] Pantoprazole Sodium [Protonix] 40 mg PO DAILY #30 tablet. 08/01/17 [Rx] Follow up Appointment(s)/Referral(s): Alphonse Reza DO [Primary Care Provider] - 1-2 days Remy Luke MD [STAFF PHYSICIAN] - 1 Week
--- NOTE | 2017-08-01 17:22 | P.PN ---
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, right perihilar infiltrate and interstitial edema and pneumonia is in differential diagnosis 08/01/2017, patient seen eval examined during the rounds patient is now off of supplemental oxygen breathing comfortably denies any chest pain patient able to ambulate denies any cough or sputum production labs reviewed medications reviewed as well for the patient and grandson present at bedside, chest x-ray performed today reviewed him a small bilateral pleural effusion noted likely related to fluid resuscitation and blood transfusion 07/31/2017, patient seen eval examined during the rounds clinically patient has been doing slightly better she is sitting upright on the chair she has some component ongoing shortness of breath as family expressed patient has been transfused 2 unit of packed RBC no evidence of active bleeding is seen some blood has been noted related to hemorrhoids during a bowel movement, patient has been getting Lovenox shots 70 mg every [address] of the oral Coumadin for now for her metallic aortic valve, chest x-ray performed today reviewed there is a cardiomegaly interstitial edema is noted in addition to that the left perihilar density/infiltrates are noted as well which may very well be related to cardiac process however occult pneumonia cannot be excluded but given the white cell count is normal patient is not running a fever doubt pneumonia being an issue, renal functions slightly better today, patient appears to be more composed and less confused 07/30/2017, patient seen eval examined during the rounds clinically doing slightly better awake but remains intermittently confused moving all 4 extremity no focal neurological deficit slow to response, daughter is present at the bedside, patient is transfused with 2 units of packed RBC hemoglobin is improved to 8, no new source of active bleeding is seen, GI services have evaluated the patient plan is for Endoscopy, Patient Has Been Moved Out Of the ICU to Stepdown Unit As Hemodynamically She Remains Stable and No Active Source of Bleeding Has Been Seen Overnight 76-year-old female seen eval reexamined in the emergency department related to severe anemia with hemoglobin of 5 as per request of the emergency department physician has a history of extensive hemorrhoids has been having some spotty bleeding started about a day ago has been feeling very weak and has been confused patient is also tachypneic came into the emergency department blood pressure noted to be elevated, patient is on long-term anticoagulation due to mechanical aortic valve with Coumadin INR is slightly subtherapeutic decision was done after discussion with emergency room physician not to reverse and but acceptable observe post blood transfusion however continue to hold Coumadin for now, cardiovascular services has been consulted as well Review of the data revealed that patient's daughter feels patient is becoming more more demented and she is worried there might be some other problem. Patient denies any chest pain shortness breath or difficulty breathing. Patient denies any abdominal pain. Patient denies any nausea vomiting diarrhea. Patient denies any recent fever chills or cough. Patient states she does have hemorrhoids she's had a few years and it always hurts to have a bowel movement but this is chronic. Patient also has rectal bleeding on occasion. Patient also complains of increased edema in her legs. It appears that patient has been evaluated with upper and lower scope at [facility] somewhere around March this year recently exact details are not available no active source of bleeding was seen at that time Objective - Vital Signs Vital signs: Vital Signs Temp 97.5 F L 08/01/17 12:08 Pulse 59 L 08/01/17 12:08 Resp 16 08/01/17 07:08 BP 189/75 08/01/17 12:08 Pulse Ox 100 08/01/17 12:08 Intake & Output 07/31/17 08/01/17 08/01/17 18:59 06:59 18:59 Intake Total 880 Output Total 0 Balance 880 Intake: Oral 880 Output: Urine 0 Other: Voiding Method Toilet Toilet Toilet # Voids 1 2 # Bowel Movements 2 - Exam GENERAL: Patient is well-developed and well-nourished. Patient is nontoxic and well- hydrated and is in no acute distress. ENT: Neck is soft and supple. No significant lymphadenopathy is noted. Oropharynx is clear. Moist mucous membranes. Neck has full range of motion without eliciting any pain. EYES: The sclera were anicteric and conjunctiva were pink and moist. Extraocular movements were intact and pupils were equal round and reactive to light. Eyelids were unremarkable. PULMONARY: Unlabored respirations. Good breath sounds bilaterally. No audible rales rhonchi or wheezing was noted. Few crackles in the bases cannot be excluded CARDIOVASCULAR: There is a regular rate and rhythm loud S2 noted along with 2/ 6 early systolic murmur predominantly at the aortic area. ABDOMEN: Soft and nontender with normal bowel sounds. No palpable organomegaly was noted. There is no palpable pulsatile mass. SKIN: Skin is clear with no lesions or rashes and otherwise unremarkable. NEUROLOGIC: Patient is more awake and alert and oriented x 1. Cranial nerves II through XII are grossly intact. Motor and sensory are also intact. Normal speech, volume and content. Symmetrical smile. MUSCULOSKELETAL: Normal extremities with adequate strength and full range of motion. Bilateral lower extremity +1 to plus 2 edema LYMPHATICS: No significant lymphadenopathy is noted PSYCHIATRIC: Normal psychiatric evaluation. - Labs CBC & Chem 7: 18 06:59 18 06:59 Labs: Abnormal Lab Results - Last 24 Hours (Table) 08/01/17 08/01/17 08/01/17 Range/Units 06:59 06:59 06:59 Hgb 8.7 L (11.4-16.0) gm/dL Hct 28.8 L (34.0-46.0) % MCV 70.3 L (80.0-100.0) fL MCH 21.2 L (25.0-35.0) pg MCHC 30.1 L (31.0-37.0) g/dL RDW 20.2 H (11.5-15.5) % INR 1.2 H (<1.2) Sodium 134 L (137-145) mmol/L Chloride 97 L (98-107) mmol/L BUN 21 H (7-17) mg/dL Creatinine 1.15 H (0.52-1.04) mg/dL Assessment and Plan Assessment: Small bilateral pleural effusion likely related to fluid resuscitation Severe symptomatic microcytic anemia appears to be acute on chronic with symptoms of generalized weakness tiredness Suspect chronic intermittent blood loss either hemorrhoids or occult source in the GI tract, status post upper and lower endoscopy in March 2017 at [facility] Aortic valve disease status post mechanical aortic valve replacement in 2001 on long-term anticoagulation Right infrahilar consolidative opacity/right lower lobe atelectasis at subsegmental level, appears to have resolved on today's follow-up chest x-ray Coronary artery disease with history of prior CABG Generalized weakness and medical debility Developing dementia 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 hyponatremia Interstitial lung disease Severe morbid obesity and sleep disorder breathing and sleep apnea Plan: Closely observe agree with discharge planning We will stop rehydration Monitor hemoglobin closely Deep breathing exercises incentive spirometry and repeat labs tomorrow Status post transfused with 2 units of packed RBC Continue Lovenox and can reinitiate Coumadin Cardiovascular services consult recommendations reviewed Further recommendations pending plan of care as per clinical response of the patient Repeat labs tomorrow Evaluation of sleep-disordered breathing and possible interstitial lung disease needed on outpatient basis Time with Patient: Greater than 30
[2017-08-01] MEDS ORDERED: WARFARIN 2 MG TAB PO SCH (18:00)
--- NOTE | 2017-08-01 21:45 | PN ---
PROGRESS NOTE DATE OF SERVICE: 08/01/2017 REQUESTING PHYSICIAN: Dr. Goel. HISTORY: The patient is a 76-year-old pleasant white female admitted to hospital with severe symptomatic anemia and hemoglobin of 5.6 requiring blood transfusion. She had an EGD colonoscopy in February [address] Jarvis, which was unremarkable. She is scheduled for a small bowel capsule endoscopy today that is currently being performed. The patient denies any symptoms. No rectal bleeding. PHYSICAL EXAMINATION: She appears comfortable in no apparent distress. Vital signs are stable. Blood pressure is 189/75, pulse rate 59, temperature 97.5. HEENT EXAMINATION: Unremarkable. Conjunctivae pink. Sclerae anicteric. Oral cavity no lesions. NECK: No jugular venous distention or lymph node enlargement. CHEST: Clear to auscultation. HEART: Regular rate and rhythm. ABDOMEN: Soft, bowel sounds are positive. No organomegaly. EXTREMITIES: No pedal edema. SKIN: No rashes. NEURO: Alert and oriented x 3. No focal deficits. LABS: WBC 7.4, hemoglobin 8.7, platelets are normal. Basic metabolic panel is within normal limits. INR is 1.2. This morning BUN 21, creatinine 1.15. IMPRESSION: 1. Severe microcytic hypochromic anemia secondary to occult gastrointestinal blood loss. Clinically no evidence of active bleeding, status post EGD, colonoscopy February of 2016 that was unremarkable. She is presently scheduled to undergo capsule endoscopy. 2. History of aortic valve replacement on anticoagulation with Coumadin currently at home, and she is on Lovenox. RECOMMENDATIONS: 1. The patient will be started on a regular diet. 2. We will review the small bowel capsule endoscopy reports tomorrow. I discussed with the patient. We will follow the patient with you. MMODL / IJN: [id number] /
== END 2017-08-01 17:45 | DRG 812 ==
LOC: EC 14:52 → 6ICU 16:17 → 5MS5E 07-30 11:22
PROVIDERS: ADMIT Family Medicine; ATTEND Family Medicine
PROC: 30230N1 Transfusion of Nonautologous Red Blood Cells into Peripheral Vein, Open Approach (ICD-10-PCS; principal; 2017-07-29)
DX: D62 Acute posthemorrhagic anemia (principal); E87.1 Hypo-osmolality and hyponatremia; E46 Unspecified protein-calorie malnutrition; J84.9 Interstitial pulmonary disease, unspecified; K62.5 Hemorrhage of anus and rectum; J98.11 Atelectasis; D50.0 Iron deficiency anemia secondary to blood loss (chronic); F03.90 Unspecified dementia, unspecified severity, without behavioral disturbance, psychotic disturbance, mood disturbance, and anxiety; E66.01 Morbid (severe) obesity due to excess calories; N18.3 Chronic kidney disease, stage 3 (moderate); K64.8 Other hemorrhoids; G47.33 Obstructive sleep apnea (adult) (pediatric); K44.9 Diaphragmatic hernia without obstruction or gangrene; M25.552 Pain in left hip; I25.10 Atherosclerotic heart disease of native coronary artery without angina pectoris; E78.5 Hyperlipidemia, unspecified; I12.9 Hypertensive chronic kidney disease with stage 1 through stage 4 chronic kidney disease, or unspecified chronic kidney disease; K57.30 Diverticulosis of large intestine without perforation or abscess without bleeding; K29.70 Gastritis, unspecified, without bleeding; F41.9 Anxiety disorder, unspecified; M15.0 Primary generalized (osteo)arthritis; I73.9 Peripheral vascular disease, unspecified; M54.30 Sciatica, unspecified side; Z79.01 Long term (current) use of anticoagulants; Z79.899 Other long term (current) drug therapy; Z86.73 Personal history of transient ischemic attack (TIA), and cerebral infarction without residual deficits; Z95.1 Presence of aortocoronary bypass graft; Z90.710 Acquired absence of both cervix and uterus; Z95.2 Presence of prosthetic heart valve; Z86.010 Personal history of colon polyps; Z87.891 Personal history of nicotine dependence; Z91.81 History of falling; Z87.81 Personal history of (healed) traumatic fracture; Z88.2 Allergy status to sulfonamides; Z80.9 Family history of malignant neoplasm, unspecified; Z83.3 Family history of diabetes mellitus; Z81.8 Family history of other mental and behavioral disorders; Z83.1 Family history of other infectious and parasitic diseases
CPT/HCPCS: 36415; 71045; 71046; 80048; 80053; 81001; 82550; 82553; 83735; 84100; 85025; 85027; 85610; 85730; 86850; 86900; 86901; 86920; 91110; 94760; 96361; 96374; 99285

== ENCOUNTER 2018-08-09 19:19 | Inpatient (IN) | payer MEDICARE, BC ==
[2018-08-09] MEDS ORDERED: MORPHINE SULFATE 4 MG/ML SYRINGE IM STA (19:57)
--- NOTE | 2018-08-09 20:36 | ED ---
General Adult HPI - General Chief complaint: Back Pain/Injury Stated complaint: Back Pain Time Seen by Provider: 08/09/18 19:48 Source: patient, family, RN notes reviewed, old records reviewed Mode of arrival: wheelchair Limitations: no limitations - History of Present Illness Initial comments: 77-year-old female presenting with mid and low back pain. Patient's pain began over today. She denies any specific trauma. She has had chronic musculoskelet al issues including chronic left hip pain. She normally takes Tylenol for her pain, this has not improved her symptoms today. She denies fall or trauma but her daughter is concerned that she may have fallen. She has had multiple falls in the past. Denies abdominal pain. Denies dysuria or hematuria. Denies symptoms in her legs, no pain or numbness. No chest, no dyspnea. - Related Data Home Medications Medication Instructions Recorded Confirmed Atenolol 100 mg PO BID 02/04/16 08/09/18 Rosuvastatin Calcium [Crestor] 40 mg PO HS 02/04/16 08/09/18 Warfarin Sodium 2.5 mg PO SUMOTUWETHSA 02/04/16 08/09/18 Warfarin [Coumadin] 5 mg PO FR 04/30/16 08/09/18 Magnesium Oxide [Mag-Ox] 250 mg PO QAM 07/29/17 08/09/18 Sodium Bicarbonate 325 mg PO BID 07/29/17 08/09/18 hydrALAZINE HCL [Apresoline] 50 mg PO TID 07/29/17 08/09/18 Citalopram Hydrobromide [CeleXA] 10 mg PO DAILY 08/09/18 08/09/18 Donepezil HCl [Aricept] 10 mg PO DAILY 08/09/18 08/09/18 Ferrous Sulfate [Feosol] 325 mg PO DAILY 08/09/18 08/09/18 Allergies Allergy/AdvReac Type Severity Reaction Status Date / Time Sulfa (Sulfonamide Allergy Rash/Hives Verified 08/09/18 20:03 Antibiotics) Review of Systems ROS Statement: Those systems with pertinent positive or pertinent negative responses have been documented in the HPI. ROS Other: All systems not noted in ROS Statement are negative. Past Medical History Past Medical History: Coronary Artery Disease (CAD), CVA/TIA, GI Bleed, Hyperlipidemia, Hypertension, Osteoarthritis (OA), Vascular Disorder Additional Past Medical History / Comment(s): Pt hospitalized at [facility] on 04/18/16 with CKD stage II, hyponatremia. Other HX: black stools x 2 days-had EGD/colonoscopy showing gastritis and diverticulosis, hemorroids, polyps, Lt hip pain (needs total hip replacement), L knee meniscus tear, tripped and fell struck face/R eye, has "hairline fracture lower back",, protein calorie malnutrition, tia,sciatic nerve pain. fell 5-14-17 -fx lt writs. History of Any Multi-Drug Resistant Organisms: None Reported Past Surgical History: Cardiac Valve Replacement, Coronary Bypass/CABG, Hysterectomy Additional Past Surgical History / Comment(s): Mick carotid surgery, 2001 [facility] [facility] aortic valve replacement, 03/23/16 EGD and colonoscopy, past colonoscopy with polypectomy, last colonoscopy was in 2017, low sodium Past Anesthesia/Blood Transfusion Reactions: No Reported Reaction Past Psychological History: Anxiety Smoking Status: Former smoker Past Alcohol Use History: Occasional Past Drug Use History: None Reported - Past Family History Sister(s) Family Medical History: Cancer Father Family Medical History: Diabetes Mellitus Additional Family Medical History / Comment(s): Father had tuberculosis. Mother Family Medical History: Dementia Son(s) Family Medical History: No Reported History Daughter(s) Family Medical History: No Reported History General Exam Limitations: no limitations General appearance: alert, in no apparent distress Head exam: Present: atraumatic, normocephalic Eye exam: Present: normal appearance, PERRL ENT exam: Present: normal exam Neck exam: Present: normal inspection. Absent: tenderness, meningismus Respiratory exam: Present: normal lung sounds bilaterally, respiratory distress Cardiovascular Exam: Present: regular rate, normal rhythm GI/Abdominal exam: Present: soft. Absent: distended, tenderness, guarding, rebound Extremities exam: Present: normal inspection, normal capillary refill, other (Distal pulses intact, 2+ DP pulses). Absent: pedal edema Back exam: Present: normal inspection, paraspinal tenderness, vertebral tenderness (Lumbar and thoracic tenderness) Neurological exam: Present: alert, oriented X3, CN II-XII intact. Absent: motor sensory deficit Psychiatric exam: Present: normal affect, normal mood Skin exam: Present: warm, dry, intact. Absent: cyanosis, diaphoretic Course Vital Signs 08/09/18 08/09/18 08/09/18 19:28 20:00 20:10 Temperature 99 F Pulse Rate 61 61 65 Respiratory 18 19 18 Rate Blood Pressure 195/66 148/62 164/73 O2 Sat by Pulse 98 96 95 Oximetry Medical Decision Making - Medical Decision Making 77-year-old female with back pain, thoracic and lumbar region. Patient is neurovascularly intact, she has tenderness to palpation over multiple thoracic vertebrae and lumbar vertebrae as well as paraspinal tenderness. Pain is worse with movement. X-rays of the thoracic and lumbar spine are obtained, she has a 75% T12 compression fracture, multiple both lumbar and thoracic compression fractures. Given multiple doses of pain medication emergency Department with some relief in pain. She will be placed in observation for pain control and orthopedic consultation. Case is discussed with admitting physician. - Lab Data Result diagrams: 08/09/18 22:36 08/09/18 22:36 Lab Results 08/09/18 Range/Units 21:00 Urine Color Light Yellow Urine Appearance Clear (Clear) Urine pH 6.5 (5.0-8.0) Ur Specific [place] 1.014 (1.001-1.035) Urine Protein Trace H (Negative) Urine Glucose (UA) Negative (Negative) Urine Ketones Negative (Negative) Urine Blood Negative (Negative) Urine Nitrite Negative (Negative) Urine Bilirubin Negative (Negative) Urine Urobilinogen <2.0 (<2.0) mg/dL Ur Leukocyte Esterase Moderate H (Negative) Urine RBC 1 (0-5) /hpf Urine WBC 15 H (0-5) /hpf Ur Squamous Epith Cells 1 (0-4) /hpf Amorphous Sediment Occasional H (None) /hpf Urine Mucus Rare H (None) /hpf Disposition Clinical Impression: Thoracic compression fracture Disposition: ADMITTED IP TO THIS [facility] Condition: Stable Is patient prescribed a controlled substance at d/c from ED?: No Decision to Admit Reason: Admit from EC Decision Date: 08/09/18 Decision Time: 22:29
--- NOTE | 2018-08-09 20:44 | XR ---
EXAMINATION TYPE: XR thoracic spine 2V DATE OF EXAM: 08/09/2018 COMPARISON: 08/01/2017 HISTORY: Back pain TECHNIQUE: 3 views FINDINGS: There is thoracolumbar mild kyphosis with anterior wedging of numerous thoracic vertebra. T here is 75% anterior wedging of T12. There is 20% loss of height of T9. There is 50% anterior wedging of T7 and T6. There is no thoracic paraspinal mass. IMPRESSION: Numerous compression fractures with slight progression of the loss of height at T7 and T6 compared to old exam.
--- NOTE | 2018-08-09 20:52 | XR ---
EXAMINATION TYPE: XR lumbar spine 2 or 3V DATE OF EXAM: 08/09/2018 COMPARISON: NONE HISTORY: Back pain TECHNIQUE: 3 views FINDINGS: Vertebra have normal alignment. There is anterior wedging and 75% loss of height of T12 alireza tebra. There is spurring of the endplates throughout the lumbar spine. There is no lumbar compression fracture. Abdominal aorta is atheromatous. IMPRESSION: Old compression fracture of T12. Multilevel spondylotic changes. No acute fracture seen i n the lumbar spine.
[2018-08-09 21:12] LABS: Amorphous Sediment,Urine Occasional /hpf; Appearance,Urine Clear (Clear); Bilirubin,Urine Negative (Negative); Blood,Urine Negative (Negative); Color,Urine Light Yellow; Glucose,Urine (UA) Negative (Negative); Ketones,Urine Negative (Negative); Leukocyte Esterase,Urine Moderate (Negative); Mucus,Urine Rare /hpf; Nitrite,Urine Negative (Negative); PH, Urine 6.5 (5.0-8.0); Protein,Urine Trace (Negative); RBC,Urine 1 /hpf (0-5); Specific Gravity,Urine 1.014 (1.001-1.035); Squamous Epithelial Cell,Urine 1 /hpf (0-4); Urobilinogen,Urine <2.0 mg/dL (<2.0); WBC,Urine 15 /hpf (0-5)
[2018-08-09] MEDS ORDERED: HYDROcodone/APAP 5-325MG 1 EACH TAB PO STA (21:20)
[2018-08-09] MEDS ORDERED: NALOXONE 0.4 MG/ML 1 ML VIAL IV PRN (22:25)
[2018-08-09 22:46] LABS: Basophils % (A) 0 %; Eosinophils # (A) 0.1 k/uL (0-0.7); Eosinophils % (A) 1 %; HCT 22.6 % (34.0-46.0); HGB 7.4 gm/dL (11.4-16.0); Hypochromasia Slight; Lymphocytes # (A) 0.7 k/uL (1.0-4.8); Lymphocytes % (A) 8 %; MCH 29.4 pg (25.0-35.0); MCHC 32.5 g/dL (31.0-37.0); MCV 90.5 fL (80.0-100.0); Mean Platelet Volume 7.5; Monocytes # (A) 0.6 k/uL (0-1.0); Monocytes % (A) 7 %; Neutrophils # (A) 6.3 k/uL (1.3-7.7); Neutrophils % (A) 80 %; Platelet Count 232 k/uL (150-450); RDW 14.2 % (11.5-15.5); WBC 7.9 k/uL (3.8-10.6)
[2018-08-09 22:52] LABS: INR 2.3 (<1.2); Partial Thromboplastin Time 33.4 sec (22.0-30.0); Prothrombin Time 22.5 sec (9.0-12.0)
[2018-08-09 23:03] LABS: Albumin 3.1 g/dL (3.5-5.0); Potassium 4.1 mmol/L (3.5-5.1); Total Bilirubin 0.2 mg/dL (0.2-1.3); Total Protein 5.4 g/dL (6.3-8.2)
[2018-08-10] MEDS: DEXAMETHASONE SOD PHOSPHATE 4 MG/ML 1 ML VIAL IV SCH ×4 (00:13→16:59)
[2018-08-10] MEDS: MORPHINE SULFATE 4 MG/ML SYRINGE IV PRN (00:18)
[2018-08-10 03:19] VITALS: BMI 26.4
[2018-08-10] MEDS: DONEPEZIL 10 MG TAB PO SCH (07:36)
[2018-08-10] MEDS: hydrALAZINE HCL 50 MG TAB PO SCH ×3 (07:36→22:24)
[2018-08-10] MEDS: PANTOPRAZOLE 40 MG TABLET PO SCH (07:36)
[2018-08-10] MEDS: ACETAMINOPHEN TAB 325 MG TAB PO PRN ×2 (07:36→20:27)
[2018-08-10] MEDS: ATENOLOL 50 MG TAB PO SCH ×2 (07:37→20:27)
[2018-08-10] MEDS: CITALOPRAM HYDROBROMIDE 10 MG TAB PO SCH (07:37)
[2018-08-10] MEDS: FERROUS SULFATE 325 MG TAB PO SCH (07:37)
[2018-08-10] MEDS: SODIUM BICARBONATE TAB 650 MG TAB PO SCH ×2 (07:39→20:27)
[2018-08-10 07:40] LABS: Basophils % (A) 0 %; Eosinophils % (A) 0 %; HCT 26.5 % (34.0-46.0); HGB 8.1 gm/dL (11.4-16.0); Hypochromasia Moderate; Lymphocytes # (A) 0.4 k/uL (1.0-4.8); Lymphocytes % (A) 3 %; MCH 28.2 pg (25.0-35.0); MCHC 30.7 g/dL (31.0-37.0); Mean Platelet Volume 7.5; Monocytes # (A) 0.5 k/uL (0-1.0); Monocytes % (A) 4 %; Neutrophils # (A) 13.3 k/uL (1.3-7.7); Neutrophils % (A) 92 %; Platelet Count 257 k/uL (150-450); RBC 2.88 m/uL (3.80-5.40); RDW 14.2 % (11.5-15.5); WBC 14.5 k/uL (3.8-10.6)
[2018-08-10 07:51] LABS: INR 1.7 (<1.2)
[2018-08-10 07:59] LABS: Albumin 3.7 g/dL (3.5-5.0); Calcium 8.8 mg/dL (8.4-10.2); Potassium 4.4 mmol/L (3.5-5.1); Total Bilirubin 0.4 mg/dL (0.2-1.3); Total Protein 6.3 g/dL (6.3-8.2)
--- NOTE | 2018-08-10 08:37 | P.CNOR ---
History of Present Illness - [facility] Consult date: 08/10/18 Consult reason: back pain History of present illness: Patient is very pleasant 77-year-old female who lives by herself and presented in regards to some thoracic and lumbar back pain. This morning she actually cutler s not remember why she is exactly in the hospital but she does admit to having some back soreness. She denies any new injury or new fall. She says she is having some soreness at her mid and lower back which is been present over the past several months. She does not recall any acute new injury. She is not having any new changes in her lower extremities. She denies any numbness tingling in her lower extremities. She says that she seems remember that she may have had an injury in her back a few months ago when she fell. She uses a walker. She has been using a walker for the past year since she initially fell. She is able answer questions appropriately but is somewhat confused as to the reasons that she is here. She is very pleasant and cooperative. Review of Systems She denies chest pain shortness breath she has not vomiting denies any fevers chills. She denies any weakness in her lower extremities. She denies any changes in bowel bladder function. She is meeting to her back pain which she has had over the past several months she is not sure as to whether or not she had any new injury or if she feels any worse in her back. Past Medical History Past Medical History: Coronary Artery Disease (CAD), CVA/TIA, GI Bleed, Hyperlipidemia, Hypertension, Osteoarthritis (OA), Vascular Disorder Additional Past Medical History / Comment(s): Pt hospitalized at [facility] on 04/18/16 with CKD stage II, hyponatremia. Other HX: black stools x 2 days-had EGD/colonoscopy showing gastritis and diverticulosis, hemorroids, polyps, Lt hip pain (needs total hip replacement), L knee meniscus tear, tripped and fell struck face/R eye, has "hairline fracture lower back",, protein calorie malnutrition, tia,sciatic nerve pain. fell 5-14-17 -fx lt writs. History of Any Multi-Drug Resistant Organisms: None Reported Past Surgical History: Cardiac Valve Replacement, Coronary Bypass/CABG, Hysterectomy Additional Past Surgical History / Comment(s): Mick carotid surgery, [address] [facility] [facility] aortic valve replacement, 03/23/16 EGD and colonoscopy, past colonoscopy with polypectomy, last colonoscopy was in 2017, low sodium Past Anesthesia/Blood Transfusion Reactions: No Reported Reaction Past Psychological History: Anxiety Additional Psychological History / Comment(s): Pt resides by herself. She is using a walker to ambulate. She also has a cane. Smoking Status: Former smoker Past Alcohol Use History: Occasional Additional Past Alcohol Use History / Comment(s): Smoked 1 pack/wk for 2 yrs; quit 01/26/80. Pt states she will have an occasional glass of wine. Past Drug Use History: None Reported - Past Family History Sister(s) Family Medical History: Cancer Father Family Medical History: Diabetes Mellitus Additional Family Medical History / Comment(s): Father had tuberculosis. Mother Family Medical History: Dementia Son(s) Family Medical History: No Reported History Daughter(s) Family Medical History: No Reported History Medications and Allergies Home Medications Medication Instructions Recorded Confirmed Type Atenolol 100 mg PO BID 02/04/16 08/09/18 History Rosuvastatin Calcium [Crestor] 40 mg PO HS 02/04/16 08/09/18 History Warfarin Sodium 2.5 mg PO SUMOTUWETHSA 02/04/16 08/09/18 History Warfarin [Coumadin] 5 mg PO FR 04/30/16 08/09/18 History Magnesium Oxide [Mag-Ox] 250 mg PO QAM 07/29/17 08/09/18 History Sodium Bicarbonate 325 mg PO BID 07/29/17 08/09/18 History hydrALAZINE HCL [Apresoline] 50 mg PO TID 07/29/17 08/09/18 History Citalopram Hydrobromide [CeleXA] 10 mg PO DAILY 08/09/18 08/09/18 History Donepezil HCl [Aricept] 10 mg PO DAILY 08/09/18 08/09/18 History Ferrous Sulfate [Feosol] 325 mg PO DAILY 08/09/18 08/09/18 History Allergies Allergy/AdvReac Type Severity Reaction Status Date / Time Sulfa (Sulfonamide Allergy Rash/Hives Verified 08/09/18 20:03 Antibiotics) Physical Examination Osteopathic Statement: *. No significant issues noted on an osteopathic str uctural exam other than those noted in the History and Physical/Consult. - L Spine: dermatomal strength & reflexes bilateral Strength: hip flexion: 5/5 (On exam she is alert she's oriented 3 but she is unsure of her specific purpose for being here though she does admit to having back soreness. She is nontender to palpation specifically over her midline that but she does have soreness at her paraspinals at her thoracic and lumbar spine diffusely. There is no crepitus. Her lower shoulder have full 5 out of 5 strength with hip flexion and extension dorsiflexion plantar flexion and extensor hallucis longus. Her hips are nontender to palpation range of motion.) Results - Labs Labs: Abnormal Lab Results - Last 24 Hours (Table) 08/09/18 08/09/18 08/09/18 Range/Units 21:00 22:36 22:36 WBC (3.8-10.6) k/uL RBC 2.50 L (3.80-5.40) m/uL Hgb 7.4 L (11.4-16.0) gm/dL Hct 22.6 L (34.0-46.0) % MCHC (31.0-37.0) g/dL Neutrophils # (1.3-7.7) k/uL Lymphocytes # 0.7 L (1.0-4.8) k/uL PT (9.0-12.0) sec INR (<1.2) APTT (22.0-30.0) sec Sodium 128 L (137-145) mmol/L Chloride 97 L (98-107) mmol/L BUN 23 H (7-17) mg/dL Creatinine 1.10 H (0.52-1.04) mg/dL Glucose 120 H (74-99) mg/dL Calcium 8.0 L (8.4-10.2) mg/dL Total Protein 5.4 L (6.3-8.2) g/dL Albumin 3.1 L (3.5-5.0) g/dL Urine Protein Trace H (Negative) Ur Leukocyte Esterase Moderate H (Negative) Urine WBC 15 H (0-5) /hpf Amorphous Sediment Occasional H (None) /hpf Urine Mucus Rare H (None) /hpf 08/09/18 08/10/18 08/10/18 Range/Units 22:36 06:56 06:56 WBC 14.5 H (3.8-10.6) k/uL RBC 2.88 L (3.80-5.40) m/uL Hgb 8.1 L (11.4-16.0) gm/dL Hct 26.5 L (34.0-46.0) % MCHC 30.7 L (31.0-37.0) g/dL Neutrophils # 13.3 H (1.3-7.7) k/uL Lymphocytes # 0.4 L (1.0-4.8) k/uL PT 22.5 H 17.0 H (9.0-12.0) sec INR 2.3 H 1.7 H (<1.2) APTT 33.4 H (22.0-30.0) sec Sodium (137-145) mmol/L Chloride (98-107) mmol/L BUN (7-17) mg/dL Creatinine (0.52-1.04) mg/dL Glucose (74-99) mg/dL Calcium (8.4-10.2) mg/dL Total Protein (6.3-8.2) g/dL Albumin (3.5-5.0) g/dL Urine Protein (Negative) Ur Leukocyte Esterase (Negative) Urine WBC (0-5) /hpf Amorphous Sediment (None) /hpf Urine Mucus (None) /hpf 08/10/18 Range/Units 06:56 WBC (3.8-10.6) k/uL RBC (3.80-5.40) m/uL Hgb (11.4-16.0) gm/dL Hct (34.0-46.0) % MCHC (31.0-37.0) g/dL Neutrophils # (1.3-7.7) k/uL Lymphocytes # (1.0-4.8) k/uL PT (9.0-12.0) sec INR (<1.2) APTT (22.0-30.0) sec Sodium 129 L (137-145) mmol/L Chloride 96 L (98-107) mmol/L BUN 22 H (7-17) mg/dL Creatinine 1.11 H (0.52-1.04) mg/dL Glucose 160 H (74-99) mg/dL Calcium (8.4-10.2) mg/dL Total Protein (6.3-8.2) g/dL Albumin (3.5-5.0) g/dL Urine Protein (Negative) Ur Leukocyte Esterase (Negative) Urine WBC (0-5) /hpf Amorphous Sediment (None) /hpf Urine Mucus (None) /hpf H & H 08/09/18 08/10/18 Range/Units 22:36 06:56 Hgb 7.4 L 8.1 L (11.4-16.0) gm/dL Hct 22.6 L 26.5 L (34.0-46.0) % Coagulation 08/09/18 08/10/18 Range/Units 22:36 06:56 INR 2.3 H 1.7 H (<1.2) Result Diagrams: 08/10/18 06:56 08/10/18 06:56 - Diagnostic results Lumbar AP/lateral x-ray: report reviewed, image reviewed (X-rays of her thoracic and lumbar spine are reviewed. She is osteopenic bone. There is evidence of compression deformity with approximately 50% height loss at T6 and T7. There is also a complete compression deformity at T12. These images are taken care to a chest x-ray that was done in July 2017 where the fracture T12 is present however I do not see the fractures at T6 and 7. The report also notes a possible fracture at T9.) Assessment and Plan Assessment: Thoracic compression fractures T6-T7 and possibly T9 which are likely subacute and due to osteoporosis Chronic compression fracture T12 Thoracic and lumbar back pain No neurologic change Plan: Thoracic compression fractures T6-T7 and possibly T9 which are likely subacute and due to osteoporosis Chronic compression fracture T12 Thoracic and lumbar back pain No neurologic change There appeared to be acute or subacute compression fractures at T6 and T7. Last films that I see her from 1 year ago so it is difficult to determine the specific time line of the fractures. She is having some back soreness and with the areas present I think he could be worthwhile for her to use a TLSO brace. I think a SPINOMED TLSO would be most appropriate for her as it would be less inhibitive toward her chest as she wears it. She does not need to wear while in bed or for bathing but should try to wear when she is up out of bed. She is fairly comfortable and I do not think that she is a good candidate for surgical intervention at this point it could be a candidate for kyphoplasty of her symptoms were to worsen. She is not interested in any surgery at this point. We will see how she does with conservative treatments and it is okay from a spine standpoint for her to be discharged when she is stable with medicine. I will plan to see her back in approximately 2-3 weeks' time for recheck evaluation and repeat x-rays.
[2018-08-10] MEDS ORDERED: NON-FORMULARY DRUG (Magnesium Oxide 250 MG) PO SCH (09:00)
[2018-08-10] MEDS ORDERED: WARFARIN 5 MG TAB PO ONE (18:00)
[2018-08-10] MEDS ORDERED: WARFARIN 5 MG TAB PO SCH (18:00)
--- NOTE | 2018-08-10 18:44 | P.HPIM ---
History of Present Illness H&P Date: 08/09/18 Chief Complaint: Intractable lower back pain, multiple compression vertebrae in the thoracic 77-year-old female with multiple medical problem known to have history of hypertension, atherosclerotic heart disease, dementia, iron deficiency anemia and A. fib with RVR who seen Dr. Walters on regular basis presented to demurs department at [facility] complaining of worsening lower back pain started last few hours without any fall according to her family she had low basis reclining chair and when she sits on it she fell in it all the time whether that's causing from [place] medically clear. Her T-spine vertebrae showed multiple compression with worsening arthritis did not exist in the previous x-ray. Patient was started on Decadron Will admit patient to the hospital. Also patient found to have UTI, worsening mental status, and incidentally found to have significant anemia with moderate hyponatremia. Review of Systems CONSTITUTIONAL: Well-developed no acute respiratory distress. EYES: No icterus sclerae, no conjunctivitis. EARS, NOSE, MOUTH, THROAT, and FACE: No sore throat, lymphadenopathy, carotid bruits or deformity. RESPIRATORY: No SOB cough or wheezes. CARDIOVASCULAR: Positive pain to the mid palpitation GASTROINTESTINAL: No Abd pain, Nausea or vomiting, no Diarrhea or constipation, No GI Bleed, no distention or masses. Mild abdominal discomfort. GENITOURINARY: Negative for Hematuria or UTI, no kidney stones. INTEGUMENT/BREAST: Negative for any muscular injury with mild osteoarthritis.. HEMATOLOGIC/LYMPHATIC: Negative for bleed or purpura. MUSCULOSKELTAL: Significant lower back pain and thigh pain bilaterally. NEURLOGICAL: No LOC, Sz or syncope, blurred vision dizziness or abnormality.. Mild dementia. BEHAVIORAL/PSYCH: Negative. ENDOCRINE: Negative. Past Medical History Past Medical History: Coronary Artery Disease (CAD), CVA/TIA, GI Bleed, Hyperlipidemia, Hypertension, Osteoarthritis (OA), Vascular Disorder Additional Past Medical History / Comment(s): Pt hospitalized at [facility] on 04/18/16 with CKD stage II, hyponatremia. Other HX: black stools x 2 days-had EGD/colonoscopy showing gastritis and diverticulosis, hemorroids, polyps, Lt hip pain (needs total hip replacement), L knee meniscus tear, tripped and fell struck face/R eye, has "hairline fracture lower back",, protein calorie malnutrition, tia,sciatic nerve pain. fell 5-14-17 -fx lt writs. History of Any Multi-Drug Resistant Organisms: None Reported Past Surgical History: Cardiac Valve Replacement, Coronary Bypass/CABG, Hyst erectomy Additional Past Surgical History / Comment(s): Mick carotid surgery, [address] [facility] [facility] aortic valve replacement, 03/23/16 EGD and colonoscopy, past colonoscopy with polypectomy, last colonoscopy was in 2017, low sodium Past Anesthesia/Blood Transfusion Reactions: No Reported Reaction Past Psychological History: Anxiety Smoking Status: Former smoker Past Alcohol Use History: Occasional Past Drug Use History: None Reported - Past Family History Sister(s) Family Medical History: Cancer Father Family Medical History: Diabetes Mellitus Additional Family Medical History / Comment(s): Father had tuberculosis. Mother Family Medical History: Dementia Son(s) Family Medical History: No Reported History Daughter(s) Family Medical History: No Reported History Medications and Allergies Home Medications Medication Instructions Recorded Confirmed Type Atenolol 100 mg PO BID 02/04/16 08/09/18 History Rosuvastatin Calcium [Crestor] 40 mg PO HS 02/04/16 08/09/18 History Warfarin Sodium 2.5 mg PO SUMOTUWETHSA 02/04/16 08/09/18 History Warfarin [Coumadin] 5 mg PO FR 04/30/16 08/09/18 History Magnesium Oxide [Mag-Ox] 250 mg PO QAM 07/29/17 08/09/18 History Sodium Bicarbonate 325 mg PO BID 07/29/17 08/09/18 History hydrALAZINE HCL [Apresoline] 50 mg PO TID 07/29/17 08/09/18 History Citalopram Hydrobromide [CeleXA] 10 mg PO DAILY 08/09/18 08/09/18 History Donepezil HCl [Aricept] 10 mg PO DAILY 08/09/18 08/09/18 History Ferrous Sulfate [Feosol] 325 mg PO DAILY 08/09/18 08/09/18 History Allergies Allergy/AdvReac Type Severity Reaction Status Date / Time Sulfa (Sulfonamide Allergy Rash/Hives Verified 08/09/18 20:03 Antibiotics) Physical Exam Vitals: Vital Signs Temp Pulse Resp BP Pulse Ox 08/09/18 20:10 65 18 164/73 95 08/09/18 20:00 61 19 148/62 96 08/09/18 19:28 99 F 61 18 195/66 98 Intake and Output 08/09/18 08/09/18 08/10/18 14:59 22:59 06:59 Other: Weight 63.503 kg General Appearance: Alert, cooperative, no distress, appears stated age. With mild confusion Neck HEENT: Supple, no lymphadenopathy, no thyroid enlargement, no carotid bruits. Lungs: Clear to auscultation without crackles or wheezes no rhonchi, no deformity. Chest Wall: Chest wall normal expansion with deep inspiration no tenderness and no deformity was found on exam, no costochondral pain or discomfort. Heart: Irregular rate and rhythm, S1, S2 positive S3 , no murmur, rub or gallop. Back: Symmetric, positive scoliosis with significant tenderness in the thoracic and upper lumbar spine area. Abdomen: Soft, non-tender, bowel sounds active all four quadrants, no masses, no organomegaly. Extremities: Extremities normal, atraumatic, no cyanosis or edema. Pulses: 2+ and symmetric. Skin: Skin color, texture, tugor normal, no rashes or lesions. Neurologic: Alert oriented with slight confusion, cranial nerves II through XII intact, no motor deficit, positive abnormal balance and gait. Results CBC & Chem 7: 08/10/18 06:56 08/10/18 06:56 Labs: Abnormal Lab Results - Last 24 Hours (Table) 08/09/18 08/09/18 08/09/18 Range/Units 21:00 22:36 22:36 RBC 2.50 L (3.80-5.40) m/uL Hgb 7.4 L (11.4-16.0) gm/dL Hct 22.6 L (34.0-46.0) % Lymphocytes # 0.7 L (1.0-4.8) k/uL PT (9.0-12.0) sec INR (<1.2) APTT (22.0-30.0) sec Sodium 128 L (137-145) mmol/L Chloride 97 L (98-107) mmol/L BUN 23 H (7-17) mg/dL Creatinine 1.10 H (0.52-1.04) mg/dL Glucose 120 H (74-99) mg/dL Calcium 8.0 L (8.4-10.2) mg/dL Total Protein 5.4 L (6.3-8.2) g/dL Albumin 3.1 L (3.5-5.0) g/dL Urine Protein Trace H (Negative) Ur Leukocyte Esterase Moderate H (Negative) Urine WBC 15 H (0-5) /hpf Amorphous Sediment Occasional H (None) /hpf Urine Mucus Rare H (None) /hpf 08/09/18 Range/Units 22:36 RBC (3.80-5.40) m/uL Hgb (11.4-16.0) gm/dL Hct (34.0-46.0) % Lymphocytes # (1.0-4.8) k/uL PT 22.5 H (9.0-12.0) sec INR 2.3 H (<1.2) APTT 33.4 H (22.0-30.0) sec Sodium (137-145) mmol/L Chloride (98-107) mmol/L BUN (7-17) mg/dL Creatinine (0.52-1.04) mg/dL Glucose (74-99) mg/dL Calcium (8.4-10.2) mg/dL Total Protein (6.3-8.2) g/dL Albumin (3.5-5.0) g/dL Urine Protein (Negative) Ur Leukocyte Esterase (Negative) Urine WBC (0-5) /hpf Amorphous Sediment (None) /hpf Urine Mucus (None) /hpf Thrombosis Risk Factor Assmnt - DVT/VTE Prophylaxis DVT/VTE Prophylaxis: Pharmacologic Prophylaxis ordered, Mechanical Prophylaxis ordered Assessment and Plan Plan: 1 severe intractable lower back pain: Patient was admitted continue Decadron, PTOT consultation and also consult patient might benefit from TLSO brace along with pain management and Decadron might need further more physical therapy. 2 change mental status: With mild memory loss will continue conservative management try to treat the pain and watch for any significant decline in memory. 3 Urinary tract infection with sepsis: Urine will be sent for culture in the meanwhile patient was started on Rocephin 1 g daily. 4 acute anemia with possible GI bleed: Hemoglobin on admission was 7.4 continue PPI continue to watch for any GI bleed. 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 6 Jonn. jorge with RVR: Has been on atenolol 100 mg twice a day and warfarin 2.5 mg daily 5 mg on Tuesday continue to watch PT/INR on daily basis. 7 hypertension: Blood pressure is well controlled on hydralazine 50 mg 3 times a day along with atenolol 100 mg twice a day. 8 dementia: On Aricept 10 mg daily. 9 depression: On Celexa 10 mg daily. 10 hyperlipidemia: Patient is on Crestor 40 mg daily at bedtime. 11 GI prophylaxis: Will do pantoprazole 40 mg daily. 12 DVT prophylaxis: She is on anticoagulation. CODE STATUS: Full code. Admit patient to inpatient status for more than 2 nights.
--- NOTE | 2018-08-10 19:00 | P.PN ---
Subjective Progress Note Date: 08/10/18 Principal diagnosis: Intractable lower back pain, multiple compression vertebrae in the thoracic 77-year-old female with multiple medical problem known to have history of hypertension, atherosclerotic heart disease, dementia, iron deficiency anemia and A. fib with RVR who seen Dr. Walters on regular basis presented to demurs department at [facility] complaining of worsening lower back pain started last few hours without any fall according to her family she had low basis reclining chair and when she sits on it she fell in it all the time whether that's causing from [place] medically clear. Her T-spine vertebrae showed multiple compression with worsening arthritis did not exist in the previous x-ray. Patient was started on Decadron Will admit patient to the hospital. Also patient found to have UTI, worsening mental status, and incidentally found to have significant anemia with moderate hyponatremia. 08/10: Patient seen Dr. Ross who agree with the current management and order brace, PT and Decadron still on and mild muscle relaxer will rely on topical care as well with Lidoderm patch. Whether patient is strong enough and safe enough to go home on oral need rehab is to be determined in the next 24 hours. Objective - Vital Signs Vital signs: Vital Signs Temp 97.9 F 08/10/18 14:50 Pulse 60 08/10/18 14:50 Resp 15 08/10/18 14:50 BP 166/65 08/10/18 14:50 Pulse Ox 95 08/10/18 14:50 Intake & Output 08/09/18 08/10/18 08/10/18 18:59 06:59 18:59 Intake Total 716 Output Total 200 Balance 516 Weight 63.503 kg Intake: Oral 716 Output: Urine 200 Other: Voiding Method Toilet Toilet # Voids 1 - Exam Review of Systems CONSTITUTIONAL: Well-developed no acute respiratory distress. EYES: No icterus sclerae, no conjunctivitis. EARS, NOSE, MOUTH, THROAT, and FACE: No sore throat, lymphadenopathy, carotid bruits or deformity. RESPIRATORY: No SOB cough or wheezes. CARDIOVASCULAR: Positive pain to the mid palpitation GASTROINTESTINAL: No Abd pain, Nausea or vomiting, no Diarrhea or constipation, No GI Bleed, no distention or masses. Mild abdominal discomfort. GENITOURINARY: Negative for Hematuria or UTI, no kidney stones. INTEGUMENT/BREAST: Negative for any muscular injury with mild osteoarthritis.. HEMATOLOGIC/LYMPHATIC: Negative for bleed or purpura. MUSCULOSKELTAL: Significant lower back pain and thigh pain bilaterally. NEURLOGICAL: No LOC, Sz or syncope, blurred vision dizziness or abnormality.. Mild dementia. BEHAVIORAL/PSYCH: Negative. ENDOCRINE: Negative. Physical Exam General Appearance: Alert, cooperative, no distress, appears stated age. With mild confusion Neck HEENT: Supple, no lymphadenopathy, no thyroid enlargement, no carotid bruits. Lungs: Clear to auscultation without crackles or wheezes no rhonchi, no deformity. Chest Wall: Chest wall normal expansion with deep inspiration no tenderness and no deformity was found on exam, no costochondral pain or discomfort. Heart: Irregular rate and rhythm, S1, S2 positive S3 , no murmur, rub or gallop. Back: Symmetric, positive scoliosis with significant tenderness in the thoracic and upper lumbar spine area. Abdomen: Soft, non-tender, bowel sounds active all four quadrants, no masses, no organomegaly. Extremities: Extremities normal, atraumatic, no cyanosis or edema. Pulses: 2+ and symmetric. Skin: Skin color, texture, tugor normal, no rashes or lesions. Neurologic: Alert oriented with slight confusion, cranial nerves II through XII intact, no motor deficit, positive abnormal balance and gait. - Labs CBC & Chem 7: 08/10/18 06:56 08/10/18 06:56 Labs: Abnormal Lab Results - Last 24 Hours (Table) 08/09/18 08/09/18 08/09/18 Range/Units 21:00 22:36 22:36 WBC (3.8-10.6) k/uL RBC 2.50 L (3.80-5.40) m/uL Hgb 7.4 L (11.4-16.0) gm/dL Hct 22.6 L (34.0-46.0) % MCHC (31.0-37.0) g/dL Neutrophils # (1.3-7.7) k/uL Lymphocytes # 0.7 L (1.0-4.8) k/uL PT (9.0-12.0) sec INR (<1.2) APTT (22.0-30.0) sec Sodium 128 L (137-145) mmol/L Chloride 97 L (98-107) mmol/L BUN 23 H (7-17) mg/dL Creatinine 1.10 H (0.52-1.04) mg/dL Glucose 120 H (74-99) mg/dL Calcium 8.0 L (8.4-10.2) mg/dL Total Protein 5.4 L (6.3-8.2) g/dL Albumin 3.1 L (3.5-5.0) g/dL Urine Protein Trace H (Negative) Ur Leukocyte Esterase Moderate H (Negative) Urine WBC 15 H (0-5) /hpf Amorphous Sediment Occasional H (None) /hpf Urine Mucus Rare H (None) /hpf 08/09/18 08/10/18 08/10/18 Range/Units 22:36 06:56 06:56 WBC 14.5 H (3.8-10.6) k/uL RBC 2.88 L (3.80-5.40) m/uL Hgb 8.1 L (11.4-16.0) gm/dL Hct 26.5 L (34.0-46.0) % MCHC 30.7 L (31.0-37.0) g/dL Neutrophils # 13.3 H (1.3-7.7) k/uL Lymphocytes # 0.4 L (1.0-4.8) k/uL PT 22.5 H 17.0 H (9.0-12.0) sec INR 2.3 H 1.7 H (<1.2) APTT 33.4 H (22.0-30.0) sec Sodium (137-145) mmol/L Chloride (98-107) mmol/L BUN (7-17) mg/dL Creatinine (0.52-1.04) mg/dL Glucose (74-99) mg/dL Calcium (8.4-10.2) mg/dL Total Protein (6.3-8.2) g/dL Albumin (3.5-5.0) g/dL Urine Protein (Negative) Ur Leukocyte Esterase (Negative) Urine WBC (0-5) /hpf Amorphous Sediment (None) /hpf Urine Mucus (None) /hpf 08/10/18 Range/Units 06:56 WBC (3.8-10.6) k/uL RBC (3.80-5.40) m/uL Hgb (11.4-16.0) gm/dL Hct (34.0-46.0) % MCHC (31.0-37.0) g/dL Neutrophils # (1.3-7.7) k/uL Lymphocytes # (1.0-4.8) k/uL PT (9.0-12.0) sec INR (<1.2) APTT (22.0-30.0) sec Sodium 129 L (137-145) mmol/L Chloride 96 L (98-107) mmol/L BUN 22 H (7-17) mg/dL Creatinine 1.11 H (0.52-1.04) mg/dL Glucose 160 H (74-99) mg/dL Calcium (8.4-10.2) mg/dL Total Protein (6.3-8.2) g/dL Albumin (3.5-5.0) g/dL Urine Protein (Negative) Ur Leukocyte Esterase (Negative) Urine WBC (0-5) /hpf Amorphous Sediment (None) /hpf Urine Mucus (None) /hpf Microbiology - Last 24 Hours (Table) 08/10/18 14:30 Urine Culture - Preliminary Urine,Clean Catch Assessment and Plan Plan: 1 severe intractable lower back pain: Patient was admitted continue Decadron, PTOT consultation and also consult patient might benefit from TLSO brace along with pain management and Decadron might need further more physical therapy. 2 change mental status: With mild memory loss will continue conservative management try to treat the pain and watch for any significant decline in memory. 3 Urinary tract infection with sepsis: Urine will be sent for culture in the vt anwhile patient was started on Rocephin 1 g daily. 4 acute anemia with possible GI bleed: Hemoglobin on admission was 7.4 continue PPI continue to watch for any GI bleed. 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 6 A. fib with RVR: Has been on atenolol 100 mg twice a day and warfarin 2.5 mg daily 5 mg on Tuesday continue to watch PT/INR on daily basis. 7 hypertension: Blood pressure is well controlled on hydralazine 50 mg 3 times a day along with atenolol 100 mg twice a day. 8 dementia: On Aricept 10 mg daily. 9 depression: On Celexa 10 mg daily. 10 hyperlipidemia: Patient is on Crestor 40 mg daily at bedtime.
[2018-08-10] MEDS: ATORVASTATIN 80 MG TAB PO SCH (20:27)
[2018-08-10] MEDS ORDERED: ALPRAZolam 0.25 MG TAB PO STA (22:53)
[2018-08-11] MEDS: LIDOCAINE 5% PATCH TOPICAL SCH ×2 (00:05→07:40)
[2018-08-11] MEDS: DEXAMETHASONE SOD PHOSPHATE 4 MG/ML 1 ML VIAL IV SCH ×5 (00:05→23:38)
[2018-08-11] MEDS: MELATONIN 5 MG TABLET PO SCH ×2 (00:06→20:37)
[2018-08-11] MEDS: ACETAMINOPHEN TAB 325 MG TAB PO PRN ×3 (03:18→20:37)
[2018-08-11 07:26] LABS: INR 1.6 (<1.2); Prothrombin Time 15.9 sec (9.0-12.0)
[2018-08-11 07:31] LABS: Albumin 3.1 g/dL (3.5-5.0); Calcium 8.3 mg/dL (8.4-10.2); Potassium 4.2 mmol/L (3.5-5.1); Total Bilirubin 0.3 mg/dL (0.2-1.3); Total Protein 5.5 g/dL (6.3-8.2)
[2018-08-11] MEDS: PANTOPRAZOLE 40 MG TABLET PO SCH (07:39)
[2018-08-11] MEDS: CITALOPRAM HYDROBROMIDE 10 MG TAB PO SCH (07:40)
[2018-08-11] MEDS: hydrALAZINE HCL 50 MG TAB PO SCH ×3 (07:40→20:37)
[2018-08-11] MEDS: DONEPEZIL 10 MG TAB PO SCH (07:40)
[2018-08-11] MEDS: SODIUM BICARBONATE TAB 650 MG TAB PO SCH ×2 (07:40→20:37)
[2018-08-11] MEDS: FERROUS SULFATE 325 MG TAB PO SCH (07:40)
[2018-08-11] MEDS: ATENOLOL 50 MG TAB PO SCH ×2 (07:40→20:38)
[2018-08-11 07:43] LABS: Basophils # (A) 0.1 k/uL (0-0.2); Basophils % (A) 1 %; Eosinophils % (A) 0 %; HGB 7.3 gm/dL (11.4-16.0); Hypochromasia Moderate; Lymphocytes # (A) 0.4 k/uL (1.0-4.8); Lymphocytes % (A) 3 %; MCH 28.8 pg (25.0-35.0); MCHC 31.6 g/dL (31.0-37.0); MCV 91.1 fL (80.0-100.0); Mean Platelet Volume 7.7; Monocytes # (A) 0.8 k/uL (0-1.0); Monocytes % (A) 5 %; Neutrophils # (A) 14.3 k/uL (1.3-7.7); Neutrophils % (A) 90 %; Platelet Count 228 k/uL (150-450); RBC 2.53 m/uL (3.80-5.40); RDW 14.5 % (11.5-15.5); WBC 15.9 k/uL (3.8-10.6)
--- NOTE | 2018-08-11 08:42 | P.PN ---
Progress Note - Text Progress Note Date: 08/11/18 Patient is a very pleasant 77-year-old female who is seen exam bedside for follow-up evaluation in regards to her thoracic compression fracture deformities. Since being seen examined yesterday a [employer] TLSO brace has been delivered and fitted properly. She is currently wearing this brace at the bedside. She states is somewhat uncomfortable while sitting. She continues to have soreness at her thoracic spine. She currently denies any specific lower extremity weakness or radiculopathy. She is eating and voiding without difficulty. She has no new complaints of the bedside. She currently being seen and examined by medicine and being treated for urinary tract infection, mental status change, hyponatremia and acute anemia. Patient has a history of hypertension, hyperlipidemia, dementia, atrial fibrillation with RVR and depression. Physical exam: Patient is awake and alert and answers questions appropriately but does have some difficulty with memory Vital signs stable Good chest excursion with deep inspiration and expiration Examination of thoracic spine reveals skin is intact with no abrasions, lacerations, or bruises; no erythema, purulence or signs of infection Some discomfort with palpation along the midline of the mid thoracic spine Dorsiflexion, plantarflexion, and extensor hallucis longus positive sustained bilaterally Lower extremity strength 5/5 bilaterally Straight leg test negative bilateral lower extremities No signs or symptoms of DVT; no calf pain No pain with internal and external rotation of the hips bilaterally Neurovascularly intact Assessment: T6 and T7 compression fracture deformities and possibly T9 which are likely subacute due to osteoporosis T12 chronic compression fracture deformity Thoracolumbar back pain Urinary tract infection Mental status change Acute anemia Hyponatremia History of hypertension, hyperlipidemia, atrial fibrillation with RVR, dementia, and depression Plan: 1. We'll continue conservative treatment at this time. Since being seen and e xamined yesterday bracing has been prescribed and provided to the patient. This brace has been fitted appropriately. Patient should wear this brace while sitting upright at greater than 45, during increase activities, during ambulation. Brace is not have to or while lying in bed or while bathing. Patient is now clear for discharge from an orthopedic spine standpoint. Following discharge, patient may follow-up in approximately 2-3 weeks with Kimo Dunlap PA-C or Dr. Anup Ross at [facility]. 2. Patient will continue be seen and examined by medicine for her other medical diagnoses
--- NOTE | 2018-08-11 11:18 | CDI ---
Documentation Clarification Form Date: August 10, 2018 CDS: Loraine Levi, CCS, CCDS Admit Date: 08/10/2018 Patient Name: Sophy Colin Discharge Date: ATTENTION: The Clinical Documentation Specialists (CDI) and [facility] Coding Staff appreciate your assistance in clarifying documentation. Please respond to the clarification below the line at the bottom and electronically sign. The CDI & [facility] Coding staff will review the response and follow-up if needed. Please note: Queries are made part of the Legal Health Record. If you have any questions, please contact the author of this message via ITS. Dr. Nenita Walters: Per the History & Physical: "Also patient found to have UTI, worsening mental status, and incidentally found to have significant anemia with moderate hyponatremia." Diagnosis: "Urinary tract infection with sepsis". History/Risk Factors: Dementia with memory loss, CAD, CVA/TIA, GI bleed, Hyperlipidemia, Hypertension, OA, CKD II, Hyponatremia. Chronic left hip pain, Sciatica, Coronary valve replacement & CABG. Clinical Indicators: Presented with intractable back pain, incidentally found to be septic with UTI and altered mental status changes. VS: T 99, P 61, R 18, BP 195/66^, PO 98 ra LAB: WBC (7.9) - 14.5^, Hgb 7.4 - 8.1*, Na 128*, BUN 23^, Cr 1.10^, Glucose 120^. UA: clear, negative nitrite, WBC 15^. Tx: IM Ms, IV Ms, IV Narcan, IV Decadron, IV Rocephin. In your professional opinion, can you please clarify the specific type of Encephalopathy, if known? Hypertensive Encephalopathy Metabolic Encephalopathy Septic Encephalopathy Toxic Encephalopathy Traumatic Encephalopathy Other, please specify Unable to determine (Last Revision: May 2017) __Metabolic encephalopathy MTDD
--- NOTE | 2018-08-11 13:13 | P.PN ---
Subjective Progress Note Date: 08/11/18 77-year-old female with multiple medical problem known to have history of hypertension, atherosclerotic heart disease, dementia, iron deficiency anemia and A. fib with RVR who seen Dr. Walters on regular basis presented to demurs department at [facility] complaining of worsening lower back pain started last few hours without any fall according to her family she had low basis reclining chair and when she sits on it she fell in it all the time whether that's causing from [place] medically clear. Her T-spine vertebrae showed multiple compression with worsening arthritis did not exist in the previous x-ray. Patient was started on Decadron Will admit patient to the hospital. Also patient found to have UTI, worsening mental status, and incidentally found to have significant anemia with moderate hyponatremia. 08/10: Patient seen Dr. Ross who agree with the current management and order brace, PT and Decadron still on and mild muscle relaxer will rely on topical care as well with Lidoderm patch. Whether patient is strong enough and safe enough to go home on oral need rehab is to be determined in the next 24 hours. 08/11 patient examined bedside is comfortable. She did have significant pain in the night which improved with lidocaine patch. Patient does have significant dementia and does not remember any falls. She walks with a walker at home as an uncomfortable with the brace. Hemoglobin 7.3and a GI bleed. Iron studies ordered a flow can get IV iron therapy before patient is discharged to [facility] on Tuesday ROS Constitutional: Denies chills, Denies fever, Denies lethargy, Denies malaise, Denies poor appetite, Denies weakness, Denies weight loss Eyes: denies decreased vision, denies diplopia, denies discharge, denies pain Ears: deny: decreased hearing Ears, nose, mouth and throat: Denies dental pain, Denies headache, Denies nasal discharge, Denies nose pain Cardiovascular: Denies chest pain, Denies decreased exercise tolerance, Denies edema, Denies high blood pressure, Denies irregular heart beat, Denies palpitations, Denies paroxysmal nocturnal dyspnea, Denies rapid heart beat, Denies shortness of breath Respiratory: Denies congestion, Denies cough, Denies cough with sputum, Denies dyspnea, Denies home oxygen, Denies wheezing Gastrointestinal: Denies abdominal pain, Denies change in bowel habits, Denies coffee ground emesis, Denies early satiety, Denies excessive gas, Denies heartburn, Denies hematemesis, Denies hematochezia, Denies loss of appetite, Denies nausea, Denies vomiting Genitourinary: Denies dysuria, Denies flank pain, Denies kidney stones, Denies menorrhagia, Denies urgency, Denies urinary frequency Musculoskeletal: Denies gait dysfunction, Denies limitation of motion, Denies morning stiffness, Denies muscle cramps positive for back pain Integumentary: Denies rash, Denies wounds, Denies brittle nails, Denies change in hair/nails, Denies darkening of skin Neurological: Denies balance difficulties, Denies change in speech, Denies double vision, Denies gait dysfunction, Denies loss of vision, Denies motor disturbance, Denies numbness, Denies paralysis, Denies paresthesias, Denies seizures, positive for short term memory loss Psychiatric: Denies anxiety, Denies depression Endocrine: Denies excessive sweating, Denies excessive thirst, Denies high blood sugars, Denies palpitations Hematologic/Lymphatic: Denies easy bruising, Denies lymphadenopathy Objective - Vital Signs Vital signs: Vital Signs Temp 98.0 F 08/11/18 07:30 Pulse 63 08/11/18 07:30 Resp 16 08/11/18 07:30 BP 162/58 08/11/18 07:30 Pulse Ox 95 08/11/18 07:30 Intake & Output 08/10/18 08/11/18 08/11/18 18:59 06:59 18:59 Intake Total 716 100 Output Total 200 Balance 516 100 Intake: Oral 716 100 Output: Urine 200 Other: Voiding Method Toilet Toilet Toilet # Voids 2 - Exam General Appearance: Alert, cooperative, no distress, appears stated age. With mild confusion Neck HEENT: Supple, no lymphadenopathy, no thyroid enlargement, no carotid bruits. Lungs: Clear to auscultation without crackles or wheezes no rhonchi, no deformity. Chest Wall: Chest wall normal expansion with deep inspiration no tenderness and no deformity was found on exam, no costochondral pain or discomfort. Heart: Irregular rate and rhythm, S1, S2 positive S3 , no murmur, rub or gallop. Back: Symmetric, positive scoliosis with significant tenderness in the thoracic and upper lumbar spine area. Abdomen: Soft, non-tender, bowel sounds active all four quadrants, no masses, no organomegaly. Extremities: Extremities normal, atraumatic, no cyanosis or edema. Pulses: 2+ and symmetric. Skin: Skin color, texture, tugor normal, no rashes or lesions. Neurologic: Alert oriented with slight confusion, cranial nerves II through XII intact, no motor deficit, positive abnormal balance and gait. - Labs CBC & Chem 7: 08/11/18 06:08/11/18 06:29 Labs: Abnormal Lab Results - Last 24 Hours (Table) 08/11/18 08/11/18 08/11/18 Range/Units 06:29 06: 06:29 WBC 15.9 H (3.8-10.6) k/uL RBC 2.53 L (3.80-5.40) m/uL Hgb 7.3 L (11.4-16.0) gm/dL Hct 23.0 L (34.0-46.0) % Neutrophils # 14.3 H (1.3-7.7) k/uL Lymphocytes # 0.4 L (1.0-4.8) k/uL PT 15.9 H (9.0-12.0) sec INR 1.6 H (<1.2) Sodium 130 L (137-145) mmol/L Chloride 97 L (98-107) mmol/L BUN 33 H (7-17) mg/dL Creatinine 1.20 H (0.52-1.04) mg/dL Glucose 128 H (74-99) mg/dL Calcium 8.3 L (8.4-10.2) mg/dL AST 49 H (14-36) U/L Total Protein 5.5 L (6.3-8.2) g/dL Albumin 3.1 L (3.5-5.0) g/dL Microbiology - Last 24 Hours (Table) 08/10/18 14:30 Urine Culture - Preliminary Urine,Clean Catch Assessment and Plan Plan: 1 severe intractable lower back pain sec to multiple compression fracture T6 t o T12, both old and new: Patient was admitted continue Decadron, PTOT consultation and also consult patient might benefit from TLSO brace along with pain management and Decadron might need further more physical therapy. 2 change mental status: With mild memory loss will continue conservative management try to treat the pain and watch for any significant decline in memory. 3 Urinary tract infection with sepsis: Urine will be sent for culture in the meanwhile patient was started on Rocephin 1 g daily. 4 acute anemia possible anemia of chronic disease: Hemoglobin on admission was 7.4 continue PPI continue to watch for any GI bleed.iron studies ordered. 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 6 A. fib with RVR: Has been on atenolol 100 mg twice a day and warfarin 2.5 mg daily 5 mg on Tuesday continue to watch PT/INR on daily basis. 7 hypertension: Blood pressure is well controlled on hydralazine 50 mg 3 times a day along with atenolol 100 mg twice a day. 8 dementia: On Aricept 10 mg daily. 9 depression: On Celexa 10 mg daily. 10 hyperlipidemia: Patient is on Crestor 40 mg daily at bedtime. 11 disposition discharge to [facility] on Tuesday
[2018-08-11] MEDS ORDERED: WARFARIN 5 MG TAB PO SCH (18:00)
[2018-08-11] MEDS ORDERED: WARFARIN 3 MG TAB PO ONE (18:00)
[2018-08-11] MEDS: ATORVASTATIN 80 MG TAB PO SCH (20:38)
[2018-08-11 23:44] LABS: Iron Saturation 1.99 (12.00-45.00)
[2018-08-12] MEDS: ACETAMINOPHEN TAB 325 MG TAB PO PRN ×2 (04:13→20:58)
[2018-08-12] MEDS: DEXAMETHASONE SOD PHOSPHATE 4 MG/ML 1 ML VIAL IV SCH ×4 (05:55→23:44)
[2018-08-12 07:34] LABS: INR 2.9 (<1.2); Prothrombin Time 28.2 sec (9.0-12.0)
[2018-08-12] MEDS: SODIUM BICARBONATE TAB 650 MG TAB PO SCH ×2 (09:25→20:55)
[2018-08-12] MEDS: PANTOPRAZOLE 40 MG TABLET PO SCH (09:25)
[2018-08-12] MEDS: hydrALAZINE HCL 50 MG TAB PO SCH ×3 (09:25→20:54)
[2018-08-12] MEDS: DONEPEZIL 10 MG TAB PO SCH (09:25)
[2018-08-12] MEDS: ATENOLOL 50 MG TAB PO SCH ×2 (09:25→20:55)
[2018-08-12] MEDS: FERROUS SULFATE 325 MG TAB PO SCH (09:25)
[2018-08-12] MEDS: CITALOPRAM HYDROBROMIDE 10 MG TAB PO SCH (09:26)
[2018-08-12] MEDS: LIDOCAINE 5% PATCH TOPICAL SCH (09:26)
--- NOTE | 2018-08-12 13:14 | P.PN ---
Subjective Progress Note Date: 08/12/18 77-year-old female with multiple medical problem known to have history of hypertension, atherosclerotic heart disease, dementia, iron deficiency anemia and A. fib with RVR who seen Dr. Walters on regular basis presented to demurs department at [facility] complaining of worsening lower back pain started last few hours without any fall according to her family she had low basis reclining chair and when she sits on it she fell in it all the time whether that's causing from [place] medically clear. Her T-spine vertebrae showed multiple compression with worsening arthritis did not exist in the previous x-ray. Patient was started on Decadron Will admit patient to the hospital. Also patient found to have UTI, worsening mental status, and incidentally found to have significant anemia with moderate hyponatremia. 08/10: Patient seen Dr. Ross who agree with the current management and order brace, PT and Decadron still on and mild muscle relaxer will rely on topical care as well with Lidoderm patch. Whether patient is strong enough and safe enough to go home on oral need rehab is to be determined in the next 24 hours. 08/11 patient examined bedside is comfortable. She did have significant pain in the night which improved with lidocaine patch. Patient does have significant dementia and does not remember any falls. She walks with a walker at home as an uncomfortable with the brace. Hemoglobin 7.3and a GI bleed. Iron studies ordered a flow can get IV iron therapy before patient is discharged to [facility] on Saturday 08/12: Patient is sitting up in a chair upon examination, with complaints of back and leg pain and cough. She feels that her legs are achy. Patient was given a brace for ambulation. Patient complains that the brace is uncomfortable and utilizes a walker for ambulation. She does have significant dementia and does not remember any falls. She does have a safety professional at the bedside. Review Of Systems: Constitutional: No fever, no chills, no night sweats. No weight change. No weakness, fatigue or lethargy. No daytime sleepiness. EENT: No headache. No blurred vision or double vision, no loss of vision. No loss of Hearing, no ringing in the ears, no dizziness. No nasal drainage or congestion. No epistaxis. No sore throat. Lungs: No shortness of breath, cough, no sputum production. No wheezing. Cardiovascular: No chest pain, no lower extremity edema. No palpitations. No paroxysmal nocturnal dyspnea. No orthopnea. No lightheadedness or dizziness. No syncopal episodes. Abdominal: no abdominal discomfort. No nausea, vomiting. no diarrhea. No constipation. No bloody or tarry stools. improved loss of appetite. Genitourinary: No dysuria, increased frequency, urgency. No urinary retention. Musculoskeletal: Positive back and leg pain positive gait dysfunction utilizing walker denies frequent falls Integumentary: No wounds, no lesions. No rash or pruritus. No unusual bruising. No change in hair or nails. Neurologic: Positive short-term memory loss No aphasia. No facial droop. No change in mentation. No head injury. No headache. No paralysis. No paresthesia. Psychiatric: No depression. No anxiety. No mood swings. Endocrine: No abnormal blood sugars. No weight change. No excessive sweating or thirst. Objective - Vital Signs Vital signs: Vital Signs Temp 98.1 F 08/12/18 06:51 Pulse 56 L 08/12/18 06:51 Resp 16 08/12/18 06:51 BP 143/82 08/12/18 06:51 Pulse Ox 97 08/12/18 06:51 Intake & Output 08/11/18 08/12/18 08/12/18 18:59 06:59 18:59 Intake Total 450 Balance 450 Intake: Oral 450 Other: Voiding Method Toilet Toilet # Voids 2 1 1 - Exam General Appearance: Alert, cooperative, no distress, appears stated age. No confusion noted upon exam Neck HEENT: Supple, no lymphadenopathy, no thyroid enlargement, no carotid bru its. Lungs: Clear to auscultation without crackles or wheezes no rhonchi, no deformity. Chest Wall: Chest wall normal expansion with deep inspiration no tenderness and no deformity was found on exam, no costochondral pain or discomfort. Heart: Irregular rate and rhythm, S1, S2 positive S3 , no murmur, rub or gallop. Back: Symmetric, positive scoliosis with significant tenderness in the thoracic and upper lumbar spine area. Abdomen: Soft, non-tender, bowel sounds active all four quadrants, no masses, no organomegaly. Extremities: Extremities normal, atraumatic, no cyanosis or edema. Pulses: 2+ and symmetric. Skin: Skin color, texture, tugor normal, no rashes or lesions. Neurologic: Alert oriented self and place, no noticeable confusion with questioning, cranial nerves II through XII intact, no motor deficit, positive abnormal balance and gait. - Labs CBC & Chem 7: 08/11/18 06:29 08/11/18 06:29 Labs: Abnormal Lab Results - Last 24 Hours (Table) 08/11/18 08/12/18 Range/Units 06:29 06:59 PT 28.2 H (9.0-12.0) sec INR 2.9 H (<1.2) Iron 6 L (50-170) ug/dL Iron Saturation 1.99 L (12.00-45.00) Microbiology - Last 24 Hours (Table) 08/10/18 14:30 Urine Culture - Final Urine,Clean Catch Assessment and Plan Plan: 1. severe intractable lower back pain sec to multiple compression fracture T6 t o T12, both old and new: Patient was admitted continue Decadron, PTOT consultation and also consult patient might benefit from TLSO brace along with pain management and Decadron might need further more physical therapy. 2. change mental status: With mild memory loss will continue conservative management try to treat the pain and watch for any significant decline in memory. six sigma project manager at bedside 3. Urinary tract infection with sepsis: Urine will be sent for culture in the meanwhile patient was started on Rocephin 1 g daily. 4. acute anemia possible anemia of chronic disease: Hemoglobin on admission was 7.4 continue PPI continue to watch for any GI bleed.iron studies ordered. If iron low can benefit from IV iron therapy 5. 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 6. A. fib with RVR: Has been on atenolol 100 mg twice a day and warfarin 2.5 mg daily 5 mg on Tuesday continue to watch PT/INR on daily basis. 7. hypertension: Blood pressure is well controlled on hydralazine 50 mg 3 times a day along with atenolol 100 mg twice a day. 8. dementia: On Aricept 10 mg daily. 9 depression: On Celexa 10 mg daily. 10. hyperlipidemia: Patient is on Crestor 40 mg daily at bedtime. 11. DVT prophylaxis. Coumadin 12. GI prophylaxis. Protonix 40 mg daily Discharge plan: Possible discharge Tuesday to [facility] and plan of care have been directed as dictated by the signing physician. Aminata Mendoza nurse practitioner acting as scribe for signing physician.
[2018-08-12] MEDS ORDERED: WARFARIN 2.5 MG TAB PO SCH (18:00)
[2018-08-12] MEDS: ATORVASTATIN 80 MG TAB PO SCH (20:55)
[2018-08-12] MEDS: MELATONIN 5 MG TABLET PO SCH (20:55)
[2018-08-13] MEDS: ACETAMINOPHEN TAB 325 MG TAB PO PRN ×2 (04:12→20:53)
[2018-08-13] MEDS: DEXAMETHASONE SOD PHOSPHATE 4 MG/ML 1 ML VIAL IV SCH ×4 (06:23→23:39)
[2018-08-13 06:51] LABS: Basophils % (A) 0 %; Eosinophils % (A) 0 %; HCT 24.1 % (34.0-46.0); HGB 7.4 gm/dL (11.4-16.0); Hypochromasia Marked; Lymphocytes # (A) 0.4 k/uL (1.0-4.8); Lymphocytes % (A) 3 %; MCH 28.5 pg (25.0-35.0); MCHC 30.7 g/dL (31.0-37.0); MCV 92.7 fL (80.0-100.0); Mean Platelet Volume 7.5; Monocytes # (A) 0.7 k/uL (0-1.0); Monocytes % (A) 5 %; Neutrophils # (A) 11.7 k/uL (1.3-7.7); Neutrophils % (A) 90 %; Platelet Count 283 k/uL (150-450); RDW 14.4 % (11.5-15.5)
[2018-08-13 07:00] LABS: Calcium 8.1 mg/dL (8.4-10.2); Potassium 4.7 mmol/L (3.5-5.1); Total Bilirubin 0.2 mg/dL (0.2-1.3); Total Protein 5.6 g/dL (6.3-8.2)
[2018-08-13 07:03] LABS: INR 4.8 (<1.2); Prothrombin Time 46.5 sec (9.0-12.0)
[2018-08-13] MEDS: DONEPEZIL 10 MG TAB PO SCH (07:48)
[2018-08-13] MEDS: PANTOPRAZOLE 40 MG TABLET PO SCH (07:48)
[2018-08-13] MEDS: hydrALAZINE HCL 50 MG TAB PO SCH ×3 (07:48→22:10)
[2018-08-13] MEDS: CITALOPRAM HYDROBROMIDE 10 MG TAB PO SCH (07:49)
[2018-08-13] MEDS: FERROUS SULFATE 325 MG TAB PO SCH (07:49)
[2018-08-13] MEDS: ATENOLOL 50 MG TAB PO SCH ×2 (07:49→20:53)
[2018-08-13] MEDS: LIDOCAINE 5% PATCH TOPICAL SCH (07:49)
[2018-08-13] MEDS: SODIUM BICARBONATE TAB 650 MG TAB PO SCH ×2 (07:51→20:53)
--- NOTE | 2018-08-13 09:30 | P.PN ---
Progress Note - Text Progress Note Date: 08/13/18 Patient is seen and examined at bedside. She says she has been doing better. She is somewhat confused but is able to answer questions and follow commands. She says she has soreness at her mid back. She says that the spinal and brace was bothersome for her and felt tight on her. She denies any new changes lower extremity is. She denies any fevers or chills. On exam she is alert she's oriented but confused in terms of the day. Her lower extremities have sustained dorsal flexion plantarflexion and EHL hip flexion and extension intact. Thighs and calves soft nontender. At her mid back she has tenderness to palpation over the midline at the mid thoracic spine. Assessment and plan Compression fractures T6 and T7 Thoracic back pain The patient has been able to be mobile around her room and into the halls some degree with a walker. She has had very little use of her TLSO as she feels it makes her somewhat more uncomfortable. The fractures appear to be stable and she is not having neurologic deficit. She does have significant difficulty with trying to mobilize independently and is at significant fall risk. I think she is best served with placement posthospitalization and continued conservative treatment for her compression fractures at T6 and T7. Her pain is adequately managed and I do not plan surgical intervention at this point. It is okay from a spine standpoint for her to be discharged when stable from medicine service to follow up with our service an approximate 2 to 3 weeks.
--- NOTE | 2018-08-13 10:32 | P.PN ---
Subjective Progress Note Date: 08/13/18 77-year-old female with multiple medical problem known to have history of hypertension, atherosclerotic heart disease, dementia, iron deficiency anemia and A. fib with RVR who seen Dr. Walters on regular basis presented to demurs department at [facility] complaining of worsening lower back pain started last few hours without any fall according to her family she had low basis reclining chair and when she sits on it she fell in it all the time whether that's causing from [place] medically clear. Her T-spine vertebrae showed multiple compression with worsening arthritis did not exist in the previous x-ray. Patient was started on Decadron Will admit patient to the hospital. Also patient found to have UTI, worsening mental status, and incidentally found to have significant anemia with moderate hyponatremia. 08/10: Patient seen Dr. Ross who agree with the current management and order brace, PT and Decadron still on and mild muscle relaxer will rely on topical care as well with Lidoderm patch. Whether patient is strong enough and safe enough to go home on oral need rehab is to be determined in the next 24 hours. 08/11 patient examined bedside is comfortable. She did have significant pain in the night which improved with lidocaine patch. Patient does have significant dementia and does not remember any falls. She walks with a walker at home as an uncomfortable with the brace. Hemoglobin 7.3and a GI bleed. Iron studies ordered a flow can get IV iron therapy before patient is discharged to [facility] on Saturday 08/12: Patient is sitting up in a chair upon examination, with complaints of back and leg pain and cough. She feels that her legs are achy. Patient was given a brace for ambulation. Patient complains that the brace is uncomfortable and utilizes a walker for ambulation. She does have significant dementia and does not remember any falls. She does have a safety investigator at the bedside. 08/13: Patient is sitting up in the chair upon examination with complaints of back pain and leg pain. Patient is also only alert to self today. Continue as questions if she is in [place]. Patient has daughter at the bedside. INR this morning was 4.8. We will hold Coumadin. Discussed with patient the importance of not falling and being aware of bumping her arms and legs. During interview patient asked the same question multiple times specifically on location and we will should be going once discharged from the hospital. Discussed with patient that she will go to [facility] for rehab patient was agreeable. Review Of Systems: Constitutional: No fever, no chills, no night sweats. No weight change. No weakness, fatigue or lethargy. No daytime sleepiness. EENT: No headache. No blurred vision or double vision, no loss of vision. No loss of Hearing, no ringing in the ears, no dizziness. No nasal drainage or congestion. No epistaxis. No sore throat. Lungs: No shortness of breath, cough, no sputum production. No wheezing. Cardiovascular: No chest pain, no lower extremity edema. No palpitations. No paroxysmal nocturnal dyspnea. No orthopnea. No lightheadedness or dizziness. No syncopal episodes. Abdominal: no abdominal discomfort. No nausea, vomiting. no diarrhea. No constipation. No bloody or tarry stools. improved loss of appetite. Genitourinary: No dysuria, increased frequency, urgency. No urinary retention. Musculoskeletal: Positive back and leg pain positive gait dysfunction utilizing walker denies frequent falls Integumentary: No wounds, no lesions. No rash or pruritus. No unusual bruising. No change in hair or nails. Neurologic: Positive short-term memory loss No aphasia. No facial droop. No change in mentation. No head injury. No headache. No paralysis. No paresthesia. Psychiatric: No depression. No anxiety. No mood swings. Endocrine: No abnormal blood sugars. No weight change. No excessive sweating or thirst. Objective - Vital Signs Vital signs: Vital Signs Temp 97.9 F 08/13/18 06:45 Pulse 63 08/13/18 06:45 Resp 17 08/13/18 02:24 BP 193/76 08/13/18 06:45 Pulse Ox 95 08/13/18 06:45 Intake & Output 08/12/18 08/13/18 08/13/18 18:59 06:59 18:59 Other: Voiding Method Toilet Toilet # Voids 1 2 1 - Exam General Appearance: Alert, cooperative, no distress, appears stated age. No confusion noted upon exam Neck HEENT: Supple, no lymphadenopathy, no thyroid enlargement, no carotid bruits. Lungs: Clear to auscultation without crackles or wheezes no rhonchi, no deformity. Chest Wall: Chest wall normal expansion with deep inspiration no tenderness and no deformity was found on exam, no costochondral pain or discomfort. Heart: Irregular rate and rhythm, S1, S2 positive S3 , no murmur, rub or gallop. Back: Symmetric, positive scoliosis with significant tenderness in the thoracic and upper lumbar spine area. Abdomen: Soft, non-tender, bowel sounds active all four quadrants, no masses, no organomegaly. Extremities: Extremities normal, atraumatic, no cyanosis or edema. Pulses: 2+ and symmetric. Skin: Skin color, texture, tugor normal, no rashes or lesions. Neurologic: Alert oriented self and place, no noticeable confusion with questioning, cranial nerves II through XII intact, no motor deficit, positive abnormal balance and gait. - Labs CBC & Chem 7: 08/13/18 06:29 08/13/18 06:24 Labs: Abnormal Lab Results - Last 24 Hours (Table) 08/13/18 08/13/18 08/13/18 Range/Units 06:24 06:24 06:29 WBC 13.0 H (3.8-10.6) k/uL RBC 2.60 L (3.80-5.40) m/uL Hgb 7.4 L (11.4-16.0) gm/dL Hct 24.1 L (34.0-46.0) % MCHC 30.7 L (31.0-37.0) g/dL Neutrophils # 11.7 H (1.3-7.7) k/uL Lymphocytes # 0.4 L (1.0-4.8) k/uL PT 46.5 H (9.0-12.0) sec INR 4.8 H (<1.2) Sodium 130 L (137-145) mmol/L Chloride 96 L (98-107) mmol/L BUN 38 H (7-17) mg/dL Creatinine 1.09 H (0.52-1.04) mg/dL Glucose 149 H (74-99) mg/dL Calcium 8.1 L (8.4-10.2) mg/dL AST 64 H (14-36) U/L ALT 53 H (9-52) U/L Total Protein 5.6 L (6.3-8.2) g/dL Albumin 3.0 L (3.5-5.0) g/dL Assessment and Plan Plan: 1. severe intractable lower back pain sec to multiple compression fracture T6 t o T12, both old and new: Patient was admitted continue Decadron, PTOT consultation and also consult patient might benefit from TLSO brace along with pain management and Decadron might need further more physical therapy. 2. change mental status: With mild memory loss will continue conservative management try to treat the pain and watch for any significant decline in memory. interventional nurse at bedside 3. Urinary tract infection with sepsis: Urine will be sent for culture in the meanwhile patient was started on Rocephin 1 g daily. 4. acute anemia possible anemia of chronic disease: Hemoglobin on admission was 7.4 continue PPI continue to watch for any GI bleed.iron studies ordered. If iron low can benefit from IV iron therapy 5. 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 6. A. fib with RVR: Has been on atenolol 100 mg twice a day and hold Coumadin t onight, repeat PT/INR tomorrow. 7. hypertension: Blood pressure is well controlled on hydralazine 50 mg 3 times a day along with atenolol 100 mg twice a day. 8. dementia: On Aricept 10 mg daily. 9 depression: On Celexa 10 mg daily. 10. hyperlipidemia: Patient is on Crestor 40 mg daily at bedtime. 11. DVT prophylaxis. Coumadin 12. GI prophylaxis. Protonix 40 mg daily Discharge plan: Possible discharge Tuesday to [facility] and plan of care have been directed as dictated by the signing physician. Aminata Mendoza nurse practitioner acting as scribe for signing physician.
[2018-08-13] MEDS ORDERED: WARFARIN 0.5 MG TAB PO ONE (18:00)
[2018-08-13] MEDS: MELATONIN 5 MG TABLET PO SCH (20:53)
[2018-08-13] MEDS: ATORVASTATIN 80 MG TAB PO SCH (20:53)
[2018-08-14] MEDS: ACETAMINOPHEN TAB 325 MG TAB PO PRN ×2 (03:13→23:08)
[2018-08-14] MEDS: DEXAMETHASONE SOD PHOSPHATE 4 MG/ML 1 ML VIAL IV SCH (05:38)
[2018-08-14] MEDS: ATENOLOL 50 MG TAB PO SCH ×2 (07:19→23:20)
[2018-08-14] MEDS: hydrALAZINE HCL 50 MG TAB PO SCH ×3 (07:20→23:20)
[2018-08-14] MEDS: CITALOPRAM HYDROBROMIDE 10 MG TAB PO SCH (07:20)
[2018-08-14] MEDS: SODIUM BICARBONATE TAB 650 MG TAB PO SCH ×2 (07:20→20:27)
[2018-08-14] MEDS: DONEPEZIL 10 MG TAB PO SCH (07:20)
[2018-08-14] MEDS: FERROUS SULFATE 325 MG TAB PO SCH (07:21)
[2018-08-14] MEDS: PANTOPRAZOLE 40 MG TABLET PO SCH (07:21)
[2018-08-14 07:42] LABS: Basophils % (A) 0 %; Eosinophils % (A) 0 %; HCT 25.4 % (34.0-46.0); HGB 7.6 gm/dL (11.4-16.0); Hypochromasia Moderate; Lymphocytes # (A) 0.4 k/uL (1.0-4.8); Lymphocytes % (A) 3 %; MCH 27.3 pg (25.0-35.0); MCHC 29.8 g/dL (31.0-37.0); MCV 91.7 fL (80.0-100.0); Mean Platelet Volume 7.3; Monocytes # (A) 0.7 k/uL (0-1.0); Monocytes % (A) 7 %; Neutrophils # (A) 9.3 k/uL (1.3-7.7); Neutrophils % (A) 87 %; Platelet Count 302 k/uL (150-450); RBC 2.77 m/uL (3.80-5.40); RDW 14.1 % (11.5-15.5); WBC 10.7 k/uL (3.8-10.6)
[2018-08-14 07:59] LABS: Albumin 3.4 g/dL (3.5-5.0); Calcium 8.6 mg/dL (8.4-10.2); Potassium 4.9 mmol/L (3.5-5.1); Total Bilirubin 0.3 mg/dL (0.2-1.3); Total Protein 5.9 g/dL (6.3-8.2)
[2018-08-14] MEDS: LIDOCAINE 5% PATCH TOPICAL SCH (08:12)
--- NOTE | 2018-08-14 12:30 | P.PN ---
Subjective Progress Note Date: 08/14/18 77-year-old female with multiple medical problem known to have history of hypertension, atherosclerotic heart disease, dementia, iron deficiency anemia and A. fib with RVR who seen Dr. Walters on regular basis presented to demurs department at [facility] complaining of worsening lower back pain started last few hours without any fall according to her family she had low basis reclining chair and when she sits on it she fell in it all the time whether that's causing from [place] medically clear. Her T-spine vertebrae showed multiple compression with worsening arthritis did not exist in the previous x-ray. Patient was started on Decadron Will admit patient to the hospital. Also patient found to have UTI, worsening mental status, and incidentally found to have significant anemia with moderate hyponatremia. 08/10: Patient seen Dr. Ross who agree with the current management and order brace, PT and Decadron still on and mild muscle relaxer will rely on topical care as well with Lidoderm patch. Whether patient is strong enough and safe enough to go home on oral need rehab is to be determined in the next 24 hours. 08/11 patient examined bedside is comfortable. She did have significant pain in the night which improved with lidocaine patch. Patient does have significant dementia and does not remember any falls. She walks with a walker at home as an uncomfortable with the brace. Hemoglobin 7.3and a GI bleed. Iron studies ordered a flow can get IV iron therapy before patient is discharged to [facility] on Saturday 08/12: Patient is sitting up in a chair upon examination, with complaints of back and leg pain and cough. She feels that her legs are achy. Patient was given a brace for ambulation. Patient complains that the brace is uncomfortable and utilizes a walker for ambulation. She does have significant dementia and does not remember any falls. She does have a radiation safety officer at the bedside. 08/13: Patient is sitting up in the chair upon examination with complaints of back pain and leg pain. Patient is also only alert to self today. Continue as questions if she is in [place]. Patient has daughter at the bedside. INR this morning was 4.8. We will hold Coumadin. Discussed with patient the importance of not falling and being aware of bumping her arms and legs. During interview patient asked the same question multiple times specifically on location and we will should be going once discharged from the hospital. Discussed with patient that she will go to [facility] for rehab patient was agreeable. 08/14: Patient will be taken off Decadron IV started on oral Decadron 20 mg orally twice every day, patient will be given Venofer 100 mg IV piggyback 1 and repeat CBC tomorrow morning, she will be transferred to [facility] tomorrow morning. Review Of Systems: Constitutional: No fever, no chills, no night sweats. No weight change. No weakness, fatigue or lethargy. No daytime sleepiness. EENT: No headache. No blurred vision or double vision, no loss of vision. No loss of Hearing, no ringing in the ears, no dizziness. No nasal drainage or congestion. No epistaxis. No sore throat. Lungs: No shortness of breath, cough, no sputum production. No wheezing. Cardiovascular: No chest pain, no lower extremity edema. No palpitations. No paroxysmal nocturnal dyspnea. No orthopnea. No lightheadedness or dizziness. No syncopal episodes. Abdominal: no abdominal discomfort. No nausea, vomiting. no diarrhea. No constipation. No bloody or tarry stools. improved loss of appetite. Genitourinary: No dysuria, increased frequency, urgency. No urinary retention. Musculoskeletal: Positive back and leg pain positive gait dysfunction utilizing walker denies frequent falls Integumentary: No wounds, no lesions. No rash or pruritus. No unusual bruisi ng. No change in hair or nails. Neurologic: Positive short-term memory loss No aphasia. No facial droop. No change in mentation. No head injury. No headache. No paralysis. No paresthesia. Psychiatric: No depression. No anxiety. No mood swings. Endocrine: No abnormal blood sugars. No weight change. No excessive sweating or thirst. Objective - Vital Signs Vital signs: Vital Signs Temp 98.0 F 08/14/18 07:10 Pulse 58 L 08/14/18 07:10 Resp 18 08/14/18 02:09 BP 134/63 08/14/18 10:11 Pulse Ox 97 08/14/18 07:10 Intake & Output 08/13/18 08/14/18 08/14/18 18:59 06:59 18:59 Other: Voiding Method Toilet Toilet # Voids 1 2 - Exam Exam General Appearance: Alert, cooperative, no distress, appears stated age. No confusion noted upon exam Neck HEENT: Supple, no lymphadenopathy, no thyroid enlargement, no carotid bruits. Lungs: Clear to auscultation without crackles or wheezes no rhonchi, no deformity. Chest Wall: Chest wall normal expansion with deep inspiration no tenderness and no deformity was found on exam, no costochondral pain or discomfort. Heart: Irregular rate and rhythm, S1, S2 positive S3 , no murmur, rub or gallop. Back: Symmetric, positive scoliosis with significant tenderness in the thoracic and upper lumbar spine area. Abdomen: Soft, non-tender, bowel sounds active all four quadrants, no masses, no organomegaly. Extremities: Extremities normal, atraumatic, no cyanosis or edema. Pulses: 2+ and symmetric. Skin: Skin color, texture, tugor normal, no rashes or lesions. Neurologic: Alert oriented self and place, no noticeable confusion with questioning, cranial nerves II through XII intact, no motor deficit, positive abnormal balance and gait. - Labs CBC & Chem 7: 08/14/18 07:04 08/14/18 07:04 Labs: Abnormal Lab Results - Last 24 Hours (Table) 08/14/18 08/14/18 08/14/18 Range/Units 07:04 07:04 07:04 WBC 10.7 H (3.8-10.6) k/uL RBC 2.77 L (3.80-5.40) m/uL Hgb 7.6 L (11.4-16.0) gm/dL Hct 25.4 L (34.0-46.0) % MCHC 29.8 L (31.0-37.0) g/dL Neutrophils # 9.3 H (1.3-7.7) k/uL Lymphocytes # 0.4 L (1.0-4.8) k/uL PT 29.0 H (9.0-12.0) sec INR 3.0 H (<1.2) Sodium 130 L (137-145) mmol/L Chloride 94 L (98-107) mmol/L BUN 37 H (7-17) mg/dL Creatinine 1.05 H (0.52-1.04) mg/dL Glucose 146 H (74-99) mg/dL AST 57 H (14-36) U/L ALT 62 H (9-52) U/L Total Protein 5.9 L (6.3-8.2) g/dL Albumin 3.4 L (3.5-5.0) g/dL Assessment and Plan Assessment: Assessment and Plan Plan: 1. severe intractable lower back pain sec to multiple compression fracture T6 t o T12, both old and new: Patient was admitted continue Decadron, PTOT consultation and also consult patient might benefit from TLSO brace along with pain management and Decadron might need further more physical therapy. 2. change mental status: With mild memory loss will continue conservative management try to treat the pain and watch for any significant decline in memory. lottery clerk at bedside 3. Urinary tract infection with sepsis: Urine will be sent for culture in the meanwhile patient was started on Rocephin 1 g daily. 4. acute anemia possible anemia of chronic disease: Hemoglobin on admission was 7.4 continue PPI continue to watch for any GI bleed.iron studies ordered. Start the patient on Venofer 100 mg IV piggyback 1, repeat CBC tomorrow morning. 5. 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 6. A. fib with RVR: Has been on atenolol 100 mg twice a day and hold Coumadin tonight, repeat PT/INR tomorrow. 7. hypertension: Blood pressure is well controlled on hydralazine 50 mg 3 times a day along with atenolol 100 mg twice a day. 8. dementia: On Aricept 10 mg daily. 9 depression: On Celexa 10 mg daily. 10. hyperlipidemia: Patient is on Crestor 40 mg daily at bedtime. 11. DVT prophylaxis. Coumadin 12. GI prophylaxis. Protonix 40 mg daily Discharge plan: Possible discharge Tuesday to
[2018-08-14] MEDS ORDERED: SODIUM FERRIC GLUCONAT-SUCROSE 125 MG in SODIUM CHLORIDE 0.9% 100 ML IVPB ONE (13:00)
[2018-08-14] MEDS ORDERED: WARFARIN 2.5 MG TAB PO ONE (18:00)
[2018-08-14] MEDS: MELATONIN 5 MG TABLET PO SCH (20:27)
[2018-08-14] MEDS: ATORVASTATIN 80 MG TAB PO SCH (20:28)
[2018-08-14] MEDS: DEXAMETHASONE 4 MG TAB PO SCH (23:08)
[2018-08-15] MEDS: SODIUM BICARBONATE TAB 650 MG TAB PO SCH (08:10)
[2018-08-15] MEDS: hydrALAZINE HCL 50 MG TAB PO SCH ×2 (08:10→15:28)
[2018-08-15] MEDS: FERROUS SULFATE 325 MG TAB PO SCH (08:10)
[2018-08-15] MEDS: ATENOLOL 50 MG TAB PO SCH (08:10)
[2018-08-15] MEDS: PANTOPRAZOLE 40 MG TABLET PO SCH (08:10)
[2018-08-15] MEDS: DONEPEZIL 10 MG TAB PO SCH (08:10)
[2018-08-15] MEDS: CITALOPRAM HYDROBROMIDE 10 MG TAB PO SCH (08:12)
[2018-08-15] MEDS: DEXAMETHASONE 4 MG TAB PO SCH (08:12)
[2018-08-15] MEDS: LIDOCAINE 5% PATCH TOPICAL SCH (08:14)
[2018-08-15 08:26] LABS: Basophils % (A) 0 %; Eosinophils % (A) 0 %; HCT 26.4 % (34.0-46.0); HGB 8.1 gm/dL (11.4-16.0); Hypochromasia Moderate; Lymphocytes # (A) 0.5 k/uL (1.0-4.8); Lymphocytes % (A) 4 %; MCH 27.9 pg (25.0-35.0); MCHC 30.7 g/dL (31.0-37.0); MCV 90.8 fL (80.0-100.0); Mean Platelet Volume 7.3; Monocytes # (A) 0.8 k/uL (0-1.0); Monocytes % (A) 8 %; Neutrophils # (A) 9.6 k/uL (1.3-7.7); Neutrophils % (A) 86 %; Platelet Count 326 k/uL (150-450); RBC 2.91 m/uL (3.80-5.40); RDW 14.2 % (11.5-15.5); WBC 11.1 k/uL (3.8-10.6)
[2018-08-15 08:37] LABS: INR 2.6 (<1.2); Prothrombin Time 25.1 sec (9.0-12.0)
[2018-08-15 08:55] LABS: Albumin 3.5 g/dL (3.5-5.0); Calcium 8.6 mg/dL (8.4-10.2); Potassium 4.6 mmol/L (3.5-5.1); Total Bilirubin 0.3 mg/dL (0.2-1.3)
[2018-08-15] MEDS: MORPHINE SULFATE 4 MG/ML SYRINGE IV PRN (11:10)
--- NOTE | 2018-08-15 11:19 | P.DS ---
Providers Date of admission: 08/10/18 10:47 Expected date of discharge: 08/15/18 Attending physician: Devonte Camp Consults: 08/09/18 23:29 Consult Physician Routine Consulting Provider: Dora Ross Consult Reason/Comments: Back pain with Compression Do you want consulting provider notified?: Yes Primary care physician: Nenita Walters Hospital Course: 77-year-old female with multiple medical problem known to have history of hypertension, atherosclerotic heart disease, dementia, iron deficiency anemia and A. fib with RVR who seen Dr. Walters on regular basis presented to demurs department at [facility] complaining of worsening lower back pain started last few hours without any fall according to her family she had low basis reclining chair and when she sits on it she fell in it all the time whether that's causing from [place] medically clear. Her T-spine vertebrae showed multiple compression with worsening arthritis did not exist in the previous x-ray. Patient was started on Decadron Will admit patient to the hospital. Also patient found to have UTI, worsening mental status, and incidentally found to have significant anemia with moderate hyponatremia. 08/10: Patient seen Dr. Ross who agree with the current management and order brace, PT and Decadron still on and mild muscle relaxer will rely on topical care as well with Lidoderm patch. Whether patient is strong enough and safe enough to go home on oral need rehab is to be determined in the next 24 hours. 08/11 patient examined bedside is comfortable. She did have significant pain in the night which improved with lidocaine patch. Patient does have significant dementia and does not remember any falls. She walks with a walker at home as an uncomfortable with the brace. Hemoglobin 7.3and a GI bleed. Iron studies ordered a flow can get IV iron therapy before patient is discharged to [facility] on Saturday 08/12: Patient is sitting up in a chair upon examination, with complaints of back and leg pain and cough. She feels that her legs are achy. Patient was given a brace for ambulation. Patient complains that the brace is uncomfortable and utilizes a walker for ambulation. She does have significant dementia and does not remember any falls. She does have a safety and security manager at the bedside. 08/13: Patient is sitting up in the chair upon examination with complaints of back pain and leg pain. Patient is also only alert to self today. Continue as questions if she is in [place]. Patient has daughter at the bedside. INR this morning was 4.8. We will hold Coumadin. Discussed with patient the importance of not falling and being aware of bumping her arms and legs. During interview patient asked the same question multiple times specifically on location and we will should be going once discharged from the hospital. Discussed with patient that she will go to [facility] for rehab patient was agreeable. 08/14: Patient will be taken off Decadron IV started on oral Decadron 20 mg orally twice every day, patient will be given Venofer 100 mg IV piggyback 1 and repeat CBC tomorrow morning, she will be transferred to [facility] tomorrow morning. Discharge diagnoses: 1. Intractable low back pain secondary to vertebral fracture from T6 to T12. 2. Vascular dementia. 3. Rule out for UTI. 5. Hyponatremia. 6. Coagulopathy. 7. Atrial fibrillation. 8. CAD post CABG 9. Hyperlipidemia . 10. Anemia. 11. Currently valve replacement with [facility] Rodríguez valve. 12. Gait dysfunction recurrent falls . 13. Debility. Patient Condition at Discharge: Stable Plan - Discharge Summary Discharge Rx Participant: Yes New Discharge Prescriptions: No Action Rosuvastatin Calcium [Crestor] 40 mg PO HS Warfarin Sodium 2.5 mg PO SUMOTUWETHSA Atenolol 100 mg PO BID Warfarin [Coumadin] 5 mg PO FR Sodium Bicarbonate 325 mg PO BID Magnesium Oxide [Mag-Ox] 250 mg PO QAM hydrALAZINE HCL [Apresoline] 50 mg PO TID Ferrous Sulfate [Feosol] 325 mg PO DAILY Donepezil HCl [Aricept] 10 mg PO DAILY Citalopram Hydrobromide [CeleXA] 10 mg PO DAILY Discharge Medication List Atenolol 100 mg PO BID 02/04/16 [History] Rosuvastatin Calcium [Crestor] 40 mg PO HS 02/04/16 [History] Warfarin Sodium 2.5 mg PO SUMOTUWETHSA 02/04/16 [History] Warfarin [Coumadin] 5 mg PO FR 04/30/16 [History] Magnesium Oxide [Mag-Ox] 250 mg PO QAM 07/29/17 [History] Sodium Bicarbonate 325 mg PO BID 07/29/17 [History] hydrALAZINE HCL [Apresoline] 50 mg PO TID 07/29/17 [History] Citalopram Hydrobromide [CeleXA] 10 mg PO DAILY 08/09/18 [History] Donepezil HCl [Aricept] 10 mg PO DAILY 08/09/18 [History] Ferrous Sulfate [Feosol] 325 mg PO DAILY 08/09/18 [History] Follow up Appointment(s)/Referral(s): Nenita Walters MD [Primary Care Provider] - 1-2 days Dora Ross DO [Doctor of Osteopathic Medicine] - 2 Weeks Satish Doyle [NON-STAFF] - 1 Week Activity/Diet/Wound Care/Special Instructions: Spinomed TLSO to be worn whenever out of bed for comfort regarding compression fractures at T6 and T7. May remove in better and for bathing. Will be delivered to the hospital on 08/10/18.
[2018-08-15 14:45] VITALS: BP 152/54; PULSE 58; RESP 14; TEMP 97.9
[2018-08-15] MEDS ORDERED: WARFARIN 2.5 MG TAB PO ONE (18:00)
[2018-08-18] MEDS ORDERED: WARFARIN 5 MG TAB PO SCH (18:00)
== END 2018-08-15 16:00 | DRG 543 ==
LOC: EC 19:19 → 4SSUR 22:25 → OBSVTOIN 08-10 10:47
PROVIDERS: ADMIT Internal Medicine Geriatric Medicine; ATTEND Internal Medicine Geriatric Medicine
DX: M80.88XA Other osteoporosis with current pathological fracture, vertebra(e), initial encounter for fracture (principal); E22.2 Syndrome of inappropriate secretion of antidiuretic hormone; I48.91 Unspecified atrial fibrillation; F01.50 Vascular dementia, unspecified severity, without behavioral disturbance, psychotic disturbance, mood disturbance, and anxiety; F32.9 Major depressive disorder, single episode, unspecified; E78.5 Hyperlipidemia, unspecified; F41.9 Anxiety disorder, unspecified; I12.9 Hypertensive chronic kidney disease with stage 1 through stage 4 chronic kidney disease, or unspecified chronic kidney disease; I25.10 Atherosclerotic heart disease of native coronary artery without angina pectoris; M19.90 Unspecified osteoarthritis, unspecified site; N18.2 Chronic kidney disease, stage 2 (mild); R29.6 Repeated falls; D50.9 Iron deficiency anemia, unspecified; G89.29 Other chronic pain; R79.1 Abnormal coagulation profile; K57.90 Diverticulosis of intestine, part unspecified, without perforation or abscess without bleeding; M54.30 Sciatica, unspecified side; R26.9 Unspecified abnormalities of gait and mobility; M25.552 Pain in left hip; M47.9 Spondylosis, unspecified; K64.9 Unspecified hemorrhoids; K63.5 Polyp of colon; Z79.01 Long term (current) use of anticoagulants; Z79.899 Other long term (current) drug therapy; Z86.73 Personal history of transient ischemic attack (TIA), and cerebral infarction without residual deficits; Z87.891 Personal history of nicotine dependence; Z90.710 Acquired absence of both cervix and uterus; Z95.1 Presence of aortocoronary bypass graft; Z95.2 Presence of prosthetic heart valve; Z88.2 Allergy status to sulfonamides; D63.1 Anemia in chronic kidney disease; Z83.3 Family history of diabetes mellitus; Z80.9 Family history of malignant neoplasm, unspecified; W19.XXXA Unspecified fall, initial encounter
CPT/HCPCS: 36415; 72070; 72100; 80053; 81001; 83540; 83550; 83735; 85025; 85610; 85730; 87086; 93005; 96372; 96374; 96375; 99285

== ENCOUNTER 2018-08-23 16:44 | Inpatient (IN) | payer MEDICARE, BC ==
[2018-08-23] MEDS ORDERED: methylPREDNISolone SOD SUCCI 125 MG/2 ML VIAL IV STA (17:31)
[2018-08-23] MEDS ORDERED: IPRATROPIUM-ALBUTEROL 3 ML NEB INHALATION STA (17:31)
[2018-08-23 17:44] LABS: Anisocytosis Slight; Basophils % (A) 0 %; Eosinophils # (A) 0.1 k/uL (0-0.7); Eosinophils % (A) 0 %; HCT 30.3 % (34.0-46.0); Hypochromasia Marked; Lymphocytes # (A) 0.3 k/uL (1.0-4.8); Lymphocytes % (A) 2 %; MCH 27.7 pg (25.0-35.0); MCHC 30.6 g/dL (31.0-37.0); MCV 90.6 fL (80.0-100.0); Mean Platelet Volume 7.5; Monocytes # (A) 1.5 k/uL (0-1.0); Monocytes % (A) 8 %; Neutrophils # (A) 16.1 k/uL (1.3-7.7); Neutrophils % (A) 88 %; Platelet Count 270 k/uL (150-450); Poikilocytosis Slight; RBC 3.35 m/uL (3.80-5.40); RDW 16.1 % (11.5-15.5); WBC 18.3 k/uL (3.8-10.6)
[2018-08-23 17:46] LABS: HGB 9.3 gm/dL (11.4-16.0)
[2018-08-23 17:51] LABS: Albumin 2.7 g/dL (3.5-5.0); Calcium 7.9 mg/dL (8.4-10.2); Potassium 4.2 mmol/L (3.5-5.1); Total Bilirubin 0.3 mg/dL (0.2-1.3)
[2018-08-23 17:53] LABS: INR 3.6 (<1.2); Partial Thromboplastin Time 38.6 sec (22.0-30.0)
--- NOTE | 2018-08-23 17:59 | XR ---
EXAMINATION TYPE: XR chest 1V portable DATE OF EXAM: 08/23/2018 COMPARISON: 08/01/2017 HISTORY: Short of breath TECHNIQUE: Single frontal view of the chest is obtained. FINDINGS: There is pulmonary interstitial edema. Heart appears enlarged. There is slight blunting of costophrenic angles. There are sternal wires. IMPRESSION: Pulmonary interstitial fibrosis and interstitial edema increased compared to last exam a nd could relate to acute heart failure.
[2018-08-23] MEDS ORDERED: FUROSEMIDE 10 MG/ML 4 ML VIAL IV STA (18:35)
--- NOTE | 2018-08-23 18:38 | ED ---
General Adult HPI - General Chief complaint: Abdominal Pain Stated complaint: abd pain Time Seen by Provider: 08/23/18 16:57 Source: patient, family, EMS Mode of arrival: EMS Limitations: physical limitation - History of Present Illness Initial comments: Patient is a 77-year-old female who presents to the emergency Department from [facility]. She is residing at [facility] for rehab after she was found have a compression fracture in her spine. Daughters have been visiting the patient's and noted that she was complaining of right lower quadrant pain. She also had increased work of breathing. She is normally not on oxygen. The patient has required 2 L of O2 to maintain maintain sats above 90%. The patient does admit to increased work of breathing. Denies productive cough, fevers or chills. No hemoptysis. The patient received a blood transfusion yesterday. She does have a history of GI bleeding and is on Coumadin. Shortness of breath developed after the transfusion the patient had significant lower extremity swelling last night. Swelling has improved with elevation. The patient denies any chest pain. No ripping or tearing sensation to her back. It is reported that the patient has been slightly more confused. No reported head trauma. She does have a history of dementia. There are no other alleviating, persistent or modifying factors - Related Data Home Medications Medication Instructions Recorded Confirmed Atenolol 100 mg PO BID@0800,1700 02/04/16 08/23/18 Rosuvastatin Calcium [Crestor] 40 mg PO HS@2130 02/04/16 08/23/18 hydrALAZINE HCL [Apresoline] 50 mg PO TID 07/29/17 08/23/18 Citalopram Hydrobromide [CeleXA] 10 mg PO DAILY@0800 08/09/18 08/23/18 Donepezil HCl [Aricept] 10 mg PO DAILY@2130 08/09/18 08/23/18 Ferrous Sulfate [Iron (65 MG 325 mg PO BID@0800,1700 08/09/18 08/23/18 Elemental)] Bisacodyl [Dulcolax] 10 mg RECTAL HS PRN 08/22/18 08/23/18 Sodium Bicarbonate Tab 650 mg PO BID 08/22/18 08/23/18 Acetaminophen [Tylenol Arthritis] 650 mg PO Q4H 08/23/18 08/23/18 Lactose-Reduced Food [Ensure Plus] 237 ml PO BID@0800,1700 08/23/18 08/23/18 Magnesium Hydroxide [Milk of 2,400 mg PO DAILY PRN 08/23/18 08/23/18 Magnesia] Magnesium Oxide [Mag-Ox] 250 mg PO DAILY@1700 08/23/18 08/23/18 Melatonin 5 mg PO HS@2130 08/23/18 08/23/18 Na Phos,M-B/Na Phos,Di-Ba [Fleet 133 ml RECTAL DAILY PRN 08/23/18 08/23/18 Adult] Warfarin [Coumadin] 2 mg PO DAILY@1700 08/23/18 08/23/18 Previous Rx's Medication Instructions Recorded Acetaminophen-Codeine 300-30mg 1 tab PO Q8H PRN 3 Days #9 tablet 08/15/18 [Tylenol w/codeine #3] Lidocaine 5% Patch [Lidoderm 5% 1 patch TOPICAL DAILY #60 patch 08/15/18 Patch] Pantoprazole [Protonix] 40 mg PO AC-BRKFST tablet. 08/15/18 Allergies Allergy/AdvReac Type Severity Reaction Status Date / Time amoxicillin Allergy Unknown Verified 08/23/18 17:01 Sulfa (Sulfonamide Allergy Rash/Hives Verified 08/23/18 16:57 Antibiotics) Review of Systems ROS Statement: Those systems with pertinent positive or pertinent negative responses have been documented in the HPI. ROS Other: All systems not noted in ROS Statement are negative. Past Medical History Past Medical History: Coronary Artery Disease (CAD), CVA/TIA, GI Bleed, Hyperlipidemia, Hypertension, Osteoarthritis (OA), Vascular Disorder Additional Past Medical History / Comment(s): Pt hospitalized at [facility] on 04/18/16 with CKD stage II, hyponatremia. Other HX: black stools x 2 days-had EGD/colonoscopy showing gastritis and diverticulosis, hemorroids, polyps, Lt hip pain (needs total hip replacement), L knee meniscus tear, tripped and fell struck face/R eye, has "hairline fracture lower back",, protein calorie malnutrition, tia,sciatic nerve pain. fell 5-14-17 -fx lt writs. History of Any Multi-Drug Resistant Organisms: None Reported Past Surgical History: Cardiac Valve Replacement, Coronary Bypass/CABG, Hysterectomy Additional Past Surgical History / Comment(s): Mick carotid surgery, 2002 [place]uez aortic valve replacement, 03/23/16 EGD and colonoscopy, past colonoscopy with polypectomy, last colonoscopy was in 2017, low sodium Past Anesthesia/Blood Transfusion Reactions: No Reported Reaction Past Psychological History: Anxiety Smoking Status: Former smoker Past Alcohol Use History: Occasional Past Drug Use History: None Reported - Past Family History Sister(s) Family Medical History: Cancer Father Family Medical History: Diabetes Mellitus Additional Family Medical History / Comment(s): Father had tuberculosis. Mother Family Medical History: Dementia Son(s) Family Medical History: No Reported History Daughter(s) Family Medical History: No Reported History General Exam Limitations: physical limitation General appearance: alert, obese Head exam: Present: atraumatic, normocephalic Eye exam: Present: PERRL, EOMI ENT exam: Present: normal exam, normal oropharynx, mucous membranes moist Neck exam: Present: normal inspection. Absent: tenderness, meningismus Respiratory exam: Present: wheezes, rales, other (tachypneic, shallow respirations) Cardiovascular Exam: Present: regular rate, normal rhythm, systolic murmur GI/Abdominal exam: Present: soft, tenderness, other (tenderness RUQ/RLQ). Absent: guarding, rebound, rigid Rectal exam: Present: deferred Extremities exam: Present: pedal edema. Absent: calf tenderness Back exam: Present: normal inspection Neurological exam: Present: alert, other (oriented x2) Psychiatric exam: Present: normal affect, normal mood Skin exam: Present: warm, dry, intact Course Vital Signs 08/23/18 08/23/18 08/23/18 16:47 17:48 17:56 Temperature 98.5 F Pulse Rate 72 74 74 Respiratory 18 Rate Blood Pressure 117/94 O2 Sat by Pulse 97 Oximetry 08/23/18 08/23/18 08/23/18 18:38 19:55 20:50 Temperature Pulse Rate 68 69 68 Respiratory 18 16 18 Rate Blood Pressure 119/92 100/79 149/67 O2 Sat by Pulse 98 97 97 Oximetry 08/23/18 08/23/18 20:53 20:58 Temperature Pulse Rate 67 69 Respiratory Rate Blood Pressure O2 Sat by Pulse Oximetry EKG Findings - EKG Comments: EKG Findings:: EKG demonstrates a normal sinus rhythm with a ventricular rate of 72. SD interval 152. QRS 86. QTc 470. There are no acute ST segment elevations or depressions concerning for ischemic changes. Medical Decision Making - Medical Decision Making The patient was placed into room 8. She is hooked to continuous pulse ox and cardiac monitoring. A 12-lead EKG is performed. I did provide the patient with a DuoNeb breathing treatment. Peripheral IV is established. The patient was given 125 mg of Solu-Medrol as she is wheezing. I did perform a portable chest x-ray which does demonstrate fluid overload. The patient was then given 40 mg of Lasix. The patient's respiratory status did improve with the breathing treatment. Laboratory studies were conducted. Hemoglobin is stable at 9.3. She does have a leukocytosis of 18,000 likely secondary to steroid use. Her INR is elevated at 3.6. Her troponin is also elevated at 0.272 with a BNP of 20,200. I do not heparinize the patient as she just recently received a blood transfusion yesterday for anemia. Increased work of breathing is likely secondary to the patient's elevated BNP and heart failure. I did recommend admission to the hospital for which the patient did agree. I called and discussed the case with Dr. Goel. She is requesting an echo. The patient will be given 40 mg of Lasix daily as her blood pressure is low. The patient is to be provided with breathing treatments and steroids every 6 hours. The patient is reporting pain so she is given her home dose of Tylenol with Codeine. I did conduct a ABG to evaluate her respiratory status which appears compensated. The family was in agreement with admission. The patient was transported to floor in stable condition - Differential Diagnosis Acute CHF exacerbation, HCAP, chronic anemia, leukocytosis, hyponatremia - Lab Data Result diagrams: 08/26/18 05:45 08/26/18 08:41 Lab Results 08/23/18 08/23/18 08/23/18 Range/Units 16:55 16:55 16:55 WBC 18.3 H (3.8-10.6) k/uL RBC 3.35 L (3.80-5.40) m/uL Hgb 9.3 L D (11.4-16.0) gm/dL Hct 30.3 L (34.0-46.0) % MCV 90.6 (80.0-100.0) fL MCH 27.7 (25.0-35.0) pg MCHC 30.6 L (31.0-37.0) g/dL RDW 16.1 H (11.5-15.5) % Plt Count 270 (150-450) k/uL Neutrophils % 88 % Lymphocytes % 2 % Monocytes % 8 % Eosinophils % 0 % Basophils % 0 % Neutrophils # 16.1 H (1.3-7.7) k/uL Lymphocytes # 0.3 L (1.0-4.8) k/uL Monocytes # 1.5 H (0-1.0) k/uL Eosinophils # 0.1 (0-0.7) k/uL Basophils # 0.0 (0-0.2) k/uL Hypochromasia Marked Poikilocytosis Slight Anisocytosis Slight PT (9.0-12.0) sec INR (<1.2) APTT (22.0-30.0) sec Sodium 129 L (137-145) mmol/L Potassium 4.2 (3.5-5.1) mmol/L Chloride 93 L (98-107) mmol/L Carbon Dioxide 31 H (22-30) mmol/L Anion Gap 5 mmol/L BUN 25 H (7-17) mg/dL Creatinine 1.02 (0.52-1.04) mg/dL Est GFR (CKD-EPI)AfAm 61 (>60 ml/min/1.73 sqM) Est GFR (CKD-EPI)NonAf 53 (>60 ml/min/1.73 sqM) Glucose 181 H (74-99) mg/dL Plasma Lactic Acid Rosendo (0.7-2.0) mmol/L Calcium 7.9 L (8.4-10.2) mg/dL Total Bilirubin 0.3 (0.2-1.3) mg/dL AST 66 H (14-36) U/L ALT 51 (9-52) U/L Alkaline Phosphatase 86 (38-126) U/L Creatine Kinase 44 (30-135) U/L Troponin I (0.000-0.034) ng/mL NT-Pro-B Natriuret Pep 99273 pg/mL Total Protein 5.0 L (6.3-8.2) g/dL Albumin 2.7 L (3.5-5.0) g/dL Lipase 63 (23-300) U/L 08/23/18 08/23/18 08/23/18 Range/Units 16:55 16:55 16:55 WBC (3.8-10.6) k/uL RBC (3.80-5.40) m/uL Hgb (11.4-16.0) gm/dL Hct (34.0-46.0) % MCV (80.0-100.0) fL MCH (25.0-35.0) pg MCHC (31.0-37.0) g/dL RDW (11.5-15.5) % Plt Count (150-450) k/uL Neutrophils % % Lymphocytes % % Monocytes % % Eosinophils % % Basophils % % Neutrophils # (1.3-7.7) k/uL Lymphocytes # (1.0-4.8) k/uL Monocytes # (0-1.0) k/uL Eosinophils # (0-0.7) k/uL Basophils # (0-0.2) k/uL Hypochromasia Poikilocytosis Anisocytosis PT 35.0 H (9.0-12.0) sec INR 3.6 H (<1.2) APTT 38.6 H (22.0-30.0) sec Sodium (137-145) mmol/L Potassium (3.5-5.1) mmol/L Chloride (98-107) mmol/L Carbon Dioxide (22-30) mmol/L Anion Gap mmol/L BUN (7-17) mg/dL Creatinine (0.52-1.04) mg/dL Est GFR (CKD-EPI)AfAm (>60 ml/min/1.73 sqM) Est GFR (CKD-EPI)NonAf (>60 ml/min/1.73 sqM) Glucose (74-99) mg/dL Plasma Lactic Acid Rosendo 1.2 (0.7-2.0) mmol/L Calcium (8.4-10.2) mg/dL Total Bilirubin (0.2-1.3) mg/dL AST (14-36) U/L ALT (9-52) U/L Alkaline Phosphatase (38-126) U/L Creatine Kinase (30-135) U/L Troponin I 0.272 H* (0.000-0.034) ng/mL NT-Pro-B Natriuret Pep pg/mL Total Protein (6.3-8.2) g/dL Albumin (3.5-5.0) g/dL Lipase (23-300) U/L Disposition Clinical Impression: Volume overload, History of recent blood transfusion, Altered mental status, Anemia, Lumbar compression fracture, Abdominal pain Disposition: ADMITTED IP TO THIS [facility] Condition: Stable Is patient prescribed a controlled substance at d/c from ED?: No Decision to Admit Reason: Admit from EC Decision Date: 08/23/18 Decision Time: 19:36
--- NOTE | 2018-08-23 19:10 | CT ---
EXAMINATION TYPE: CT brain linnea wo con DATE OF EXAM: 08/23/2018 COMPARISON: 04/30/2016 HISTORY: Fall last week. CT DLP: 1330.1 mGycm Automated exposure control for dose reduction was used. TECHNIQUE: CT scan of the head and cervical spine are performed without contrast. FINDINGS: Ventricles of normal size. There is mild cerebral cortical atrophy. There is no mass effe ct nor midline shift. There is no sign of intracranial hemorrhage. Cervical vertebra have normal alignment. There is degenerative disc space narrowing from C3 to C7 wit h spurring of the endplates. Facet joints appear intact. The skull base is intact. Exam is cervical s pine is limited slightly by motion. There is atherosclerotic vascular calcification. IMPRESSION: Cerebral atrophy. No acute intracranial abnormality. Spondylotic changes at multiple levels of the cervical spine. No fracture. Calcified posterior disc h erniation at C3-4. No acute bony abnormality.
--- NOTE | 2018-08-23 19:18 | CT ---
EXAMINATION TYPE: CT abdomen pelvis w con DATE OF EXAM: 08/23/2018 COMPARISON: None HISTORY: Right sided abdominal burning. CT DLP: 823.2 mGycm Automated exposure control for dose reduction was used. TECHNIQUE: Helical acquisition of images was performed from the lung bases through the pelvis. CONTRAST: Performed without Oral Contrast and with IV Contrast, patient injected with 80 mL of Isovue M300. FINDINGS: There are bilateral pleural effusions. Heart is enlarged. There is some infiltrate or atelectasis at the lung bases. Thoracic aorta is atheromatous. The bile ducts are not dilated. There is a 1 cm cyst in the left lobe of the liver. Gallbladder appea rs normal. There is no evidence of pancreatic mass. Stomach appears normal. Spleen has normal size. There is no adrenal mass. There is small right kidney. There is normal appearing left kidney. There i s no hydronephrosis. There is no retroperitoneal adenopathy. Ureters are not dilated. Bladder distends smoothly. There is no inguinal hernia. There is retained fecal material in the rectu m. There is severe compression fracture of T12 with fragment extension into the spinal canal that appear s old. There is resultant spinal stenosis. There is no mesenteric edema. There is no sign of free air or ascites. There is small amount of fat stranding in the left side of the pelvis anteriorly along the iliac reddy ry and vein. There are sigmoid diverticula. There is no definite diverticulitis. There is old healed left pubic fracture. There is advanced osteoarthritis in the hip joints on the left side more than th e right. IMPRESSION: THERE IS MILD INFLAMMATORY CHANGE IN THE PELVIS ON THE LEFT SIDE POSTERIOR AND LATERAL TO THE SIGMOID COLON BUT I DO NOT SEE DEFINITE SIGN OF DIVERTICULITIS. THIS IS ALSO PRESENT TO SOME DEGREE ON THE O LD CT SCAN. THERE IS MILD SIGMOID DIVERTICULOSIS. COMPRESSION FRACTURE OF T12 WITH BURST COMPONENT APPEARS OLD. THERE IS T12 SPINAL STENOSIS. RIGHT RENAL HYPOPLASIA OR ATROPHY. BILATERAL PLEURAL EFFUSIONS AND BASILAR PULMONARY INFILTRATES AND ATELECTASIS COULD RELATE TO CHRONIC CONGESTIVE HEART FAILURE.
[2018-08-23] MEDS ORDERED: Acetaminophen-Codeine 300-30mg TAB PO STA (19:48)
[2018-08-23] MEDS ORDERED: NALOXONE 0.4 MG/ML 1 ML VIAL IV PRN (20:08)
[2018-08-23] MEDS ORDERED: MAGNESIUM HYDROXIDE 2,400 MG/10 ML CUP PO PRN ×2 (20:18→20:34)
[2018-08-23] MEDS ORDERED: BISACODYL 10 MG SUPP RECTAL PRN (20:34)
[2018-08-23 20:45] LABS: ABG Base Excess 7.4 mmol/L; ABG HCO3 32 mmol/L (21-25); ABG Oxygen Saturation 97.2 % (94-97); ABG PCO2 52 mmHg (35-45); ABG PO2 93 mmHg (83-108); ABG TCO2 34 mmol/L (19-24); Allen Test Performed? Yes
[2018-08-23] MEDS ORDERED: IPRATROPIUM-ALBUTEROL 3 ML NEB INHALATION PRN (20:54)
[2018-08-23] MEDS ORDERED: IPRATROPIUM-ALBUTEROL 3 ML NEB INHALATION SCH (21:00)
[2018-08-23] MEDS: MELATONIN 3 MG TABLET PO SCH (22:31)
[2018-08-23] MEDS: hydrALAZINE HCL 50 MG TAB PO SCH (22:31)
[2018-08-23] MEDS: ATORVASTATIN 80 MG TAB PO SCH (22:31)
[2018-08-23] MEDS: DONEPEZIL 10 MG TAB PO SCH (22:31)
[2018-08-23] MEDS: HYDROmorphone 0.5 MG/0.5 ML SYRINGE IVP PRN (22:31)
[2018-08-24] MEDS: methylPREDNISolone SOD SUCCI 125 MG/2 ML VIAL IV SCH ×5 (00:31→23:31)
[2018-08-24] MEDS: HYDROmorphone 0.5 MG/0.5 ML SYRINGE IVP PRN ×3 (01:33→14:20)
[2018-08-24 06:08] LABS: Glucose,Whole Blood 218 mg/dL (75-99)
[2018-08-24 06:20] LABS: Basophils # (A) 0.2 k/uL (0-0.2); Basophils % (A) 1 %; Eosinophils % (A) 0 %; HCT 24.3 % (34.0-46.0); Hypochromasia Marked; Lymphocytes # (A) 0.2 k/uL (1.0-4.8); Lymphocytes % (A) 1 %; MCH 27.6 pg (25.0-35.0); MCV 89.1 fL (80.0-100.0); Mean Platelet Volume 7.2; Monocytes # (A) 0.9 k/uL (0-1.0); Monocytes % (A) 4 %; Neutrophils # (A) 24.6 k/uL (1.3-7.7); Neutrophils % (A) 94 %; Platelet Count 306 k/uL (150-450); Poikilocytosis Slight; RBC 2.73 m/uL (3.80-5.40); WBC 26.1 k/uL (3.8-10.6)
[2018-08-24 06:21] LABS: INR 3.5 (<1.2); Prothrombin Time 33.5 sec (9.0-12.0)
[2018-08-24 06:28] LABS: Calcium 8.2 mg/dL (8.4-10.2); Potassium 3.6 mmol/L (3.5-5.1)
[2018-08-24 06:29] LABS: HGB 7.5 gm/dL (11.4-16.0)
[2018-08-24] MEDS: PANTOPRAZOLE 40 MG TABLET PO SCH (06:29)
[2018-08-24] MEDS: INSULIN ASPART (NovoLOG) 100 UNIT/ML VIAL SQ SCH ×4 (06:40→21:21)
[2018-08-24] MEDS ORDERED: FERROUS SULFATE 325 MG TAB PO SCH (08:00)
[2018-08-24] MEDS ORDERED: NON-FORMULARY DRUG (Lactose-Reduced Food [Ensure Plus] 237 ML) PO SCH (08:00)
--- NOTE | 2018-08-24 08:12 | US ---
EXAMINATION TYPE: US abdomen complete DATE OF EXAM: 08/24/2018 COMPARISON: CT 2019 CLINICAL HISTORY: Pain. Back pain, exam done portable. EXAM MEASUREMENTS: Liver Length: 14.2 cm Gallbladder Wall: 0.3 cm CBD: 0.3 cm Spleen: n/a Right Kidney: 7.7 x 2.8 x 3.1 cm Left Kidney: n/a Difficult and limited study due to uncooperative fidgety patient, mcc through the exam patient refused to continue due to back pain: unable to roll patient for LLD gallbladder images and spleen an d left kidney not imaged. Pancreas: obscured by overlying midline bowel gas Liver: 0.7cm hypoechoic nodule left lobe Gallbladder: visualized portions wnl Evidence for sonographic Hernandez's sign: yes CBD: visualized portions wnl Spleen: n/a Right Kidney: small in size Left Kidney: n/a Upper IVC: wnl Abd Aorta: distal portion obscured by overlying midline bowel gas IMPRESSION: Limited exam as discussed above. 1. Limited exam demonstrates a small hypoechoic lesion within the left lobe of the liver too small to characterize 2. Atrophic right kidney. Left kidney not visualized.
[2018-08-24] MEDS: ATENOLOL 50 MG TAB PO SCH ×2 (08:19→16:58)
[2018-08-24] MEDS: hydrALAZINE HCL 50 MG TAB PO SCH ×3 (08:20→21:21)
[2018-08-24] MEDS: CITALOPRAM HYDROBROMIDE 10 MG TAB PO SCH (08:20)
[2018-08-24] MEDS: IPRATROPIUM-ALBUTEROL 3 ML NEB INHALATION SCH ×4 (08:55→20:21)
[2018-08-24] MEDS ORDERED: HYDROmorphone 0.5 MG/0.5 ML SYRINGE IVP STA (09:34)
[2018-08-24] MEDS ORDERED: FUROSEMIDE 10 MG/ML 4 ML VIAL IV PRN (09:41)
[2018-08-24 09:54] LABS: Reticulocyte % 3.5 % (0.5-2.0)
[2018-08-24] MEDS: LIDOCAINE 5% PATCH TOPICAL SCH (10:58)
[2018-08-24] MEDS: FUROSEMIDE 10 MG/ML 4 ML VIAL IV SCH (11:04)
[2018-08-24] MEDS: LEVOFLOXACIN 500MG-D5W PMX 500 MG in DEXTROSE/WATER 1 100ML.BAG IVPB SCH (11:08)
--- NOTE | 2018-08-24 11:22 | P.CRDCN ---
History of Present Illness Consult date: 08/24/18 Requesting physician: Elsy Goel Reason for Consult (text): acute hypoxic respiratory failure, acute volume overload Chief complaint: difficulty breathing and back pain History of present illness: This is a confused 77-year-old female patient with history of CAD, prior CABG, mechanical aortic valve, GI bleed, anemia, recent fall with compression fractures of the thoracic spine, recent transfusion. She is a poor historian and HPI was obtained from the chart and family and was able to obtain limited review of systems. She presented to the emergency department on this admission with worsening shortness of breath and edema noted following transfusion. She also complains of significant back pain and is noted to be quite restless. According to family she's been complaining of some right-sided abdominal pain as well in speaking with the patient does not confirmed. Chest x-ray on admission showed pulmonary interstitial fibrosis and interstitial edema increased compared to last exam and could relate to acute heart failure. CT of the abdomen and pelvis show mild inflammatory change in the pelvis on the left side, mild sigmoid diverticulosis, compression fracture of T12 with burst component that appears old as well as some spinal stenosis, right renal hypoplasia or atrophy, bilateral pleural effusions and basilar pulmonary infiltrates and atelectasis could relate to chronic congestive heart failure with normal appearance of the gallbladder. On presentation laboratory values showed a white count of 18,000, hemoglobin 9.3, INR 3.6, sodium 129, BUN 25, creatinine 1.02 and an anti-proBNP of 20,200. Troponins have been noted to be elevated at 0.272, 0.292 and 0.345. Let's repeat it this morning show hemoglobin down to 7.5 with a WBC of 26,000, BUN 23 and creatinine 1.19. Vital signs stable. Patient is quite confused, restless and complaining of significant back pain. Family says her breathing seems somewhat better but she is not at her baseline. They also note an improvement in her lower extremity edema. Past Medical History Past Medical History: Coronary Artery Disease (CAD), CVA/TIA, GI Bleed, Hyperlipidemia, Hypertension, Osteoarthritis (OA), Vascular Disorder Additional Past Medical History / Comment(s): Pt hospitalized at [facility] on 04/18/16 with CKD stage II, hyponatremia. Other HX: black stools x 2 days-had EGD/colonoscopy showing gastritis and diverticulosis, hemorroids, polyps, Lt hip pain (needs total hip replacement), L knee meniscus tear, tripped and fell struck face/R eye, has "hairline fracture lower back",, protein calorie malnutrition, tia,sciatic nerve pain. fell 5-14-17 -fx lt writs. History of Any Multi-Drug Resistant Organisms: None Reported Past Surgical History: Cardiac Valve Replacement, Coronary Bypass/CABG, Hysterectomy Additional Past Surgical History / Comment(s): Mick carotid surgery, 2001 [facility] aortic valve replacement, 03/23/16 EGD and colonoscopy, past colonoscopy with polypectomy, last colonoscopy was in 2017, low sodium Past Anesthesia/Blood Transfusion Reactions: No Reported Reaction Past Psychological History: Anxiety Smoking Status: Former smoker Past Alcohol Use History: Occasional Past Drug Use History: None Reported - Past Family History Sister(s) Family Medical History: Cancer Father Family Medical History: Diabetes Mellitus Additional Family Medical History / Comment(s): Father had tuberculosis. Mother Family Medical History: Dementia Son(s) Family Medical History: No Reported History Daughter(s) Family Medical History: No Reported History Medications and Allergies Home Medications Medication Instructions Recorded Confirmed Type Atenolol 100 mg PO BID@0800,1700 02/04/16 08/23/18 History Rosuvastatin Calcium [Crestor] 40 mg PO HS@212902/04/16 08/23/18 History hydrALAZINE HCL [Apresoline] 50 mg PO TID 07/29/17 08/23/18 History Citalopram Hydrobromide [CeleXA] 10 mg PO DAILY@0800 08/09/18 08/23/18 History Donepezil HCl [Aricept] 10 mg PO DAILY@212908/09/18 08/23/18 History Ferrous Sulfate [Iron (65 MG 325 mg PO BID@0800,1700 08/09/18 08/23/18 History Elemental)] Acetaminophen-Codeine 300-30mg 1 tab PO Q8H PRN 3 Days #9 tablet 08/15/1805/09 Rx [Tylenol w/codeine #3] Lidocaine 5% Patch [Lidoderm 5% 1 patch TOPICAL DAILY #60 patch 08/15/18 08/23/18 Rx Patch] Pantoprazole [Protonix] 40 mg PO AC-BRKFST tablet. 08/15/18 08/23/18 Rx Bisacodyl [Dulcolax] 10 mg RECTAL HS PRN 08/22/18 08/23/18 History Sodium Bicarbonate Tab 650 mg PO BID 08/22/18 08/23/18 History Acetaminophen [Tylenol Arthritis] 650 mg PO Q4H 08/23/18 08/23/18 History Lactose-Reduced Food [Ensure Plus] 237 ml PO BID@0800,1700 08/23/18 08/23/18 History Magnesium Hydroxide [Milk of 2,400 mg PO DAILY PRN 08/23/18 08/23/18 History Magnesia] Magnesium Oxide [Mag-Ox] 250 mg PO DAILY@1700 08/23/18 08/23/18 History Melatonin 5 mg PO HS@2130 08/23/18 08/23/18 History Na Phos,M-B/Na Phos,Di-Ba [Fleet 133 ml RECTAL DAILY PRN 08/23/18 08/23/18 History Adult] Warfarin [Coumadin] 2 mg PO DAILY@1700 08/23/18 08/23/18 History Allergies Allergy/AdvReac Type Severity Reaction Status Date / Time amoxicillin Allergy Unknown Verified 08/23/18 17:01 Sulfa (Sulfonamide Allergy Rash/Hives Verified 08/23/18 16:57 Antibiotics) Physical Exam Vitals: Vital Signs Temp Pulse Pulse Resp BP BP Pulse Ox 08/24/18 09:09 62 08/24/18 08:58 60 99 08/24/18 04:00 97.8 F 71 18 129/82 98 08/24/18 00:00 97.7 F 69 20 134/79 97 08/23/18 21:56 97.7 F 68 20 114/66 97 08/23/18 20:58 69 08/23/18 20:53 67 08/23/18 20:50 68 18 149/67 97 08/23/18 19:55 69 16 100/79 97 08/23/18 18:38 68 18 119/92 98 08/23/18 17:56 74 08/23/18 17:48 74 08/23/18 16:47 98.5 F 72 18 117/94 97 Intake and Output 08/23/18 08/24/18 08/24/18 22:59 06:59 14:59 Intake Total 0 Balance 0 Intake: Oral 0 Other: Voiding Method Diaper Incontinent # Voids 1 1 1 # Bowel Movements 1 Weight 68.9 kg PHYSICAL EXAMINATION: HEENT: Head is atraumatic, normocephalic. Pupils equal, round. Neck is supple. There is no elevated jugular venous pressure. Bilateral carotid bruits HEART EXAMINATION: Heart sounds regular, S1 and S2, prosthetic sounds crisp with a systolic ejection murmur at the base. CHEST EXAMINATION: Lungs reveal faint crackles bilateral bases. No chest wall tenderness is noted on palpation or with deep breathing. ABDOMEN: Soft, nontender. Bowel sounds are heard. No organomegaly noted. EXTREMITIES: 2+ peripheral pulses with no evidence of peripheral edema and no calf tenderness noted. NEUROLOGIC patient is awake, alert and oriented 1. . Results 08/24/18 05:27 08/24/18 05:27 Cardiac Enzymes 08/23/18 08/23/18 08/23/18 Range/Units 16:55 16:55 22:42 AST 66 H (14-36) U/L Troponin I 0.272 H* 0.292 H* (0.000-0.034) ng/mL 08/24/18 Range/Units 05:27 AST (14-36) U/L Troponin I 0.345 H* (0.000-0.034) ng/mL Coagulation 08/23/18 08/24/18 Range/Units 16:55 05:27 PT 35.0 H 33.5 H (9.0-12.0) sec APTT 38.6 H (22.0-30.0) sec CBC 08/23/18 08/24/18 Range/Units 16:55 05:27 WBC 18.3 H 26.1 H (3.8-10.6) k/uL RBC 3.35 L 2.73 L (3.80-5.40) m/uL Hgb 9.3 L D 7.5 L D (11.4-16.0) gm/dL Hct 30.3 L 24.3 L (34.0-46.0) % Plt Count 270 306 (150-450) k/uL Comprehensive Metabolic Panel 08/23/18 08/24/18 Range/Units 16:55 05:27 Sodium 129 L 131 L (137-145) mmol/L Potassium 4.2 3.6 (3.5-5.1) mmol/L Chloride 93 L 89 L (98-107) mmol/L Carbon Dioxide 31 H 36 H (22-30) mmol/L BUN 25 H 23 H (7-17) mg/dL Creatinine 1.02 1.19 H (0.52-1.04) mg/dL Glucose 181 H 153 H (74-99) mg/dL Calcium 7.9 L 8.2 L (8.4-10.2) mg/dL AST 66 H (14-36) U/L ALT 51 (9-52) U/L Alkaline Phosphatase 86 (38-126) U/L Total Protein 5.0 L (6.3-8.2) g/dL Albumin 2.7 L (3.5-5.0) g/dL Current Medications Generic Name Dose Route Start Last Admin Trade Name Freq PRN Reason Stop Dose Admin Acetaminophen/Codeine Phosphate 1 each 08/23/18 20:34 Tylenol #3 PO Q8H PRN Pain Albuterol/Ipratropium 3 ml 08/24/18 08:00 08/24/18 08:55 Duoneb 0.5 Mg-3 Mg/3 Ml Soln INHALATION 3 ml RT-QID ULISES Administration Albuterol/Ipratropium 3 ml 08/23/18 20:54 Duoneb 0.5 Mg-3 Mg/3 Ml Soln INHALATION RT-Q2H PRN Shortness Of Breath Or Wheezing Atenolol 100 mg 08/24/18 08:00 08/24/18 08:19 Tenormin PO 100 mg BID@0800,1700 ULISES Administration Atorvastatin Calcium 80 mg 08/23/18 21:30 08/23/18 22:31 Lipitor PO 80 mg HS@213 ULISES Administration Bisacodyl 10 mg 08/23/18 20:34 08/23/18 22:33 Dulcolax RECTAL 10 mg HS PRN Administration Constipation Citalopram Hydrobromide 10 mg 08/24/18 08:00 08/24/18 08:20 Celexa PO 10 mg DAILY@0800 ULISES Administration Donepezil HCl 10 mg 08/23/18 21:30 08/23/18 22:31 Aricept PO 10 mg DAILY@2130 ULISES Administration Ferrous Sulfate 325 mg 08/24/18 08:00 08/24/18 08:19 Feosol PO 325 mg BID@0800,1700 ULISES Administration Furosemide 40 mg 08/24/18 09:00 Lasix IV DAILY [facility] Furosemide 40 mg 08/24/18 09:41 Lasix IV 08/24/18 18:00 ONCE PRN Between Blood Transfusions Hydralazine HCl 50 mg 08/23/18 22:00 08/24/18 08:20 Apresoline PO 50 mg TID ULISES Administration Hydromorphone HCl 0.5 mg 08/23/18 22:18 08/24/18 08:18 Dilaudid IVP 0.5 mg Q3HR PRN Administration Pain Levofloxacin 500 mg/ IV 100 mls @ 100 mls/hr 08/24/18 10:00 Solution IVPB Q24H ULISES Metronidazole 500 mg/ IV 100 mls @ 100 mls/hr 08/24/18 12:00 Solution IVPB Q6HR [facility] Insulin Aspart 0 unit 08/24/18 07:30 08/24/18 06:40 Novolog SQ 7 unit ACHS [facility] Administration Protocol Lidocaine 1 patch 08/24/18 09:00 Lidoderm TOPICAL DAILY [facility] Magnesium Hydroxide 2,400 mg 08/23/18 20:18 Milk Of Magnesia PO DAILY PRN Constipation Melatonin 3 mg 08/23/18 21:00 08/23/18 22:31 Melatonin PO 3 mg HS [facility] Administration Methylprednisolone Sodium Succinate 60 mg 08/24/18 00:00 08/24/18 06:29 Solu-Medrol IV 60 mg Q6HR ULISES Administration Naloxone HCl 0.2 mg 08/23/18 20:08 Narcan IV Q2M PRN Opioid Reversal Pantoprazole Sodium 40 mg 08/24/18 07:30 08/24/18 06:29 Protonix PO 40 mg AC-BRKFST [facility] Administration Intake and Output 08/23/18 08/24/18 08/24/18 22:59 06:59 14:59 Intake Total 0 Balance 0 Intake: Oral 0 Other: Voiding Method Diaper Incontinent # Voids 1 1 1 # Bowel Movements 1 Weight 68.9 kg 08/24/18 05:27 08/24/18 05:27 Assessment and Plan Assessment: #1 acute fluid overload following transfusion of packed red blood cells #2 anemia in patient with known history of GI bleed, on Coumadin for mechanical aortic valve #3 dementia with acute delirium noted #4 acute on chronic diastolic congestive heart failure with a BNP of 20,000 #5 CAD with history of CABG #6 status post mechanical aortic valve in 2001 #7 back pain following fall with known compression fractures #8 questionable right upper quadrant abdominal pain with computed tomography scan showing no evidence of gallbladder disease #9 elevated troponin likely secondary to significant anemia Plan: From a cardiac standpoint we will continue IV lasix for now. We will obtain a 2- D echo with doppler. Monitor renal function and electrolytes. Further recommendations to follow. [employer] note has been reviewed, I agree with a documented findings and plan of care. Patient was seen and examined.
--- NOTE | 2018-08-24 11:38 | P.GSCN ---
History of Present Illness Consult date: 08/24/18 History of present illness: This is a 77-year-old female that presented to the emergency department from an assisted living facility. She is noted to have a history of dementia and she does currently have family at bedside during my exam. She has been undergoing rehabilitation secondary to multiple compression fractures of the spine. According to family, the patient has been complaining of some right-sided abdominal pain for the past few days. The patient also is noted to have a history of a prior CABG and is noted to have a mechanical aortic valve and for this reason is on anticoagulation with Coumadin. Currently her INR is above 3. On my exam, the patient is denying any current abdominal pain. She is confused during my exam but according to her family at bedside this is her baseline. She was scheduled to undergo a left hip surgery along with a colonoscopy, however both of these were canceled as the patient's family was concerned about her medical condition. She has not had any episodes of nausea or vomiting. There is no significant change in bowel function according to family. Review of Systems ROS unobtainable: due to mental status Past Medical History Past Medical History: Coronary Artery Disease (CAD), CVA/TIA, GI Bleed, Hyperlipidemia, Hypertension, Osteoarthritis (OA), Vascular Disorder Additional Past Medical History / Comment(s): Pt hospitalized at [facility] on 04/18/16 with CKD stage II, hyponatremia. Other HX: black stools x 2 days-had EGD/colonoscopy showing gastritis and diverticulosis, hemorroids, polyps, Lt hip pain (needs total hip replacement), L knee meniscus tear, tripped and fell struck face/R eye, has "hairline fracture lower back",, protein calorie malnutrition, tia,sciatic nerve pain. fell 5-14-17 -fx lt writs. History of Any Multi-Drug Resistant Organisms: None Reported Past Surgical History: Cardiac Valve Replacement, Coronary Bypass/CABG, Hysterectomy Additional Past Surgical History / Comment(s): Mick carotid surgery, [facility] aortic valve replacement, 03/23/16 EGD and colonoscopy, past colonoscopy with polypectomy, last colonoscopy was in 2017, low sodium Past Anesthesia/Blood Transfusion Reactions: No Reported Reaction Past Psychological History: Anxiety Smoking Status: Former smoker Past Alcohol Use History: Occasional Past Drug Use History: None Reported - Past Family History Sister(s) Family Medical History: Cancer Father Family Medical History: Diabetes Mellitus Additional Family Medical History / Comment(s): Father had tuberculosis. Mother Family Medical History: Dementia Son(s) Family Medical History: No Reported History Daughter(s) Family Medical History: No Reported History Medications and Allergies Home Medications Medication Instructions Recorded Confirmed Type Atenolol 100 mg PO BID@0800,1700 02/04/16 08/23/18 History Rosuvastatin Calcium [Crestor] 40 mg PO HS@212902/04/16 08/23/18 History hydrALAZINE HCL [Apresoline] 50 mg PO TID 07/29/17 08/23/18 History Citalopram Hydrobromide [CeleXA] 10 mg PO DAILY@0800 08/09/18 08/23/18 History Donepezil HCl [Aricept] 10 mg PO DAILY@212908/09/18 08/23/18 History Ferrous Sulfate [Iron (65 MG 325 mg PO BID@0800,1700 08/09/18 08/23/18 History Elemental)] Acetaminophen-Codeine 300-30mg 1 tab PO Q8H PRN 3 Days #9 tablet 08/15/18 08/23/18 Rx [Tylenol w/codeine #3] Lidocaine 5% Patch [Lidoderm 5% 1 patch TOPICAL DAILY #60 patch 08/15/18 08/23/18 Rx Patch] Pantoprazole [Protonix] 40 mg PO AC-BRKFST tablet. 08/15/18 08/23/18 Rx Bisacodyl [Dulcolax] 10 mg RECTAL HS PRN 08/22/18 08/23/18 History Sodium Bicarbonate Tab 650 mg PO BID 08/22/18 08/23/18 History Acetaminophen [Tylenol Arthritis] 650 mg PO Q4H 08/23/18 08/23/18 History Lactose-Reduced Food [Ensure Plus] 237 ml PO BID@0800,1700 08/23/18 08/23/18 History Magnesium Hydroxide [Milk of 2,400 mg PO DAILY PRN 08/23/18 08/23/18 History Magnesia] Magnesium Oxide [Mag-Ox] 250 mg PO DAILY@1700 08/23/18 08/23/18 History Melatonin 5 mg PO HS@212908/23/18 08/23/18 History Na Phos,M-B/Na Phos,Di-Ba [Fleet 133 ml RECTAL DAILY PRN 08/23/18 08/23/18 History Adult] Warfarin [Coumadin] 2 mg PO DAILY@1700 08/23/18 08/23/18 History Allergies Allergy/AdvReac Type Severity Reaction Status Date / Time amoxicillin Allergy Unknown Verified 08/23/18 17:01 Sulfa (Sulfonamide Allergy Rash/Hives Verified 08/23/18 16:57 Antibiotics) Surgical - Exam Osteopathic Statement: *. No significant issues noted on an osteopathic structural exam other than those noted in the History and Physical/Consult. Vital Signs Temp Pulse Resp BP Pulse Ox 98.5 F 72 18 117/94 97 08/23/18 16:47 08/23/18 16:47 08/23/18 16:47 08/23/18 16:47 08/23/18 16:47 - General no distress - Eyes normal ocular movement - ENT decreased hearing - Neck trachea midline - Respiratory No difficulty with respiration - Abdomen Soft, mild tenderness to palpation in the right upper quadrant, nondistended, no rebound, no guarding Results - Labs 08/24/18 05:27 08/24/18 05:27 Abnormal Lab Results - Last 24 Hours (Table) 08/23/18 08/23/18 08/23/18 Range/Units 16:55 16:55 16:55 WBC 18.3 H (3.8-10.6) k/uL RBC 3.35 L (3.80-5.40) m/uL Hgb 9.3 L D (11.4-16.0) gm/dL Hct 30.3 L (34.0-46.0) % MCHC 30.6 L (31.0-37.0) g/dL RDW 16.1 H (11.5-15.5) % Neutrophils # 16.1 H (1.3-7.7) k/uL Lymphocytes # 0.3 L (1.0-4.8) k/uL Monocytes # 1.5 H (0-1.0) k/uL Retic Count (0.5-2.0) % PT 35.0 H (9.0-12.0) sec INR 3.6 H (<1.2) APTT 38.6 H (22.0-30.0) sec ABG pCO2 (35-45) mmHg ABG HCO3 (21-25) mmol/L ABG Total CO2 (19-24) mmol/L ABG O2 Saturation (94-97) % Sodium 129 L (137-145) mmol/L Chloride 93 L (98-107) mmol/L Carbon Dioxide 31 H (22-30) mmol/L BUN 25 H (7-17) mg/dL Creatinine (0.52-1.04) mg/dL Glucose 181 H (74-99) mg/dL POC Glucose (mg/dL) (75-99) mg/dL Calcium 7.9 L (8.4-10.2) mg/dL AST 66 H (14-36) U/L Lactate Dehydrogenase (313-618) U/L Troponin I (0.000-0.034) ng/mL Total Protein 5.0 L (6.3-8.2) g/dL Albumin 2.7 L (3.5-5.0) g/dL 08/23/18 08/23/18 08/23/18 Range/Units 16:55 20:42 22:42 WBC (3.8-10.6) k/uL RBC (3.80-5.40) m/uL Hgb (11.4-16.0) gm/dL Hct (34.0-46.0) % MCHC (31.0-37.0) g/dL RDW (11.5-15.5) % Neutrophils # (1.3-7.7) k/uL Lymphocytes # (1.0-4.8) k/uL Monocytes # (0-1.0) k/uL Retic Count (0.5-2.0) % PT (9.0-12.0) sec INR (<1.2) APTT (22.0-30.0) sec ABG pCO2 52 H (35-45) mmHg ABG HCO3 32 H (21-25) mmol/L ABG Total CO2 34 H (19-24) mmol/L ABG O2 Saturation 97.2 H (94-97) % Sodium (137-145) mmol/L Chloride (98-107) mmol/L Carbon Dioxide (22-30) mmol/L BUN (7-17) mg/dL Creatinine (0.52-1.04) mg/dL Glucose (74-99) mg/dL POC Glucose (mg/dL) (75-99) mg/dL Calcium (8.4-10.2) mg/dL AST (14-36) U/L Lactate Dehydrogenase (313-618) U/L Troponin I 0.272 H* 0.292 H* (0.000-0.034) ng/mL Total Protein (6.3-8.2) g/dL Albumin (3.5-5.0) g/dL 08/24/18 08/24/18 08/24/18 Range/Units 05:27 05:27 05:27 WBC 26.1 H (3.8-10.6) k/uL RBC 2.73 L (3.80-5.40) m/uL Hgb 7.5 L D (11.4-16.0) gm/dL Hct 24.3 L (34.0-46.0) % MCHC (31.0-37.0) g/dL RDW (11.5-15.5) % Neutrophils # 24.6 H (1.3-7.7) k/uL Lymphocytes # 0.2 L (1.0-4.8) k/uL Monocytes # (0-1.0) k/uL Retic Count (0.5-2.0) % PT 33.5 H (9.0-12.0) sec INR 3.5 H (<1.2) APTT (22.0-30.0) sec ABG pCO2 (35-45) mmHg ABG HCO3 (21-25) mmol/L ABG Total CO2 (19-24) mmol/L ABG O2 Saturation (94-97) % Sodium (137-145) mmol/L Chloride (98-107) mmol/L Carbon Dioxide (22-30) mmol/L BUN (7-17) mg/dL Creatinine (0.52-1.04) mg/dL Glucose (74-99) mg/dL POC Glucose (mg/dL) (75-99) mg/dL Calcium (8.4-10.2) mg/dL AST (14-36) U/L Lactate Dehydrogenase (313-618) U/L Troponin I 0.345 H* (0.000-0.034) ng/mL Total Protein (6.3-8.2) g/dL Albumin (3.5-5.0) g/dL 08/24/18 08/24/18 08/24/18 Range/Units 05:27 05:27 05:27 WBC (3.8-10.6) k/uL RBC (3.80-5.40) m/uL Hgb (11.4-16.0) gm/dL Hct (34.0-46.0) % MCHC (31.0-37.0) g/dL RDW (11.5-15.5) % Neutrophils # (1.3-7.7) k/uL Lymphocytes # (1.0-4.8) k/uL Monocytes # (0-1.0) k/uL Retic Count 3.5 H (0.5-2.0) % PT (9.0-12.0) sec INR (<1.2) APTT (22.0-30.0) sec ABG pCO2 (35-45) mmHg ABG HCO3 (21-25) mmol/L ABG Total CO2 (19-24) mmol/L ABG O2 Saturation (94-97) % Sodium 131 L (137-145) mmol/L Chloride 89 L (98-107) mmol/L Carbon Dioxide 36 H (22-30) mmol/L BUN 23 H (7-17) mg/dL Creatinine 1.19 H (0.52-1.04) mg/dL Glucose 153 H (74-99) mg/dL POC Glucose (mg/dL) (75-99) mg/dL Calcium 8.2 L (8.4-10.2) mg/dL AST (14-36) U/L Lactate Dehydrogenase 759 H (313-618) U/L Troponin I (0.000-0.034) ng/mL Total Protein (6.3-8.2) g/dL Albumin (3.5-5.0) g/dL 08/24/18 Range/Units 06:06 WBC (3.8-10.6) k/uL RBC (3.80-5.40) m/uL Hgb (11.4-16.0) gm/dL Hct (34.0-46.0) % MCHC (31.0-37.0) g/dL RDW (11.5-15.5) % Neutrophils # (1.3-7.7) k/uL Lymphocytes # (1.0-4.8) k/uL Monocytes # (0-1.0) k/uL Retic Count (0.5-2.0) % PT (9.0-12.0) sec INR (<1.2) APTT (22.0-30.0) sec ABG pCO2 (35-45) mmHg ABG HCO3 (21-25) mmol/L ABG Total CO2 (19-24) mmol/L ABG O2 Saturation (94-97) % Sodium (137-145) mmol/L Chloride (98-107) mmol/L Carbon Dioxide (22-30) mmol/L BUN (7-17) mg/dL Creatinine (0.52-1.04) mg/dL Glucose (74-99) mg/dL POC Glucose (mg/dL) 218 H (75-99) mg/dL Calcium (8.4-10.2) mg/dL AST (14-36) U/L Lactate Dehydrogenase (313-618) U/L Troponin I (0.000-0.034) ng/mL Total Protein (6.3-8.2) g/dL Albumin (3.5-5.0) g/dL Diabetes panel 08/23/18 08/24/18 Range/Units 16:55 05:27 Sodium 129 L 131 L (137-145) mmol/L Potassium 4.2 3.6 (3.5-5.1) mmol/L Chloride 93 L 89 L (98-107) mmol/L Carbon Dioxide 31 H 36 H (22-30) mmol/L BUN 25 H 23 H (7-17) mg/dL Creatinine 1.02 1.19 H (0.52-1.04) mg/dL Glucose 181 H 153 H (74-99) mg/dL Calcium 7.9 L 8.2 L (8.4-10.2) mg/dL AST 66 H (14-36) U/L ALT 51 (9-52) U/L Alkaline Phosphatase 86 (38-126) U/L Total Protein 5.0 L (6.3-8.2) g/dL Albumin 2.7 L (3.5-5.0) g/dL Calcium panel 08/23/18 08/24/18 Range/Units 16:55 05:27 Calcium 7.9 L 8.2 L (8.4-10.2) mg/dL Albumin 2.7 L (3.5-5.0) g/dL Pituitary panel 08/23/18 08/24/18 Range/Units 16:55 05:27 Sodium 129 L 131 L (137-145) mmol/L Potassium 4.2 3.6 (3.5-5.1) mmol/L Chloride 93 L 89 L (98-107) mmol/L Carbon Dioxide 31 H 36 H (22-30) mmol/L BUN 25 H 23 H (7-17) mg/dL Creatinine 1.02 1.19 H (0.52-1.04) mg/dL Glucose 181 H 153 H (74-99) mg/dL Calcium 7.9 L 8.2 L (8.4-10.2) mg/dL Adrenal panel 08/23/18 08/24/18 Range/Units 16:55 05:27 Sodium 129 L 131 L (137-145) mmol/L Potassium 4.2 3.6 (3.5-5.1) mmol/L Chloride 93 L 89 L (98-107) mmol/L Carbon Dioxide 31 H 36 H (22-30) mmol/L BUN 25 H 23 H (7-17) mg/dL Creatinine 1.02 1.19 H (0.52-1.04) mg/dL Glucose 181 H 153 H (74-99) mg/dL Calcium 7.9 L 8.2 L (8.4-10.2) mg/dL Total Bilirubin 0.3 (0.2-1.3) mg/dL AST 66 H (14-36) U/L ALT 51 (9-52) U/L Alkaline Phosphatase 86 (38-126) U/L Total Protein 5.0 L (6.3-8.2) g/dL Albumin 2.7 L (3.5-5.0) g/dL - Imaging CT scan - abdomen: report reviewed, image reviewed CT scan - pelvis: report reviewed, image reviewed US - abdomen: report reviewed, image reviewed Assessment and Plan Plan: 77-year-old female with right upper quadrant pain and multiple medical comorbidities - I have evaluated the patient's imaging that has been performed during this admission. She did have a CT of the abdomen and pelvis along with an ultrasound of the abdomen. The CT of the abdomen and pelvis did not show any acute findings related to the gallbladder, however there were some inflammatory changes surrounding the sigmoid colon that were notable on her previous CT scan as well. Ultrasound of the abdomen was performed, however the patient did have a s ignificant amount of motion during the exam and the gallbladder was not completely visualized. Due to concern of an underlying cholecystitis, we will plan for a HIDA scan. I did discuss this case in depth with Dr. Goel and the patient is high risk for any surgical procedure and is currently anticoagulated with an INR greater than 3. If there is notable cholecystitis on HIDA scan, we will likely need to plan for a cholecystostomy tube placement due to the risk of surgery. We will make further recommendations after the HIDA scan is performed and throughout this patient's admission.
[2018-08-24 12:20] LABS: Glucose,Whole Blood 103 mg/dL (75-99)
--- NOTE | 2018-08-24 12:32 | P.HPIM ---
History of Present Illness H&P Date: 08/24/18 Chief Complaint: shortness of breath 77-year-old female with multiple medical problem known to have history of hypertension, long-term anticoagulation for mechanical aortic valve replacement, atherosclerotic heart disease, dementia, iron deficiency anemia and A. fib with RVR who seen Dr. Walters recently admitted to our facility 08/09/2018 secondary to compression fracturesT6-T7, T9 and T12, with 50-75% wedging compression deformities, was at [facility] for skilled rehabilitation. Patient received 1 unit of packed red blood cells 08/22/2018 secondary to anemia, and was subsequently seen in emergency room secondary to increasing shortness of breath. She was found to be in fluid overload, she has chronic anemia, for which she had completed multiple GI workup including endoscopies, upper and lower, and capsule endoscopy by GI. she presents with an comfortable right upper quadrant pain, thoracic pain, and shortness of breath PND, no chest pain or palpitation, in the emergency roomshe had CAT scan of the abdomen and pelvis that shows bilateral pleural effusion, heart enlargement, some infiltrate or atelectasis in lung, 1 cm cyst left lobe of labor liver, gallbladderappears normal, with normal common bile duct, however there is small inflammatory fat stranding left side of pelvis anteriorly and along the iliac artery and vein, sigmoid diverticula without evidence of diverticulitis, there is mild sigmoid diverticulosis, there is right renal hypoplasia or atrophy, findings suggest atelectasis or chronic congestive heart failure. Ultrasound of the abdomen was done secondary to vomiting,gallbladder cannot be fully visualized, common bile.on the displaced portion is normal, andon my evaluation today, there is a positive Hernandez's sign, no guarding or tenderness in the left lower quadrant, patient has symptomatic PND, consulted Dr. Castillo from general surgeryalso blood has dropped 2 g since admission, overnight, we consulted Dr. 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 Patient is gently diuresed, 1 unit of packed red blood cells will be given along with Lasix 40 mg after blood transfusion Review of Systems Constitutional: Reports as per HPI, Denies anorexia, Denies chills, Denies chronic headaches, Denies chronic pain, Denies daytime sleepiness, Denies fatigue, Denies fever, Denies lethargy, Denies malaise, Denies night sweats, Denies poor appetite, Denies sweats, Denies weakness, Denies weight gain, Denies weight loss Ears, nose, mouth and throat: Reports as per HPI Cardiovascular: Reports as per HPI, Reports dyspnea on exertion, Reports shortness of breath, Denies chest pain, Denies claudication, Denies decreased exercise tolerance, Denies edema, Denies high blood pressure, Denies irregular heart beat, Denies leg edema, Denies lightheadedness, Denies orthopnea, Denies palpitations, Denies paroxysmal nocturnal dyspnea, Denies phlebitis, Denies rapid heart beat, Denies syncope Respiratory: Reports as per HPI, Denies congestion, Denies cough, Denies cough with sputum, Denies dyspnea, Denies excessive sputum, Denies hemoptysis, Denies home oxygen, Denies pain, Denies pain on inspiration, Denies pleurisy, Denies respiratory infections, Denies sleep apnea, Denies snoring, Denies wheezing Gastrointestinal: Reports as per HPI, Reports abdominal pain, Denies belching, Denies bloating, Denies BRBPR, Denies change in bowel habits, Denies coffee ground emesis, Denies constipation, Denies diarrhea, Denies dyspepsia, Denies early satiety, Denies excessive gas, Denies heartburn, Denies hematemesis, Denies hematochezia, Denies indigestion, Denies jaundice, Denies lactose intolerance, Denies loss of appetite, Denies melena, Denies nausea, Denies vomiting Genitourinary: Reports as per HPI, Denies abnormal vaginal bleeding, Denies decreased libido, Denies difficulty conceiving, Denies difficulty voiding, Denies dysmenorrhea, Denies dyspareunia, Denies dysuria, Denies flank pain, Denies genital sores, Denies hematuria, Denies hot flashes, Denies incomplete emptying, Denies kidney stones, Denies menorrhagia, Denies mixed incontinence, Denies nocturia, Denies pelvic pain, Denies post void dribbling, Denies , Denies prolapse symptoms, Denies stress incontinence, Denies urge incontinence, Denies urgency, Denies urinary frequency, Denies vaginal discharge, Denies vaginal dryness, Denies vaginal itching, Denies vaginal odor Menstruation: Reports as per HPI Musculoskeletal: Reports as per HPI, Reports fractures, Reports frequent falls, Reports gait dysfunction, Reports limitation of motion, Reports loss of height, Reports low back pain, Denies arm numbness/tingling, Denies atrophy, Denies hot joints, Denies leg numbness/tingling, Denies morning stiffness, Denies muscle cramps, Denies muscle weakness, Denies myalgias, Denies neck pain, Denies neck stiffness, Denies prior amputations, Denies redness of joints, Denies shooting arm pain, Denies shooting leg pain Integumentary: Reports as per HPI, Denies acne, Denies boils, Denies brittle nails, Denies change in hair/nails, Denies color changes, Denies darkening of skin, Denies depigmentation, Denies dryness, Denies foot/leg ulcers, Denies growths, Denies hirsutism, Denies lesions, Denies onychomycosis, Denies pruritus, Denies rash, Denies sores, Denies striae, Denies unusual bruising, Denies wounds Neurological: Reports as per HPI, Denies aphasia, Denies ataxia, Denies balance difficulties, Denies burning pain, Denies change in mentation, Denies change in smell/taste, Denies change in speech, Denies confusion, Denies convulsions, Denies double vision, Denies gait dysfunction, Denies head injury, Denies headaches, Denies hearing difficulties, Denies lack of coordination, Denies loss of vision, Denies memory loss, Denies migraines, Denies motor disturbance, Denies numbness, Denies paralysis, Denies paresthesias, Denies seizures, Denies sensory deficit, Denies spasticity, Denies syncope, Denies tic, Denies tingling, Denies transient paralysis, Denies tremors, Denies vertigo, Denies weakness, Denies visual changes Psychiatric: Reports as per HPI, Denies anhedonia, Denies anxiety, Denies anxiet y attacks, Denies change in appetite, Denies change in libido, Denies change in sleep habits, Denies confusion, Denies depression, Denies difficulty concentrating, Denies disorientation, Denies hallucinations, Denies hopelessness, Denies hypersomnia, Denies insomnia, Denies irritability, Denies memory loss, Denies mood swings, Denies paranoia, Denies sadness/tearfulness, Denies sleep disturbances, Denies suicidal ideation Endocrine: Reports as per HPI, Denies cold intolerance, Denies deepening of the voice, Denies excessive sweating, Denies excessive thirst, Denies fatigue, Denies flushing, Denies heat intolerance, Denies high blood sugars, Denies increase in ring/shoe/hat size, Denies low blood sugars, Denies nocturia, Denies palpitations, Denies polydipsia, Denies polyphagia, Denies polyuria, Denies proptosis, Denies recent glucocorticoid use, Denies thyroid mass, Denies weight change Hematologic/Lymphatic: Reports as per HPI Allergic/Immunologic: Reports as per HPI Past Medical History Past Medical History: Coronary Artery Disease (CAD), CVA/TIA, GI Bleed, Hyperlipidemia, Hypertension, Osteoarthritis (OA), Vascular Disorder Additional Past Medical History / Comment(s): Pt hospitalized at [facility] on 04/18/16 with CKD stage II, hyponatremia. Other HX: black stools x 2 days-had EGD/colonoscopy showing gastritis and diverticulosis, hemorroids, polyps, Lt hip pain (needs total hip replacement), L knee meniscus tear, tripped and fell stru ck face/R eye, has "hairline fracture lower back",, protein calorie malnutrition, tia,sciatic nerve pain. fell 5-14-17 -fx lt writs. History of Any Multi-Drug Resistant Organisms: None Reported Past Surgical History: Cardiac Valve Replacement, Coronary Bypass/CABG, Hysterectomy Additional Past Surgical History / Comment(s): Mick carotid surgery, 2001 [facility] aortic valve replacement, 03/23/16 EGD and colonoscopy, past colonoscopy with polypectomy, last colonoscopy was in 2017, low sodium Past Anesthesia/Blood Transfusion Reactions: No Reported Reaction Past Psychological History: Anxiety Smoking Status: Former smoker Past Alcohol Use History: Occasional Past Drug Use History: None Reported - Past Family History Sister(s) Family Medical History: Cancer Father Family Medical History: Diabetes Mellitus Additional Family Medical History / Comment(s): Father had tuberculosis. Mother Family Medical History: Dementia Son(s) Family Medical History: No Reported History Daughter(s) Family Medical History: No Reported History Medications and Allergies Home Medications Medication Instructions Recorded Confirmed Type Atenolol 100 mg PO BID@0800,1700 02/04/16 08/23/18 History Rosuvastatin Calcium [Crestor] 40 mg PO HS@212902/04/16 08/23/18 History hydrALAZINE HCL [Apresoline] 50 mg PO TID 07/29/17 08/23/18 History Citalopram Hydrobromide [CeleXA] 10 mg PO DAILY@0800 08/09/18 08/23/18 History Donepezil HCl [Aricept] 10 mg PO DAILY@212908/09/18 08/23/18 History Ferrous Sulfate [Iron (65 MG 325 mg PO BID@0800,169908/09/18 08/23/18 History Elemental)] Acetaminophen-Codeine 300-30mg 1 tab PO Q8H PRN 3 Days #9 tablet 08/15/18 08/23/18 Rx [Tylenol w/codeine #3] Lidocaine 5% Patch [Lidoderm 5% 1 patch TOPICAL DAILY #60 patch 08/15/18 08/23/18 Rx Patch] Pantoprazole [Protonix] 40 mg PO AC-[id number] tablet. 08/15/18 08/23/18 Rx Bisacodyl [Dulcolax] 10 mg RECTAL HS PRN 08/22/18 08/23/18 History Sodium Bicarbonate Tab 650 mg PO BID 08/22/18 08/23/18 History Acetaminophen [Tylenol Arthritis] 650 mg PO Q4H 08/23/18 08/23/18 History Lactose-Reduced Food [Ensure Plus] 237 ml PO BID@0800,0 08/23/18 08/23/18 History Magnesium Hydroxide [Milk of 2,400 mg PO DAILY PRN 08/23/18 08/23/18 History Magnesia] Magnesium Oxide [Mag-Ox] 250 mg PO DAILY@169908/23/18 08/23/18 History Melatonin 5 mg PO HS@212908/23/18 08/23/18 History Na Phos,M-B/Na Phos,Di-Ba [Fleet 133 ml RECTAL DAILY PRN 08/23/18 08/23/18 History Adult] Warfarin [Coumadin] 2 mg PO DAILY@169908/23/18 08/23/18 History Allergies Allergy/AdvReac Type Severity Reaction Status Date / Time amoxicillin Allergy Unknown Verified 08/23/18 17:01 Sulfa (Sulfonamide Allergy Rash/Hives Verified 08/23/18 16:57 Antibiotics) Physical Exam Vitals: Vital Signs Temp Pulse Pulse Resp BP BP Pulse Ox 08/24/18 04:00 97.8 F 71 18 129/82 98 08/24/18 00:00 97.7 F 69 20 134/79 97 08/23/18 21:56 97.7 F 68 20 114/66 97 08/23/18 20:58 69 08/23/18 20:53 67 08/23/18 20:50 68 18 149/67 97 08/23/18 19:55 69 16 100/79 97 08/23/18 18:38 68 18 119/92 98 08/23/18 17:56 74 08/23/18 17:48 74 08/23/18 16:47 98.5 F 72 18 117/94 97 Intake and Output 08/23/18 08/24/18 08/24/18 22:59 06:59 14:59 Intake Total 0 Balance 0 Intake: Oral 0 Other: Voiding Method Diaper Incontinent # Voids 1 1 1 # Bowel Movements 1 Weight 68.9 kg - Constitutional General appearance: cooperative - EENT Eyes: anicteric sclerae, EOMI, PERRLA, dentition normal ENT: NA/AT, normal oropharynx - Neck Neck: normal ROM - Respiratory Respiratory: bilateral: CTA, diminished, negative: dullness, rales, rhonchi - Cardiovascular Rhythm: regular Heart sounds: normal: S1, S2 Abnormal Heart Sounds: no systolic murmur, no diastolic murmur, no rub, no S3 Gallop, no S4 Gallop, no click, no other - Gastrointestinal General gastrointestinal: normal bowel sounds, soft, tenderness (right upper quadrant) - Integumentary Integumentary: decreased turgor, normal - Neurologic Neurologic: CNII-XII intact - Musculoskeletal Musculoskeletal: generalized weakness, strength equal bilaterally - Psychiatric Psychiatric: A&O x's 3 Results CBC & Chem 7: 08/24/18 05:27 08/24/18 05:27 Labs: Abnormal Lab Results - Last 24 Hours (Table) 08/23/18 08/23/18 08/23/18 Range/Units 16:55 16:55 16:55 WBC 18.3 H (3.8-10.6) k/uL RBC 3.35 L (3.80-5.40) m/uL Hgb 9.3 L D (11.4-16.0) gm/dL Hct 30.3 L (34.0-46.0) % MCHC 30.6 L (31.0-37.0) g/dL RDW 16.1 H (11.5-15.5) % Neutrophils # 16.1 H (1.3-7.7) k/uL Lymphocytes # 0.3 L (1.0-4.8) k/uL Monocytes # 1.5 H (0-1.0) k/uL PT 35.0 H (9.0-12.0) sec INR 3.6 H (<1.2) APTT 38.6 H (22.0-30.0) sec ABG pCO2 (35-45) mmHg ABG HCO3 (21-25) mmol/L ABG Total CO2 (19-24) mmol/L ABG O2 Saturation (94-97) % Sodium 129 L (137-145) mmol/L Chloride 93 L (98-107) mmol/L Carbon Dioxide 31 H (22-30) mmol/L BUN 25 H (7-17) mg/dL Creatinine (0.52-1.04) mg/dL Glucose 181 H (74-99) mg/dL POC Glucose (mg/dL) (75-99) mg/dL Calcium 7.9 L (8.4-10.2) mg/dL AST 66 H (14-36) U/L Troponin I (0.000-0.034) ng/mL Total Protein 5.0 L (6.3-8.2) g/dL Albumin 2.7 L (3.5-5.0) g/dL 08/23/18 08/23/18 08/23/18 Range/Units 16:55 20:42 22:42 WBC (3.8-10.6) k/uL RBC (3.80-5.40) m/uL Hgb (11.4-16.0) gm/dL Hct (34.0-46.0) % MCHC (31.0-37.0) g/dL RDW (11.5-15.5) % Neutrophils # (1.3-7.7) k/uL Lymphocytes # (1.0-4.8) k/uL Monocytes # (0-1.0) k/uL PT (9.0-12.0) sec INR (<1.2) APTT (22.0-30.0) sec ABG pCO2 52 H (35-45) mmHg ABG HCO3 32 H (21-25) mmol/L ABG Total CO2 34 H (19-24) mmol/L ABG O2 Saturation 97.2 H (94-97) % Sodium (137-145) mmol/L Chloride (98-107) mmol/L Carbon Dioxide (22-30) mmol/L BUN (7-17) mg/dL Creatinine (0.52-1.04) mg/dL Glucose (74-99) mg/dL POC Glucose (mg/dL) (75-99) mg/dL Calcium (8.4-10.2) mg/dL AST (14-36) U/L Troponin I 0.272 H* 0.292 H* (0.000-0.034) ng/mL Total Protein (6.3-8.2) g/dL Albumin (3.5-5.0) g/dL 08/24/18 08/24/18 08/24/18 Range/Units 05:27 05:27 05:27 WBC 26.1 H (3.8-10.6) k/uL RBC 2.73 L (3.80-5.40) m/uL Hgb 7.5 L D (11.4-16.0) gm/dL Hct 24.3 L (34.0-46.0) % MCHC (31.0-37.0) g/dL RDW (11.5-15.5) % Neutrophils # 24.6 H (1.3-7.7) k/uL Lymphocytes # 0.2 L (1.0-4.8) k/uL Monocytes # (0-1.0) k/uL PT 33.5 H (9.0-12.0) sec INR 3.5 H (<1.2) APTT (22.0-30.0) sec ABG pCO2 (35-45) mmHg ABG HCO3 (21-25) mmol/L ABG Total CO2 (19-24) mmol/L ABG O2 Saturation (94-97) % Sodium (137-145) mmol/L Chloride (98-107) mmol/L Carbon Dioxide (22-30) mmol/L BUN (7-17) mg/dL Creatinine (0.52-1.04) mg/dL Glucose (74-99) mg/dL POC Glucose (mg/dL) (75-99) mg/dL Calcium (8.4-10.2) mg/dL AST (14-36) U/L Troponin I 0.345 H* (0.000-0.034) ng/mL Total Protein (6.3-8.2) g/dL Albumin (3.5-5.0) g/dL 08/24/18 08/24/18 Range/Units 05:27 06:06 WBC (3.8-10.6) k/uL RBC (3.80-5.40) m/uL Hgb (11.4-16.0) gm/dL Hct (34.0-46.0) % MCHC (31.0-37.0) g/dL RDW (11.5-15.5) % Neutrophils # (1.3-7.7) k/uL Lymphocytes # (1.0-4.8) k/uL Monocytes # (0-1.0) k/uL PT (9.0-12.0) sec INR (<1.2) APTT (22.0-30.0) sec ABG pCO2 (35-45) mmHg ABG HCO3 (21-25) mmol/L ABG Total CO2 (19-24) mmol/L ABG O2 Saturation (94-97) % Sodium 131 L (137-145) mmol/L Chloride 89 L (98-107) mmol/L Carbon Dioxide 36 H (22-30) mmol/L BUN 23 H (7-17) mg/dL Creatinine 1.19 H (0.52-1.04) mg/dL Glucose 153 H (74-99) mg/dL POC Glucose (mg/dL) 218 H (75-99) mg/dL Calcium 8.2 L (8.4-10.2) mg/dL AST (14-36) U/L Troponin I (0.000-0.034) ng/mL Total Protein (6.3-8.2) g/dL Albumin (3.5-5.0) g/dL Thrombosis Risk Factor Assmnt - DVT/VTE Prophylaxis DVT/VTE Prophylaxis: Pharmacologic Prophylaxis ordered - Choose All That Apply Any of the Below Risk Factors Present?: Yes Each Factor Represents 1 point: Obesity (BMI >25), Swollen legs (current) Other Risk Factors: Yes Each Risk Factor Represents 3 Points: Age 75 years or older Other congenital or acquired thrombophilia - If yes, enter type in comment: No Thrombosis Risk Factor Assessment Total Risk Factor Score: 5 Thrombosis Risk Factor Assessment Level: High Risk Assessment and Plan Plan: 1 suspect diastolic CHF exacerbation related to fluid overload from recent blood transfusion, echocardiogram is going to be done, consult with cardiology, gentle diuresing, 40 mg Lasix daily, with repeated Lasix post 1 unit of packed red blood cells today 2. Right upper quadrant pain with clinical Hernandez's sign that's positive, we've notified Dr. Castillo general surgery, inconclusive abdominal ultrasound, he requested HIDA scan, patient was started on IV Levaquin and IV Flagyl, nothing by mouth till imaging studies completed 3. Inflammatory changes in the right iliac artery and venous structuresprior CAT scan, without evidence of clinical diverticulitis, this area is without any tenderness on examination, IV Levaquin and IV Flagyl as above 4 history of mechanical valve aortic valve with [facility], on long-term antico agulation, Coumadin INR at 3.5 at goalcardiology on consult, if while blood loss is related to valve structures echocardiogram requested 5. Occult blood loss is noted, Hemoccult stools to be done, patient had in the past complete endoscopies including capsule endoscopy, consult Dr. Cuello, evaluate for hemolytic anemia reticulocyte haptoglobin and LDH iron studies to be done, patient did transfuse to keep hemoglobin above 7, patient had a 2 g drop in the past 24 hours, 1 unit of packed red blood cells to be given today August 24 CK D stage IIIcurrently at baseline 1.19 7Elevated troponin, unknown significance at this time cardiology is on consult 6 acute iron deficiency anemia with possible GI bleed:iron saturation 1.9% continue PPI continue to watch for any GI bleed. 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 8 A. fib with RVR: Has been on atenolol 100 mg twice a day and warfarin 2.5 mg daily 5 mg on Tuesday continue to watch PT/INR on daily basis. 9 hypertension: Blood pressure is well controlled on hydralazine 50 mg 3 times a day along with atenolol 100 mg twice a day. 10 dementia: On Aricept 10 mg daily. 11depression: On Celexa 10 mg daily. 12 hyperlipidemia: Patient is on Crestor 40 mg daily at bedtime. GI prophylaxis: Will do pantoprazole 40 mg daily. DVT prophylaxis: She is on anticoagulation.
[2018-08-24] MEDS: metroNIDAZOLE-NS PMX 500 MG in SALINE 1 100ML.BAG IVPB SCH ×3 (13:01→23:31)
[2018-08-24] MEDS: SODIUM FERRIC GLUCONAT-SUCROSE 125 MG in SODIUM CHLORIDE 0.9% 100 ML IVPB SCH (16:53)
[2018-08-24 16:58] LABS: Glucose,Whole Blood 118 mg/dL (75-99)
[2018-08-24] MEDS: Acetaminophen-Codeine 300-30mg TAB PO PRN (16:58)
[2018-08-24 20:57] LABS: Glucose,Whole Blood 143 mg/dL (75-99)
[2018-08-24] MEDS: MELATONIN 3 MG TABLET PO SCH (21:21)
[2018-08-24] MEDS: DONEPEZIL 10 MG TAB PO SCH (21:21)
[2018-08-24] MEDS: ATORVASTATIN 80 MG TAB PO SCH (21:21)
[2018-08-25] MEDS: Acetaminophen-Codeine 300-30mg TAB PO PRN ×3 (00:21→16:29)
[2018-08-25] MEDS: metroNIDAZOLE-NS PMX 500 MG in SALINE 1 100ML.BAG IVPB SCH ×4 (05:11→23:27)
[2018-08-25] MEDS: methylPREDNISolone SOD SUCCI 125 MG/2 ML VIAL IV SCH ×4 (05:11→23:26)
[2018-08-25] MEDS: PANTOPRAZOLE 40 MG TABLET PO SCH (05:58)
[2018-08-25 06:02] LABS: Glucose,Whole Blood 129 mg/dL (75-99)
[2018-08-25] MEDS: INSULIN ASPART (NovoLOG) 100 UNIT/ML VIAL SQ SCH ×4 (06:14→20:39)
[2018-08-25 06:37] LABS: INR 3.7 (<1.2); Prothrombin Time 35.8 sec (9.0-12.0)
[2018-08-25 06:45] LABS: Calcium 7.5 mg/dL (8.4-10.2); Potassium 3.2 mmol/L (3.5-5.1)
[2018-08-25 08:22] LABS: HCT 25.2 % (34.0-46.0); HGB 8.2 gm/dL (11.4-16.0); Hypochromasia Moderate; MCH 28.4 pg (25.0-35.0); MCHC 32.6 g/dL (31.0-37.0); MCV 87.2 fL (80.0-100.0); Mean Platelet Volume 7.7; Platelet Count 261 k/uL (150-450); Poikilocytosis Moderate; RBC 2.89 m/uL (3.80-5.40); RDW 15.2 % (11.5-15.5); WBC 18.1 k/uL (3.8-10.6)
[2018-08-25] MEDS: IPRATROPIUM-ALBUTEROL 3 ML NEB INHALATION SCH ×4 (08:52→20:41)
--- NOTE | 2018-08-25 10:05 | P.PN ---
Subjective Progress Note Date: 08/25/18 77-year-old female with multiple medical problem known to have history of hypertension, long-term anticoagulation for mechanical aortic valve replacement, atherosclerotic heart disease, dementia, iron deficiency anemia and A. fib with RVR who seen Dr. Walters recently admitted to our facility 08/09/2018 secondary to compression fracturesT6-T7, T9 and T12, with 50-75% wedging compression deformities, was at [facility] for skilled rehabilitation. Patient received 1 unit of packed red blood cells 08/22/2018 secondary to anemia, and was subsequently seen in emergency room secondary to increasing shortness of breath. She was found to be in fluid overload, she has chronic anemia, for which she had completed multiple GI workup including endoscopies, upper and lower, and capsule endoscopy by GI. she presents with an comfortable right upper quadrant pain, thoracic pain, and shortness of breath PND, no chest pain or palpitation, in the emergency roomshe had CAT scan of the abdomen and pelvis that shows bilateral pleural effusion, heart enlargement, some infiltrate or atelectasis in lung, 1 cm cyst left lobe of labor liver, gallbladderappears normal, with normal common bile duct, however there is small inflammatory fat stranding left side of pelvis anteriorly and along the iliac artery and vein, sigmoid diverticula without evidence of diverticulitis, there is mild sigmoid diverticulosis, there is right renal hypoplasia or atrophy, findings suggest atelectasis or chronic congestive heart failure. Ultrasound of the abdomen was done secondary to vomiting,gallbladder cannot be fully visualized, common bile.on the displaced portion is normal, andon my evaluation today, there is a positive Hernandez's sign, no guarding or tenderness in the left lower quadrant, patient has symptomatic PND, consulted Dr. Castillo from general surgeryalso blood has dropped 2 g since admission, overnight, we consulted Dr. 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 Patient is gently diuresed, 1 unit of packed red blood cells will be given along with Lasix 40 mg after blood transfusion 08/25: Abdominal ultrasound revealed limited exam demonstrated small hypoechoic lesion within the left lobe of the liver too small to characterize. Atrophic right kidney. Left kidney not visualized. Patient has been evaluated by Dr. Castillo and HIDA scan to rule out cholecystitis which is ordered for this morning. Patient has been afebrile, heart rate 65, blood pressure 143/64 and pulse ox 96% on 3 L nasal cannula. WBC 18.1, hemoglobin 8.2, INR 3.7. Sodium 130, potassium 3.2, chloride 88, CO2 34, BUN 27 creatinine 1.21. Calcium 7.5. Blood sugars running between 107 and 143. Cardiology is following for acute fluid overload after transfusion of one unit of packed RBCs, acute on chronic diastolic heart failure, mechanical aortic valve. Patient is to continue IV Lasix. Echocardiogram has been ordered. Patient is pleasantly confused. She continues to complain of right upper quadrant pain. She denies having any vomiting. She denies passing gas or having a bowel movement but nursing is documented bowel movements yesterday. Potassium will be replaced. Patient will be started on clear liquid diet following HIDA scan. Objective - Vital Signs Vital signs: Vital Signs Temp 97.7 F 08/25/18 04:00 Pulse 65 08/25/18 04:00 Resp 20 08/25/18 04:00 BP 143/64 08/25/18 04:00 Pulse Ox 96 08/25/18 04:00 Intake & Output 08/24/18 08/25/18 08/25/18 18:59 06:59 18:59 Intake Total 0 320 Balance 0 320 Weight 64 kg 65 kg Intake: Oral 0 10 Blood Product 0 310 Rc As-3 Unit 0 310 [id number] Other: Voiding Method Diaper Diaper Incontinent Incontinent # Voids 1 1 # Bowel Movements 1 0 - Exam Review of Systems Constitutional: Reports as per HPI, Denies anorexia, Denies chills, Denies chronic headaches, Denies chronic pain, Denies daytime sleepiness, Denies fatigue, Denies fever, Denies lethargy, Denies malaise, Denies night sweats, Denies poor appetite, Denies sweats, Denies weakness, Denies weight gain, Denies weight loss Ears, nose, mouth and throat: Reports as per HPI Cardiovascular: Reports as per HPI, Reports dyspnea on exertion, Reports shortness of breath, Denies chest pain, Denies claudication, Denies decreased exercise tolerance, Denies edema, Denies high blood pressure, Denies irregular heart beat, Denies leg edema, Denies lightheadedness, Denies orthopnea, Denies palpitations, Denies paroxysmal nocturnal dyspnea, Denies phlebitis, Denies rapid heart beat, Denies syncope Respiratory: Reports as per HPI, Denies congestion, Denies cough, Denies cough with sputum, Denies dyspnea, Denies excessive sputum, Denies hemoptysis, Denies home oxygen, Denies pain, Denies pain on inspiration, Denies pleurisy, Denies respiratory infections, Denies sleep apnea, Denies snoring, Denies wheezing Gastrointestinal: Reports as per HPI, Reports abdominal pain, Denies belching, Denies bloating, Denies BRBPR, Denies change in bowel habits, Denies coffee ground emesis, Denies constipation, Denies diarrhea, Denies dyspepsia, Denies early satiety, Denies excessive gas, Denies heartburn, Denies hematemesis, Denies hematochezia, Denies indigestion, Denies jaundice, Denies lactose intolerance, Denies loss of appetite, Denies melena, Denies nausea, Denies vomiting Genitourinary: Reports as per HPI, Denies abnormal vaginal bleeding, Denies decreased libido, Denies difficulty conceiving, Denies difficulty voiding, Denies dysmenorrhea, Denies dyspareunia, Denies dysuria, Denies flank pain, Denies genital sores, Denies hematuria, Denies hot flashes, Denies incomplete emptying, Denies kidney stones, Denies menorrhagia, Denies mixed incontinence, Denies nocturia, Denies pelvic pain, Denies post void dribbling, Denies , Denies prolapse symptoms, Denies stress incontinence, Denies urge incontinence, Denies urgency, Denies urinary frequency, Denies vaginal discharge, Denies vaginal dryness, Denies vaginal itching, Denies vaginal odor Menstruation: Reports as per HPI Musculoskeletal: Reports as per HPI, Reports fractures, Reports frequent falls, Reports gait dysfunction, Reports limitation of motion, Reports loss of height, Reports low back pain, Denies arm numbness/tingling, Denies atrophy, Denies hot joints, Denies leg numbness/tingling, Denies morning stiffness, Denies muscle cramps, Denies muscle weakness, Denies myalgias, Denies neck pain, Denies neck stiffness, Denies prior amputations, Denies redness of joints, Denies shooting arm pain, Denies shooting leg pain Integumentary: Reports as per HPI, Denies acne, Denies boils, Denies brittle nails, Denies change in hair/nails, Denies color changes, Denies darkening of skin, Denies depigmentation, Denies dryness, Denies foot/leg ulcers, Denies growths, Denies hirsutism, Denies lesions, Denies onychomycosis, Denies pruritus, Denies rash, Denies sores, Denies striae, Denies unusual bruising, Denies wounds Neurological: Reports as per HPI, Denies aphasia, Denies ataxia, Denies balance difficulties, Denies burning pain, Denies change in mentation, Denies change in smell/taste, Denies change in speech, Denies confusion, Denies convulsions, Denies double vision, Denies gait dysfunction, Denies head injury, Denies headaches, Denies hearing difficulties, Denies lack of coordination, Denies loss of vision, Denies memory loss, Denies migraines, Denies motor disturbance, Denies numbness, Denies paralysis, Denies paresthesias, Denies seizures, Denies sensory deficit, Denies spasticity, Denies syncope, Denies tic, Denies tingling, Denies transient paralysis, Denies tremors, Denies vertigo, Denies weakness, Denies visual changes Psychiatric: Reports as per HPI, Denies anhedonia, Denies anxiety, Denies anxiety attacks, Denies change in appetite, Denies change in libido, Denies lee nge in sleep habits, Denies confusion, Denies depression, Denies difficulty concentrating, Denies disorientation, Denies hallucinations, Denies hopelessness, Denies hypersomnia, Denies insomnia, Denies irritability, Denies memory loss, Denies mood swings, Denies paranoia, Denies sadness/tearfulness, Denies sleep disturbances, Denies suicidal ideation Endocrine: Reports as per HPI, Denies cold intolerance, Denies deepening of the voice, Denies excessive sweating, Denies excessive thirst, Denies fatigue, Denies flushing, Denies heat intolerance, Denies high blood sugars, Denies increase in ring/shoe/hat size, Denies low blood sugars, Denies nocturia, Denies palpitations, Denies polydipsia, Denies polyphagia, Denies polyuria, Denies proptosis, Denies recent glucocorticoid use, Denies thyroid mass, Denies weight change Physical exam: - Constitutional General appearance: cooperative - EENT Eyes: anicteric sclerae, EOMI, PERRLA, dentition normal ENT: NA/AT, normal oropharynx - Neck Neck: normal ROM - Respiratory Respiratory: bilateral: CTA, diminished, negative: dullness, rales, rhonchi - Cardiovascular Rhythm: regular Heart sounds: normal: S1, S2 Abnormal Heart Sounds: no systolic murmur, no diastolic murmur, no rub, no S3 Gallop, no S4 Gallop, no click, no other - Gastrointestinal General gastrointestinal: normal bowel sounds, soft, tenderness (right upper quadrant) - Integumentary Integumentary: decreased turgor, normal - Neurologic Neurologic: CNII-XII intact - Musculoskeletal Musculoskeletal: generalized weakness, strength equal bilaterally - Psychiatric Psychiatric: A&O x's 2, no focal neural deficits. - Labs CBC & Chem 7: 08/25/18 06:09 08/25/18 06:09 Labs: Abnormal Lab Results - Last 24 Hours (Table) 08/24/18 08/24/18 08/24/18 Range/Units 05:27 05:27 11:25 Retic Count 3.5 H (0.5-2.0) % PT (9.0-12.0) sec INR (<1.2) Sodium (137-145) mmol/L Potassium (3.5-5.1) mmol/L Chloride (98-107) mmol/L Carbon Dioxide (22-30) mmol/L BUN (7-17) mg/dL Creatinine (0.52-1.04) mg/dL Glucose (74-99) mg/dL POC Glucose (mg/dL) (75-99) mg/dL Calcium (8.4-10.2) mg/dL Lactate Dehydrogenase 759 H (313-618) U/L Crossmatch See Detail 08/24/18 08/24/18 08/24/18 Range/Units 12:18 16:56 20:55 Retic Count (0.5-2.0) % PT (9.0-12.0) sec INR (<1.2) Sodium (137-145) mmol/L Potassium (3.5-5.1) mmol/L Chloride (98-107) mmol/L Carbon Dioxide (22-30) mmol/L BUN (7-17) mg/dL Creatinine (0.52-1.04) mg/dL Glucose (74-99) mg/dL POC Glucose (mg/dL) 103 H 118 H 143 H (75-99) mg/dL Calcium (8.4-10.2) mg/dL Lactate Dehydrogenase (313-618) U/L Crossmatch 08/25/18 08/25/18 08/25/18 Range/Units 06:01 06:09 06:09 Retic Count (0.5-2.0) % PT 35.8 H (9.0-12.0) sec INR 3.7 H (<1.2) Sodium 130 L (137-145) mmol/L Potassium 3.2 L (3.5-5.1) mmol/L Chloride 88 L (98-107) mmol/L Carbon Dioxide 34 H (22-30) mmol/L BUN 27 H (7-17) mg/dL Creatinine 1.21 H (0.52-1.04) mg/dL Glucose 107 H (74-99) mg/dL POC Glucose (mg/dL) 129 H (75-99) mg/dL Calcium 7.5 L (8.4-10.2) mg/dL Lactate Dehydrogenase (313-618) U/L Crossmatch Assessment and Plan Plan: 1. Acute on chronic diastolic heart failure with fluid overload from recent blood transfusion. Cardiology consult appreciated. Continue Lasix 40 mg IV daily, monitor I&O, daily weights, electrolytes and kidney function. Echocar diogram has been obtained and report is pending. 2. Right upper quadrant pain with clinical Hernandez's sign that's positive, probable cholecystitis not seen on CAT scan. HIDA scan this morning. Consult with Dr. Castillo appreciated. Patient is on IV Levaquin and Flagyl. Clear liquid diet will be resumed following HIDA scan. 3. Inflammatory changes in the right iliac artery and venous structuresprior CAT scan, without evidence of clinical diverticulitis, this area is without any tenderness on examination, IV Levaquin and IV Flagyl. 4. Mechanical aortic valve with [facility], on long-term anticoagulation, Coumadin INR at 3.5 at goal. Cardiology on consult. 5. 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 Reticulocyte 3.5, LDH 759. Haptoglobin pending. Patient is status post transfusion 1 unit of packed RBCs and 2 doses of Ferrlecit. 6. CKD stage III, currently at baseline 1.19 7. Elevated troponin, acute coronary consult ruled out. Radiology consult appreciated. 8. Acute iron deficiency anemia with possible GI bleed:iron saturation 1.9% continue PPI continue to watch for any GI bleed. Hemoccult stools, completed Ferrlecit 125 x 2 doses. 9. 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 10. Hypertension. Continue hydralazine 50 mg 3 times a day along with atenolol 100 mg twice a day. 11. Dementia, probable vascular dementia. Continue Aricept 10 mg daily. 12. Recurrent depression. Continue Celexa 10 mg daily. 13. Hyperlipidemia. Crestor on hold. 14. GI prophylaxis. Continue 40 mg daily. 15. DVT prophylaxis. Patient is therapeutic on Coumadin. Discharge plan: To be determined. PT and OT will be added. Impression and plan of care have been directed as dictated by the signing physician. Ivania Ocasio nurse practitioner acting as scribe for signing physician.
--- NOTE | 2018-08-25 10:10 | P.PN ---
Progress Note - Text Progress Note Date: 08/25/18 The patient was taken down for imaging during rounds. We'll follow-up on HIDA scan today to make further recommendations on management of gallbladder disease.
[2018-08-25] MEDS: ATENOLOL 50 MG TAB PO SCH ×2 (10:52→18:00)
[2018-08-25] MEDS: hydrALAZINE HCL 50 MG TAB PO SCH ×3 (10:53→20:25)
[2018-08-25] MEDS: CITALOPRAM HYDROBROMIDE 10 MG TAB PO SCH (10:53)
[2018-08-25] MEDS: POTASSIUM CHLORIDE ER 20 MEQ TAB.ER PO SCH ×3 (10:53→16:30)
[2018-08-25] MEDS: LIDOCAINE 5% PATCH TOPICAL SCH (10:54)
[2018-08-25] MEDS: SODIUM FERRIC GLUCONAT-SUCROSE 125 MG in SODIUM CHLORIDE 0.9% 100 ML IVPB SCH (10:54)
[2018-08-25] MEDS: LEVOFLOXACIN 500MG-D5W PMX 500 MG in DEXTROSE/WATER 1 100ML.BAG IVPB SCH (11:05)
--- NOTE | 2018-08-25 11:28 | ECHOF ---
Referral Reason:acute fluid overload, mechanical AVR MEASUREMENTS -------- HEIGHT: 162.6 cm WEIGHT: 64.9 kg BP: 143/64 IVSd: 1.3 cm (0.6 - 1.1) LVIDd: 4.5 cm (3.9 - 5.3) LVPWd: 1.2 cm (0.6 - 1.1) IVSs: 1.8 cm LVIDs: 2.9 cm LVPWs: 1.8 cm LA Diam: 3.5 cm (2.7 - 3.8) RVIDd: 3.0 cm (< 3.3) LAESV Index (A-L): 46.65 ml/m Ao Diam: 2.9 cm (2.0 - 3.7) EPSS: 0.7 cm MV E Walter: 1.33 m/s MV DecT: 161 ms MV A Walter: 0.91 m/s MV E/A Ratio: 1.47 AV maxP.91 mmHg AV meanP.47 mmHg RAP: 5.00 mmHg RVSP: 62.02 mmHg MV EF SLOPE: 124.13 mm/s (70 - 150) MV EXCURSION: 15.62 mm (> 18.000) FINDINGS -------- Sinus rhythm. This was a technically good study. The left ventricular size is normal. There is mild concentric left ventricular hypertrophy. Overa ll left ventricular systolic function is normal with, an EF between 60 - 65 %. Grade III distolic d ysfunction The right ventricle is normal in size. LA is severely dilated >40 ml/m2 The right atrium is normal in size. Interatrial and interventricular septum intact. Peak/mean gradient across the Aortic Valve is 37.91mmHg / 15.47mmHg. Normally functioning mechanica l prosthetic valve. The mitral valve leaflets are mildly thickened. Mild mitral annular calcification present. Mild-t o-moderate mitral regurgitation is present. Moderate tricuspid regurgitation present. There is severe pulmonary hypertension. The right ventr icular systolic pressure, as measured by Doppler, is 62.02mmHg. Trace/mild (physiologic) pulmonic regurgitation. The aortic root size is normal. Normal inferior vena cava with normal inspiratory collapse consistent with estimated right atrial pre ssure of 5 mmHg. There is no pericardial effusion. CONCLUSIONS -------- 1. Sinus rhythm. 2. This was a technically good study. 3. The left ventricular size is normal. 4. There is mild concentric left ventricular hypertrophy. 5. Overall left ventricular systolic function is normal with, an EF between 60 - 65 %. 6. Grade III distolic dysfunction 7. The right ventricle is normal in size. 8. LA is severely dilated >40 ml/m2 9. The right atrium is normal in size. 10. Interatrial and interventricular septum intact. 11. Peak/mean gradient across the Aortic Valve is 37.91mmHg / 15.47mmHg. 12. Normally functioning mechanical prosthetic valve. 13. The mitral valve leaflets are mildly thickened. 14. Mild mitral annular calcification present. 15. [id number] mitral regurgitation is present. 16. Moderate tricuspid regurgitation present. 17. There is severe pulmonary hypertension. 18. The right ventricular systolic pressure, as measured by Doppler, is 62.02mmHg. 19. Trace/mild (physiologic) pulmonic regurgitation. 20. The aortic root size is normal. 21. Normal inferior vena cava with normal inspiratory collapse consistent with estimated right atrial pressure of 5 mmHg. 22. There is no pericardial effusion. MANAGER SUSTAINABILITY: Noa Junior RDCS
--- NOTE | 2018-08-25 11:51 | P.PN ---
Subjective Progress Note Date: 08/25/18 This is a confused 77-year-old female patient with history of CAD, prior CABG, mechanical aortic valve, GI bleed, anemia, recent fall with compression fractures of the thoracic spine, recent transfusion. She is a poor historian and HPI was obtained from the chart and family and was able to obtain limited review of systems. She presented to the emergency department on this admission with worsening shortness of breath and edema noted following transfusion. She also complains of significant back pain and is noted to be quite restless. According to family she's been complaining of some right-sided abdominal pain as well in speaking with the patient does not confirmed. Chest x-ray on admission showed pulmonary interstitial fibrosis and interstitial edema increased compared to last exam and could relate to acute heart failure. CT of the abdomen and pelvis show mild inflammatory change in the pelvis on the left side, mild sigmoid diverticulosis, compression fracture of T12 with burst component that appears old as well as some spinal stenosis, right renal hypoplasia or atrophy, bilateral pleural effusions and basilar pulmonary infiltrates and atelectasis could relate to chronic congestive heart failure with normal appearance of the gallbladder. On presentation laboratory values showed a white count of 18,000, hemoglobin 9.3, INR 3.6, sodium 129, BUN 25, creatinine 1.02 and an anti-proBNP of 20,200. Troponins have been noted to be elevated at 0.272, 0.292 and 0.345. 08/25/18 - patient was seen and examined this morning. She appears to be more comfortable and more alert today. She is much less restless. Her breathing has improved compared to yesterday. She did receive one unit of packed red blood cells yesterday and hemoglobin this morning is 8.2. INR 3.7. Other labs show p otassium of 3.2, BUN of 27 and creatinine 1.21. She underwent HIDA scan this morning and these results are pending. Objective - Vital Signs Vital signs: Vital Signs Temp 98.2 F 08/25/18 10:30 Pulse 68 08/25/18 10:30 Resp 16 08/25/18 10:30 BP 164/73 08/25/18 10:30 Pulse Ox 98 08/25/18 10:30 Intake & Output 08/24/18 08/25/18 08/25/18 18:59 06:59 18:59 Intake Total 0 320 Balance 0 320 Weight 64 kg 65 kg Intake: Oral 0 10 Blood Product 0 310 Rc As-3 Unit 0 310 [id number] Other: Voiding Method Diaper Diaper Incontinent Incontinent # Voids 1 1 # Bowel Movements 1 0 - Exam PHYSICAL EXAMINATION: HEENT: Head is atraumatic, normocephalic. Pupils equal, round. Neck is supple. There is no elevated jugular venous pressure. Bilateral carotid bruits HEART EXAMINATION: Heart sounds regular, S1 and S2, prosthetic sounds crisp with a systolic ejection murmur at the base. CHEST EXAMINATION: Lungs reveal diminished air entry bilaterally. No chest wall tenderness is noted on palpation or with deep breathing. ABDOMEN: Soft, mild right sided and epigastric discomfort. Bowel sounds are heard. No organomegaly noted. EXTREMITIES: 2+ peripheral pulses with no evidence of peripheral edema and no c custodial tenderness noted. NEUROLOGIC patient is awake, alert and oriented 1. - Labs CBC & Chem 7: 08/25/18 06:09 08/25/18 06:09 Labs: Abnormal Lab Results - Last 24 Hours (Table) 08/24/18 08/24/18 08/24/18 Range/Units 11:25 12:18 16:56 WBC (3.8-10.6) k/uL RBC (3.80-5.40) m/uL Hgb (11.4-16.0) gm/dL Hct (34.0-46.0) % PT (9.0-12.0) sec INR (<1.2) Sodium (137-145) mmol/L Potassium (3.5-5.1) mmol/L Chloride (98-107) mmol/L Carbon Dioxide (22-30) mmol/L BUN (7-17) mg/dL Creatinine (0.52-1.04) mg/dL Glucose (74-99) mg/dL POC Glucose (mg/dL) 103 H 118 H (75-99) mg/dL Calcium (8.4-10.2) mg/dL Crossmatch See Detail 08/24/18 08/25/18 08/25/18 Range/Units 20:55 06:01 06:09 WBC (3.8-10.6) k/uL RBC (3.80-5.40) m/uL Hgb (11.4-16.0) gm/dL Hct (34.0-46.0) % PT 35.8 H (9.0-12.0) sec INR 3.7 H (<1.2) Sodium (137-145) mmol/L Potassium (3.5-5.1) mmol/L Chloride (98-107) mmol/L Carbon Dioxide (22-30) mmol/L BUN (7-17) mg/dL Creatinine (0.52-1.04) mg/dL Glucose (74-99) mg/dL POC Glucose (mg/dL) 143 H 129 H (75-99) mg/dL Calcium (8.4-10.2) mg/dL Crossmatch 08/25/18 08/25/18 Range/Units 06:09 06:09 WBC 18.1 H (3.8-10.6) k/uL RBC 2.89 L (3.80-5.40) m/uL Hgb 8.2 L (11.4-16.0) gm/dL Hct 25.2 L (34.0-46.0) % PT (9.0-12.0) sec INR (<1.2) Sodium 130 L (137-145) mmol/L Potassium 3.2 L (3.5-5.1) mmol/L Chloride 88 L (98-107) mmol/L Carbon Dioxide 34 H (22-30) mmol/L BUN 27 H (7-17) mg/dL Creatinine 1.21 H (0.52-1.04) mg/dL Glucose 107 H (74-99) mg/dL POC Glucose (mg/dL) (75-99) mg/dL Calcium 7.5 L (8.4-10.2) mg/dL Crossmatch Assessment and Plan Assessment: #1 acute fluid overload following transfusion of packed red blood cells, improved #2 anemia in patient with known history of GI bleed, on Coumadin for mechanical aortic valve, s/p trasnfusion of 1 unit PRBCs #3 dementia with acute delirium which is improving #4 acute on chronic diastolic congestive heart failure with a BNP of 20,000 #5 CAD with history of CABG #6 status post mechanical aortic valve in 2001 #7 back pain following fall with known compression fractures #8 questionable right upper quadrant abdominal pain with computed tomography scan showing no evidence of gallbladder disease #9 elevated troponin likely secondary to significant anemia Plan: From a cardiac standpoint we will switch to oral lasix. We will review 2-D echo with doppler. Monitor renal function and electrolytes. Await results of HIDA scan and plan from surgical standpoint. Further recommendations to follow. PUBLIC ADDRESS ANNOUNCER note has been reviewed, I agree with a documented findings and plan of care. Patient was seen and examined.
[2018-08-25 12:02] LABS: Glucose,Whole Blood 159 mg/dL (75-99)
--- NOTE | 2018-08-25 12:05 | NM ---
EXAMINATION TYPE: NM hepatobiliary w CCK DATE OF EXAM: 08/25/2018 COMPARISON: Ultrasound 08/24/2018 HISTORY: 77-year-old female with decreased appetite, cholecystitis TECHNIQUE: After the intravenous administration of 5.0 mCi Tc 99m Mebrofenin hepatobiliary scintigrap hy is performed. Immediate images post injection. FINDINGS: There is satisfactory initial accumulation of tracer by the liver. The gallbladder is visualized wit hin 30 minutes. The small bowel activity is visualized at 20 minutes. At 60 minutes, CCK was administ ered, patient was injected with 1.3 mcg of Kinevac, and gallbladder ejection fraction is calculated a t 13 %, decreased. IMPRESSION: Gallbladder filling argues against acute cholecystitis. However, the decreased gallbladder ejection f raction of 13% suggests chronic cholecystitis or biliary dyskinesia. Clinically correlate.
[2018-08-25] MEDS ORDERED: FUROSEMIDE 40 MG TAB PO STA (14:37)
[2018-08-25 16:47] LABS: Glucose,Whole Blood 202 mg/dL (75-99)
--- NOTE | 2018-08-25 17:34 | CONS ---
CONSULTATION DATE OF SERVICE: 08/25/2018 REASON FOR CONSULTATION: Anemia. HISTORY OF ILLNESS: Sophy is a pleasant 77-year-old female with a prolonged history of anemia, which was mostly iron deficient. Recent iron studies done on August 11 showed profound iron deficiency with extremely low iron saturation of less than 10%. The patient has had previous workup by Dr. Berg for evaluation of gastrointestinal blood loss and has received prior blood transfusion as well as prior iron therapy, but none recently. She was hospitalized with increasing shortness of breath and abdominal pain. She is being worked up for possible cholecystitis. CBC upon hospitalization showed a hemoglobin of 9.3, decreased to 8.2 this morning. MCV was within normal range. The patient had leukocytosis which was mainly neutrophil; her white cells were 26,000 upon admission on August 24, decreased to 18.1 today. There was no abnormality in the platelet series. Workup showed retic count of 3.5, elevated LDH and totally normal haptoglobin. PAST MEDICAL HISTORY: 1. Coronary artery disease. 2. Prior history of GI bleed. 3. Hyperlipidemia. 4. Hypertension. 5. Mild dementia. PAST SURGICAL HISTORY: 1. Valve replacement. 2. Coronary artery bypass. 3. Hysterectomy. 4. Bilateral carotid surgery. 5. Prior colonoscopy and EGD. CURRENT MEDICATIONS: Reviewed and listed in the electronic medical record. PHYSICAL EXAMINATION: On examination, the patient was alert and oriented, very pleasant. Skin is warm and dry. Hair distribution within normal for age and gender. Blood pressure was 149/68, pulse 67 and regular, respiratory rate 16, not labored. No pathologic cervical, supraclavicular, infraclavicular or axillary lymphadenopathy. Trachea was in midline. Chest was clear with good air exchange bilaterally. Heart sounds were normal S1 and S2. There was no S3, rubs or murmurs auscultated. The abdomen was soft. The liver and the spleen were not clinically palpable. No masses, tenderness or inguinal lymphadenopathy. Extremities appeared to be grossly unremarkable. Range of motion was within normal. No deformity seen. Neurologic examination showed no focal sensory deficit. Cranial nerves II through XII unremarkable. IMPRESSION: 1. Profound anemia, undoubtedly due to profound iron deficiency. Hemolytic anemia is not suspected. 2. Abdominal pain, now being worked up for possible cholecystitis. 3. Multiple medical comorbidities. RECOMMENDATION: 1. Discussed the cause of anemia being iron deficiency with the patient and her daughter at the bedside. 2. Discussed iron deficiency to have likely been caused by chronic low-grade gastrointestinal blood loss, mostly due to lifelong anticoagulation with Coumadin due to valvular heart disease. 3. No further workup for anemia required. 4. Parenteral iron would be ordered as soon as infectious etiology is ruled out and the patient is ruled out for acute surgical cholecystitis. 5. GI consultation will be placed. I answered the patient's and her daughter's questions and concerns to their satisfaction. Thank you for giving us the privilege of participating in the care of Mrs. Colin. MARS / ES: [phone] /
[2018-08-25] MEDS: MELATONIN 3 MG TABLET PO SCH (20:25)
[2018-08-25] MEDS: ATORVASTATIN 80 MG TAB PO SCH (20:25)
[2018-08-25] MEDS: DONEPEZIL 10 MG TAB PO SCH (20:25)
[2018-08-25 20:35] LABS: Glucose,Whole Blood 112 mg/dL (75-99)
[2018-08-25] MEDS: FUROSEMIDE 10 MG/ML 4 ML VIAL IV SCH (21:03)
[2018-08-26] MEDS: Acetaminophen-Codeine 300-30mg TAB PO PRN ×3 (04:21→19:35)
[2018-08-26] MEDS: methylPREDNISolone SOD SUCCI 125 MG/2 ML VIAL IV SCH ×2 (06:16→22:16)
[2018-08-26] MEDS: PANTOPRAZOLE 40 MG TABLET PO SCH (06:17)
[2018-08-26] MEDS: metroNIDAZOLE-NS PMX 500 MG in SALINE 1 100ML.BAG IVPB SCH ×2 (06:17→13:12)
[2018-08-26 06:22] LABS: HCT 27.9 % (34.0-46.0); HGB 8.5 gm/dL (11.4-16.0); Hypochromasia Moderate; MCH 26.9 pg (25.0-35.0); MCHC 30.6 g/dL (31.0-37.0); MCV 87.9 fL (80.0-100.0); Mean Platelet Volume 6.7; Platelet Count 263 k/uL (150-450); Poikilocytosis Slight; RBC 3.18 m/uL (3.80-5.40); RDW 15.4 % (11.5-15.5); WBC 13.4 k/uL (3.8-10.6)
[2018-08-26 06:32] LABS: Glucose,Whole Blood 175 mg/dL (75-99)
[2018-08-26] MEDS: INSULIN ASPART (NovoLOG) 100 UNIT/ML VIAL SQ SCH ×4 (06:40→20:29)
[2018-08-26] MEDS: IPRATROPIUM-ALBUTEROL 3 ML NEB INHALATION SCH ×4 (08:25→20:25)
--- NOTE | 2018-08-26 08:49 | P.PN ---
Subjective Progress Note Date: 08/26/18 Patient seen and examined at bedside. No acute events overnight. Currently receiving a breathing treatment. Daughter at bedside. Objective - Vital Signs Vital signs: Vital Signs Temp 98.7 F 08/26/18 04:00 Pulse 66 08/26/18 08:25 Resp 20 08/26/18 04:00 BP 153/68 08/26/18 04:00 Pulse Ox 95 08/26/18 04:00 Intake & Output 08/25/18 08/26/18 08/26/18 18:59 06:59 18:59 Intake Total 490 350 Balance 490 350 Weight 65.4 kg Intake: IV 250 Levofloxacin 250Mg-D5w 50 Pmx 250 mg In Dextrose/ Water 1 50ml.bag @ 50 mls /hr IVPB Q24H ULISES Rx#: [id number] Sodium Ferric Gluconat- 100 Sucrose 125 mg In Sodium Chloride 0.9% 100 ml @ 100 mls/hr IVPB DAILY ULISES Rx#:[id number] metroNIDAZOLE-NS PMX 500 100 mg In Saline 1 100ml.bag @ 100 mls/hr IVPB Q6HR ULISES Rx#:[id number] Intake, IV Titration 100 Amount metroNIDAZOLE-NS PMX 500 100 mg In Saline 1 100ml.bag @ 100 mls/hr IVPB Q6HR ULISES Rx#:[id number] Oral 240 250 Other: Voiding Method Diaper Diaper Incontinent Incontinent # Voids 1 1 - Constitutional General appearance: Present: cooperative - Gastrointestinal Gastrointestinal Comment(s): Soft, nontender, nondistended, no rebound, no guarding - Labs CBC & Chem 7: 08/26/18 05:45 08/25/18 06:09 Labs: Abnormal Lab Results - Last 24 Hours (Table) 08/25/18 08/25/18 08/25/18 Range/Units 11:59 16:45 20:33 WBC (3.8-10.6) k/uL RBC (3.80-5.40) m/uL Hgb (11.4-16.0) gm/dL Hct (34.0-46.0) % MCHC (31.0-37.0) g/dL POC Glucose (mg/dL) 159 H 202 H 112 H (75-99) mg/dL 07/06/19 07/06/19 Range/Units 05:45 06:31 WBC 13.4 H (3.8-10.6) k/uL RBC 3.18 L (3.80-5.40) m/uL Hgb 8.5 L (11.4-16.0) gm/dL Hct 27.9 L (34.0-46.0) % MCHC 30.6 L (31.0-37.0) g/dL POC Glucose (mg/dL) 175 H (75-99) mg/dL Assessment and Plan Plan: 77-year-old female with right upper quadrant pain and multiple medical comorbidities - I have evaluated the patient's imaging that has been performed during this admission. She did have a CT of the abdomen and pelvis along with an ultrasound of the abdomen. The CT of the abdomen and pelvis did not show any acute findings related to the gallbladder, however there were some inflammatory changes surrounding the sigmoid colon that were notable on her previous CT scan as well. Ultrasound of the abdomen was performed, however the patient did have a significant amount of motion during the exam and the gallbladder was not completely visualized. Due to concern of an underlying cholecystitis, we will plan for a HIDA scan. I did discuss this case in depth with Dr. Goel and the patient is high risk for any surgical procedure and is currently anticoagulated with an INR greater than 3. - HIDA scan was performed yesterday. There is no evidence of acute cholecystitis. However, there is a decreased ejection fraction and concern for biliary dyskinesia. Due to the patient's high risk for surgery, I would not recommend cholecystectomy for biliary dyskinesia. Also, at this point cholecystostomy tube would not be necessary for biliary dyskinesia. I would recommend advancing the patient's diet as tolerated. I did recommend avoiding any fatty, fried or greasy foods. This biliary dyskinesia may account for some of the patient's right upper quadrant pain, however due to multiple thoracic vertebral fractures, the patient may have some right-sided flank referred pain as well. I did discuss this with the patient and the patient's daughter and they are agreeable with this plan.
[2018-08-26 09:14] LABS: INR 3.8 (<1.2); Prothrombin Time 36.3 sec (9.0-12.0)
[2018-08-26 09:19] LABS: Calcium 7.3 mg/dL (8.4-10.2); Potassium 3.1 mmol/L (3.5-5.1)
[2018-08-26] MEDS ORDERED: LEVOFLOXACIN 250MG-D5W PMX 250 MG in DEXTROSE/WATER 1 50ML.BAG IVPB SCH (11:00)
[2018-08-26] MEDS: LIDOCAINE 5% PATCH TOPICAL SCH (11:39)
[2018-08-26] MEDS: ATENOLOL 50 MG TAB PO SCH ×2 (11:39→17:52)
[2018-08-26] MEDS: hydrALAZINE HCL 50 MG TAB PO SCH ×3 (11:40→20:23)
[2018-08-26] MEDS: FUROSEMIDE 40 MG TAB PO SCH (11:40)
[2018-08-26] MEDS: CITALOPRAM HYDROBROMIDE 10 MG TAB PO SCH (11:40)
[2018-08-26] MEDS ORDERED: Potassium Replacement Protocol 1 EACH MISC MISCELLANE PRN (11:52)
[2018-08-26 11:59] LABS: Glucose,Whole Blood 271 mg/dL (75-99)
[2018-08-26 12:46] VITALS: BMI 24.7
[2018-08-26] MEDS: POTASSIUM CHLORIDE ER 20 MEQ TAB.ER PO SCH ×2 (13:05→16:11)
--- NOTE | 2018-08-26 13:20 | P.PN ---
Subjective Progress Note Date: 08/26/18 This is a confused 77-year-old female patient with history of CAD, prior CABG, mechanical aortic valve, GI bleed, anemia, recent fall with compression fractures of the thoracic spine, recent transfusion. She is a poor historian and HPI was obtained from the chart and family and was able to obtain limited review of systems. She presented to the emergency department on this admission with worsening shortness of breath and edema noted following transfusion. She also complains of significant back pain and is noted to be quite restless. According to family she's been complaining of some right-sided abdominal pain as well in speaking with the patient does not confirmed. Chest x-ray on admission showed pulmonary interstitial fibrosis and interstitial edema increased compared to last exam and could relate to acute heart failure. CT of the abdomen and pelvis show mild inflammatory change in the pelvis on the left side, mild sigmoid diverticulosis, compression fracture of T12 with burst component that appears old as well as some spinal stenosis, right renal hypoplasia or atrophy, bilateral pleural effusions and basilar pulmonary infiltrates and atelectasis could relate to chronic congestive heart failure with normal appearance of the gallbladder. On presentation laboratory values showed a white count of 18,000, hemoglobin 9.3, INR 3.6, sodium 129, BUN 25, creatinine 1.02 and an anti-proBNP of 20,200. Troponins have been noted to be elevated at 0.272, 0.292 and 0.345. 08/25/18 - patient was seen and examined this morning. She appears to be more comfortable and more alert today. She is much less restless. Her breathing has improved compared to yesterday. She did receive one unit of packed red blood cells yesterday and hemoglobin this morning is 8.2. INR 3.7. Other labs show p otassium of 3.2, BUN of 27 and creatinine 1.21. She underwent HIDA scan this morning and these results are pending. 08/26/18 - on examination, patient is resting comfortably sitting in a chair. She appears significantly more comfortable and is very alert today. She is calm. Her breathing has improved. Surgical recommendation has been for medical management. Labs this morning show potassium of 3.1, BUN 29, creatinine 1.17. Objective - Vital Signs Vital signs: Vital Signs Temp 98.3 F 08/26/18 08:50 Pulse 65 08/26/18 11:34 Resp 18 08/26/18 11:34 BP 164/81 08/26/18 11:32 Pulse Ox 95 08/26/18 11:32 Intake & Output 08/25/18 08/26/18 08/26/18 18:59 06:59 18:59 Intake Total 490 350 200 Balance 490 350 200 Weight 65.4 kg 65.4 kg Intake: IV 250 Levofloxacin 250Mg-D5w 50 Pmx 250 mg In Dextrose/ Water 1 50ml.bag @ 50 mls /hr IVPB Q24H ULISES Rx#: [id number] Sodium Ferric Gluconat- 100 Sucrose 125 mg In Sodium Chloride 0.9% 100 ml @ 100 mls/hr IVPB DAILY ULISES Rx#:[id number] metroNIDAZOLE-NS PMX 500 100 mg In Saline 1 100ml.bag @ 100 mls/hr IVPB Q6HR ULISES Rx#:[id number] Intake, IV Titration 100 Amount metroNIDAZOLE-NS PMX 500 100 mg In Saline 1 100ml.bag @ 100 mls/hr IVPB Q6HR ULISES Rx#:[id number] Oral 240 250 200 Other: Voiding Method Diaper Diaper Diaper Incontinent Incontinent Incontinent # Voids 1 1 1 - Exam PHYSICAL EXAMINATION: HEENT: Head is atraumatic, normocephalic. Pupils equal, round. Neck is supple. There is no elevated jugular venous pressure. Bilateral carotid bruits HEART EXAMINATION: Heart sounds regular, S1 and S2, prosthetic sounds crisp with a systolic ejection murmur at the base. CHEST EXAMINATION: Lungs reveal diminished air entry bilaterally. No chest wall tenderness is noted on palpation or with deep breathing. ABDOMEN: Soft, mild right sided and epigastric discomfort. Bowel sounds are heard. No organomegaly noted. EXTREMITIES: 2+ peripheral pulses with no evidence of peripheral edema and no calf tenderness noted. NEUROLOGIC patient is awake, alert and oriented 1. - Labs CBC & Chem 7: 08/26/18 05:45 08/26/18 08:41 Labs: Abnormal Lab Results - Last 24 Hours (Table) 08/25/18 08/25/18 08/26/18 Range/Units 16:45 20:33 05:45 WBC 13.4 H (3.8-10.6) k/uL RBC 3.18 L (3.80-5.40) m/uL Hgb 8.5 L (11.4-16.0) gm/dL Hct 27.9 L (34.0-46.0) % MCHC 30.6 L (31.0-37.0) g/dL PT (9.0-12.0) sec INR (<1.2) Sodium (137-145) mmol/L Potassium (3.5-5.1) mmol/L Chloride (98-107) mmol/L Carbon Dioxide (22-30) mmol/L BUN (7-17) mg/dL Creatinine (0.52-1.04) mg/dL Glucose (74-99) mg/dL POC Glucose (mg/dL) 202 H 112 H (75-99) mg/dL Calcium (8.4-10.2) mg/dL 08/26/18 08/26/18 08/26/18 Range/Units 06:31 08:41 08:41 WBC (3.8-10.6) k/uL RBC (3.80-5.40) m/uL Hgb (11.4-16.0) gm/dL Hct (34.0-46.0) % MCHC (31.0-37.0) g/dL PT 36.3 H (9.0-12.0) sec INR 3.8 H (<1.2) Sodium 130 L (137-145) mmol/L Potassium 3.1 L (3.5-5.1) mmol/L Chloride 89 L (98-107) mmol/L Carbon Dioxide 34 H (22-30) mmol/L BUN 29 H (7-17) mg/dL Creatinine 1.17 H (0.52-1.04) mg/dL Glucose 207 H (74-99) mg/dL POC Glucose (mg/dL) 175 H (75-99) mg/dL Calcium 7.3 L (8.4-10.2) mg/dL 08/26/18 Range/Units 11:56 WBC (3.8-10.6) k/uL RBC (3.80-5.40) m/uL Hgb (11.4-16.0) gm/dL Hct (34.0-46.0) % MCHC (31.0-37.0) g/dL PT (9.0-12.0) sec INR (<1.2) Sodium (137-145) mmol/L Potassium (3.5-5.1) mmol/L Chloride (98-107) mmol/L Carbon Dioxide (22-30) mmol/L BUN (7-17) mg/dL Creatinine (0.52-1.04) mg/dL Glucose (74-99) mg/dL POC Glucose (mg/dL) 271 H (75-99) mg/dL Calcium (8.4-10.2) mg/dL Assessment and Plan Assessment: #1 acute fluid overload following transfusion of packed red blood cells, improved #2 anemia in patient with known history of GI bleed, on Coumadin for mechanical aortic valve, s/p trasnfusion of 1 unit PRBCs #3 dementia with acute delirium which is improving #4 acute on chronic diastolic congestive heart failure with a BNP of 20,000 #5 CAD with history of CABG #6 status post mechanical aortic valve in 2001 #7 back pain following fall with known compression fractures #8 questionable right upper quadrant abdominal pain with computed tomography scan showing no evidence of gallbladder disease #9 elevated troponin likely secondary to significant anemia Plan: From a cardiac standpoint we will replace potassium. Patient is stable for discharge home from our perspective. She will follow-up with Dr. Artis in the office. 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 Patient was seen and examined.
[2018-08-26] MEDS ORDERED: SENNOSIDES 8.6 MG TAB PO PRN (16:28)
--- NOTE | 2018-08-26 16:36 | P.PN ---
Subjective Progress Note Date: 08/26/18 77-year-old female with multiple medical problem known to have history of hypertension, long-term anticoagulation for mechanical aortic valve replacement, atherosclerotic heart disease, dementia, iron deficiency anemia and A. fib with RVR who seen Dr. Walters recently admitted to our facility 08/09/2018 secondary to compression fracturesT6-T7, T9 and T12, with 50-75% wedging compression deformities, was at [facility] for skilled rehabilitation. Patient received 1 unit of packed red blood cells 08/22/2018 secondary to anemia, and was subsequently seen in emergency room secondary to increasing shortness of breath. She was found to be in fluid overload, she has chronic anemia, for which she had completed multiple GI workup including endoscopies, upper and lower, and capsule endoscopy by GI. she presents with an comfortable right upper quadrant pain, thoracic pain, and shortness of breath PND, no chest pain or palpitation, in the emergency roomshe had CAT scan of the abdomen and pelvis that shows bilateral pleural effusion, heart enlargement, some infiltrate or atelectasis in lung, 1 cm cyst left lobe of labor liver, gallbladderappears normal, with normal common bile duct, however there is small inflammatory fat stranding left side of pelvis anteriorly and along the iliac artery and vein, sigmoid diverticula without evidence of diverticulitis, there is mild sigmoid diverticulosis, there is right renal hypoplasia or atrophy, findings suggest atelectasis or chronic congestive heart failure. Ultrasound of the abdomen was done secondary to vomiting,gallbladder cannot be fully visualized, common bile.on the displaced portion is normal, andon my evaluation today, there is a positive Hernandez's sign, no guarding or tenderness in the left lower quadrant, patient has symptomatic PND, consulted Dr. Castillo from general surgeryalso blood has dropped 2 g since admission, overnight, we consulted Dr. 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 Patient is gently diuresed, 1 unit of packed red blood cells will be given along with Lasix 40 mg after blood transfusion 08/25: Abdominal ultrasound revealed limited exam demonstrated small hypoechoic lesion within the left lobe of the liver too small to characterize. Atrophic right kidney. Left kidney not visualized. Patient has been evaluated by Dr. Castillo and HIDA scan to rule out cholecystitis which is ordered for this morning. Patient has been afebrile, heart rate 65, blood pressure 143/64 and pulse ox 96% on 3 L nasal cannula. WBC 18.1, hemoglobin 8.2, INR 3.7. Sodium 130, potassium 3.2, chloride 88, CO2 34, BUN 27 creatinine 1.21. Calcium 7.5. Blood sugars running between 107 and 143. Cardiology is following for acute fluid overload after transfusion of one unit of packed RBCs, acute on chronic diastolic heart failure, mechanical aortic valve. Patient is to continue IV Lasix. Echocardiogram has been ordered. Patient is pleasantly confused. She continues to complain of right upper quadrant pain. She denies having any vomiting. She denies passing gas or having a bowel movement but nursing is documented bowel movements yesterday. Potassium will be replaced. Patient will be started on clear liquid diet following HIDA scan. 08/26 patient examined bedside is comfortable sitting on the chair. Requiring 3 L of oxygen at rest. Patient does complain of abdominal distention and had no bowel movement for past few days. Will add patient's senna and Colace. Chest x-ray didn't suggest pulmonary congestion will repeat chest x-ray to evaluate pulmonary edema. Vitals assessed this morning suggests mild temp of 97 pulse 65 blood pressure 164/81 and saturating 95 on 2 L. review of system Constitutional: Denies chills, Denies fever, Denies lethargy, Denies malaise, Denies poor appetite, Denies weakness, Denies weight loss Eyes: denies decreased vision, denies diplopia, denies discharge, denies pain Ears: deny: decreased hearing Ears, nose, mouth and throat: Denies dental pain, Denies headache, Denies nasal discharge, Denies nose pain Cardiovascular: Denies chest pain, Denies decreased exercise tolerance, Denies edema, Denies high blood pressure, Denies irregular heart beat, Denies palpitations, Denies paroxysmal nocturnal dyspnea, Denies rapid heart beat, Denies shortness of breath Respiratory: Denies congestion, Denies cough, Denies cough with sputum, Denies dyspnea, Denies home oxygen, Denies wheezing Gastrointestinal: Endorsesabdominal pain, Denies change in bowel habits, Denies coffee ground emesis, Denies early satiety, endorsesexcessive gas, Denies heartburn, Denies hematemesis, Denies hematochezia, Denies loss of appetite, Denies nausea, Denies vomiting Genitourinary: Denies dysuria, Denies flank pain, Denies kidney stones, Denies menorrhagia, Denies urgency, Denies urinary frequency Musculoskeletal: Denies gait dysfunction, Denies limitation of motion, Denies morning stiffness,endorses muscle cramps Integumentary: Denies rash, Denies wounds, Denies brittle nails, Denies change in hair/nails, Denies darkening of skin Neurological: Denies balance difficulties, Denies change in speech, Denies double vision, Denies gait dysfunction, Denies loss of vision, Denies motor disturbance, Denies numbness, Denies paralysis, Denies paresthesias, Denies seizures Psychiatric: Denies anxiety, Denies depression Endocrine: Denies excessive sweating, Denies excessive thirst, Denies high blood sugars, Denies palpitations Hematologic/Lymphatic: Denies easy bruising, Denies lymphadenopathy Objective - Vital Signs Vital signs: Vital Signs Temp 98.3 F 08/26/18 08:50 Pulse 74 08/26/18 15:51 Resp 18 08/26/18 11:34 BP 164/81 08/26/18 11:32 Pulse Ox 95 08/26/18 11:32 Intake & Output 08/25/18 08/26/18 08/26/18 18:59 06:59 18:59 Intake Total 490 350 200 Balance 490 350 200 Weight 65.4 kg 65.4 kg Intake: IV 250 Levofloxacin 250Mg-D5w 50 Pmx 250 mg In Dextrose/ Water 1 50ml.bag @ 50 mls /hr IVPB Q24H ULISES Rx#: [id number] Sodium Ferric Gluconat- 100 Sucrose 125 mg In Sodium Chloride 0.9% 100 ml @ 100 mls/hr IVPB DAILY ULISES Rx#:[id number] metroNIDAZOLE-NS PMX 500 100 mg In Saline 1 100ml.bag @ 100 mls/hr IVPB Q6HR ULISES Rx#:[id number] Intake, IV Titration 100 Amount metroNIDAZOLE-NS PMX 500 100 mg In Saline 1 100ml.bag @ 100 mls/hr IVPB Q6HR ULISES Rx#:[id number] Oral 240 250 200 Other: Voiding Method Diaper Diaper Diaper Incontinent Incontinent Incontinent # Voids 1 1 1 - Exam - Constitutional General appearance: cooperative - EENT Eyes: anicteric sclerae, EOMI, PERRLA, dentition normal ENT: NA/AT, normal oropharynx - Neck Neck: normal ROM - Respiratory Respiratory: bilateral: CTA, diminished, negative: dullness, rales, rhonchi - Cardiovascular Rhythm: regular Heart sounds: normal: S1, S2 Abnormal Heart Sounds: no systolic murmur, no diastolic murmur, no rub, no S3 Gallop, no S4 Gallop, no click, no other - Gastrointestinal General gastrointestinal: normal bowel sounds, soft, epigastric - Integumentary Integumentary: decreased turgor, normal - Neurologic Neurologic: CNII-XII intact - Musculoskeletal Musculoskeletal: generalized weakness, strength equal bilaterally - Psychiatric Psychiatric: A&O x's 2, no focal neural deficits. - Labs CBC & Chem 7: 08/26/18 05:45 08/26/18 08:41 Labs: Abnormal Lab Results - Last 24 Hours (Table) 08/25/18 08/25/18 08/26/18 Range/Units 16:45 20:33 05:45 WBC 13.4 H (3.8-10.6) k/uL RBC 3.18 L (3.80-5.40) m/uL Hgb 8.5 L (11.4-16.0) gm/dL Hct 27.9 L (34.0-46.0) % MCHC 30.6 L (31.0-37.0) g/dL PT (9.0-12.0) sec INR (<1.2) Sodium (137-145) mmol/L Potassium (3.5-5.1) mmol/L Chloride (98-107) mmol/L Carbon Dioxide (22-30) mmol/L BUN (7-17) mg/dL Creatinine (0.52-1.04) mg/dL Glucose (74-99) mg/dL POC Glucose (mg/dL) 202 H 112 H (75-99) mg/dL Calcium (8.4-10.2) mg/dL 08/26/18 08/26/18 08/26/18 Range/Units 06:31 08:41 08:41 WBC (3.8-10.6) k/uL RBC (3.80-5.40) m/uL Hgb (11.4-16.0) gm/dL Hct (34.0-46.0) % MCHC (31.0-37.0) g/dL PT 36.3 H (9.0-12.0) sec INR 3.8 H (<1.2) Sodium 130 L (137-145) mmol/L Potassium 3.1 L (3.5-5.1) mmol/L Chloride 89 L (98-107) mmol/L Carbon Dioxide 34 H (22-30) mmol/L BUN 29 H (7-17) mg/dL Creatinine 1.17 H (0.52-1.04) mg/dL Glucose 207 H (74-99) mg/dL POC Glucose (mg/dL) 175 H (75-99) mg/dL Calcium 7.3 L (8.4-10.2) mg/dL 08/26/18 Range/Units 11:56 WBC (3.8-10.6) k/uL RBC (3.80-5.40) m/uL Hgb (11.4-16.0) gm/dL Hct (34.0-46.0) % MCHC (31.0-37.0) g/dL PT (9.0-12.0) sec INR (<1.2) Sodium (137-145) mmol/L Potassium (3.5-5.1) mmol/L Chloride (98-107) mmol/L Carbon Dioxide (22-30) mmol/L BUN (7-17) mg/dL Creatinine (0.52-1.04) mg/dL Glucose (74-99) mg/dL POC Glucose (mg/dL) 271 H (75-99) mg/dL Calcium (8.4-10.2) mg/dL Assessment and Plan Plan: 1. Acute on chronic diastolic heart failure with fluid overload from recent blood transfusion. Cardiology consult appreciated. Continue Lasix 40 mg Ipo daily, monitor I&O, daily weights, electrolytes and kidney function. Echocardiogram has been obtained and report is pending. 2. Right upper quadrant pain with clinical Hernandez's sign that's positive, r/o cholecystitis not seen on CAT scan. HIDA scan negative for cholecystitis positive for biliary dyskinesia patient is not a candidate for cholecystectomy. Consult with Dr. Castillo appreciated. antibiotic discontinued. Abdominal pain is likely referable pain from the fractures at the back 3. Inflammatory changes in the right iliac artery and venous structuresprior CAT scan, without evidence of clinical diverticulitis, this area is without any tenderness on examination, we will hold antibioticsIV Levaquin and IV Flagyl. 4. Mechanical aortic valve with [facility]'s, on long-term anticoagulation, Coumadin INR at 3.5 at goal. 5. Occult blood loss is noted with possible acute blood loss anemia, Hemoccult stools to be done, patient had in the past complete endoscopies including capsule endoscopy,likely iron deficiency anemia patient is not a candidate for colonoscopy. Patient is status post transfusion 1 unit of packed RBCs and 2 doses of Ferrlecit. 6. CKD stage III, currently at baseline 1.19 7. Elevated troponin, acute coronary consult ruled out. Radiology consult appreciated. 8. Acute iron deficiency anemia with possible GI bleedas patient is on Coumadin:iron saturation 1.9% continue PPI continue to watch for any GI bleed. Hemoccult stools, completed Ferrlecit 125 x 2 doses. 9. 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 10. Hypertension. Continue hydralazine 50 mg 3 times a day along with atenolol 100 mg twice a day. 11. Dementia, probable vascular dementia. Continue Aricept 10 mg daily. 12. Recurrent depression. Continue Celexa 10 mg daily. 13. Hyperlipidemia. Crestor on hold. 14. GI prophylaxis. Continue 40 mg daily. 15. DVT prophylaxis. Patient is therapeutic on Coumadin. Discharge plan: To be determined. PT and OT
[2018-08-26 16:55] LABS: Glucose,Whole Blood 211 mg/dL (75-99)
[2018-08-26 16:56] LABS: Appearance,Urine Clear (Clear); Bilirubin,Urine Negative (Negative); Blood,Urine Trace (Negative); Color,Urine Yellow; Glucose,Urine (UA) Negative (Negative); Ketones,Urine Negative (Negative); Leukocyte Esterase,Urine Negative (Negative); Mucus,Urine Rare /hpf; Nitrite,Urine Negative (Negative); PH, Urine 6.5 (5.0-8.0); Protein,Urine Trace (Negative); RBC,Urine 1 /hpf (0-5); Specific Gravity,Urine 1.009 (1.001-1.035); Urobilinogen,Urine <2.0 mg/dL (<2.0)
--- NOTE | 2018-08-26 17:25 | XR ---
EXAMINATION TYPE: XR chest 2V DATE OF EXAM: 08/26/2018 COMPARISON: 08/23/2018 HISTORY: Hypoxemia TECHNIQUE: Frontal and lateral views of the chest are obtained. FINDINGS: There is blunting of costophrenic angles. There is mild pulmonary congestion. There are st ernal wires. There are chest leads. IMPRESSION: There is probably congestive heart failure improved compared to last exam. Bilateral ple ural effusions unchanged.
[2018-08-26] MEDS ORDERED: metroNIDAZOLE 500 MG TAB PO SCH (18:00)
[2018-08-26] MEDS: DOCUSATE 100 MG CAP PO SCH (20:23)
[2018-08-26] MEDS: MELATONIN 3 MG TABLET PO SCH (20:23)
[2018-08-26] MEDS: ATORVASTATIN 80 MG TAB PO SCH (20:23)
[2018-08-26] MEDS: DONEPEZIL 10 MG TAB PO SCH (20:23)
[2018-08-26 20:30] LABS: Glucose,Whole Blood 103 mg/dL (75-99)
--- NOTE | 2018-08-26 22:32 | P.CONS ---
History of Present Illness - Reason for Consult Consult date: 08/26/18 Anemia Requesting physician: Tres Jarvis - Chief Complaint shortness of breath - History of Present Illness 77-year-old female with multiple medical problems including hypertension, mechanical aortic valve on anticoagulation therapy, atrial fibrillation with R VR, iron deficiency anemia, dementia and coronary artery disease who presented to the hospital for increasing shortness of breath. The patient had been in a rehabilitation facility after being hospitalized and found to have compression fractures in the spine and was noted to be anemic after which she received transfusion and was transferred to the hospital after developing shortness of breath after this. The patient was found to be fluid overloaded at that time and is undergoing treatment for exacerbation of diastolic CHF. During her hospitalization she had a computed tomography scan performed in evaluation for abdominal pain with multiple findings including some thickening around the sig moid colon. Ultrasound was performed which was limited without complete visualization of the gallbladder. HIDA was performed due to concerns over cholecystitis with a decreased ejection fraction. Consultation was placed for anemia. Discussion with the patient and her daughter who is bedside. She has a long-standing history of anemia which has been evaluated in the past with EGD and colonoscopy in 03/23/2016 with findings of hiatal hernia gastritis and diverticulosis. She also had undergone video capsule endoscopy. Currently no signs or symptoms of bleeding. Abdominal pain is improved. Laboratory evaluation is significant for WBC 13.4, hemoglobin stable at 8.5 from 8.2, INR 3.8, total bilirubin 0.3, alkaline phosphatase 86, AST 66 and ALT 51. Review of Systems REVIEW OF SYSTEMS: CONSTITUTIONAL: Denies any fevers, chills, weight change or fatigue. CARDIOVASCULAR: Denies any chest pain, palpitations high or low blood pressures RESPIRATORY: Denies any hemoptysis or cough. GENITOURINARY: No dysuria or hematuria. MUSCULOSKELETAL: No weakness reported. SKIN: Denies any new rashes or lesions, jaundice or pallor. PSYCHIATRIC: Denies any depression or anxiety. NEUROLOGY: Denies headache, denies any new focal deficits, but known dementia. EARS/NOSE/THROAT: No recent hearing change, congestion, nasal discharge or sore throat. EYES: No pain in eyes, discharge or change in vision. GASTROINTESTINAL: As per HPI. Past Medical History Past Medical History: Coronary Artery Disease (CAD), CVA/TIA, GI Bleed, Hyperlipidemia, Hypertension, Osteoarthritis (OA), Vascular Disorder Additional Past Medical History / Comment(s): Pt hospitalized at [facility] on 04/18/16 with CKD stage II, hyponatremia. Other HX: black stools x 2 days-had EGD/colonoscopy showing gastritis and diverticulosis, hemorroids, polyps, Lt hip pain (needs total hip replacement), L knee meniscus tear, tripped and fell struck face/R eye, has "hairline fracture lower back",, protein calorie malnutrition, tia,sciatic nerve pain. fell 5-14-17 -fx lt writs. History of Any Multi-Drug Resistant Organisms: None Reported Past Surgical History: Cardiac Valve Replacement, Coronary Bypass/CABG, Hysterectomy Additional Past Surgical History / Comment(s): Mick carotid surgery, 2001 [facility] aortic valve replacement, 03/23/16 EGD and colonoscopy, past colonoscopy with polypectomy, last colonoscopy was in 2016, low sodium Past Anesthesia/Blood Transfusion Reactions: No Reported Reaction Past Psychological History: Anxiety Smoking Status: Former smoker Past Alcohol Use History: Occasional Past Drug Use History: None Reported - Past Family History Sister(s) Family Medical History: Cancer Father Family Medical History: Diabetes Mellitus Additional Family Medical History / Comment(s): Father had tuberculosis. Mother Family Medical History: Dementia Son(s) Family Medical History: No Reported History Daughter(s) Family Medical History: No Reported History Medications and Allergies Home Medications Medication Instructions Recorded Confirmed Type Atenolol 100 mg PO BID@0800,1700 02/04/16 08/23/18 History Rosuvastatin Calcium [Crestor] 40 mg PO HS@212902/04/16 08/23/18 History hydrALAZINE HCL [Apresoline] 50 mg PO TID 07/29/17 08/23/18 History Citalopram Hydrobromide [CeleXA] 10 mg PO DAILY@0800 08/09/18 08/23/18 History Donepezil HCl [Aricept] 10 mg PO DAILY@212908/09/18 08/23/18 History Ferrous Sulfate [Iron (65 MG 325 mg PO BID@0800,1700 08/09/18 08/23/18 History Elemental)] Acetaminophen-Codeine 300-30mg 1 tab PO Q8H PRN 3 Days #9 tablet 08/15/18 08/23/18 Rx [Tylenol w/codeine #3] Lidocaine 5% Patch [Lidoderm 5% 1 patch TOPICAL DAILY #60 patch 08/15/18 08/23/18 Rx Patch] Pantoprazole [Protonix] 40 mg PO AC-[id number] tablet. 08/15/18 08/23/18 Rx Bisacodyl [Dulcolax] 10 mg RECTAL HS PRN 08/22/18 08/23/18 History Sodium Bicarbonate Tab 650 mg PO BID 08/22/18 08/23/18 History Acetaminophen [Tylenol Arthritis] 650 mg PO Q4H 08/23/18 08/23/18 History Lactose-Reduced Food [Ensure Plus] 237 ml PO BID@0800,1700 08/23/18 08/23/18 History Magnesium Hydroxide [Milk of 2,400 mg PO DAILY PRN 08/23/18 08/23/18 History Magnesia] Magnesium Oxide [Mag-Ox] 250 mg PO DAILY@1700 08/23/18 08/23/18 History Melatonin 5 mg PO HS@2130 08/23/18 08/23/18 History Na Phos,M-B/Na Phos,Di-Ba [Fleet 133 ml RECTAL DAILY PRN 08/23/18 08/23/18 History Adult] Warfarin [Coumadin] 2 mg PO DAILY@1700 08/23/18 08/23/18 History Allergies Allergy/AdvReac Type Severity Reaction Status Date / Time amoxicillin Allergy Unknown Verified 08/23/18 17:01 Sulfa (Sulfonamide Allergy Rash/Hives Verified 08/23/18 16:57 Antibiotics) Physical Exam Vitals: Vital Signs Temp Pulse Pulse Resp BP Pulse Ox 08/26/18 11:34 72 65 18 08/26/18 11:32 65 18 164/81 95 08/26/18 11:22 70 08/26/18 08:50 98.3 F 70 16 131/87 94 L 08/26/18 08:35 68 08/26/18 08:25 66 08/26/18 04:00 98.7 F 68 18 153/68 95 08/26/18 00:00 97.6 F 91 18 93/56 99 08/25/18 20:51 72 08/25/18 20:42 72 08/25/18 20:00 98.5 F 64 20 114/56 95 08/25/18 17:59 70 144/55 08/25/18 16:58 72 08/25/18 16:44 72 08/25/18 16:00 98.6 F 67 16 145/66 98 Intake and Output 08/25/18 08/26/18 08/26/18 22:59 06:59 14:59 Intake Total 640 200 200 Balance 640 200 200 Intake: IV 250 Levofloxacin 250Mg-D5w 50 Pmx 250 mg In Dextrose/ Water 1 50ml.bag @ 50 mls /hr IVPB Q24H ULISES Rx#: [id number] Sodium Ferric Gluconat- 100 Sucrose 125 mg In Sodium Chloride 0.9% 100 ml @ 100 mls/hr IVPB DAILY ULISES Rx#:[id number] metroNIDAZOLE-NS PMX 500 100 mg In Saline 1 100ml.bag @ 100 mls/hr IVPB Q6HR ULISES Rx#:[id number] Intake, IV Titration 100 Amount metroNIDAZOLE-NS PMX 500 100 mg In Saline 1 100ml.bag @ 100 mls/hr IVPB Q6HR ULISES Rx#:[id number] Oral 390 100 200 Other: Voiding Method Diaper Diaper Diaper Incontinent Incontinent Incontinent # Voids 1 1 1 Weight 65.4 kg On physical examination, patient appears comfortable in no apparent distress. HEAD: Normocephalic, atraumatic. EYES: No scleral icterus. No conjunctival injection. MOUTH: No lesions, tongue midline. NECK: Trachea midline, no gross abnormalities. CHEST: decreased air entry bilaterally. HEART: S1-S2 appreciated. ABDOMEN: Soft, obese. Bowel sounds are positive. No organomegaly. No guarding or rigidity. EXTREMITIES: No pedal edema. SKIN: No rashes, no jaundice. NEUROLOGIC: Alert and oriented to person and place. No focal deficits. Results CBC & Chem 7: 08/26/18 05:45 08/26/18 08:41 Labs: Abnormal Lab Results - Last 24 Hours (Table) 08/25/18 08/25/18 08/26/18 Range/Units 16:45 20:33 05:45 WBC 13.4 H (3.8-10.6) k/uL RBC 3.18 L (3.80-5.40) m/uL Hgb 8.5 L (11.4-16.0) gm/dL Hct 27.9 L (34.0-46.0) % MCHC 30.6 L (31.0-37.0) g/dL PT (9.0-12.0) sec INR (<1.2) Sodium (137-145) mmol/L Potassium (3.5-5.1) mmol/L Chloride (98-107) mmol/L Carbon Dioxide (22-30) mmol/L BUN (7-17) mg/dL Creatinine (0.52-1.04) mg/dL Glucose (74-99) mg/dL POC Glucose (mg/dL) 202 H 112 H (75-99) mg/dL Calcium (8.4-10.2) mg/dL 08/26/18 08/26/18 08/26/18 Range/Units 06:31 08:41 08:41 WBC (3.8-10.6) k/uL RBC (3.80-5.40) m/uL Hgb (11.4-16.0) gm/dL Hct (34.0-46.0) % MCHC (31.0-37.0) g/dL PT 36.3 H (9.0-12.0) sec INR 3.8 H (<1.2) Sodium 130 L (137-145) mmol/L Potassium 3.1 L (3.5-5.1) mmol/L Chloride 89 L (98-107) mmol/L Carbon Dioxide 34 H (22-30) mmol/L BUN 29 H (7-17) mg/dL Creatinine 1.17 H (0.52-1.04) mg/dL Glucose 207 H (74-99) mg/dL POC Glucose (mg/dL) 175 H (75-99) mg/dL Calcium 7.3 L (8.4-10.2) mg/dL 08/26/18 Range/Units 11:56 WBC (3.8-10.6) k/uL RBC (3.80-5.40) m/uL Hgb (11.4-16.0) gm/dL Hct (34.0-46.0) % MCHC (31.0-37.0) g/dL PT (9.0-12.0) sec INR (<1.2) Sodium (137-145) mmol/L Potassium (3.5-5.1) mmol/L Chloride (98-107) mmol/L Carbon Dioxide (22-30) mmol/L BUN (7-17) mg/dL Creatinine (0.52-1.04) mg/dL Glucose (74-99) mg/dL POC Glucose (mg/dL) 271 H (75-99) mg/dL Calcium (8.4-10.2) mg/dL US - abdomen: report reviewed (ultrasound of the abdomen severely limited without complete visualization of the gallbladder.) Assessment and Plan (1) Iron deficiency anemia Narrative/Plan: 77-year-old female with multiple medical comorbidities including iron deficiency anemia who presented to the hospital from rehabilitation facility due to shortness of breath. Patient had required blood transfusion in the outpatient setting due to low hemoglobin. She has a long-standing history of anemia which was initially evaluated in 2017 with EGD significant for hiatal hernia and gastritis and colonoscopy significant for diverticulosis. No signs or symptoms of GI bleeding reported and the patient has had a stable hemoglobin. Anemia li enio chronic and secondary to GI blood loss with small bowel pathology and AVM likely. Current Visit: Yes Status: Acute Code(s): D50.9 - IRON DEFICIENCY ANEMIA, UNSPECIFIED SNOMED Code(s): 67769160 Plan: Supportive care Okay for diet Continue to monitor hemoglobin and hematocrit and transfuse as needed Appreciate recommendations from the hematology service Iron infusion planned by the hematology service Extensive discussion with the patient and her daughter as well as on the phone with her son who is her legal decision-maker, at this time they are not interested in endoscopic evaluation due to concerns over adverse effects given patient's underlying dementia, and plan per their wishes is for Erbitux management with consideration for endoscopy if signs or symptoms of GI bleeding develop or patient has profound fall in hemoglobin Thank you for allowing us to participate in the care of the patient, we will continue to follow
[2018-08-27] MEDS ORDERED: Potassium Replacement Protocol 1 EACH MISC MISCELLANE PRN (00:43)
[2018-08-27] MEDS: POTASSIUM CHLORIDE ER 20 MEQ TAB.ER PO SCH ×2 (01:13→02:44)
[2018-08-27] MEDS: Acetaminophen-Codeine 300-30mg TAB PO PRN ×3 (01:13→23:44)
[2018-08-27] MEDS: PANTOPRAZOLE 40 MG TABLET PO SCH (06:10)
[2018-08-27 06:30] LABS: Glucose,Whole Blood 142 mg/dL (75-99)
[2018-08-27] MEDS: INSULIN ASPART (NovoLOG) 100 UNIT/ML VIAL SQ SCH ×2 (06:46→12:27)
[2018-08-27 06:58] LABS: HCT 32.3 % (34.0-46.0); HGB 9.9 gm/dL (11.4-16.0); Hypochromasia Moderate; MCH 27.1 pg (25.0-35.0); MCHC 30.7 g/dL (31.0-37.0); MCV 88.1 fL (80.0-100.0); Mean Platelet Volume 6.7; Platelet Count 303 k/uL (150-450); Poikilocytosis Slight; RBC 3.66 m/uL (3.80-5.40); RDW 15.1 % (11.5-15.5); WBC 16.6 k/uL (3.8-10.6)
[2018-08-27 07:06] LABS: Prothrombin Time 28.8 sec (9.0-12.0)
[2018-08-27] MEDS: IPRATROPIUM-ALBUTEROL 3 ML NEB INHALATION SCH ×4 (07:09→19:34)
--- NOTE | 2018-08-27 09:25 | P.PN ---
Subjective Progress Note Date: 08/27/18 This is a confused 77-year-old female patient with history of CAD, prior CABG, mechanical aortic valve, GI bleed, anemia, recent fall with compression fractures of the thoracic spine, recent transfusion. She is a poor historian and HPI was obtained from the chart and family and was able to obtain limited review of systems. She presented to the emergency department on this admission with worsening shortness of breath and edema noted following transfusion. She also complains of significant back pain and is noted to be quite restless. According to family she's been complaining of some right-sided abdominal pain as well in speaking with the patient does not confirmed. Chest x-ray on admission showed pulmonary interstitial fibrosis and interstitial edema increased compared to last exam and could relate to acute heart failure. CT of the abdomen and pelvis show mild inflammatory change in the pelvis on the left side, mild sigmoid diverticulosis, compression fracture of T12 with burst component that appears old as well as some spinal stenosis, right renal hypoplasia or atrophy, bilateral pleural effusions and basilar pulmonary infiltrates and atelectasis could relate to chronic congestive heart failure with normal appearance of the gallbladder. On presentation laboratory values showed a white count of 18,000, hemoglobin 9.3, INR 3.6, sodium 129, BUN 25, creatinine 1.02 and an anti-proBNP of 20,200. Troponins have been noted to be elevated at 0.272, 0.292 and 0.345. 08/25/18 - patient was seen and examined this morning. She appears to be more comfortable and more alert today. She is much less restless. Her breathing has improved compared to yesterday. She did receive one unit of packed red blood cells yesterday and hemoglobin this morning is 8.2. INR 3.7. Other labs show p otassium of 3.2, BUN of 27 and creatinine 1.21. She underwent HIDA scan this morning and these results are pending. 08/26/18 - on examination, patient is resting comfortably sitting in a chair. She appears significantly more comfortable and is very alert today. She is calm. Her breathing has improved. Surgical recommendation has been for medical management. Labs this morning show potassium of 3.1, BUN 29, creatinine 1.17. 08/27/18 - on examination patient is resting comfortably in bed. She verbalizes that her abdominal pain has improved. She remains confused and family is not at the bedside at this time. Labs show a stable Hgb. INR is therapeutic at 3.0. Objective - Vital Signs Vital signs: Vital Signs Temp 98 F 08/27/18 03:54 Pulse 68 08/27/18 07:20 Resp 20 08/27/18 03:54 BP 150/91 08/27/18 03:54 Pulse Ox 95 08/27/18 03:54 Intake & Output 08/26/18 08/27/18 08/27/18 18:59 06:59 18:59 Intake Total 200 400 Output Total 200 Balance 200 200 Weight 65.4 kg 64.5 kg Intake: Oral 200 400 Output: Urine 200 Other: Voiding Method Diaper Diaper Incontinent Incontinent # Voids 4 2 - Exam PHYSICAL EXAMINATION: HEENT: Head is atraumatic, normocephalic. Pupils equal, round. Neck is supple. There is no elevated jugular venous pressure. Bilateral carotid bruits HEART EXAMINATION: Heart sounds regular, S1 and S2, prosthetic sounds crisp with a systolic ejection murmur at the base. CHEST EXAMINATION: Lungs reveal diminished air entry bilaterally. No chest wall tenderness is noted on palpation or with deep breathing. ABDOMEN: Soft, mild right sided and epigastric discomfort. Bowel sounds are he dusty. No organomegaly noted. EXTREMITIES: 2+ peripheral pulses with no evidence of peripheral edema and no calf tenderness noted. NEUROLOGIC patient is awake, alert and oriented 1. - Labs CBC & Chem 7: 08/27/18 06:21 08/26/18 08:41 Labs: Abnormal Lab Results - Last 24 Hours (Table) 08/26/18 08/26/18 08/26/18 Range/Units 11:56 15:00 16:52 WBC (3.8-10.6) k/uL RBC (3.80-5.40) m/uL Hgb (11.4-16.0) gm/dL Hct (34.0-46.0) % MCHC (31.0-37.0) g/dL PT (9.0-12.0) sec INR (<1.2) POC Glucose (mg/dL) 271 H 211 H (75-99) mg/dL Urine Protein Trace H (Negative) Urine Blood Trace H (Negative) Urine Mucus Rare H (None) /hpf 08/26/18 08/27/18 08/27/18 Range/Units 20:28 06:21 06:21 WBC 16.6 H (3.8-10.6) k/uL RBC 3.66 L (3.80-5.40) m/uL Hgb 9.9 L (11.4-16.0) gm/dL Hct 32.3 L (34.0-46.0) % MCHC 30.7 L (31.0-37.0) g/dL PT 28.8 H (9.0-12.0) sec INR 3.0 H (<1.2) POC Glucose (mg/dL) 103 H (75-99) mg/dL Urine Protein (Negative) Urine Blood (Negative) Urine Mucus (None) /hpf 08/27/18 Range/Units 06:29 WBC (3.8-10.6) k/uL RBC (3.80-5.40) m/uL Hgb (11.4-16.0) gm/dL Hct (34.0-46.0) % MCHC (31.0-37.0) g/dL PT (9.0-12.0) sec INR (<1.2) POC Glucose (mg/dL) 142 H (75-99) mg/dL Urine Protein (Negative) Urine Blood (Negative) Urine Mucus (None) /hpf Assessment and Plan Assessment: #1 acute fluid overload following transfusion of packed red blood cells, improved #2 anemia in patient with known history of GI bleed, on Coumadin for mechanical aortic valve, s/p trasnfusion of 1 unit PRBCs #3 dementia with acute delirium which is improving #4 acute on chronic diastolic congestive heart failure with a BNP of 20,000 #5 CAD with history of CABG #6 status post mechanical aortic valve in 2001 #7 back pain following fall with known compression fractures #8 questionable right upper quadrant abdominal pain with computed tomography scan showing no evidence of gallbladder disease #9 elevated troponin likely secondary to significant anemia Plan: From a cardiac standpoint we will order a BMP. Patient is stable for discharge home from our perspective. We will follow the patient on an as-needed basis at this time. She will follow-up with Dr. Artis in the office. KARATE TEACHER note has been reviewed, I agree with a documented findings and plan of care. Patient was seen and examined.
[2018-08-27 09:26] LABS: Calcium 7.7 mg/dL (8.4-10.2); Potassium 3.3 mmol/L (3.5-5.1)
[2018-08-27] MEDS: hydrALAZINE HCL 50 MG TAB PO SCH ×3 (10:04→21:07)
[2018-08-27] MEDS: ATENOLOL 50 MG TAB PO SCH ×2 (10:04→17:40)
[2018-08-27] MEDS: FUROSEMIDE 40 MG TAB PO SCH (10:04)
[2018-08-27] MEDS: CITALOPRAM HYDROBROMIDE 10 MG TAB PO SCH (10:04)
[2018-08-27] MEDS: DOCUSATE 100 MG CAP PO SCH ×2 (10:04→21:07)
[2018-08-27] MEDS: LIDOCAINE 5% PATCH TOPICAL SCH (10:04)
[2018-08-27] MEDS ORDERED: LEVOFLOXACIN 250 MG TAB PO SCH (11:00)
[2018-08-27 11:40] LABS: Glucose,Whole Blood 219 mg/dL (75-99)
[2018-08-27] MEDS ORDERED: BACLOFEN 10 MG TAB PO PRN (15:24)
--- NOTE | 2018-08-27 15:26 | P.PN ---
Subjective 77-year-old female with multiple medical problem known to have history of hypertension, long-term anticoagulation for mechanical aortic valve replacement, atherosclerotic heart disease, dementia, iron deficiency anemia and A. fib with RVR who seen Dr. Walters recently admitted to our facility 08/09/2018 secondary to compression fracturesT6-T7, T9 and T12, with 50-75% wedging compression deformities, was at [facility] for skilled rehabilitation. Patient received 1 unit of packed red blood cells 08/22/2018 secondary to anemia, and was subsequently seen in emergency room secondary to increasing shortness of breath. She was found to be in fluid overload, she has chronic anemia, for which she had completed multiple GI workup including endoscopies, upper and lower, and capsule endoscopy by GI. she presents with an comfortable right upper quadrant pain, thoracic pain, and shortness of breath PND, no chest pain or palpitation, in the emergency roomshe had CAT scan of the abdomen and pelvis that shows bilateral pleural effusion, heart enlargement, some infiltrate or atelectasis in lung, 1 cm cyst left lobe of labor liver, gallbladderappears normal, with normal common bile duct, however there is small inflammatory fat stranding left side of pelvis anteriorly and along the iliac artery and vein, sigmoid diverticula without evidence of diverticulitis, there is mild sigmoid diverticulosis, there is right renal hypoplasia or atrophy, findings suggest atelectasis or chronic congestive heart failure. Ultrasound of the abdomen was done secondary to vomiting,gallbladder cannot be fully visualized, common bile.on the displaced portion is normal, andon my evaluation today, there is a positive Hernandez's sign, no guarding or tenderness in the left lower quadrant, patient has symptomatic PND, consulted Dr. Castillo from general surgeryalso blood has dropped 2 g since admission, overnight, we consulted Dr. 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 Patient is gently diuresed, 1 unit of packed red blood cells will be given along with Lasix 40 mg after blood transfusion 08/25: Abdominal ultrasound revealed limited exam demonstrated small hypoechoic lesion within the left lobe of the liver too small to characterize. Atrophic right kidney. Left kidney not visualized. Patient has been evaluated by Dr. Castillo and HIDA scan to rule out cholecystitis which is ordered for this morning. Patient has been afebrile, heart rate 65, blood pressure 143/64 and pulse ox 96% on 3 L nasal cannula. WBC 18.1, hemoglobin 8.2, INR 3.7. Sodium 130, potassium 3.2, chloride 88, CO2 34, BUN 27 creatinine 1.21. Calcium 7.5. Blood sugars running between 107 and 143. Cardiology is following for acute fluid overload after transfusion of one unit of packed RBCs, acute on chronic diastolic heart failure, mechanical aortic valve. Patient is to continue IV Lasix. Echocardiogram has been ordered. Patient is pleasantly confused. She continues to complain of right upper quadrant pain. She denies having any vomiting. She denies passing gas or having a bowel movement but nursing is documented bowel movements yesterday. Potassium will be replaced. Patient will be started on clear liquid diet following HIDA scan. 08/26 patient examined bedside is comfortable sitting on the chair. Requiring 3 L of oxygen at rest. Patient does complain of abdominal distention and had no bowel movement for past few days. Will add patient's senna and Colace. Chest x-ray didn't suggest pulmonary congestion will repeat chest x-ray to evaluate pulmonary edema. Vitals assessed this morning suggests mild temp of 97 pulse 65 blood pressure 164/81 and saturating 95 on 2 L. 08/27 patient examined bedside complains of significant weakness and muscle spasm of the back. She doesn't trace frequency of urine and is unable to go to the bathroom without accident. Patient is currently on 40 mg of Lasix will decrease it to 20 mg by mouth daily. Urinalysis was negative for any sign of infection. review of system Constitutional: Denies chills, Denies fever, Denies lethargy, Denies malaise, Denies poor appetite, Denies weakness, Denies weight loss Eyes: denies decreased vision, denies diplopia, denies discharge, denies pain Ears: deny: decreased hearing Ears, nose, mouth and throat: Denies dental pain, Denies headache, Denies nasal discharge, Denies nose pain Cardiovascular: Denies chest pain, Denies decreased exercise tolerance, Denies edema, Denies high blood pressure, Denies irregular heart beat, Denies palpitations, Denies paroxysmal nocturnal dyspnea, Denies rapid heart beat, Denies shortness of breath Respiratory: Denies congestion, Denies cough, Denies cough with sputum, Denies d yspnea, Denies home oxygen, Denies wheezing Gastrointestinal: Endorsesabdominal pain, Denies change in bowel habits, Denies coffee ground emesis, Denies early satiety, endorsesexcessive gas, Denies heartburn, Denies hematemesis, Denies hematochezia, Denies loss of appetite, Denies nausea, Denies vomiting Genitourinary: Denies dysuria, Denies flank pain, Denies kidney stones, Denies menorrhagia, Denies urgency, Denies urinary frequency Musculoskeletal: Denies gait dysfunction, Denies limitation of motion, Denies morning stiffness,endorses muscle cramps Integumentary: Denies rash, Denies wounds, Denies brittle nails, Denies change in hair/nails, Denies darkening of skin Neurological: Denies balance difficulties, Denies change in speech, Denies double vision, Denies gait dysfunction, Denies loss of vision, Denies motor disturbance, Denies numbness, Denies paralysis, Denies paresthesias, Denies seizures Psychiatric: Denies anxiety, Denies depression Endocrine: Denies excessive sweating, Denies excessive thirst, Denies high blood sugars, Denies palpitations Hematologic/Lymphatic: Denies easy bruising, Denies lymphadenopathy Objective - Vital Signs Vital signs: Vital Signs Temp 97.7 F 08/27/18 09:00 Pulse 72 08/27/18 15:16 Resp 16 08/27/18 11:40 BP 129/78 08/27/18 11:40 Pulse Ox 95 08/27/18 11:40 Intake & Output 08/26/18 08/27/18 08/27/18 18:59 06:59 18:59 Intake Total 200 400 240 Output Total 200 600 Balance 200 200 -360 Weight 65.4 kg 64.5 kg Intake: Oral 200 400 240 Output: Urine 200 600 Other: Voiding Method Diaper Diaper Diaper Incontinent Incontinent Incontinent # Voids 4 2 2 - Exam - Constitutional General appearance: cooperative - EENT Eyes: anicteric sclerae, EOMI, PERRLA, dentition normal ENT: NA/AT, normal oropharynx - Neck Neck: normal ROM - Respiratory Respiratory: bilateral: CTA, diminished, negative: dullness, rales, rhonchi - Cardiovascular Rhythm: regular Heart sounds: normal: S1, S2 Abnormal Heart Sounds: no systolic murmur, no diastolic murmur, no rub, no S3 Gallop, no S4 Gallop, no click, no other - Gastrointestinal General gastrointestinal: normal bowel sounds, soft, epigastric - Integumentary Integumentary: decreased turgor, normal - Neurologic Neurologic: CNII-XII intact - Musculoskeletal Musculoskeletal: generalized weakness, strength equal bilaterally - Psychiatric Psychiatric: A&O x's 2, no focal neural deficits. - Labs CBC & Chem 7: 08/27/18 06:21 08/27/18 06:21 Labs: Abnormal Lab Results - Last 24 Hours (Table) 08/26/18 08/26/18 08/26/18 Range/Units 15:00 16:52 20:28 WBC (3.8-10.6) k/uL RBC (3.80-5.40) m/uL Hgb (11.4-16.0) gm/dL Hct (34.0-46.0) % MCHC (31.0-37.0) g/dL PT (9.0-12.0) sec INR (<1.2) Sodium (137-145) mmol/L Potassium (3.5-5.1) mmol/L Chloride (98-107) mmol/L Carbon Dioxide (22-30) mmol/L BUN (7-17) mg/dL Creatinine (0.52-1.04) mg/dL Glucose (74-99) mg/dL POC Glucose (mg/dL) 211 H 103 H (75-99) mg/dL Calcium (8.4-10.2) mg/dL Urine Protein Trace H (Negative) Urine Blood Trace H (Negative) Urine Mucus Rare H (None) /hpf 08/27/18 08/27/18 08/27/18 Range/Units 06:21 06:21 06:21 WBC 16.6 H (3.8-10.6) k/uL RBC 3.66 L (3.80-5.40) m/uL Hgb 9.9 L (11.4-16.0) gm/dL Hct 32.3 L (34.0-46.0) % MCHC 30.7 L (31.0-37.0) g/dL PT 28.8 H (9.0-12.0) sec INR 3.0 H (<1.2) Sodium 131 L (137-145) mmol/L Potassium 3.3 L (3.5-5.1) mmol/L Chloride 90 L (98-107) mmol/L Carbon Dioxide 37 H (22-30) mmol/L BUN 29 H (7-17) mg/dL Creatinine 1.14 H (0.52-1.04) mg/dL Glucose 122 H (74-99) mg/dL POC Glucose (mg/dL) (75-99) mg/dL Calcium 7.7 L (8.4-10.2) mg/dL Urine Protein (Negative) Urine Blood (Negative) Urine Mucus (None) /hpf 08/27/18 08/27/18 Range/Units 06:29 11:34 WBC (3.8-10.6) k/uL RBC (3.80-5.40) m/uL Hgb (11.4-16.0) gm/dL Hct (34.0-46.0) % MCHC (31.0-37.0) g/dL PT (9.0-12.0) sec INR (<1.2) Sodium (137-145) mmol/L Potassium (3.5-5.1) mmol/L Chloride (98-107) mmol/L Carbon Dioxide (22-30) mmol/L BUN (7-17) mg/dL Creatinine (0.52-1.04) mg/dL Glucose (74-99) mg/dL POC Glucose (mg/dL) 142 H 219 H (75-99) mg/dL Calcium (8.4-10.2) mg/dL Urine Protein (Negative) Urine Blood (Negative) Urine Mucus (None) /hpf Assessment and Plan Plan: 1. Acute on chronic diastolic heart failure with fluid overload from recent blood transfusion. Cardiology consult appreciated. Decrease Lasix to 20 mg by mouth daily, monitor I&O, daily weights, electrolytes and kidney function. Echocardiogram has been obtained and report is pending. 2. Right upper quadrant pain with clinical Hernandez's sign that's positive, r/o cholecystitis not seen on CAT scan. HIDA scan negative for cholecystitis positive for biliary dyskinesia patient is not a candidate for cholecystectomy. Consult with Dr. Castillo appreciated. antibiotic discontinued. Abdominal pain is likely referable pain from the fractures at the back, baclofen added for muscle spasm 3. Inflammatory changes in the right iliac artery and venous structuresprior CAT scan, without evidence of clinical diverticulitis, this area is without any tenderness on examination, we will hold antibioticsIV Levaquin and IV Flagyl. 4. Mechanical aortic valve with [facility], on long-term anticoagulation, Coumadin INR at 3.5 at goal. 5. Occult blood loss is noted with possible acute blood loss anemia, Hemoccult stools to be done, patient had in the past complete endoscopies including capsule endoscopy,likely iron deficiency anemia patient is not a candidate for colonoscopy. Patient is status post transfusion 1 unit of packed RBCs and 2 doses of Ferrlecit. 6. CKD stage III, currently at baseline 1.19 7. Elevated troponin, acute coronary consult ruled out. Radiology consult appreciated. 8. Acute iron deficiency anemia with possible GI bleedas patient is on Coumadin:iron saturation 1.9% continue PPI continue to watch for any GI bleed. Hemoccult stools, completed Ferrlecit 125 x 2 doses. 9. 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 10. Hypertension. Continue hydralazine 50 mg 3 times a day along with atenolol 100 mg twice a day. 11. Dementia, probable vascular dementia. Continue Aricept 10 mg daily. 12. Recurrent depression. Continue Celexa 10 mg daily. 13. Hyperlipidemia. Crestor on hold. 14. GI prophylaxis. Continue 40 mg daily. 15. DVT prophylaxis. Patient is therapeutic on Coumadin. Discharge plan: To be determined. PT and OT
[2018-08-27 16:43] LABS: Glucose,Whole Blood 77 mg/dL (75-99)
[2018-08-27] MEDS ORDERED: POTASSIUM CHLORIDE ER 20 MEQ TAB.ER PO STA (17:01)
[2018-08-27] MEDS: ATORVASTATIN 80 MG TAB PO SCH (21:07)
[2018-08-27] MEDS: DONEPEZIL 10 MG TAB PO SCH (21:07)
[2018-08-27] MEDS: MELATONIN 3 MG TABLET PO SCH (21:07)
--- NOTE | 2018-08-27 21:39 | P.PN ---
Subjective Progress Note Date: 08/27/18 Principal diagnosis: iron deficiency anemia The patient is seen sitting bedside with her son and daughter in the room. No signs or symptoms of GI bleeding. She is tolerating her diet. No abdominal pain reported at this time. Objective - Vital Signs Vital signs: Vital Signs Temp 97.5 F L 08/27/18 20:00 Pulse 69 08/27/18 20:00 Resp 18 08/27/18 20:00 BP 158/84 08/27/18 20:00 Pulse Ox 96 08/27/18 20:00 Intake & Output 08/27/18 08/27/18 08/28/18 06:59 18:59 06:59 Intake Total 400 240 Output Total 200 1100 Balance 200 -860 Weight 64.5 kg Intake: Oral 400 240 Output: Urine 200 1100 Other: Voiding Method Diaper Diaper Incontinent Incontinent # Voids 2 2 1 - Exam On physical examination, patient appears comfortable in no apparent distress. HEAD: Normocephalic, atraumatic. EYES: No scleral icterus. No conjunctival injection. MOUTH: No lesions, tongue midline. NECK: Trachea midline, no gross abnormalities. CHEST: decreased air entry bilaterally. HEART: S1-S2 appreciated. ABDOMEN: Soft, obese. Bowel sounds are positive. No organomegaly. No guarding or rigidity. EXTREMITIES: No pedal edema. SKIN: No rashes, no jaundice. NEUROLOGIC: Alert and oriented to person. No focal deficits. - Labs CBC & Chem 7: 08/27/18 06:21 08/27/18 06:21 Labs: Abnormal Lab Results - Last 24 Hours (Table) 08/27/18 08/27/18 08/27/18 Range/Units 06:21 06:21 06:21 WBC 16.6 H (3.8-10.6) k/uL RBC 3.66 L (3.80-5.40) m/uL Hgb 9.9 L (11.4-16.0) gm/dL Hct 32.3 L (34.0-46.0) % MCHC 30.7 L (31.0-37.0) g/dL PT 28.8 H (9.0-12.0) sec INR 3.0 H (<1.2) Sodium 131 L (137-145) mmol/L Potassium 3.3 L (3.5-5.1) mmol/L Chloride 90 L (98-107) mmol/L Carbon Dioxide 37 H (22-30) mmol/L BUN 29 H (7-17) mg/dL Creatinine 1.14 H (0.52-1.04) mg/dL Glucose 122 H (74-99) mg/dL POC Glucose (mg/dL) (75-99) mg/dL Calcium 7.7 L (8.4-10.2) mg/dL 08/27/18 08/27/18 Range/Units 06:29 11:34 WBC (3.8-10.6) k/uL RBC (3.80-5.40) m/uL Hgb (11.4-16.0) gm/dL Hct (34.0-46.0) % MCHC (31.0-37.0) g/dL PT (9.0-12.0) sec INR (<1.2) Sodium (137-145) mmol/L Potassium (3.5-5.1) mmol/L Chloride (98-107) mmol/L Carbon Dioxide (22-30) mmol/L BUN (7-17) mg/dL Creatinine (0.52-1.04) mg/dL Glucose (74-99) mg/dL POC Glucose (mg/dL) 142 H 219 H (75-99) mg/dL Calcium (8.4-10.2) mg/dL Assessment and Plan (1) Iron deficiency anemia Narrative/Plan: 77-year-old female with multiple medical comorbidities including iron deficiency anemia who presented to the hospital from rehabilitation facility due to shortness of breath. Patient had required blood transfusion in the outpatient setting due to low hemoglobin. She has a long-standing history of anemia which was initially evaluated in 2017 with EGD significant for hiatal hernia and gastritis and colonoscopy significant for diverticulosis. No signs or symptoms of GI bleeding reported and the patient has had a stable hemoglobin. Anemia likely chronic and secondary to GI blood loss with small bowel pathology and AVM likely. Hemoglobin 9.9 from 8.5 previously. Current Visit: Yes Status: Acute Code(s): D50.9 - IRON DEFICIENCY ANEMIA, UNSPECIFIED SNOMED Code(s): 04898494 Plan: Supportive care Okay for diet Continue to monitor hemoglobin and hematocrit and transfuse as needed Appreciate recommendations from the hematology service Iron infusion planned by the hematology service Extensive discussion with the patient and her daughter as well as on the phone with her son who is her legal decision-maker, at this time they are not interested in endoscopic evaluation due to concerns over adverse effects given patient's underlying dementia, and plan per their wishes is for conservative management with consideration for endoscopy if signs or symptoms of GI bleeding develop or patient has profound fall in hemoglobin Thank you for allowing us to participate in the care of the patient, the gastroenterology service will stand by, please call us back with any questions or concerns
[2018-08-27] MEDS ORDERED: hydrALAZINE HCL 20 MG/ML 1 ML VIAL IVP PRN (23:29)
[2018-08-28] MEDS: PANTOPRAZOLE 40 MG TABLET PO SCH (06:37)
[2018-08-28] MEDS: IPRATROPIUM-ALBUTEROL 3 ML NEB INHALATION SCH ×2 (08:04→11:44)
[2018-08-28 08:56] VITALS: TEMP 98.4
[2018-08-28] MEDS ORDERED: FUROSEMIDE 20 MG TAB PO SCH (09:00)
[2018-08-28] MEDS ORDERED: POTASSIUM CHLORIDE ER 20 MEQ TAB.ER PO SCH (09:00)
[2018-08-28] MEDS: DOCUSATE 100 MG CAP PO SCH (09:01)
[2018-08-28] MEDS: ATENOLOL 50 MG TAB PO SCH (09:01)
[2018-08-28] MEDS: CITALOPRAM HYDROBROMIDE 10 MG TAB PO SCH (09:01)
[2018-08-28] MEDS: LIDOCAINE 5% PATCH TOPICAL SCH (09:02)
[2018-08-28] MEDS: hydrALAZINE HCL 50 MG TAB PO SCH (09:02)
[2018-08-28] MEDS ORDERED: hydrALAZINE HCL 25 MG TAB PO STA (09:07)
[2018-08-28] MEDS ORDERED: POTASSIUM CHLORIDE ER 20 MEQ TAB.ER PO STA (09:15)
--- NOTE | 2018-08-28 10:03 | P.DS ---
Providers Date of admission: 08/23/18 20:08 Expected date of discharge: 08/28/18 Attending physician: Elsy Goel Consults: 08/23/18 20:20 Consult Physician Urgent Consulting Provider: [facility] Consult Reason/Comments: acute hypoxic resp failure, acute volume overload Do you want consulting provider notified?: Yes 08/24/18 09:35 Consult Physician Routine Consulting Provider: Chucky Mars Consult Reason/Comments: hemolytic anemia Do you want consulting provider notified?: Yes Consult Physician Urgent Consulting Provider: Enmanuel Castillo Consult Reason/Comments: abdomen pain Do you want consulting provider notified?: Yes Primary care physician: Nenita Walters Hospital Course: 77-year-old female with multiple medical problem known to have history of hypertension, long-term anticoagulation for mechanical aortic valve replacement, atherosclerotic heart disease, dementia, iron deficiency anemia and A. fib with RVR who seen Dr. Walters recently admitted to our facility 08/09/2018 secondary to compression fracturesT6-T7, T9 and T12, with 50-75% wedging compression deformities, was at [facility] for skilled rehabilitation. Patient received 1 unit of packed red blood cells 08/22/2018 secondary to anemia, and was subsequently seen in emergency room secondary to increasing shortness of breath. She was found to be in fluid overload, she has chronic anemia, for which she had completed multiple GI workup including endoscopies, upper and lower, and capsule endoscopy by GI. she presents with an comfortable right upper quadrant pain, thoracic pain, and shortness of breath PND, no chest pain or palpitation, in the emergency roomshe had CAT scan of the abdomen and pelvis that shows bilateral pleural effusion, heart enlargement, some infiltrate or atelectasis in lung, 1 cm cyst left lobe of labor liver, gallbladderappears normal, with normal common bile duct, however there is small inflammatory fat stranding left side of pelvis anteriorly and along the iliac artery and vein, sigmoid diverticula without evidence of diverticulitis, there is mild sigmoid diverticulosis, there is right renal hypoplasia or atrophy, findings suggest atelectasis or chronic congestive heart failure. Ultrasound of the abdomen was done secondary to vomiting,gallbladder cannot be fully visualized, common bile.on the displaced portion is normal, andon my evaluation today, there is a positive Hernandez's sign, no guarding or tenderness in the left lower quadrant, patient has symptomatic PND, consulted Dr. Castillo from general surgeryalso blood has dropped 2 g since admission, overnight, we consulted Dr. 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 Patient is gently diuresed, 1 unit of packed red blood cells will be given along with Lasix 40 mg after blood transfusion 08/25: Abdominal ultrasound revealed limited exam demonstrated small hypoechoic lesion within the left lobe of the liver too small to characterize. Atrophic right kidney. Left kidney not visualized. Patient has been evaluated by Dr. Castillo and HIDA scan to rule out cholecystitis which is ordered for this morning. Patient has been afebrile, heart rate 65, blood pressure 143/64 and pulse ox 96% on 3 L nasal cannula. WBC 18.1, hemoglobin 8.2, INR 3.7. Sodium 130, potassium 3.2, chloride 88, CO2 34, BUN 27 creatinine 1.21. Calcium 7.5. Blood sugars running between 107 and 143. Cardiology is following for acute fluid overload after transfusion of one unit of packed RBCs, acute on chronic diastolic heart failure, mechanical aortic valve. Patient is to continue IV Lasix. Echocardiogram has been ordered. Patient is pleasantly confused. She continues to complain of right upper quadrant pain. She denies having any vomiting. She denies passing gas or having a bowel movement but nursing is documented bowel movements yesterday. Potassium will be replaced. Patient will be started on clear liquid diet following HIDA scan. 08/26 patient examined bedside is comfortable sitting on the chair. Requiring 3 L of oxygen at rest. Patient does complain of abdominal distention and had no bowel movement for past few days. Will add patient's senna and Colace. Chest x-ray didn't suggest pulmonary congestion will repeat chest x-ray to evaluate pulmonary edema. Vitals assessed this morning suggests mild temp of 97 pulse 65 blood pressure 164/81 and saturating 95 on 2 L. 08/27 patient examined bedside complains of significant weakness and muscle spasm of the back. She doesn't trace frequency of urine and is unable to go to the bathroom without accident. Patient is currently on 40 mg of Lasix will decrease it to 20 mg by mouth daily. Urinalysis was negative for any sign of infection. 08/28: Patient was up most of the night. Repeat lab work is currently pending. GI has signed off as well as cardiology. Patient has been cleared for discharge. The patient 1 dose of baclofen last night. She continues to have spasm type pain. Hemoglobin from yesterday was 9.9. Patient will be discharged to [facility] today in stable condition. Discharge diagnoses: 1. Acute on chronic diastolic heart failure with fluid overload from recent blood transfusion. 2. Right upper quadrant pain likely referable pain from the fractures at the back 3. Inflammatory changes in the right iliac artery and venous structures prior CAT scan, without evidence of clinical diverticulitis 4. Mechanical aortic valve with [facility], on long-term anticoagulation, Coumadin INR at 3.5 at goal. 5. Occult blood loss is noted with possible acute blood loss anemia status post transfusion 1 unit of packed RBCs and 2 doses of Ferrlecit. 6. CKD stage III 7. Elevated troponin, acute coronary consult ruled out. 8. Acute iron deficiency anemia with possible GI bleed 9. Chronic hyponatremia: Most likely SIADH 10. Hypertension. 11. Dementia, probable vascular dementia. 12. Recurrent depression. 13. Hyperlipidemia. Discharge plan: [facility] Impression and plan of care have been directed as dictated by the signing physician. Ivania Ocasio nurse practitioner acting as scribe for signing physician. Patient Condition at Discharge: Good Plan - Discharge Summary New Discharge Prescriptions: New hydrALAZINE HCL [Apresoline] 75 mg PO TID tab Docusate [Colace] 100 mg PO BID PRN #30 cap PRN Reason: Constipation Ipratropium-Albuterol Nebulize [Duoneb 0.5 mg-3 mg/3 ml Soln] 3 ml INHALATION RT-QID ampul.neb Potassium Chloride ER [K-Dur 20] 20 meq PO DAILY tab.er.prt Furosemide [Lasix] 20 mg PO DAILY tab Baclofen [Lioresal] 5 mg PO TID PRN tab PRN Reason: Muscle Spasm Sennosides [Senokot] 8.6 mg PO DAILY PRN tab PRN Reason: Constipation Continue Rosuvastatin Calcium [Crestor] 40 mg PO HS@213 Atenolol 100 mg PO BID@0800,1700 Ferrous Sulfate [Iron (65 MG Elemental)] 325 mg PO BID@0800,1700 Donepezil HCl [Aricept] 10 mg PO DAILY@2130 Citalopram Hydrobromide [CeleXA] 10 mg PO DAILY@0800 Lidocaine 5% Patch [Lidoderm 5% Patch] 1 patch TOPICAL DAILY #60 patch Pantoprazole [Protonix] 40 mg PO AC-BRKFST tablet. Sodium Bicarbonate Tab 650 mg PO BID Bisacodyl [Dulcolax] 10 mg RECTAL HS PRN PRN Reason: Constipation Magnesium Hydroxide [Milk of Magnesia] 2,400 mg PO DAILY PRN PRN Reason: Constipation Na Phos,M-B/Na Phos,Di-Ba [Fleet Adult] 133 ml RECTAL DAILY PRN PRN Reason: Constipation Acetaminophen [Tylenol Arthritis] 650 mg PO Q4H Lactose-Reduced Food [Ensure Plus] 237 ml PO BID@0800,1700 Melatonin 5 mg PO HS@2129 Magnesium Oxide [Mag-Ox] 250 mg PO DAILY@1700 Warfarin [Coumadin] 2 mg PO DAILY@1700 Acetaminophen-Codeine 300-30mg [Tylenol w/codeine #3] 1 tab PO Q8H PRN 3 Days #9 tablet PRN Reason: Pain Discontinued hydrALAZINE HCL [Apresoline] 50 mg PO TID Discharge Medication List Atenolol 100 mg PO BID@0800,1700 02/04/16 [History] Rosuvastatin Calcium [Crestor] 40 mg PO HS@212902/04/16 [History] Citalopram Hydrobromide [CeleXA] 10 mg PO DAILY@0800 08/09/18 [History] Donepezil HCl [Aricept] 10 mg PO DAILY@21308/09/18 [History] Ferrous Sulfate [Iron (65 MG Elemental)] 325 mg PO BID@0800,1700 08/09/18 [History] Lidocaine 5% Patch [Lidoderm 5% Patch] 1 patch TOPICAL DAILY #60 patch 08/15/18 [Rx] Pantoprazole [Protonix] 40 mg PO AC-BRKFST tablet. 08/15/18 [Rx] Bisacodyl [Dulcolax] 10 mg RECTAL HS PRN 08/22/18 [History] Sodium Bicarbonate Tab 650 mg PO BID 08/22/18 [History] Acetaminophen [Tylenol Arthritis] 650 mg PO Q4H 08/23/18 [History] Lactose-Reduced Food [Ensure Plus] 237 ml PO BID@0800,1700 08/23/18 [History] Magnesium Hydroxide [Milk of Magnesia] 2,400 mg PO DAILY PRN 08/23/18 [History] Magnesium Oxide [Mag-Ox] 250 mg PO DAILY@1700 08/23/18 [History] Melatonin 5 mg PO HS@2130 08/23/18 [History] Na Phos,M-B/Na Phos,Di-Ba [Fleet Adult] 133 ml RECTAL DAILY PRN 08/23/18 [History] Warfarin [Coumadin] 2 mg PO DAILY@1700 08/23/18 [History] Acetaminophen-Codeine 300-30mg [Tylenol w/codeine #3] 1 tab PO Q8H PRN 3 Days #9 tablet 08/28/18 [Rx] Baclofen [Lioresal] 5 mg PO TID PRN tab 08/28/18 [Rx] Docusate [Colace] 100 mg PO BID PRN #30 cap 08/28/18 [Rx] Furosemide [Lasix] 20 mg PO DAILY tab 08/28/18 [Rx] Ipratropium-Albuterol Nebulize [Duoneb 0.5 mg-3 mg/3 ml Soln] 3 ml INHALATION RT-QID ampul.neb 08/28/18 [Rx] Potassium Chloride ER [K-Dur 20] 20 meq PO DAILY tab.er.prt 08/28/18 [Rx] Sennosides [Senokot] 8.6 mg PO DAILY PRN tab 08/28/18 [Rx] hydrALAZINE HCL [Apresoline] 75 mg PO TID tab 08/28/18 [Rx] Follow up Appointment(s)/Referral(s): Nenita Walters MD [Primary Care Provider] - 1 Week (at [facility]) José Artis MD [STAFF PHYSICIAN] - 1 Week Discharge Disposition: TRANSFER TO SNF/ECF
[2018-08-28 11:11] VITALS: BP 169/77; RESP 14
[2018-08-28 11:47] VITALS: PULSE 60
[2018-08-28 12:07] LABS: Calcium 8.5 mg/dL (8.4-10.2); Potassium 3.5 mmol/L (3.5-5.1)
[2018-08-28] MEDS ORDERED: hydrALAZINE HCL 50 MG TAB PO SCH (16:00)
== END 2018-08-28 15:50 | DRG 291 ==
LOC: EC 16:44 → 3SCARD 20:08
PROVIDERS: ADMIT Family Medicine; ATTEND Family Medicine
PROC: 30233N1 Transfusion of Nonautologous Red Blood Cells into Peripheral Vein, Percutaneous Approach (ICD-10-PCS; principal; 2018-08-24)
DX: I13.0 Hypertensive heart and chronic kidney disease with heart failure and stage 1 through stage 4 chronic kidney disease, or unspecified chronic kidney disease (principal); I50.33 Acute on chronic diastolic (congestive) heart failure; J96.01 Acute respiratory failure with hypoxia; E22.2 Syndrome of inappropriate secretion of antidiuretic hormone; F05 Delirium due to known physiological condition; F33.9 Major depressive disorder, recurrent, unspecified; M48.50XA Collapsed vertebra, not elsewhere classified, site unspecified, initial encounter for fracture; E46 Unspecified protein-calorie malnutrition; D62 Acute posthemorrhagic anemia; K92.2 Gastrointestinal hemorrhage, unspecified; N18.3 Chronic kidney disease, stage 3 (moderate); Q27.33 Arteriovenous malformation of digestive system vessel; D72.829 Elevated white blood cell count, unspecified; E78.5 Hyperlipidemia, unspecified; F01.50 Vascular dementia, unspecified severity, without behavioral disturbance, psychotic disturbance, mood disturbance, and anxiety; F41.9 Anxiety disorder, unspecified; I25.10 Atherosclerotic heart disease of native coronary artery without angina pectoris; I48.91 Unspecified atrial fibrillation; K57.30 Diverticulosis of large intestine without perforation or abscess without bleeding; N26.1 Atrophy of kidney (terminal); R79.1 Abnormal coagulation profile; T38.0X5A Adverse effect of glucocorticoids and synthetic analogues, initial encounter; Z79.01 Long term (current) use of anticoagulants; Z79.899 Other long term (current) drug therapy; Z83.3 Family history of diabetes mellitus; Z86.73 Personal history of transient ischemic attack (TIA), and cerebral infarction without residual deficits; Z87.891 Personal history of nicotine dependence; Z90.710 Acquired absence of both cervix and uterus; Z95.1 Presence of aortocoronary bypass graft; Z95.2 Presence of prosthetic heart valve; Z68.22 Body mass index [BMI] 22.0-22.9, adult
CPT/HCPCS: 36415; 36600; 70450; 71045; 71046; 72125; 74177; 76700; 78227; 80048; 80053; 81001; 82550; 82805; 83010; 83605; 83615; 83690; 83880; 84484; 85025; 85027; 85045; 85610; 85730; 86850; 86900; 86901; 86920; 93005; 93306; 94640; 94760; 96374; 96375; 99285

== ENCOUNTER 2018-08-30 20:45 | Inpatient (IN) | payer MEDICARE, BC ==
[2018-08-30] MEDS ORDERED: SODIUM CHLORIDE 0.9% 1,000 ML IV STA ×2 (20:48→21:38)
--- NOTE | 2018-08-30 20:54 | ED ---
Neuro HPI - General Stated Complaint: Weakness Time Seen by Provider: 08/30/18 20:47 Source: RN notes reviewed, old records reviewed - History of Present Illness Is the patient presenting with stroke symptoms?: No -: hour(s) Initial Comments: This is a 77-year-old female the ER for evaluation of lower extremity weakness. Back pain. Abdominal pain or distention, patient's a poor strain history history obtained from patient's chart and EMS as well as patient's transferring physician. Patient has never had similar complaints in the past. No trauma noted. No fevers noted. Mild cough. No recent change in medications. Difficulty with urination Severity: severe Quality: intermittant Improves With: none Worsens With: none On Anticoagulants: No Context: gradual onset Associated Symptoms: weakness Treatments Prior to Arrival: none - Related Data Home Medications: Home Medications Medication Instructions Recorded Confirmed Atenolol 100 mg PO BID 02/04/16 08/30/18 Citalopram Hydrobromide [CeleXA] 10 mg PO DAILY 08/09/18 08/30/18 Donepezil HCl [Aricept] 10 mg PO HS 08/09/18 08/30/18 Ferrous Sulfate [Iron (65 MG 325 mg PO BID 08/09/18 08/30/18 Elemental)] Bisacodyl [Dulcolax] 10 mg RECTAL DAILY PRN 08/22/18 08/30/18 Sodium Bicarbonate Tab 650 mg PO BID 08/22/18 08/30/18 Acetaminophen [Tylenol Arthritis] 650 mg PO Q4H 08/23/18 08/30/18 Magnesium Hydroxide [Milk of 2,400 mg PO DAILY PRN 08/23/18 08/30/18 Magnesia] Magnesium Oxide [Mag-Ox] 250 mg PO DAILY 08/23/18 08/30/18 Melatonin 5 mg PO HS 08/23/18 08/30/18 Na Phos,M-B/Na Phos,Di-Ba [Fleet 133 ml RECTAL DAILY PRN 08/23/18 08/30/18 Adult] Warfarin [Coumadin] 2 mg PO DAILY 08/23/18 08/30/18 Atorvastatin [Lipitor] 80 mg PO HS 08/30/18 08/30/18 Baclofen 5 mg PO Q8H PRN 08/30/18 08/30/18 Docusate [Colace] 100 mg PO Q12H PRN 08/30/18 08/30/18 Lidocaine 5% Patch [Lidoderm 5% 1 patch TRANSDERM DAILY 08/30/18 08/30/18 Patch] hydrALAZINE HCL [Apresoline] 75 mg PO Q8H 08/30/18 08/30/18 Previous Rx's Medication Instructions Recorded Pantoprazole [Protonix] 40 mg PO AC-BRKFST tablet. 08/15/18 Acetaminophen-Codeine 300-30mg 1 tab PO Q8H PRN 3 Days #9 tablet 08/28/18 [Tylenol w/codeine #3] Furosemide [Lasix] 20 mg PO DAILY tab 08/28/18 Ipratropium-Albuterol Nebulize 3 ml INHALATION RT-QID ampul.neb 08/28/18 [Duoneb 0.5 mg-3 mg/3 ml Soln] Potassium Chloride ER [K-Dur 20] 20 meq PO DAILY tab.er.prt 08/28/18 Sennosides [Senokot] 8.6 mg PO DAILY PRN tab 08/28/18 Allergies/Adverse Reactions: Allergies Allergy/AdvReac Type Severity Reaction Status Date / Time amoxicillin Allergy Unknown Verified 08/30/18 20:49 Sulfa (Sulfonamide Allergy Rash/Hives Verified 08/30/18 20:49 Antibiotics) Review of Systems ROS Statement: Those systems with pertinent positive or pertinent negative responses have been documented in the HPI. ROS Other: All systems not noted in ROS Statement are negative. General Exam General appearance: alert, in no apparent distress Head exam: Present: atraumatic, normocephalic, normal inspection Eye exam: Present: normal appearance, PERRL, EOMI. Absent: scleral icterus, conjunctival injection, periorbital swelling ENT exam: Present: normal exam, mucous membranes moist Neck exam: Present: normal inspection. Absent: tenderness, meningismus, lymphadenopathy Respiratory exam: Present: normal lung sounds bilaterally. Absent: respiratory distress, wheezes, rales, rhonchi, stridor Cardiovascular Exam: Present: regular rate, normal rhythm, normal heart sounds. Absent: systolic murmur, diastolic murmur, rubs, gallop, clicks GI/Abdominal exam: Present: soft, normal bowel sounds. Absent: distended, tenderness, guarding, rebound, rigid Extremities exam: Present: normal inspection, full ROM, normal capillary refill. Absent: tenderness, pedal edema, joint swelling, calf tenderness Back exam: Present: normal inspection Neurological exam: Present: alert, oriented X3, CN II-XII intact Psychiatric exam: Present: normal affect, normal mood Skin exam: Present: warm, dry, intact, normal color. Absent: rash Stroke MDM - Lab Data Result diagrams: 08/30/18 20:50 08/30/18 20:50 Lab Results 08/30/18 08/30/18 Range/Units 20:50 20:50 WBC 11.5 H (3.8-10.6) k/uL RBC 4.13 (3.80-5.40) m/uL Hgb 11.4 (11.4-16.0) gm/dL Hct 35.4 (34.0-46.0) % MCV 85.9 (80.0-100.0) fL MCH 27.7 (25.0-35.0) pg MCHC 32.3 (31.0-37.0) g/dL RDW 15.2 (11.5-15.5) % Plt Count 305 (150-450) k/uL Neutrophils % 84 % Lymphocytes % 4 % Monocytes % 8 % Eosinophils % 1 % Basophils % 0 % Neutrophils # 9.7 H (1.3-7.7) k/uL Lymphocytes # 0.5 L (1.0-4.8) k/uL Monocytes # 0.9 (0-1.0) k/uL Eosinophils # 0.1 (0-0.7) k/uL Basophils # 0.0 (0-0.2) k/uL Hypochromasia Slight Sodium 123 L (137-145) mmol/L Potassium 3.8 (3.5-5.1) mmol/L Chloride 88 L (98-107) mmol/L Carbon Dioxide 29 (22-30) mmol/L Anion Gap 6 mmol/L BUN 44 H (7-17) mg/dL Creatinine 1.23 H (0.52-1.04) mg/dL Est GFR (CKD-EPI)AfAm 48 (>60 ml/min/1.73 sqM) Est GFR (CKD-EPI)NonAf 42 (>60 ml/min/1.73 sqM) Glucose 173 H (74-99) mg/dL Calcium 8.5 (8.4-10.2) mg/dL Total Bilirubin 0.4 (0.2-1.3) mg/dL AST 56 H (14-36) U/L ALT 38 (9-52) U/L Alkaline Phosphatase 120 (38-126) U/L Creatine Kinase 62 (30-135) U/L Total Protein 5.1 L (6.3-8.2) g/dL Albumin 2.7 L (3.5-5.0) g/dL Amylase 205 H (30-110) U/L Lipase 1016 H (23-300) U/L - Medical Decision Making 37 female the ER for evaluation found to have pneumonia urinary retention significant constipation stool, also shows pneumonia will admit for treatment of pneumonia, patient also severe hyponatremia will treat hyponatremia. Patient can be admitted for further evaluation and monitoring - Radiology Data Radiology results: report reviewed (CT abdomen pelvis shows urinary retention moderate amount of stool as well as documented pneumonia), image reviewed Past Medical History Past Medical History: Coronary Artery Disease (CAD), CVA/TIA, GI Bleed, Hype rlipidemia, Hypertension, Osteoarthritis (OA), Vascular Disorder Additional Past Medical History / Comment(s): Pt hospitalized at [facility] on 04/18/16 with CKD stage II, hyponatremia. Other HX: black stools x 2 days-had EGD/colonoscopy showing gastritis and diverticulosis, hemorroids, polyps, Lt hip pain (needs total hip replacement), L knee meniscus tear, tripped and fell struck face/R eye, has "hairline fracture lower back",, protein calorie malnutrition, tia,sciatic nerve pain. fell 5-14-17 -fx lt writs. History of Any Multi-Drug Resistant Organisms: None Reported Past Surgical History: Cardiac Valve Replacement, Coronary Bypass/CABG, Hysterectomy Additional Past Surgical History / Comment(s): Mick carotid surgery, 2001 [facility] aortic valve replacement, 03/23/16 EGD and colonoscopy, past colonoscopy with polypectomy, last colonoscopy was in 2017, low sodium Past Anesthesia/Blood Transfusion Reactions: No Reported Reaction Past Psychological History: Anxiety Smoking Status: Former smoker Past Alcohol Use History: Occasional Past Drug Use History: None Reported - Past Family History Sister(s) Family Medical History: Cancer Father Family Medical History: Diabetes Mellitus Additional Family Medical History / Comment(s): Father had tuberculosis. Mother Family Medical History: Dementia Son(s) Family Medical History: No Reported History Daughter(s) Family Medical History: No Reported History Course Vital Signs 08/30/18 20:49 Temperature 97.0 F L Pulse Rate 61 Respiratory 18 Rate Blood Pressure 122/68 O2 Sat by Pulse 95 Oximetry Critical Care Time Critical Care Time: Yes Total Critical Care Time: 31 Disposition Clinical Impression: Abdominal pain, Iron deficiency anemia, Anemia, Altered mental status, Renal insufficiency, Generalized weakness, Hyponatremia, Urinary retention, Nosocomial pneumonia Disposition: ADMITTED IP TO THIS [facility] Condition: Serious Is patient prescribed a controlled substance at d/c from ED?: No Referrals: Nenita Walters MD [Primary Care Provider] - 1-2 days
[2018-08-30 21:02] LABS: Basophils % (A) 0 %; Eosinophils # (A) 0.1 k/uL (0-0.7); Eosinophils % (A) 1 %; HCT 35.4 % (34.0-46.0); HGB 11.4 gm/dL (11.4-16.0); Hypochromasia Slight; Lymphocytes # (A) 0.5 k/uL (1.0-4.8); Lymphocytes % (A) 4 %; MCH 27.7 pg (25.0-35.0); MCHC 32.3 g/dL (31.0-37.0); MCV 85.9 fL (80.0-100.0); Mean Platelet Volume 7.5; Monocytes # (A) 0.9 k/uL (0-1.0); Monocytes % (A) 8 %; Neutrophils # (A) 9.7 k/uL (1.3-7.7); Neutrophils % (A) 84 %; Platelet Count 305 k/uL (150-450); RBC 4.13 m/uL (3.80-5.40); RDW 15.2 % (11.5-15.5); WBC 11.5 k/uL (3.8-10.6)
[2018-08-30 21:11] LABS: Albumin 2.7 g/dL (3.5-5.0); Calcium 8.5 mg/dL (8.4-10.2); Potassium 3.8 mmol/L (3.5-5.1); Total Bilirubin 0.4 mg/dL (0.2-1.3); Total Protein 5.1 g/dL (6.3-8.2)
--- NOTE | 2018-08-30 22:05 | CT ---
EXAMINATION TYPE: CT abdomen pelvis w con DATE OF EXAM: 08/30/2018 COMPARISON: 08/23/2018 HISTORY: Weakness, bilateral legs. Recent Fx T6-7-9, 12. Pt unable to raise arms. Isovue 300/80 ml. Lupe lawlerWoody Flaherty said to peform scan, with pt GFR 42, as pt being admitted, and will be hydrated CT DLP: 1059.2 mGycm Automated exposure control for dose reduction was used. TECHNIQUE: Helical acquisition of images was performed from the lung bases through the pelvis. CONTRAST: Performed without Oral Contrast and with IV Contrast, patient injected with 80 mL of Isovue 300. FINDINGS: There are small bilateral pleural effusions. There is airspace consolidation and atelectasis left low er lobe posteriorly. Heart is enlarged. There is no pericardial effusion. There is extensive calcific ation at the aortic valve and ascending aorta. Abdominal aorta is atheromatous. There is no pericardial effusion. Stomach has normal size and contour. There is a 1.5 cm cyst in the left lobe of the liver. Liver has normal size. Gallbladder appears normal. The bile ducts are not dil ated. Spleen appears normal. There is no evidence of pancreatic mass. The right kidney shows significant cortical thinning. Left kidney appears to have compensatory hypert rophy. There is no hydronephrosis. Ureters are not dilated. There is no retroperitoneal adenopathy. A bdominal aorta is atheromatous. There is dilated urinary bladder that measures 17 cm in length. There is retained fecal material in t he large bowel. The rectum is dilated and measures 7.2 cm. There are few sigmoid diverticula. There i s no sign of diverticulitis. Small bowel is not dilated. There is no evidence of free air. There is no ascites. There is no mesenteric edema. There is 80% compression deformity of T12 vertebra that appears old. There is thoracolumbar kyphotic curvature. IMPRESSION: DILATED URINARY BLADDER IS CONSISTENT WITH BLADDER OUTLET OBSTRUCTION. RECTAL FECAL IMPACTION. LEFT LOWER LOBE PNEUMONIA. SMALL PLEURAL EFFUSIONS COULD RELATE TO CONGESTIVE HEART FAILURE. CARDIOME DOLORES. ATHEROSCLEROTIC VASCULAR DISEASE. Small left kidney could relate to chronic ischemia. Pleural fluid is decreased compared to old exam. Left lower lobe pneumonia increased. Right basilar a telectasis the same or slightly improved. Dilated urinary bladder new compared to old exam. Constipation increased compared to old exam.
[2018-08-30] MEDS ORDERED: IPRATROPIUM-ALBUTEROL 3 ML NEB INHALATION STA (22:31)
[2018-08-30] MEDS ORDERED: AZTREONAM 2 GM in SODIUM CHLORIDE 0.9% 100 ML IVPB STA (22:31)
[2018-08-30] MEDS ORDERED: PNEUMONIA PROTOCOL UTILIZED 1 EACH MISC PO PRN (22:31)
[2018-08-30] MEDS ORDERED: LEVOFLOXACIN 750MG-D5W PMX 750 MG in DEXTROSE/WATER 1 150ML.BAG IVPB STA (22:31)
[2018-08-30] MEDS ORDERED: ALBUTEROL NEBULIZED 2.5 MG/3 ML INHALATION PRN (22:31)
[2018-08-30] MEDS ORDERED: GLYCERIN ADULT SUPPOSITORY 1 EACH RECTAL STA ×2 (22:34→23:04)
[2018-08-30] MEDS ORDERED: SENNOSIDES-DOCUSATE SODIUM 1 EACH TAB PO STA (22:34)
[2018-08-31] MEDS ORDERED: CLINDAMYCIN 600 MG in DEXTROSE 5% IN WATER 50 ML IVPB SCH ×2 (01:00)
[2018-08-31 01:02] LABS: Appearance,Urine Cloudy (Clear); Bacteria,Urine Rare /hpf; Bilirubin,Urine Negative (Negative); Blood,Urine Negative (Negative); Color,Urine Yellow; Glucose,Urine (UA) Negative (Negative); Ketones,Urine Negative (Negative); Leukocyte Esterase,Urine Negative (Negative); Mucus,Urine Rare /hpf; Nitrite,Urine Negative (Negative); Protein,Urine 1+ (Negative); RBC,Urine 1 /hpf (0-5); Specific Gravity,Urine 1.013 (1.001-1.035); Urobilinogen,Urine <2.0 mg/dL (<2.0)
[2018-08-31] MEDS: SODIUM CHLORIDE 0.9% 1,000 ML IV SCH ×2 (03:44→09:14)
[2018-08-31] MEDS ORDERED: AZTREONAM 2 GM in SODIUM CHLORIDE 0.9% 100 ML IVPB SCH (07:00)
[2018-08-31] MEDS: IPRATROPIUM-ALBUTEROL 3 ML NEB INHALATION SCH ×3 (07:07→16:43)
[2018-08-31] MEDS ORDERED: ENOXAPARIN 40 MG/0.4 ML SYRINGE SQ SCH (09:00)
[2018-08-31] MEDS ORDERED: SENNOSIDES 8.6 MG TAB PO PRN (10:18)
[2018-08-31] MEDS ORDERED: BACLOFEN 10 MG TAB PO PRN (10:18)
[2018-08-31] MEDS ORDERED: DOCUSATE 100 MG CAP PO PRN (10:18)
[2018-08-31] MEDS ORDERED: MAGNESIUM HYDROXIDE 2,400 MG/10 ML CUP PO PRN (10:18)
[2018-08-31] MEDS ORDERED: Acetaminophen-Codeine 300-30mg TAB PO PRN (10:18)
[2018-08-31] MEDS ORDERED: BISACODYL 10 MG SUPP RECTAL PRN (10:18)
[2018-08-31] MEDS ORDERED: NA PHOS,M-B/NA PHOS,DI-BA 133 ML ENEMA RECTAL PRN (10:18)
[2018-08-31] MEDS ORDERED: ATENOLOL 50 MG TAB PO SCH (10:30)
[2018-08-31 11:09] LABS: INR 2.4 (<1.2); Prothrombin Time 23.2 sec (9.0-12.0)
[2018-08-31] MEDS ORDERED: DEXAMETHASONE SOD PHOSPHATE 4 MG/ML 1 ML VIAL IV STA (11:57)
[2018-08-31] MEDS ORDERED: ACETAMINOPHEN TAB 325 MG TAB PO PRN (12:00)
--- NOTE | 2018-08-31 12:45 | CT ---
EXAMINATION TYPE: CT thor lumbar spine wo con DATE OF EXAM: 08/31/2018 COMPARISON: 08/30/2018, 08/23/2018 HISTORY: Patient unable to feel legs. CT DLP: 1272.4 mGycm Automated exposure control for dose reduction was used. FINDINGS: There is a severe compression deformity at T12 with posterior wall displacement. In the sagittal plan e is appears to be posteriorly displaced 1 cm spinal canal stenosis is present measuring 0.6 cm at th is level. There is a compression deformity of T9 with minimal posterior wall displacement. No AP spinal canal s tenosis present There is a compression deformity of T7 along the inferior endplate with approximately 50% loss of alireza tebral body height. This has mild left paracentral sac compression. No spinal canal stenosis is prese nt. Mild wedge deformity of T6 is present without significant posterior thecal sac compression. Some face t hypertrophy is posterior lateral thecal sac compression greater on the left. Degenerative disc changes are present in the lower cervical spine. Uncovertebral joint hypertrophy is foraminal stenosis. IMPRESSION: 1 COMPRESSION DEFORMITIES INCLUDING T6, T7, T9 AND T12. 2. OLD COMPRESSION. T12 APPEARS UNCHANGED BUT IS CONTRIBUTING TO SPINAL CANAL STENOSIS WITH AN AP DIM ENSION OF 0.6 CM. 3. MORE MODERATE WEDGE DEFORMITY AND INFERIOR ENDPLATE DEFORMITIES UP TO APPROXIMATELY 50% NARROWING OF THE VERTEBRAL BODY HEIGHTS AT T6, T7 AND, T9. 4. THE T9 VERTEBRAL INFERIOR ENDPLATE COMPRESSION DEFORMITY MAY BE AN INTERVAL FINDING FROM 08/09/2018 COMPARISON PLAIN FILMS.
[2018-08-31] MEDS ORDERED: DEXAMETHASONE 4 MG TAB PO SCH (13:00)
--- NOTE | 2018-08-31 13:24 | XR ---
EXAMINATION TYPE: XR chest 2V DATE OF EXAM: 08/31/2018 COMPARISON: 08/26/2018 INDICATION: Pneumonia TECHNIQUE: Frontal and lateral views of the chest are obtained. FINDINGS: The heart size is moderately prominent. The pulmonary vasculature is normal. Left lower lobe infiltrate is present. Correlate for pneumonia or atelectasis. Right basilar infiltra te has improved.. IMPRESSION: 1. Left lower lobe infiltrate. Correlate for atelectasis and pneumonia.
[2018-08-31 14:58] VITALS: RESP 21; TEMP 97.7
--- NOTE | 2018-08-31 15:00 | P.HPIM ---
History of Present Illness H&P Date: 08/31/18 HISTORY AND PHYSICAL AND DISCHARGE SUMMARY: This is a 77-year-old female patient of Dr. Walters with past medical history of CAD post CABG 2 in 2001, aortic valve replacement with mechanical valve on chronic Coumadin, history of carotid artery disease status post bilateral carotid endarterectomies, chronic diastolic heart failure, hypertension and hypertensive cardiovascular disease, hyperlipidemia, history of uterine cancer status post total abdominal hysterectomy and bilateral salpingo- oophorectomy, chronic kidney disease stage III, dementia, iron deficiency anemia with GI workup including endoscopies upper and lower and capsule endoscopy. Patient had an hospitalization on 08/09/2018 secondary to compression fractures T6-T7, T9 and T12, with 50-75% wedging compression deformities. Patient received 1 unit of packed red blood cells 08/22/2018 secondary to anemia the patient was readmitted on August 24 for shortness of breath secondary to acute on chronic diastolic heart failure with fluid overload and then discharged to [facility] returning to [facility]. The patient and daughters at bedside giving history that patient had sudden onset of right lower extremity weakness and unable to lift her right leg. Patient does not seem to have significant discomfort in the lumbar area. Apparently 2 weeks ago, patient was able to walk to the bathroom with a walker but at this point she is unable to ambulate at all. Patient is stating that she cannot feel her feet and her right leg is cold. She has no strength in her right lower extremity. Daughter gives history that she has been on muscle relaxant and Tylenol No. 3 the seem to be h elping her lower and thoracic back pain but has caused constipation. Patient presented to [facility] emergency center for evaluation of lower extremity weakness and back pain. Patient has had no trauma. WBC 11.5, hemoglobin 11.4, sodium 123, potassium 3.8, chloride 88, CO2 29, BUN 44 and creatinine 1.23, blood sugar 173. AST 56, ALT 38, alkaline phosphatase 120, amylase [address] of the abdomen and pelvis with contrast revealed dilated urinary bladder consistent with bladder outlet obstruction. Rectal fecal impaction. Left lower lobe pneumonia. Small pleural effusions could relate congestive heart failure. Cardiomegaly, atherosclerotic vascular disease. Small left kidney could relate to chronic ischemia. Pleural fluid is decreased compared to old exam. Left lower lobe pneumonia increased. Right basilar atelectasis same or slightly improved. Patient was started on Azactam, Levaquin, clindamycin nebulizer treatments and admitted to the [facility] floor. We have discussed plan with patient and her daughters at the bedside. We will start arrangements for transfer to [facility]'s family have had neurosurgery eval done there with another family member. Consult with Dr. Ross and dexamethasone has been started with 1 dose ordered IV now. CT of the lumbar and thoracic spine revealed compression deformities including T6, T7, T9, T12. Old compression T12 appears unchanged but is contributing to spinal canal stenosis with an AP dimension of 0.6 cm. More moderate wedge deformity and inferior endplate deformities up to approximately 50% narrowing of the vertebral body aches at T6, T7 and T9. The T9 vertebral inferior endplate c ompression deformity may be an interval finding from 08/09/2018 comparison plain films. Patient transferred to [facility]. Review of Systems Constitutional: Reports weakness, Denies anorexia, Denies chills, Denies fatigue, Denies fever, Denies lethargy, Denies malaise, Denies poor appetite Ears, nose, mouth and throat: Denies dysphagia, Denies mouth pain, Denies nasal congestion, Denies nasal discharge, Denies vertigo Cardiovascular: Denies decreased exercise tolerance, Denies dyspnea on exertion, Denies edema, Denies leg edema, Denies lightheadedness, Denies orthopnea Respiratory: Denies cough, Denies cough with sputum, Denies dyspnea, Denies excessive sputum, Denies hemoptysis, Denies home oxygen, Denies respiratory infections, Denies wheezing Gastrointestinal: Reports abdominal pain, Reports constipation, Denies diarrhea, Denies nausea, Denies vomiting Genitourinary: Denies dysuria, Denies urgency, Denies urinary frequency Musculoskeletal: Reports gait dysfunction, Reports muscle weakness, Denies frequent falls Integumentary: Denies pruritus, Denies rash, Denies wounds Neurological: Reports gait dysfunction, Reports paralysis, Reports paresthesias, Denies aphasia, Denies change in mentation, Denies change in speech, Denies confusion, Denies convulsions, Denies headaches, Denies loss of vision, Denies syncope, Denies vertigo Psychiatric: Denies anxiety, Denies depression Endocrine: Denies fatigue, Denies weight change Past Medical History Past Medical History: Coronary Artery Disease (CAD), CVA/TIA, GI Bleed, Hyperlipidemia, Hypertension, Osteoarthritis (OA), Vascular Disorder Additional Past Medical History / Comment(s): Pt hospitalized at [facility] on 04/18/16 with CKD stage II, hyponatremia. Other HX: black stools x 2 days-had EGD/colonoscopy showing gastritis and diverticulosis, hemorroids, polyps, Lt hip pain (needs total hip replacement), L knee meniscus tear, tripped and fell struck face/R eye, has "hairline fracture lower back",, protein calorie malnutrition, tia,sciatic nerve pain. fell 5-14-17 -fx lt writs. History of Any Multi-Drug Resistant Organisms: None Reported Past Surgical History: Cardiac Valve Replacement, Coronary Bypass/CABG, Hysterectomy Additional Past Surgical History / Comment(s): Mick carotid surgery, 2001 [facility] aortic valve replacement, 03/23/16 EGD and colonoscopy, past colonoscopy with polypectomy, last colonoscopy was in 2017, low sodium Past Anesthesia/Blood Transfusion Reactions: No Reported Reaction Past Psychological History: Anxiety Additional Psychological History / Comment(s): Pt resides by herself. She is using a walker to ambulate. She also has a cane. Smoking Status: Unknown if ever smoked Past Alcohol Use History: Occasional Additional Past Alcohol Use History / Comment(s): Smoked 1 pack/wk for 2 yrs; quit 01/26/80. Pt states she will have an occasional glass of wine. Past Drug Use History: None Reported - Past Family History Sister(s) Family Medical History: Cancer Father Family Medical History: Diabetes Mellitus Additional Family Medical History / Comment(s): Father had tuberculosis. Mother Family Medical History: Dementia Son(s) Family Medical History: No Reported History Daughter(s) Family Medical History: No Reported History Medications and Allergies Home Medications Medication Instructions Recorded Confirmed Type Atenolol 100 mg PO BID 02/04/16 08/30/18 History Citalopram Hydrobromide [CeleXA] 10 mg PO DAILY 08/09/18 08/30/18 History Donepezil HCl [Aricept] 10 mg PO HS 08/09/18 08/30/18 History Ferrous Sulfate [Iron (65 MG 325 mg PO BID 08/09/18 08/30/18 History Elemental)] Pantoprazole [Protonix] 40 mg PO [id number]-[id number] tablet. 08/15/18 08/30/18 Rx Bisacodyl [Dulcolax] 10 mg RECTAL DAILY PRN 08/22/18 08/30/18 History Sodium Bicarbonate Tab 650 mg PO BID 08/22/18 08/30/18 History Acetaminophen [Tylenol Arthritis] 650 mg PO Q4H 08/23/18 08/30/18 History Magnesium Hydroxide [Milk of 2,400 mg PO DAILY PRN 08/23/18 08/30/18 History Magnesia] Magnesium Oxide [Mag-Ox] 250 mg PO DAILY 08/23/18 08/30/18 History Melatonin 5 mg PO HS 08/23/18 08/30/18 History Na Phos,M-B/Na Phos,Di-Ba [Fleet 133 ml RECTAL DAILY PRN 08/23/18 08/30/18 History Adult] Warfarin [Coumadin] 2 mg PO DAILY 08/23/18 08/30/18 History Acetaminophen-Codeine 300-30mg 1 tab PO Q8H PRN 3 Days #9 tablet 08/28/18 08/30/18 Rx [Tylenol w/codeine #3] Furosemide [Lasix] 20 mg PO DAILY tab 08/28/18 08/30/18 Rx Ipratropium-Albuterol Nebulize 3 ml INHALATION RT-QID ampul.neb 08/28/18 08/30/18 Rx [Duoneb 0.5 mg-3 mg/3 ml Soln] Potassium Chloride ER [K-Dur 20] 20 meq PO DAILY tab.er.prt 08/28/18 08/30/18 Rx Sennosides [Senokot] 8.6 mg PO DAILY PRN tab 08/28/18 08/30/18 Rx Atorvastatin [Lipitor] 80 mg PO HS 08/30/18 08/30/18 History Baclofen 5 mg PO Q8H PRN 08/30/18 08/30/18 History Docusate [Colace] 100 mg PO Q12H PRN 08/30/18 08/30/18 History Lidocaine 5% Patch [Lidoderm 5% 1 patch TRANSDERM DAILY 08/30/18 08/30/18 History Patch] hydrALAZINE HCL [Apresoline] 75 mg PO Q8H 08/30/18 08/30/18 History Allergies Allergy/AdvReac Type Severity Reaction Status Date / Time amoxicillin Allergy Unknown Verified 08/30/18 20:49 Sulfa (Sulfonamide Allergy Rash/Hives Verified 08/30/18 20:49 Antibiotics) Physical Exam Vitals: Vital Signs Temp Pulse Pulse Pulse Resp BP BP 08/31/18 07:18 68 08/31/18 07:08 97.6 F 66 66 18 149/80 08/31/18 01:53 98.3 F 67 16 149/79 08/31/18 01:32 98.8 F 63 17 139/78 08/30/18 23:26 63 08/30/18 23:12 61 08/30/18 20:49 97.0 F L 61 18 122/68 Pulse Ox 08/31/18 07:18 08/31/18 07:08 96 08/31/18 01:53 97 08/31/18 01:32 96 08/30/18 23:26 08/30/18 23:12 08/30/18 20:49 95 Intake and Output 08/30/18 08/31/18 08/31/18 22:59 06:59 14:59 Intake Total 350 Balance 350 Intake: Intake, IV Titration 350 Amount Clindamycin 600 mg In 50 Dextrose 5% in Water 50 ml @ 50 mls/hr IVPB Q8H [facility] Rx#:[id number] Sodium Chloride 0.9% 1, 300 000 ml @ 100 mls/hr IV . Q10H [facility] Rx#:[id number] Other: Weight 74.843 kg - Constitutional General appearance: average body habitus, mild distress - EENT Eyes: anicteric sclerae, EOMI, PERRLA, no ptosis, no scleral icterus, normal appearance ENT: hearing grossly normal, NA/AT, normal oropharynx, no thrush, no tonsillar exudates Ears: bilateral: normal - Neck Neck: no lymphadenopathy, normal ROM, no rigidity, no stridor, no thyromegaly Carotids: right: bruit present, bilateral: upstroke delayed Thyroid: bilateral: normal size - Respiratory Respiratory: bilateral: diminished, negative: dullness, rales, rhonchi, wheezing, prolonged expiration, prolonged inspiration - Cardiovascular Rhythm: regular Heart sounds: normal: S1, S2 Abnormal Heart Sounds: systolic murmur, no rub, no S3 Gallop, no S4 Gallop, no click - Gastrointestinal General gastrointestinal: normal bowel sounds, soft, no splenomegaly, no tenderness, no umbilical hernia, no ventral hernia - Integumentary Integumentary: normal, normal turgor - Neurologic Neurologic: CNII-XII intact Flaccid right lower extremity, cold to touch. No reflexes bilateral lower extremities. No sensation to right lower extremity. Left lower extremity patient is able to move her toes. Upper extremity reflexes sluggish. - Musculoskeletal Musculoskeletal: generalized weakness, strength equal bilaterally - Psychiatric Psychiatric: A&O x's 3, appropriate affect, intact judgment & insight Results CBC & Chem 7: 08/30/18 20:50 08/31/18 10:16 Labs: Abnormal Lab Results - Last 24 Hours (Table) 08/30/18 08/30/18 08/31/18 Range/Units 20:50 20:50 00:31 WBC 11.5 H (3.8-10.6) k/uL Neutrophils # 9.7 H (1.3-7.7) k/uL Lymphocytes # 0.5 L (1.0-4.8) k/uL Sodium 123 L (137-145) mmol/L Chloride 88 L (98-107) mmol/L BUN 44 H (7-17) mg/dL Creatinine 1.23 H (0.52-1.04) mg/dL Glucose 173 H (74-99) mg/dL AST 56 H (14-36) U/L Total Protein 5.1 L (6.3-8.2) g/dL Albumin 2.7 L (3.5-5.0) g/dL Amylase 205 H (30-110) U/L Lipase 1016 H (23-300) U/L Urine Appearance Cloudy H (Clear) Urine Protein 1+ H (Negative) Urine Bacteria Rare H (None) /hpf Urine Mucus Rare H (None) /hpf Thrombosis Risk Factor Assmnt - DVT/VTE Prophylaxis DVT/VTE Prophylaxis: Pharmacologic Prophylaxis ordered - Choose All That Apply Each Factor Represents 1 point: Swollen legs (current) Thrombosis Risk Factor Assessment Total Risk Factor Score: 1 Thrombosis Risk Factor Assessment Level: Low Risk Assessment and Plan Plan: 1. Right lower extremity weakness and paresthesia. Stat CAT scan of the lumbar spine and thoracic spine ordered. Consult with Dr. Ross. Discussed transfer to [facility]. manager asset management to start arrangements. Continue Tylenol 3 for pain, baclofen 5 mg every 8 hours as needed, dexamethasone 4 mg 4 times daily with 1 dose IV now, Lidoderm patch. 2. Left lower lobe pneumonia, possible. Patient has been started on Azactam, Levaquin and clindamycin. Antibiotics will be transitioned to Levaquin daily only. 3. Constipation with fecal impaction, resolved while in the emergency center. Continue current bowel regime. 4. Bladder outlet obstruction on CAT scan, urinary retention. Ponce catheter has been placed in the emergency center. 5. Chronic diastolic heart failure. Continue Lasix 20 mg daily. 6. CAD post CABG x2 in 2001. Continue patient on atenolol 100 mg orally twice every day, Lipitor 80 mg orally once every day. 7. History of aortic valve replacement with [facility] [facility] mechanical valve. Patient on chronic Coumadin to keep her INR between 2-1/2 and 3-1/2. Hold Coumadin for now in preparation for possible surgical intervention at tertiary care center. INR today is 2.4. Continue atenolol 100 mg orally twice every day, losartan 100 mg orally once every day. 8. Hypertension and hypertensive cardiovascular disease. Continue atenolol 100 mg orally twice every day, hydralazine 75 mg every 8 hours. 9. Carotid artery disease status post bilateral carotid endarterectomies. Continue Lipitor for secondary prevention. 10. History of TIA/CVA. Continue Coumadin for life. 11. History osteoarthritis. Continue current pain management. 12. Hyperlipidemia. Continue Lipitor. 13. Recurrent depression. Continue Celexa 10 mg daily. 14. Dementia. Continue Aricept 10 mg at bedtime. 15. Anemia of chronic disease. Continue ferrous sulfate twice daily. 16. History of uterine cancer status post total abdominal hysterectomy and bilateral salpingo-oophorectomy 17. Chronic kidney disease stage III 18. DVT prophylaxis. Continue Coumadin. 19. GI prophylaxis. Continue Protonix 40 mg orally once every day. 11. Full code. 12. Admit as an inpatient. Estimated length of stay 2 midnights. Discharge plan: Return to [facility]. Impression and plan of care have been directed as dictated by the signing physician. Ivania Ocasio nurse practitioner acting as scribe for signing physician.
[2018-08-31 15:27] LABS: Albumin 2.3 g/dL (3.5-5.0); Calcium 7.6 mg/dL (8.4-10.2); Potassium 3.8 mmol/L (3.5-5.1); Total Bilirubin 0.3 mg/dL (0.2-1.3); Total Protein 4.6 g/dL (6.3-8.2)
[2018-08-31] MEDS ORDERED: hydrALAZINE HCL 50 MG TAB PO SCH (16:00)
[2018-08-31 16:54] VITALS: BP 167/80
[2018-08-31 16:57] VITALS: PULSE 70
[2018-08-31] MEDS ORDERED: FERROUS SULFATE 325 MG TAB PO SCH (21:00)
[2018-08-31] MEDS ORDERED: SODIUM BICARBONATE TAB 650 MG TAB PO SCH (21:00)
[2018-08-31] MEDS ORDERED: DONEPEZIL 10 MG TAB PO SCH (21:00)
[2018-08-31] MEDS ORDERED: MELATONIN 5 MG TABLET PO SCH (21:00)
[2018-08-31] MEDS ORDERED: ATORVASTATIN 80 MG TAB PO SCH (21:00)
[2018-09-01] MEDS ORDERED: PANTOPRAZOLE 40 MG TABLET PO SCH (07:30)
[2018-09-01] MEDS ORDERED: LIDOCAINE 5% PATCH TOPICAL SCH (09:00)
[2018-09-01] MEDS ORDERED: CITALOPRAM HYDROBROMIDE 10 MG TAB PO SCH (09:00)
[2018-09-01] MEDS ORDERED: MAGNESIUM OXIDE 400 MG TAB PO SCH (09:00)
[2018-09-01] MEDS ORDERED: FUROSEMIDE 20 MG TAB PO SCH (09:00)
[2018-09-01] MEDS ORDERED: POTASSIUM CHLORIDE ER 20 MEQ TAB.ER PO SCH (09:00)
[2018-09-01] MEDS ORDERED: LEVOFLOXACIN 750MG-D5W PMX 750 MG in DEXTROSE/WATER 1 150ML.BAG IVPB SCH (21:00)
== END 2018-08-31 17:31 | disposition short-term general hospital (02) | DRG 551 ==
LOC: EC 20:45 → 4SSUR 22:34
PROVIDERS: ADMIT Internal Medicine; ATTEND Internal Medicine
DX: M48.04 Spinal stenosis, thoracic region (principal); J18.1 Lobar pneumonia, unspecified organism; I13.0 Hypertensive heart and chronic kidney disease with heart failure and stage 1 through stage 4 chronic kidney disease, or unspecified chronic kidney disease; E46 Unspecified protein-calorie malnutrition; I50.32 Chronic diastolic (congestive) heart failure; E87.1 Hypo-osmolality and hyponatremia; F33.9 Major depressive disorder, recurrent, unspecified; M48.54XA Collapsed vertebra, not elsewhere classified, thoracic region, initial encounter for fracture; J98.11 Atelectasis; D63.8 Anemia in other chronic diseases classified elsewhere; F03.90 Unspecified dementia, unspecified severity, without behavioral disturbance, psychotic disturbance, mood disturbance, and anxiety; N18.3 Chronic kidney disease, stage 3 (moderate); N32.0 Bladder-neck obstruction; D50.9 Iron deficiency anemia, unspecified; E78.5 Hyperlipidemia, unspecified; I25.10 Atherosclerotic heart disease of native coronary artery without angina pectoris; K56.41 Fecal impaction; N27.0 Small kidney, unilateral; K29.70 Gastritis, unspecified, without bleeding; K57.90 Diverticulosis of intestine, part unspecified, without perforation or abscess without bleeding; M54.30 Sciatica, unspecified side; M19.90 Unspecified osteoarthritis, unspecified site; F41.9 Anxiety disorder, unspecified; Y95 Nosocomial condition; R33.9 Retention of urine, unspecified; Z79.01 Long term (current) use of anticoagulants; Z79.899 Other long term (current) drug therapy; Z95.1 Presence of aortocoronary bypass graft; Z95.2 Presence of prosthetic heart valve; Z86.79 Personal history of other diseases of the circulatory system; Z90.710 Acquired absence of both cervix and uterus; Z85.42 Personal history of malignant neoplasm of other parts of uterus; Z90.79 Acquired absence of other genital organ(s); Z90.722 Acquired absence of ovaries, bilateral; Z86.010 Personal history of colon polyps; Z87.81 Personal history of (healed) traumatic fracture; Z86.73 Personal history of transient ischemic attack (TIA), and cerebral infarction without residual deficits; Z87.891 Personal history of nicotine dependence; Z88.0 Allergy status to penicillin; Z88.2 Allergy status to sulfonamides; Z83.1 Family history of other infectious and parasitic diseases; Z83.3 Family history of diabetes mellitus; Z81.8 Family history of other mental and behavioral disorders; Z80.9 Family history of malignant neoplasm, unspecified
CPT/HCPCS: 36415; 51702; 71046; 72128; 72131; 74177; 80053; 81001; 82150; 82550; 83605; 83690; 85025; 85610; 87040; 87086; 94640; 96361; 96365; 96366; 99291